=== PATIENT | female | born 1950 | race African-American/Black ===

== ENCOUNTER 2023-09-15 10:10 | Outpatient (CLI) | payer MEDICARE, OTHER, SELFPAY ==
[2023-09-15 10:17] VITALS: BMI 23.0
[2023-09-15 10:53] LABS: Hematocrit 26.2 % (37.0-47.0); Hemoglobin 8.3 g/dL (12.2-16.2)
--- NOTE | 2023-09-15 11:15 | PC.NURSE ---
H&H drawn today was 8.3 and 26.2. Jyotsna Solorzano APRN was called. Telephone order to cancel transfusion and transport via EMS back to [facility]. [facility] called for transport.
[2023-09-15 11:17] VITALS: BP 189/99; PULSE 102; RESP 18; TEMP 37.4; O2SAT 99
== END 2023-09-15 11:40 | disposition home or self-care (01) ==
PROVIDERS: Nurse Practitioner Family; PCP Family Medicine; Visit Provider Family Medicine
DX: N39.0 Urinary tract infection, site not specified (principal)
CPT/HCPCS: 85014; 85018

== ENCOUNTER 2023-09-16 07:24 | Inpatient (IN) | payer MEDICARE, OTHER, SELFPAY ==
[2023-09-16] VITALS (26 sets, daily range): BP systolic 104–262; BP diastolic 50–117; PULSE 71–131; RESP 13–20; TEMP 36.8–37.2; O2SAT 95–100; BMI 27.3; BMI 20.9; BMI 20.7
--- NOTE | 2023-09-16 07:35 | XR_ITS ---
FINAL REPORT CLINICAL HISTORY: Shortness of breath COMPARISON: None FINDINGS: A single portable view of the chest was obtained. The heart size and pulmonary vascularity are within normal limits. The mediastinum is within normal limits. No acute pulmonary abnormality is identified. The bony thorax is intact. IMPRESSION: No active cardiopulmonary disease. Reviewed, Interpreted and Dictated by Baljeet Chavez III, MD Transcribed by Chaya Gupta Authenticated and [facility]
--- NOTE | 2023-09-16 07:43 | CT_ITS ---
FINAL REPORT TECHNIQUE: After the administration of oral and intravenous contrast, axial images were obtained through the abdomen and pelvis by computed tomography. The study was performed with techniques to keep radiation dose as low as reasonably achievable, (ALARA). Individual dose reduction techniques using automated exposure control or adjustment of mA and/or kV according to the patient's size were employed. CLINICAL HISTORY: sepsis, stage IV sacral decub with purulence FINDINGS: Abdomen: There are small effusions with mild bibasilar atelectasis. G-tube is present. The liver is normal in size and attenuation. The spleen is unremarkable. The adrenals are normal. The pancreas is unremarkable. The kidneys enhance appropriately. The aorta is normal in caliber. There is no free fluid or adenopathy. Pelvis: The appendix is normal. Note is made of a Rodriguez catheter. There is a moderate to large amount of stool in the rectum worrisome for fecal impaction. Rectum measures up to 8.1 cm in transverse dimension. Calcified uterine fibroid is identified. There is possible fluid in the endometrial cavity. There is a decubitus ulcer overlying the mid and distal sacrum. No definite bony erosion is seen to suggest osteomyelitis. There is soft tissue air in this region. No well-defined fluid collection is identified to suggest an abscess. There is presacral edema. Note is made of mild anasarca. There is no free fluid or adenopathy. IMPRESSION: Decubitus ulcer overlying the mid and distal sacrum without evidence of osteomyelitis or abscess. Fecal impaction. Reviewed, Interpreted and Dictated by Baljeet Chavez III, MD Transcribed by Miya Samson Authenticated and [facility]
--- NOTE | 2023-09-16 07:45 | ED_ITS ---
Discharge Plan Disposition Patient Disposition: Admitted Prescriptions Prescriptions: No Action Dulera 200-5 mcg/actuation HFA aerosol inhaler 2 puff INHALATION BID albuterol sulfate 1.25 mg/3 mL solution for nebulization 1.25 mg INHALATION QID PRN carvedilol [Coreg] 25 mg tablet 25 mg PO BID Qty: 60 5RF Rx Instructions: give with food (meal/snack) apixaban 5 mg tablet 5 mg PO BID hydralazine 50 mg tablet 50 mg PO TID pantoprazole 40 mg tablet,delayed release (DR/EC) 40 mg PO DAILY aspirin 81 mg tablet,delayed release (DR/EC) 81 mg PO DAILY Clinical Impressions Clinical Impression: Sepsis, Cellulitis of arm, right, Acute UTI, Sacral decubitus ulcer, stage IV, Anemia, Hypertensive emergency Discharge ED Provider: Carri Correa General Adult HPI General Chief complaint: Recheck/Abnormal Lab/Rx Stated complaint: HTN Time Seen by Provider: 09/16/23 07:26 History of Present Illness HPI narrative: Patient is a 72-year-old female presenting today with hypertension from [facility]. Patient is nonverbal and unable to provide history therefore history is limited. Only other information provided by EMS is that she was tachycardic. She has indwelling Rodriguez catheter for unknown reasons. Do not know her baseline processes at this point. Related Data Home Medications Medication Instructions Recorded Confirmed albuterol sulfate 1.25 mg/3 mL 1.25 mg inhalation QID PRN 04/15/18 08/24/23 solution for nebulization mometasone-formoterol HFA 200 2 puff inhalation BID 04/15/18 08/24/23 mcg-5 mcg/actuation aerosol inhaler (Dulera) apixaban 5 mg tablet 5 mg PO BID 08/24/23 08/24/23 aspirin 81 mg tablet,delayed 81 mg PO DAILY 08/24/23 08/24/23 release hydralazine 50 mg tablet 50 mg PO TID 08/24/23 08/24/23 pantoprazole 40 mg tablet,delayed 40 mg PO DAILY 08/24/23 08/24/23 release Previous Rx's Medication Instructions Recorded carvedilol 25 mg tablet (Coreg) 25 mg PO BID #60 tabs 04/15/18 Allergies Allergy/AdvReac Type Severity Reaction Status Date / Time hydralazine AdvReac Verified 08/24/23 14:52 lisinopril AdvReac Verified 08/24/23 14:52 Sulfa (Sulfonamide AdvReac Verified 08/24/23 14:52 Antibiotics) [facility] Disclaimer: The information contained in this section may have been updated after the patient was seen, as this information can be updated by other users. Medical History (Updated 09/16/23 @ 09:17 by Carri Correa MD) MALIK (acute kidney injury) Brain compression Cerebral edema DM (diabetes mellitus) Dysphagia Encounter for feeding tube placement Gastroesophageal reflux disease HHD (hypertensive heart disease) HLD (hyperlipidemia) Hypokalemia Hyponatremia Pressure ulcer Stroke Structural encephalopathy Social History (Updated 08/24/23 @ 14:49 by Savi Wilson) Smoking Status: Never smoker alcohol intake: never substance use type: denies use current occupational status: disabled Travel in the last 8 weeks: None ROS Obtained: Yes All systems reviewed & no additional complaints except as documented Physical Exam General General appearance: alert (Nonverbal no distress) Respiratory Respiratory exam: Present normal lung sounds bilaterally Cardiovascular Cardiovascular exam: Present tachycardia (Heart rate 125 on my exam) Abdominal Exam Abdominal exam: Present soft; Absent distention or tenderness Rectal Exam Rectal exam: Present other (There is a stage IV sacral decubitus ulcer with purulent drainage that is foul-smelling involving subcutaneous fat muscle and fascia no definitive tunneling to bone) Extremities Exam Extremities exam: Present other (Right upper extremity is swollen erythematous and warm to the touch) Neurological Exam Neurological exam: Present alert (Nonverbal unable to interact. Moving all extremities) Skin Skin exam: Present other Medical Decision Making Rafita Inquiry Pt receiving controlled substance: No Rafita was queried for this patient: No Vital Signs: 09/16/23 07:24 09/16/23 07:51 09/16/23 08:25 Temperature 98.9 F Temperature Source Rectal Pulse Rate 121 H 131 H Pulse Rate [Left] 124 H Respiratory Rate 18 18 18 Blood Pressure 229/104 H 262/117 H Blood Pressure [Left Arm] 229/104 H Blood Pressure Mean 140 166 Blood Pressure Mean [Left Arm] 145 Blood Pressure Source [Left Arm] Automatic Cuff Blood Pressure Position [Left Arm] Sitting 02 Sat by Pulse Oximetry 97 99 99 Oxygen Delivery Method Room Air 09/16/23 08:31 02/15/24 09:06 Temperature Temperature Source Pulse Rate 127 H 122 H Pulse Rate [Left] Respiratory Rate 13 18 Blood Pressure 258/113 H 233/108 H Blood Pressure [Left Arm] Blood Pressure Mean Blood Pressure Mean [Left Arm] Blood Pressure Source [Left Arm] Blood Pressure Position [Left Arm] 02 Sat by Pulse Oximetry 99 99 Oxygen Delivery Method Room Air Room Air Lab Data Lab results reviewed: Yes I reviewed the patient's lab results. Lab Results 09/16/23 07:54: Urine Color Yellow, Urine Appearance Clear, Urine pH 8.5, Ur Specific [place] 1.010, Urine Protein 1+, Urine Glucose (UA) 1+, Urine Ketones Negative, Urine Blood 2+, Urine Nitrate Negative, Urine Bilirubin Negative, Urine Urobilinogen 2.0, Ur Leukocyte Esterase 2+ A, Urine RBC 3-5, Urine WBC 10- 20, Ur Squamous Epith Cells 3-5, Urine Bacteria Trace 09/16/23 08:00: WBC 12.5 H, RBC 3.00 L, Hgb 8.6 L, Hct 26.2 L, MCV 87.5, MCH 28.6, MCHC 32.7, RDW 17.4, Plt Count 814 H, MPV 7.8, Neut % (Auto) 81.9 H, Lymph % (Auto) 11.9, [place] % (Auto) 4.8, Eos % (Auto) 1.0, Baso % (Auto) 0.4, Neut # (Auto) 10.3 H, Lymph # (Auto) 1.5, [place] # (Auto) 0.6, Eos # (Auto) 0.1, Baso # (Auto) 0.1, Sodium 139, Potassium 3.7, Chloride 102, Carbon Dioxide 34 H, Anion Gap 6.7, BUN 18 H, Creatinine 0.50 L, Estimated Creat Clear 50, Estimated GFR 121, Est GFR ( Amer) 146, Glucose 195 H, Lactate 0.7, Calcium 8.8, Total Bilirubin 0.3, AST 36, ALT 63, Alkaline Phosphatase 106, Total Creatine Kinase 80, Troponin I < 0.01, Total Protein 7.2, Albumin 3.4 L, Globulin 3.8 H, Albumin/Globulin Ratio 0.9 L, SARS-CoV-2 (PCR) Not detected, Influenza A Untype (PCR) Not detected, Influenza Type B (PCR) Not detected 09/16/23 08:00 09/16/23 08:00 Orders (Tests/Meds): ED MEDICATIONS Generic Name Dose Route Start Last Admin Trade Name Freq PRN Reason Stop Dose Admin Vancomycin/PEG/NADA/Lysine/Water 1.25 gm in 250 mls @ 125 mls/hr 09/16/23 08:15 09/16/23 09:06 Vancomycin 1.25gm/250ml (Peg) Premix IV 09/16/23 10:14 125 mls/hr ONCE ONE Administration Nicardipine HCl 25 mg/ Sodium 250 mls @ 50 mls/hr 09/16/23 08:39 Chloride IV 10/16/23 08:38 .Q5H SHAYAN Protocol Discontinued Medications Generic Name Dose Route Start Last Admin Trade Name Freq PRN Reason Stop Dose Admin Lactated Ringer's 1,000 mls @ 999 mls/hr 09/16/23 07:45 09/16/23 08:09 Lactated Ringer's 1000 Ml Bag IV 09/16/23 08:45 999 mls/hr .Q1H1M SHAYAN Administration Cefepime HCl 2 gm/ Sodium 100 mls @ 200 mls/hr 09/16/23 07:35 09/16/23 08:11 Chloride IV 09/16/23 08:04 200 mls/hr ONCE ONE Administration Metronidazole 500 mg in 100 mls @ 100 mls/hr 09/16/23 07:35 09/16/23 08:31 Flagyl 500mg/100ml Ivpb IV 09/16/23 08:34 100 mls/hr ONCE ONE Administration Iopamidol 75 ml 09/16/23 09:00 09/16/23 09:00 Iopamidol-370 (76%);100ml Bottle IV 09/16/23 09:01 75 ml ONCE ONE Administration Miscellaneous 1 each 09/16/23 07:45 Vancomycin Consult Request NOTAPPLIC 10/16/23 07:44 CONSULT PHARMACY [facility] Sodium Chloride 10 ml 09/16/23 09:00 09/16/23 09:00 Sodium Chloride 0.9% 10ml Syr (Rad Only) IV 09/16/23 09:01 10 ml ONCE ONE Administration ORDERS Category Date Time Status CT abdomen pelvis w con Stat Cat Scan 09/16/23 07:43 Taken CXR --portable [XR chest portable] Stat Exams 09/16/23 07:35 Taken CBC w/Auto Diff [Complete Blood Count Auto Diff] Stat Lab 09/16/23 08:00 Completed CK [Creatine Kinase] Stat Lab 09/16/23 08:00 Completed CMP [Comprehensive Metabolic Panel] Stat Lab 09/16/23 08:00 Completed Lactic Acid Stat Lab 09/16/23 08:00 Completed Rapid PCR Covid and Flu A/B Stat Lab 09/16/23 08:00 Completed Trop I [Troponin I] Stat Lab 09/16/23 08:00 Completed Troponin I Q3H Lab 09/16/23 10:45 Ordered Troponin I Q3H Lab 09/16/23 13:45 Ordered UA [Urinalysis and Microscopic] Stat Lab 09/16/23 07:54 Completed Urine Culture Stat Micro 09/16/23 07:54 Received Wound Culture and Gram Stain Stat Micro 09/16/23 07:35 Received ECG Data Tracing #1: I reviewed this ECG and interpreted as documented below: Ventricular rate of 120 no acute ischemic changes noted there is normal axis no conduction abnormalities Tissue Perfus/Sepsis Re-Eval Sepsis Re-Evaluation Performed: Yes Date Performed: 09/16/23 Time Performed: 09:16 Medical Decision Narrative: Patient is a 72-year-old female presents today with tachycardia evidence of opaque and what appears to be purulent urine right upper extremity cellulitis and a stage IV decubitus ulcer which is actively draining purulence. Therefore she has multiple sites of possible infection. She will be given broad-spectrum antibiotics including vancomycin cefepime and Flagyl. Decubitus ulcer has been cultured. I also will get a contrasted CT scan of the abdomen pelvis to see if there is any pelvic involvement specifically of this wound as I cannot see the depth of the tunneling and is possible that patient has osteomyelitis or deep space abscess etc. Urinalysis will be sent after Rodriguez has been replaced. IV fluids initiated. CT scan performed to person interpreted which shows no deep space infection or osteomyelitis awaiting formal radiology read. Patient tachycardic and has leukocytosis this is consistent with sepsis IV fluids administered. Patient profoundly hypertensive given her nonverbal state cannot determine whether or not she clinically has symptoms or signs of endorgan damage so we will go ahead and treat as hypertensive emergency Cardene drip has been initiated. He was anemic this appears to be chronic. Otherwise unremarkable labs. Patient was admitted to hospital medicine after I spoke with Dr. Hampton for further evaluation and treatment. Critical Care Critical Care Time Critical Care Time: Yes Attestation: On 09/16/23, the high probability of a clinically significant, sudden or life threatening deterioration of the following system(s) required my full and direct attention, intervention and personal management. The time I documented below is in addition to time spent performing reported procedures but includes the following listed in this critical care notation. Total Time Total Critical Care Time: 65
[2023-09-16 07:56] LABS: Microscopic, Urine URINE MICROSCOPIC (MICROSCOPIC)
--- NOTE | 2023-09-16 08:05 | ECG_ITS ---
APPROVED REPORT Exam: Resting ECG HR:120 bpm ECG Measurements Heart Rate 120 AXES ND 144 P 71 QRSd 88 QRS 57 QT 305 T 59 QTc 377 Conclusion SINUS TACHYCARDIA LEFT VENTRICULAR HYPERTROPHY AND ST-T CHANGE [VOLTAGE CRITERIA PLUS ST/T ABNORMALITY] ABNORMAL ECG UNCONFIRMED REPORT Electronically signed by : Yair Smith MD 09/16/2023 19:57:30
[2023-09-16 08:08] LABS: Coronavirus 19, PCR Not Detected (NotDetected); Influenza A, PCR Not Detected (NotDetected); Influenza B, PCR Not Detected (NotDetected)
[2023-09-16] MEDS: LACTATED RINGERS 1000ML 1,000 ML 999 ML IV (08:09)
[2023-09-16 08:10] LABS: Appearance,Urine CLEAR (Clear); Bilirubin,Urine Negative (Negative); Blood, Urine 2+ (Negative); Color,Urine YELLOW (Yellow); Glucose,Urine (UA) 1+ (Negative); Ketones,Urine Negative (Negative); Leukocyte Esterase,Urine 2+ (Negative); Nitrate,Urine Negative (Negative); PH,Urine 8.5 (5.0-8.5); Protein,Urine 1+ (Negative)
[2023-09-16] MEDS: CEFEPIME HCL 2 GM in 0.9 % SODIUM CHLORIDE 100 ML IV (08:11)
[2023-09-16 08:16] LABS: Bacteria,Urine Trace /lpf
[2023-09-16 08:16] LABS: Chloride 102 mmol/L (98-107); Sodium 139 mmol/L (136-145)
[2023-09-16 08:17] LABS: Potassium 3.7 mmoL/L (3.5-5.1)
[2023-09-16 08:19] LABS: Alanine Aminotransferase 63 U/L (12-78); Alkaline Phosphatase 106 U/L (38-126); Anion Gap 6.7 mEq/L (5-15); Aspartate Amino Transferase 36 U/L (14-36); Bilirubin,Total 0.3 mg/dl (0.2-1.3); Blood Urea Nitrogen 18 mg/dl (7-17); Carbon Dioxide 34 mmol/L (22.0-30.0); Creatine Kinase 80 U/L (30-135); Creatinine Clearance Estimated 50 mL/min (50-200); Estimated Glomerular Filt Rate 121 ml/min (>60); GFR (African American) 146 ML/MIN (>60); Lactic Acid 0.7 mmol/L (0.7-2.1)
[2023-09-16 08:20] LABS: Albumin Level 3.4 g/dl (3.5-5.0); Albumin/Globulin Ratio 0.9 (1.1-1.8); Calcium 8.8 mg/dl (8.4-10.2); Globulin 3.8 g/dL (1.3-3.2); Glucose 195 mg/dl (74-100); Total Protein,Serum 7.2 g/dl (6.3-8.2)
--- NOTE | 2023-09-16 08:26 | PC.NURSE ---
Pt cleaned up from bowel movement. Pt repositioned in bed for comfort. Call light within reach.
[2023-09-16 08:30] LABS: Basophils # 0.1 K/mm3 (0-0.2); Basophils % 0.4 % (0.1-2.0); Eosinophils # 0.1 K/mm3 (0.0-0.4); Hematocrit 26.2 % (37.0-47.0); Hemoglobin 8.6 g/dL (12.2-16.2); Lymphocytes # 1.5 K/mm3 (0.7-4.5); Lymphocytes % 11.9 % (10-50); Mean Corpuscular HGB Conc 32.7 g/dL (31.8-35.4); Mean Corpuscular Hemoglobin 28.6 pg (27.0-31.2); Mean Corpuscular Volume 87.5 fl (81-99); Mean Platelet Volume 7.8 fl (7.4-10.4); Monocytes # 0.6 K/mm3 (0.1-1.0); Monocytes % 4.8 % (1.7-9.3); Neutrophils # 10.3 K/mm3 (1.8-7.8); Neutrophils % 81.9 % (37.0-80.0); Platelet Count 814 K/mm3 (142-424); Red Cell Distribution Width 17.4 % (11.5-17.5); White Blood Count 12.5 K/mm3 (4.8-10.8)
--- NOTE | 2023-09-16 08:30 | PC.NURSE ---
Manual BP: 250/130
[2023-09-16] MEDS: METRONIDAZ/SOD CHL 500 MG/100 ML PIGGYBACK 100 MG IV (08:31)
[2023-09-16 08:32] LABS: Troponin I < 0.01 ng/ml (0.00-0.034)
--- NOTE | 2023-09-16 08:53 | PC.NURSE ---
Pt gone to RAD via stretcher
[2023-09-16] MEDS: IOPAMIDOL-370 (76%);100ML BOTTLE 75 ML IV (09:00)
[2023-09-16] MEDS: SODIUM CHLORIDE 0.9% 10ML SYR (RAD ONLY) 10 ML IV (09:00)
--- NOTE | 2023-09-16 09:03 | PC.NURSE ---
Pt returned from RAD
[2023-09-16] MEDS: VANCOMYCIN/WATER FOR INJ (PEG) 1.25 GM/250 ML PIGGYBACK IV (09:06)
--- NOTE | 2023-09-16 09:13 | PC.NURSE ---
Dr Correa speaking to hospitalist
[2023-09-16] MEDS: NICARDIPINE HCL 25 MG in 0.9 % SODIUM CHLORIDE 240 ML 50 MG IV ×2 (09:29→11:35)
[2023-09-16] MEDS: VANCOMYCIN CONSULT REQUEST 1 EACH NOTAPPLIC (09:30)
--- NOTE | 2023-09-16 10:15 | EXP.PHA.CONS ---
Pharmacy Consult Date: 09/16/23 Time: 10:18 Referring provider: DR CASTRO Reason for Consult:: VANCOMYCIN DOSING CONSULT Allergies Allergy/AdvReac Type Severity Reaction Status Date / Time hydralazine AdvReac Verified 08/24/23 14:52 lisinopril AdvReac Verified 08/24/23 14:52 Sulfa (Sulfonamide AdvReac Verified 08/24/23 14:52 Antibiotics) Home Medications Medication Instructions Recorded Confirmed Type albuterol sulfate 1.25 mg/3 mL 1.25 mg inhalation QID PRN 04/15/18 08/24/23 History solution for nebulization carvedilol 25 mg tablet (Coreg) 25 mg PO BID #60 tabs 04/15/18 08/24/23 Rx mometasone-formoterol HFA 200 2 puff inhalation BID 04/15/18 08/24/23 History mcg-5 mcg/actuation aerosol inhaler (Dulera) apixaban 5 mg tablet 5 mg PO BID 08/24/23 08/24/23 History aspirin 81 mg tablet,delayed 81 mg PO DAILY 08/24/23 08/24/23 History release hydralazine 50 mg tablet 50 mg PO TID 08/24/23 08/24/23 History pantoprazole 40 mg tablet,delayed 40 mg PO DAILY 08/24/23 08/24/23 History release New Prescriptions to Start Prescriptions: Height: 1.52 m Weight: 63.503 kg Laboratory Results:: Laboratory Results - last 24 hr 09/16/23 07:54: Urine Color Yellow, Urine Appearance Clear, Urine pH 8.5, Ur Specific [place] 1.010, Urine Protein 1+, Urine Glucose (UA) 1+, Urine Ketones Negative, Urine Blood 2+, Urine Nitrate Negative, Urine Bilirubin Negative, Urine Urobilinogen 2.0, Ur Leukocyte Esterase 2+ A, Urine RBC 3-5, Urine WBC 10-20, Ur Squamous Epith Cells 3-5, Urine Bacteria Trace 09/16/23 08:00: WBC 12.5 H, RBC 3.00 L, Hgb 8.6 L, Hct 26.2 L, MCV 87.5, MCH 28.6, MCHC 32.7, RDW 17.4, Plt Count 814 H, MPV 7.8, Neut % (Auto) 81.9 H, Lymph % (Auto) 11.9, [place] % (Auto) 4.8, Eos % (Auto) 1.0, Baso % (Auto) 0.4, Neut # (Auto) 10.3 H, Lymph # (Auto) 1.5, [place] # (Auto) 0.6, Eos # (Auto) 0.1, Baso # (Auto) 0.1, Sodium 139, Potassium 3.7, Chloride 102, Carbon Dioxide 34 H, Anion Gap 6.7, BUN 18 H, Creatinine 0.50 L, Estimated Creat Clear 50, Estimated GFR 121, Est GFR ( Amer) 146, Glucose 195 H, Lactate 0.7, Calcium 8.8, Total Bilirubin 0.3, AST 36, ALT 63, Alkaline Phosphatase 106, Total Creatine Kinase 80, Troponin I < 0.01, Total Protein 7.2, Albumin 3.4 L, Globulin 3.8 H, Albumin/Globulin Ratio 0.9 L, SARS-CoV-2 (PCR) Not detected, Influenza A Untype (PCR) Not detected, Influenza Type B (PCR) Not detected Medical History: Medical History (Updated 09/16/23 @ 09:17 by Carri Correa MD) MALIK (acute kidney injury) Brain compression Cerebral edema DM (diabetes mellitus) Dysphagia Encounter for feeding tube placement Gastroesophageal reflux disease HHD (hypertensive heart disease) HLD (hyperlipidemia) Hypokalemia Hyponatremia Pressure ulcer Stroke Structural encephalopathy Assessment and Plan Assessment and plan all Dx Assessment and Plan for all problems:: Pharmacokinetic dosing service Objective: Age: 72 yo Serum creatinine: 1 mg/dL Height: 60.0 Inches Weight (kg): 63.503 Diagnosis: SEPSIS, UTI, DECUBITIS ULCER Assessment: IBW (kg): 45.50 Dosing wt(kg): 63.503 Estimated Creatinine clearance (ml/min): 36.0 CRCL method: Cockcroft and Gault using ibw(default). Drug selected: Vancomycin Loading dose (mg): 1250 MG Vd (liters): 41.3 (factor used: 0.65 L/kg) Syed (hr-1): 0.034 Half life (hrs): 20.39 CLvanco=?? 1.404 L/hr Recommended dose: 750 mg Interval: 24 hrs Infusion time (hrs): 2.0 Predicted peak (mcg/mL): 31.5 Predicted trough (mcg/mL): 14.91 Total body weight is being used for vancomycin dosing. Recommendations: Give Vancomycin 750 mg q 24 hrs with an expected Cpeak of 31.5 mcg/ml and an expected Ctrough of 14.91 mcg/ml TO START 09/17/23 AT 09:00, LOADING DOSE OF VANCOMYCIN 1250 MG IV GIVEN IN ED 09/16/23 AT 09:06. AUC 0-24 /LIGIA Data: LIGIA 0.5 mcg/mL:?? AUC/LIGIA:? 1068.4 LIGIA 1.0 mcg/mL:?? AUC/LIGIA:? 534.2 --------- LIGIA 1.5 mcg/mL:?? AUC/LIGIA:? 356.1 LIGIA 2.0 mcg/mL:?? AUC/LIGIA:? 267.1 Thank you for the consult
--- NOTE | 2023-09-16 11:01 | SW/DCPLANNER ---
Addendum entered by Minerva Joya 09/17/23 11:17: I have updated Sabina that patient will be ready for discharge later today or tomorrow. Original Note: This patient currently resides at [facility] level of care. I will continue to follow up w/ Sabina at [facility] until medically stable for discharge. Discharge date is unknown at this time.
--- NOTE | 2023-09-16 11:04 | PC.NURSE ---
received report from Wanda DE LOS SANTOS
--- NOTE | 2023-09-16 11:35 | PC.NURSE ---
pt arrived to the floor via stretcher.
--- NOTE | 2023-09-16 11:53 | PC.NURSE ---
increased cardene drip to 10mg/hr due to BP 195/85. heartrate 119. verified with Zeny DE LOS SANTOS
[2023-09-16] MEDS: HEPARIN SODIUM 5,000 UNIT/ML VIAL 5000 UNIT SQ ×2 (12:32→21:11)
[2023-09-16 13:00] LABS: Lactic Acid 0.9 mmol/L (0.7-2.1)
[2023-09-16] MEDS: NICARDIPINE HCL 25 MG in 0.9 % SODIUM CHLORIDE 240 ML 125 MG IV (13:29)
--- NOTE | 2023-09-16 13:36 | HMH.PHAINT1 ---
Pharmacy Intervention Comments: HOME MEDICATION LIST VERIFIED USING LIST FROM OUTPATIENT PHARMACY LIST
[2023-09-16 14:01] LABS: Troponin I < 0.01 ng/ml (0.00-0.034)
--- NOTE | 2023-09-16 14:53 | DIET.NUTRFU ---
RD consulted for TF. Patient admitted from with sepsis. Spoke to [facility] nurse and patient just admitted to them in August, with new PEG. She has been tolerating TF and wt has been stable. She is under palliative care at [facility]. Has a kidney ulcer, their last measurement were 3.9x7.4x0.5. She is at increased risk for skin breakdown with ibis score of 11. At group home patient is receiving Diabeticsource AC 1.2 at 77ml/hr ATC providing 2218kcal/110gm protein and 2162ml fluid/day. This exceeds needs, nutritional needs are 1600-1800kcal, 40-45gm protein and 1750ml/day. Ordered TF to start at 30ml/hr and inacrese to goal rate of 77ml/day at tolerated. TF rate should be increased Q4H is tolerating.
--- NOTE | 2023-09-16 14:57 | PC.WOUNDNOTE ---
[id number] stage 4 decubitus ulcer noted to coccyx
--- NOTE | 2023-09-16 15:18 | EXP.SURG.CON ---
History of Present Illness *Admission Date: 09/16/23 *Reason for visit:: Sacral decubitus *History of present illness: This is a 72-year-old female seen in consultation from the Hospitalist Service for evaluation regarding sacral decubitus ulceration. She was evaluated in the emergency department earlier today secondary to hypertension and tachycardia. Evaluation revealed a leukocytosis with white blood cell count of 12.5, urinary tract infection, and sacral decubitus ulceration. A CT scan emergency department revealed no evidence of osteomyelitis or abscess. [facility] Disclaimer: The information contained in this section may have been updated after the patient was seen, as this information can be updated by other users. Medical History MALIK (acute kidney injury) Brain compression Cerebral edema DM (diabetes mellitus) Dysphagia Encounter for feeding tube placement Gastroesophageal reflux disease HHD (hypertensive heart disease) HLD (hyperlipidemia) Hypokalemia Hyponatremia Pressure ulcer Stroke Structural encephalopathy Social History (Updated 09/16/23 @ 13:06 by Ale Schmitz RN) Smoking Status: Never smoker alcohol intake: never substance use type: denies use current occupational status: disabled Travel in the last 8 weeks: None Meds Home Medications and Allergies Home Medications Medication Instructions Recorded Confirmed Type albuterol sulfate 1.25 mg/3 mL 1.25 mg inhalation QID PRN Wheezing 04/15/18 09/16/23 History solution for nebulization carvedilol 25 mg tablet (Coreg) 25 mg PO BID #60 tabs 04/15/18 09/16/23 Rx mometasone-formoterol HFA 200 2 puff inhalation BID 04/15/18 09/16/23 History mcg-5 mcg/actuation aerosol inhaler (Dulera) apixaban 5 mg tablet 5 mg PO BID 08/24/23 09/16/23 History aspirin 81 mg tablet,delayed 81 mg PO DAILY 08/24/23 09/16/23 History release hydralazine 50 mg tablet 50 mg PO TID 08/24/23 09/16/23 History pantoprazole 40 mg tablet,delayed 40 mg PO DAILY 08/24/23 09/16/23 History release diltiazem HCl 60 mg tablet 60 mg feeding tube QID 09/16/23 09/16/23 History hydrocodone 5 mg-acetaminophen 325 5 tab feeding tube TID 09/16/23 09/16/23 History mg tablet lisinopril 40 mg tablet 40 mg feeding tube DAILY 09/16/23 09/16/23 History New Prescriptions to Start Prescriptions: Allergies Allergy/AdvReac Type Severity Reaction Status Date / Time hydralazine AdvReac Verified 08/24/23 14:52 lisinopril AdvReac Verified 08/24/23 14:52 Sulfa (Sulfonamide AdvReac Verified 08/24/23 14:52 Antibiotics) Exam (Inpt) Vital signs and Labs for Last 24 Hours: Temp Pulse Resp BP Pulse Ox O2 Del Method 98.3 F 120 H 18 180/66 H 96 Room Air 09/16/23 12:12 09/16/23 14:00 09/16/23 14:00 09/16/23 14:00 09/16/23 14:00 09/16/23 14:00 Laboratory Results - last 24 hr 09/16/23 07:54: Urine Color Yellow, Urine Appearance Clear, Urine pH 8.5, Ur Specific [place] 1.010, Urine Protein 1+, Urine Glucose (UA) 1+, Urine Ketones Negative, Urine Blood 2+, Urine Nitrate Negative, Urine Bilirubin Negative, Urine Urobilinogen 2.0, Ur Leukocyte Esterase 2+ A, Urine RBC 3-5, Urine WBC 10-20, Ur Squamous Epith Cells 3-5, Urine Bacteria Trace 09/16/23 08:00: WBC 12.5 H, RBC 3.00 L, Hgb 8.6 L, Hct 26.2 L, MCV 87.5, MCH 28.6, MCHC 32.7, RDW 17.4, Plt Count 814 H, MPV 7.8, Neut % (Auto) 81.9 H, Lymph % (Auto) 11.9, [place] % (Auto) 4.8, Eos % (Auto) 1.0, Baso % (Auto) 0.4, Neut # (Auto) 10.3 H, Lymph # (Auto) 1.5, [place] # (Auto) 0.6, Eos # (Auto) 0.1, Baso # (Auto) 0.1, Sodium 139, Potassium 3.7, Chloride 102, Carbon Dioxide 34 H, Anion Gap 6.7, BUN 18 H, Creatinine 0.50 L, Estimated Creat Clear 50, Estimated GFR 121, Est GFR ( Amer) 146, Glucose 195 H, Lactate 0.7, Calcium 8.8, Total Bilirubin 0.3, AST 36, ALT 63, Alkaline Phosphatase 106, Total Creatine Kinase 80, Troponin I < 0.01, Total Protein 7.2, Albumin 3.4 L, Globulin 3.8 H, Albumin/Globulin Ratio 0.9 L, SARS-CoV-2 (PCR) Not detected, Influenza A Untype (PCR) Not detected, Influenza Type B (PCR) Not detected 09/16/23 11:30: Troponin I < 0.01 09/16/23 12:30: Lactate 0.9 I & O for Labs for Last 24 Hours: Intake & Output 09/14/23 09/15/23 09/16/23 09/17/23 11:59 11:59 11:59 11:59 Intake Total 130.417 / 130.417 Output Total 750 / 750 Balance -619.583 / -619.583 Weight 140 lb 129 lb 5.876 oz Constitutional: no acute distress Cardiac: Present Tachycardia Skin: Present wounds Comment:: Complex sacral decubitus ulceration that progresses to bony margin (left side of wound). Currently without evidence of ongoing purulent drainage. No cellulitis. Circumferential discoloration consistent with hemosiderin deposition versus superficial/developing necrosis. Few patchy areas of necrotic slough noted. Results Labs 09/16/23 08:00 09/16/23 08:00 Labs: Laboratory Results - last 24 hr 09/16/23 07:54: Urine Color Yellow, Urine Appearance Clear, Urine pH 8.5, Ur Specific [place] 1.010, Urine Protein 1+, Urine Glucose (UA) 1+, Urine Ketones Negative, Urine Blood 2+, Urine Nitrate Negative, Urine Bilirubin Negative, Urine Urobilinogen 2.0, Ur Leukocyte Esterase 2+ A, Urine RBC 3-5, Urine WBC 10-20, Ur Squamous Epith Cells 3-5, Urine Bacteria Trace 09/16/23 08:00: WBC 12.5 H, RBC 3.00 L, Hgb 8.6 L, Hct 26.2 L, MCV 87.5, MCH 28.6, MCHC 32.7, RDW 17.4, Plt Count 814 H, MPV 7.8, Neut % (Auto) 81.9 H, Lymph % (Auto) 11.9, [place] % (Auto) 4.8, Eos % (Auto) 1.0, Baso % (Auto) 0.4, Neut # (Auto) 10.3 H, Lymph # (Auto) 1.5, [place] # (Auto) 0.6, Eos # (Auto) 0.1, Baso # (Auto) 0.1, Sodium 139, Potassium 3.7, Chloride 102, Carbon Dioxide 34 H, Anion Gap 6.7, BUN 18 H, Creatinine 0.50 L, Estimated Creat Clear 50, Estimated GFR 121, Est GFR ( Amer) 146, Glucose 195 H, Lactate 0.7, Calcium 8.8, Total Bilirubin 0.3, AST 36, ALT 63, Alkaline Phosphatase 106, Total Creatine Kinase 80, Troponin I < 0.01, Total Protein 7.2, Albumin 3.4 L, Globulin 3.8 H, Albumin/Globulin Ratio 0.9 L, SARS-CoV-2 (PCR) Not detected, Influenza A Untype (PCR) Not detected, Influenza Type B (PCR) Not detected 09/16/23 11:30: Troponin I < 0.01 09/16/23 12:30: Lactate 0.9 Assessment and Plan *Assessment and plan (1) Sacral decubitus ulcer, stage IV: Status: Acute Category: Medical Code(s): L89.154 - Pressure ulcer of sacral region, stage 4 Plan: Complex sacral decubitus ulceration with a few small areas of focal necrotic sloughing. No evidence of active purulent drainage and no evidence of spreading cellulitis. Tiny area of necrotic slough margin removed at bedside. Hemosiderin deposition versus superficial developing circumferential necrosis at skin margin noted. Pressure relief at all times Serial exams No current need for extensive debridement; however, this may be warranted in the near future
[2023-09-16] MEDS: NICARDIPINE HCL 25 MG in 0.9 % SODIUM CHLORIDE 240 ML 150 MG IV (15:39)
--- NOTE | 2023-09-16 15:45 | PC.NURSE ---
STARTED TUBE FEEDING AT 30ML/HR, WILL ADVANCE TOLERATED. PT TOLERATING WELL.
[2023-09-16 16:01] LABS: Troponin I < 0.01 ng/ml (0.00-0.034)
[2023-09-16] MEDS: NICARDIPINE HCL 25 MG in 0.9 % SODIUM CHLORIDE 240 ML 110 MG IV (17:27)
--- NOTE | 2023-09-16 17:57 | P.HP_ITS ---
History of Present Illness *Admission Date: 09/16/23 *Reason for visit:: tachycardia *History of present illness: Patient is a 72-year-old female who is a [facility] resident, patient do not hold conversations at baseline. patient has past medical history of diabetes mellitus type cerebral edema, hypertension hyperlipidemia. Reportedly patient was found tachycardic and was sent to the hospital for evaluation. [facility] Disclaimer: The information contained in this section may have been updated after the patient was seen, as this information can be updated by other users. Medical History MALIK (acute kidney injury) Brain compression Cerebral edema DM (diabetes mellitus) Dysphagia Encounter for feeding tube placement Gastroesophageal reflux disease HHD (hypertensive heart disease) HLD (hyperlipidemia) Hypokalemia Hyponatremia Pressure ulcer Stroke Structural encephalopathy Social History (Updated 09/16/23 @ 13:06 by Ale Schmitz RN) Smoking Status: Never smoker alcohol intake: never substance use type: denies use current occupational status: disabled Travel in the last 8 weeks: None Review of Systems Review of Systems Review of systems (narrative): as per [facility] Meds Home Medications and Allergies Home Medications Medication Instructions Recorded Confirmed Type albuterol sulfate 1.25 mg/3 mL 1.25 mg inhalation QID PRN Wheezing 04/15/18 09/16/23 History solution for nebulization carvedilol 25 mg tablet (Coreg) 25 mg PO BID #60 tabs 04/15/18 09/16/23 Rx mometasone-formoterol HFA 200 2 puff inhalation BID 04/15/18 09/16/23 History mcg-5 mcg/actuation aerosol inhaler (Dulera) apixaban 5 mg tablet 5 mg PO BID 08/24/23 09/16/23 History aspirin 81 mg tablet,delayed 81 mg PO DAILY 08/24/23 09/16/23 History release hydralazine 50 mg tablet 50 mg PO TID 08/24/23 09/16/23 History pantoprazole 40 mg tablet,delayed 40 mg PO DAILY 08/24/23 09/16/23 History release diltiazem HCl 60 mg tablet 60 mg feeding tube QID 09/16/23 09/16/23 History hydrocodone 5 mg-acetaminophen 325 5 tab feeding tube TID 09/16/23 09/16/23 History mg tablet lisinopril 40 mg tablet 40 mg feeding tube DAILY 09/16/23 09/16/23 History New Prescriptions to Start Prescriptions: Allergies Allergy/AdvReac Type Severity Reaction Status Date / Time hydralazine AdvReac Verified 08/24/23 14:52 lisinopril AdvReac Verified 08/24/23 14:52 Sulfa (Sulfonamide AdvReac Verified 08/24/23 14:52 Antibiotics) Exam Data for Last 24 hours Vital signs and Labs for Last 24 Hours: Temp Pulse Resp BP Pulse Ox O2 Del Method 98.3 F 117 H 18 150/56 H 96 Room Air 09/16/23 12:12 09/16/23 17:30 09/16/23 17:30 09/16/23 17:30 09/16/23 17:30 09/16/23 17:30 Laboratory Results - last 24 hr 09/16/23 07:54: Urine Color Yellow, Urine Appearance Clear, Urine pH 8.5, Ur Specific [place] 1.010, Urine Protein 1+, Urine Glucose (UA) 1+, Urine Ketones Negative, Urine Blood 2+, Urine Nitrate Negative, Urine Bilirubin Negative, Urine Urobilinogen 2.0, Ur Leukocyte Esterase 2+ A, Urine RBC 3-5, Urine WBC 10- 20, Ur Squamous Epith Cells 3-5, Urine Bacteria Trace 09/16/23 08:00: WBC 12.5 H, RBC 3.00 L, Hgb 8.6 L, Hct 26.2 L, MCV 87.5, MCH 28.6, MCHC 32.7, RDW 17.4, Plt Count 814 H, MPV 7.8, Neut % (Auto) 81.9 H, Lymph % (Auto) 11.9, [place] % (Auto) 4.8, Eos % (Auto) 1.0, Baso % (Auto) 0.4, Neut # (Auto) 10.3 H, Lymph # (Auto) 1.5, [place] # (Auto) 0.6, Eos # (Auto) 0.1, Baso # (Auto) 0.1, Sodium 139, Potassium 3.7, Chloride 102, Carbon Dioxide 34 H, Anion Gap 6.7, BUN 18 H, Creatinine 0.50 L, Estimated Creat Clear 50, Estimated GFR 121, Est GFR ( Amer) 146, Glucose 195 H, Lactate 0.7, Calcium 8.8, Total Bilirubin 0.3, AST 36, ALT 63, Alkaline Phosphatase 106, Total Creatine Kinase 80, Troponin I < 0.01, Total Protein 7.2, Albumin 3.4 L, Globulin 3.8 H, Albumin/Globulin Ratio 0.9 L, SARS-CoV-2 (PCR) Not detected, Influenza A Untype (PCR) Not detected, Influenza Type B (PCR) Not detected 09/16/23 11:30: Troponin I < 0.01 09/16/23 12:30: Lactate 0.9 09/16/23 15:10: Troponin I < 0.01 I & O for Last 24 hours: Intake & Output 09/13/23 09/14/23 09/15/23 09/16/23 23:59 23:59 23:59 23:59 Intake Total 380.417 / 380.417 Output Total 750 / 750 Balance -369.583 / -369.583 Weight 58.68 kg Constitutional Comments: appears weak and frail *Routine HEENT Exam Head: Present normocephalic Eye: Present EOMI and PERRL ENT: Present mucous membranes moist *Routine Neck Exam Neck: Present supple; Absent lymphadenopathy *Routine Respiratory Exam Respiratory: Present CTA bilaterally *Routine Cardiovascular Exam Cardiovascular: Present RRR *Routine Abdominal Exam Abdominal: Present soft and normoactive bowel sounds; Absent tenderness *Routine Rectal Exam Rectal:: deferred *Routine Genitalia Exam Genitalia:: deferred *Routine Extremities Exam Extremities: Absent cyanosis, clubbing or edema *Routine Skin Exam Skin: Absent rash Comments: has sacral decubitus ulcer on lower back *Routine Neurological Exam Comments: do not follow commands Assessment and Plan *Assessment and plan (1) Sepsis: Status: Acute Category: Medical Code(s): A41.9 - Sepsis, unspecified organism (2) Cellulitis of arm, right: Status: Acute Category: Medical Code(s): L03.113 - Cellulitis of right upper limb (3) Acute UTI: Status: Acute Category: Medical Code(s): N39.0 - Urinary tract infection, site not specified (4) Sacral decubitus ulcer, stage IV: Status: Acute Category: Medical Code(s): L89.154 - Pressure ulcer of sacral region, stage 4 (5) Anemia: Status: Acute Category: Medical Code(s): D64.9 - Anemia, unspecified (6) Hypertensive emergency: Status: Acute Category: Medical Code(s): I16.1 - Hypertensive emergency (7) Hypokalemia: Status: Acute Category: Medical Code(s): E87.6 - Hypokalemia (8) HHD (hypertensive heart disease): Status: Chronic Qualifiers: Heart failure presence: without heart failure Qualified Code(s): I11.9 - Hypertensive heart disease without heart failure Category: Medical Code(s): I11.9 - Hypertensive heart disease without heart failure (9) HLD (hyperlipidemia): Status: Chronic Qualifiers: Hyperlipidemia type: other hyperlipidemia Qualified Code(s): E78.4 - Other hyperlipidemia Category: Medical Code(s): E78.5 - Hyperlipidemia, unspecified (10) DM (diabetes mellitus): Status: Chronic Qualifiers: Diabetes mellitus type: type 2 Diabetes mellitus extermination inspector insulin use: without extermination inspector use Diabetes mellitus complication status: without complication Qualified Code(s): E11.9 - Type 2 diabetes mellitus without complications Category: Medical Code(s): E11.9 - Type 2 diabetes mellitus without complications (11) Gastroesophageal reflux disease: Status: Chronic Qualifiers: Esophagitis presence: without esophagitis Qualified Code(s): K21.9 - Gastro-esophageal reflux disease without esophagitis Category: Medical Code(s): K21.9 - Gastro-esophageal reflux disease without esophagitis Plan Patient is a 72-year-old female who is a [facility] resident, patient do not hold conversations at baseline. patient has past medical history of diabetes mellitus type cerebral edema, hypertension hyperlipidemia. Reportedly patient was found tachycardic and was sent to the hospital for evaluation. Sepsis present on admission Urinary tract infection Started on vancomycin, cefepime Check blood cultures Chest x-ray negative for acute cardiopulmonary process Monitor and replace electrolytes Sacral decubitus ulcers wound care General surgery consulted Uncontrolled hypertension Currently on Cardene drip, wean as tolerated Resume home Coreg, hydralazine, lisinopril, Cardizem Constipation, fecal impaction laxatives ordered Diabetes mellitus Insulin sliding scale DVT prophylaxis-on Eliquis
[2023-09-16] MEDS: ASPIRIN EC 81MG TABLET 81 MG PO (18:19)
--- NOTE | 2023-09-16 18:25 | PC.NURSE ---
NOTIFIED DR CASTRO PROTONX IS ORDERED PO AND PT DOESN'T TAKE ANYTHING BY MOUTH. ALL MEDS ADMINISTERED VIA GTUBE.
--- NOTE | 2023-09-16 18:34 | PC.NURSE ---
PT OPENS EYES WHEN HER NAME IS SPOKEN BUT IS NONVERBAL DUE TO STROKE IN AUGUST. RESPIRATIONS REGULAR AND UNLABORED. LUNG SOUNDS CLEAR THROUGHOUT. NO COUGH NOTED. NO EDEMA NOTED. PT HAS REMAINED ON TELE THROUGHOUT SHIFT. PT IS ON A CARDENE DRIP CURRENTLY AT 110ML/HR TOLERATING WELL. TITRATED PER PROTOCOL AND BP CORRESPONDENCE. PRESSURE REDUCTION MATTRESS PLACED ON BED DUE TO STAGE 4 DECUBITUS ULCER NOTED TO COCCBIJAL. PICTURES TAKEN AND ON THE CHART. PT TURNED Q2 HOURS TO PREVENT FURTHER SKIN BREAKDOWN. ACTIVE BOWEL SOUNDS HEARD IN ALL 4 QUADRANTS. SOFT AND NONTENDER ABDOMEN. HAD 1 BM THUS FAR. VOIDS PER VEGA CATH. CHRONIC CATH PLACED PRIOR TO ARRIVAL TO HOSPITAL. CHANGED IN THE ER PER ER STAFF. URINE IS CLEAR AND YELLOW. NO KINKS NOTED. URINE DRAINING FREELY INTO DRAINAGE BAG. G TUBE NOTED TO L UPPER MID ABDOMEN. TUBE FEEDING CURRENTLY RUNNING AT 30ML/HR. PT HAS REMAINED 30 DEGREES OR ABOVE. TOLERATING WELL. BED IN LOWEST POSITION. CALL LIGHT WITHIN REACH. VSS.
[2023-09-16] MEDS: NICARDIPINE HCL 25 MG in 0.9 % SODIUM CHLORIDE 240 ML 75 MG IV (20:04)
[2023-09-16 20:47] LABS: POC Glucose,Bedside 170 (70-110)
[2023-09-16] MEDS: CARVEDILOL 25MG TABLET 25 MG G-TUBE (21:09)
[2023-09-16] MEDS: APIXABAN 5MG TABLET 5 MG G-TUBE (21:09)
[2023-09-16] MEDS: HYDRALAZINE HCL 25MG TABLET 50 MG FEED TUBE (21:09)
[2023-09-16] MEDS: dilTIAZem 60MG TABLET 60 MG G-TUBE (21:11)
[2023-09-16] MEDS: humaLOG 100 UNITS/ML 3ML VIAL (SSI) SQ (21:12)
[2023-09-17] VITALS (9 sets, daily range): BP systolic 100–154; BP diastolic 49–79; PULSE 75–120; RESP 16–22; TEMP 37.3–37.7; O2SAT 99–100; BMI 20.7
--- NOTE | 2023-09-17 05:18 | PC.NURSE ---
Addendum entered by Nicole Almaraz RN 09/17/23 05:38: Pt bloop pressure starting to elevate. B[employer] notified of elevation. Stated to restart to cardene jefferson Original Note: Patient has had a good night. Will open her eyes when we move her. Patient will smile at time. Patient does have a morgan and a G tube in place. Current rate of Glucernia is 50ml/hr patient is tolerating it. Has had 2 BM this shift. Patient has been tuned every 2hrs to stay off coccyx. Patient drip was turned off at 2200. no other issues noted.
[2023-09-17] MEDS: humaLOG 100 UNITS/ML 3ML VIAL (SSI) SQ ×2 (06:20→12:36)
[2023-09-17 07:32] LABS: Chloride 107 mmol/L (98-107)
[2023-09-17 07:33] LABS: Sodium 139 mmol/L (136-145)
[2023-09-17 07:36] LABS: Anion Gap 5.9 mEq/L (5-15); Blood Urea Nitrogen 14 mg/dl (7-17); Calcium 8.6 mg/dl (8.4-10.2); Carbon Dioxide 29 mmol/L (22.0-30.0); Creatinine Clearance Estimated 46 mL/min (50-200); Estimated Glomerular Filt Rate 121 ml/min (>60); GFR (African American) 146 ML/MIN (>60); Glucose 162 mg/dl (74-100)
[2023-09-17 07:44] LABS: Basophils % 0.2 % (0.1-2.0); Eosinophils # 0.2 K/mm3 (0.0-0.4); Eosinophils % 1.4 % (0.1-12.0); Hematocrit 23.4 % (37.0-47.0); Lymphocytes # 2.3 K/mm3 (0.7-4.5); Lymphocytes % 18.8 % (10-50); Mean Corpuscular HGB Conc 31.7 g/dL (31.8-35.4); Mean Corpuscular Hemoglobin 28.2 pg (27.0-31.2); Mean Corpuscular Volume 88.9 fl (81-99); Mean Platelet Volume 7.8 fl (7.4-10.4); Monocytes # 0.9 K/mm3 (0.1-1.0); Monocytes % 7.3 % (1.7-9.3); Neutrophils # 8.7 K/mm3 (1.8-7.8); Neutrophils % 72.3 % (37.0-80.0); Platelet Count 801 K/mm3 (142-424); Red Blood Count 2.63 M/mm3 (4.20-5.40); Red Cell Distribution Width 17.9 % (11.5-17.5)
[2023-09-17 07:45] LABS: Potassium 2.9 mmoL/L (3.5-5.1)
[2023-09-17 08:19] LABS: Hemoglobin 7.4 g/dL (12.2-16.2)
[2023-09-17] MEDS: dilTIAZem 60MG TABLET 60 MG G-TUBE ×4 (09:06→21:46)
[2023-09-17] MEDS: CARVEDILOL 25MG TABLET 25 MG G-TUBE ×2 (09:06→21:46)
[2023-09-17] MEDS: APIXABAN 5MG TABLET 5 MG G-TUBE ×2 (09:06→21:46)
[2023-09-17] MEDS: HYDRALAZINE HCL 25MG TABLET 50 MG FEED TUBE ×3 (09:07→21:46)
[2023-09-17] MEDS: ASPIRIN 81MG CHEWABLE TABLET 81 MG G-TUBE (09:08)
[2023-09-17] MEDS: LISINOPRIL 20MG TABLET 40 MG PO (09:08)
[2023-09-17] MEDS: POTASSIUM CHLORIDE 20MEQ TAB 40 MEQ PO (09:22)
[2023-09-17] MEDS: VANCOMYCIN HCL 750 MG in 0.9 % SODIUM CHLORIDE 250 ML 125 MG IV (09:26)
--- NOTE | 2023-09-17 09:52 | PC.NURSE ---
AFTER PT HAD ALL HER MORNING MEDS BP DECREASED TO 122/50. CARDENE DRIP STOPPED AT 0930. BP AT 0950 99/47.
--- NOTE | 2023-09-17 11:21 | DIET.NUTRFU ---
Nurse reported in rounds TF is tolerated and currently running at 50ml/hr, goal rate is 77ml/hr to meet 100% of nutritional needs. Continue to increase Q4H as tolerated to reach goals. Labs reviewed from today, potassium low- KCL ordered, Na [id number]. ABT tx in place. Wound care reported wound looks good, possibly smaller and healing. Increased protein/calories are calculated into feedings. Will continue to monitor
[2023-09-17] MEDS: 0.9 % SODIUM CHLORIDE 250 ML 100 ML IV (11:22)
[2023-09-17] MEDS: KCl 10mEq/100ml 100 ML 100 MEQ IV ×2 (11:22→12:31)
[2023-09-17] MEDS: CEFEPIME HCL 2 GM in 0.9 % SODIUM CHLORIDE 100 ML IV ×2 (11:32→21:46)
[2023-09-17] MEDS: ACETAMINOPHEN 325MG TAB 650 MG PO (12:42)
--- NOTE | 2023-09-17 13:46 | EXP.SURG.PN ---
Subjective Narrative: Wound care evaluation completed earlier today with implementation of alginate dressing. Exam Data for Last 24 hours Vital signs and Labs for Last 24 Hours: Temp Pulse Resp BP Pulse Ox O2 Del Method O2 Flow Rate 99.6 F 77 18 100/49 L 99 Room Air 98 09/17/23 04:00 09/17/23 10:00 09/17/23 10:00 09/17/23 10:00 09/17/23 10:00 09/17/23 11:00 09/16/23 21:00 Laboratory Results - last 24 hr 09/16/23 11:30: Troponin I < 0.01 09/16/23 15:10: Troponin I < 0.01 09/16/23 20:28: POC Glucose 170 H 09/17/23 06:05: WBC 12.0 H, RBC 2.63 L, Hgb 7.4 L D, Hct 23.4 L, MCV 88.9, MCH 28.2, MCHC 31.7 L, RDW 17.9 H, Plt Count 801 H, MPV 7.8, Neut % (Auto) 72.3, Lymph % (Auto) 18.8, [place] % (Auto) 7.3, Eos % (Auto) 1.4, Baso % (Auto) 0.2, Neut # (Auto) 8.7 H, Lymph # (Auto) 2.3, [place] # (Auto) 0.9, Eos # (Auto) 0.2, Baso # (Auto) 0.0, Sodium 139, Potassium 2.9 L* D, Chloride 107, Carbon Dioxide 29, Anion Gap 5.9, BUN 14, Creatinine 0.50 L, Estimated Creat Clear 46, Estimated GFR 121, Est GFR ( Amer) 146, Glucose 162 H, Calcium 8.6, Magnesium 2.0 I & O for Last 24 hours: Intake & Output 09/15/23 09/16/23 09/17/23 09/18/23 11:59 11:59 11:59 11:59 Intake Total 1129.917 / 1129.917 Output Total 2550 / 2550 Balance -1420.083 / -1420.083 Weight 140 lb 129 lb 5.876 oz Constitutional Constitutional: no acute distress *Routine Skin Exam Comments: Decubitus ulceration stable with no evidence of necrosis currently. Progress Note: A&P Assessment and plan (1) Sacral decubitus ulcer, stage IV: Status: Acute Assessment and plan: Continue wound care as per current recommendations Continue pressure relief Continue serial examinations
--- NOTE | 2023-09-17 16:52 | PC.NURSE ---
PT IS RESTING IN BED. NONVERBAL. PT WILL OCCASIONALLY SMILE. RIGHT SIDED WEAKNESS WITH FACIAL DROOP NOTED. STAGE 4 NOTED TO THE COCCYX. DRESSING CHANGED THIS SHIFT. TURNED AND REPOSITIONED IN BED. ORAL CARE PROVIDED. PT HAS HAD SEVERAL SOFT STOOLS THIS SHIFT. NEW IV ACCESS NOTED TO THE LFA. TUBE FEEDINGS INCREASED TO 60 ML'S. PT TOLERATING WELL. LUNG SOUNDS CLEAR. ABDOMEN SOFT/NON TENDER WITH ACTIVE BOWEL SOUNDS. PT WILL FOLLOW SIMPLE COMMANDS. VSS. LAST BP 129/67. WILL CONTINUE TO MONITOR.
[2023-09-17 17:27] LABS: POC Glucose,Bedside 142 (70-110)
[2023-09-17 17:44] LABS: POC Glucose,Bedside 206 (70-110)
[2023-09-17 21:47] LABS: POC Glucose,Bedside 149 (70-110)
[2023-09-18] VITALS (21 sets, daily range): BP systolic 152–205; BP diastolic 67–108; PULSE 84–110; RESP 14–28; TEMP 36.8–37.8; O2SAT 96–100; BMI 208304.5
[2023-09-18] MEDS: METOPROLOL TARTRATE 5MG/5ML VIAL 5 MG IV ×2 (03:56→16:26)
--- NOTE | 2023-09-18 05:17 | PC.NURSE ---
Patient has been turned every 2hrs. Patient did get a full bed bath, dressing were changed on her coccyx and G tube linen was changed as well. patient had 1 BM this shift. Goal rate of 77ml tube feed was achieved patient is tolerating that well. Patient BP was elevated on 4am round so PRN was given BP came down. See Vital Signs. No other issue were noted. no other issues noted by RN
[2023-09-18] MEDS: humaLOG 100 UNITS/ML 3ML VIAL (SSI) SQ ×3 (05:44→21:45)
[2023-09-18 05:48] LABS: POC Glucose,Bedside 185 (70-110)
[2023-09-18 07:04] LABS: Basophils % 0.3 % (0.1-2.0); Eosinophils # 0.2 K/mm3 (0.0-0.4); Hematocrit 22.8 % (37.0-47.0); Lymphocytes % 18.3 % (10-50); Mean Corpuscular HGB Conc 30.5 g/dL (31.8-35.4); Mean Corpuscular Hemoglobin 27.5 pg (27.0-31.2); Mean Corpuscular Volume 90.2 fl (81-99); Mean Platelet Volume 8.4 fl (7.4-10.4); Monocytes # 0.7 K/mm3 (0.1-1.0); Monocytes % 6.3 % (1.7-9.3); Neutrophils # 7.8 K/mm3 (1.8-7.8); Neutrophils % 73.1 % (37.0-80.0); Platelet Count 756 K/mm3 (142-424); Red Blood Count 2.53 M/mm3 (4.20-5.40); Red Cell Distribution Width 18.3 % (11.5-17.5); White Blood Count 10.7 K/mm3 (4.8-10.8)
[2023-09-18 07:13] LABS: Chloride 110 mmol/L (98-107); Potassium 3.4 mmoL/L (3.5-5.1); Sodium 139 mmol/L (136-145)
[2023-09-18 07:15] LABS: Blood Urea Nitrogen 12 mg/dl (7-17); Creatinine Clearance Estimated 46 mL/min (50-200); Estimated Glomerular Filt Rate 121 ml/min (>60); GFR (African American) 146 ML/MIN (>60)
[2023-09-18 07:16] LABS: Anion Gap 5.4 mEq/L (5-15); Calcium 8.3 mg/dl (8.4-10.2); Carbon Dioxide 27 mmol/L (22.0-30.0); Glucose 142 mg/dl (74-100)
[2023-09-18] MEDS: APIXABAN 5MG TABLET 5 MG G-TUBE ×2 (08:41→21:42)
[2023-09-18] MEDS: dilTIAZem 60MG TABLET 60 MG G-TUBE ×4 (08:41→21:43)
[2023-09-18] MEDS: CARVEDILOL 25MG TABLET 25 MG G-TUBE ×2 (08:41→21:42)
[2023-09-18] MEDS: ASPIRIN 81MG CHEWABLE TABLET 81 MG G-TUBE (08:41)
[2023-09-18] MEDS: LISINOPRIL 20MG TABLET 40 MG PO (08:41)
[2023-09-18] MEDS: HYDRALAZINE HCL 25MG TABLET 50 MG FEED TUBE ×3 (08:42→21:42)
[2023-09-18] MEDS: VANCOMYCIN HCL 750 MG in 0.9 % SODIUM CHLORIDE 250 ML 125 MG IV (09:01)
--- NOTE | 2023-09-18 11:34 | PC.NURSE ---
LEFT A MESSAGE WITH [facility] TO CALL BACK SO WE CAN GET BLOOD CONSENT FOR PT TO GET 1 UNIT OF PRBC'S.
[2023-09-18] MEDS: CEFEPIME HCL 2 GM in 0.9 % SODIUM CHLORIDE 100 ML IV ×2 (11:42→23:06)
[2023-09-18 11:56] LABS: POC Glucose,Bedside 174 (70-110)
[2023-09-18] MEDS: 0.9 % SODIUM CHLORIDE 250 ML 25 ML IV (12:20)
--- NOTE | 2023-09-18 12:50 | EXP.DC.SUM ---
General Admission date:: 09/16/23 Discharge date: 09/18/23 HPI HPI HPI: Patient is a 72-year-old female who is a detention resident, patient do not hold conversations at baseline. patient has past medical history of diabetes mellitus type cerebral edema, hypertension hyperlipidemia. Reportedly patient was found tachycardic and was sent to the hospital for evaluation. Hospital Course Hospital Course Hospital Course: Patient was seen and evaluated at the bedside on the day of discharge. Patient was discharged in stable condition. Total time spent on DC - 38 mins Patient is a 72-year-old female who is a detention resident, patient do not hold conversations at baseline. patient has past medical history of diabetes mellitus type cerebral edema, hypertension hyperlipidemia. Reportedly patient was found tachycardic and was sent to the hospital for evaluation. Sepsis present on admission - resolved Urinary tract infection DC on oral Abx with levofloxacin Anemia of chronic disease - no visible bleeding, Hb today 7, will transfuse 1 unit of blood Started on vancomycin, cefepime, dc on on abx as above Check blood cultures - negative to date Chest x-ray negative for acute cardiopulmonary process Monitor and replace electrolytes Sacral decubitus ulcers wound care General surgery - no debridement needed Uncontrolled hypertension Currently on Cardene drip, wean as tolerated Resume home Coreg, hydralazine, lisinopril, Cardizem Constipation, fecal impaction laxatives ordered Diabetes mellitus Insulin sliding scale DVT prophylaxis-on Eliquis Exam Data for Last 24 hours Vital signs and Labs for Last 24 Hours: Temp Pulse Resp BP Pulse Ox O2 Del Method O2 Flow Rate 98.8 F 109 H 18 205/85 H 99 Room Air 98 09/18/23 12:45 09/18/23 12:45 09/18/23 12:45 09/18/23 12:45 09/18/23 12:45 09/18/23 11:00 09/16/23 21:00 Laboratory Results - last 24 hr 09/17/23 12:35: POC Glucose 206 H 09/17/23 17:19: POC Glucose 142 H 09/17/23 21:40: POC Glucose 149 H 09/18/23 05:41: POC Glucose 185 H 09/18/23 06:53: WBC 10.7, RBC 2.53 L, Hgb 7.0 L, Hct 22.8 L, MCV 90.2, MCH 27.5, MCHC 30.5 L, RDW 18.3 H, Plt Count 756 H, MPV 8.4, Neut % (Auto) 73.1, Lymph % (Auto) 18.3, [place] % (Auto) 6.3, Eos % (Auto) 2.0, Baso % (Auto) 0.3, Neut # (Auto) 7.8, Lymph # (Auto) 2.0, [place] # (Auto) 0.7, Eos # (Auto) 0.2, Baso # (Auto) 0.0, Sodium 139, Potassium 3.4 L, Chloride 110 H, Carbon Dioxide 27, Anion Gap 5.4, BUN 12, Creatinine 0.50 L, Estimated Creat Clear 46, Estimated GFR 121, Est GFR ( Amer) 146, Glucose 142 H, Calcium 8.3 L, Magnesium 2.0, Blood Type Confirm B Positive 09/18/23 09:30: Blood Type B Positive, Antibody Screen Negative, Crossmatch ([facility]G) See Detail 09/18/23 11:48: POC Glucose 174 H I & O for Last 24 hours: Intake & Output 09/15/23 09/16/23 09/17/23 09/18/23 23:59 23:59 23:59 23:59 Intake Total 904.917 / 8685.702 8964 / 1933 0 / 0 Output Total 1250 / 1250 2200 / 2200 0 / 0 Balance -345.083 / -120.083 -267 / -267 0 / 0 Weight 58.68 kg 58.68 kg 58.546 kg Constitutional Comments: alert awake, not following commands, this is patient baseline *Routine HEENT Exam Head: Present normocephalic Eye: Present EOMI and PERRL ENT: Present mucous membranes moist *Routine Neck Exam Neck: Present supple; Absent lymphadenopathy *Routine Respiratory Exam Respiratory: Present CTA bilaterally *Routine Cardiovascular Exam Cardiovascular: Present RRR *Routine Abdominal Exam Abdominal: Present soft and normoactive bowel sounds; Absent tenderness *Routine Extremities Exam Extremities: Absent cyanosis, clubbing or edema *Routine Skin Exam Skin: Present warm; Absent rash *Routine Neurological Exam Neurological: Present alert Comments: she has weakness from previous strokes, her neurological exam is unchanged from admission and is at baseline Results Data Completed and Pending Labs on day of discharge: Labs from last 24 hours 09/18/23 09/18/23 09/18/23 11:48 09:30 06:53 WBC 10.7 RBC 2.53 L Hgb 7.0 L Hct 22.8 L MCV 90.2 MCH 27.5 MCHC 30.5 L RDW 18.3 H Plt Count 756 H MPV 8.4 Neut % (Auto) 73.1 Lymph % (Auto) 18.3 [place] % (Auto) 6.3 Eos % (Auto) 2.0 Baso % (Auto) 0.3 Neut # (Auto) 7.8 Lymph # (Auto) 2.0 [place] # (Auto) 0.7 Eos # (Auto) 0.2 Baso # (Auto) 0.0 Sodium 139 Potassium 3.4 L Chloride 110 H Carbon Dioxide 27 Anion Gap 5.4 BUN 12 Creatinine 0.50 L Estimated Creat Clear 46 Estimated GFR 121 Est GFR ( Amer) 146 Glucose 142 H POC Glucose 174 H Calcium 8.3 L Magnesium 2.0 Blood Type B Positive Blood Type Confirm B Positive Antibody Screen Negative Crossmatch ([facility]) See Detail 09/18/23 09/17/23 09/17/23 05:41 21:40 17:19 WBC RBC Hgb Hct MCV MCH MCHC RDW Plt Count MPV Neut % (Auto) Lymph % (Auto) [place] % (Auto) Eos % (Auto) Baso % (Auto) Neut # (Auto) Lymph # (Auto) [place] # (Auto) Eos # (Auto) Baso # (Auto) Sodium Potassium Chloride Carbon Dioxide Anion Gap BUN Creatinine Estimated Creat Clear Estimated GFR Est GFR ( Amer) Glucose POC Glucose 185 H 149 H 142 H Calcium Magnesium Blood Type Blood Type Confirm Antibody Screen Crossmatch ([facility]) 09/17/23 12:35 WBC RBC Hgb Hct MCV MCH MCHC RDW Plt Count MPV Neut % (Auto) Lymph % (Auto) [place] % (Auto) Eos % (Auto) Baso % (Auto) Neut # (Auto) Lymph # (Auto) [place] # (Auto) Eos # (Auto) Baso # (Auto) Sodium Potassium Chloride Carbon Dioxide Anion Gap BUN Creatinine Estimated Creat Clear Estimated GFR Est GFR ( Amer) Glucose POC Glucose 206 H Calcium Magnesium Blood Type Blood Type Confirm Antibody Screen Crossmatch ([facility]) DS: Diagnosis Discharge Diagnosis (1) Sacral decubitus ulcer, stage IV: Status: Acute Code(s): L89.154 - Pressure ulcer of sacral region, stage 4 Meds Home Medications and Allergies Home Medications Medication Instructions Recorded Confirmed Type albuterol sulfate 1.25 mg/3 mL 1.25 mg inhalation QID PRN Wheezing 04/15/18 09/16/23 History solution for nebulization carvedilol 25 mg tablet (Coreg) 25 mg PO BID #60 tabs 04/15/18 09/16/23 Rx mometasone-formoterol HFA 200 2 puff inhalation BID 04/15/18 09/16/23 History mcg-5 mcg/actuation aerosol inhaler (Dulera) apixaban 5 mg tablet 5 mg PO BID 08/24/23 09/16/23 History aspirin 81 mg tablet,delayed 81 mg PO DAILY 08/24/23 09/16/23 History release hydralazine 50 mg tablet 50 mg PO TID 08/24/23 09/16/23 History pantoprazole 40 mg tablet,delayed 40 mg PO DAILY 08/24/23 09/16/23 History release diltiazem HCl 60 mg tablet 60 mg feeding tube QID 09/16/23 09/16/23 History hydrocodone 5 mg-acetaminophen 325 5 tab feeding tube TID 09/16/23 09/16/23 History mg tablet lisinopril 40 mg tablet 40 mg feeding tube DAILY 09/16/23 09/16/23 History levofloxacin 750 mg tablet 750 mg PO DAILY 5 days #5 tabs 09/18/23 Rx New Prescriptions to Start Prescriptions: levoRoberto Clay Allergies Allergy/AdvReac Type Severity Reaction Status Date / Time Sulfa (Sulfonamide AdvReac Unknown Verified 09/17/23 09:14 Antibiotics) allergy reaction Discharge Plan Disposition Patient Disposition: [facility] Condition: Fair Discharge Order Discharge Orders: Discharge Order (Routine); Ordered 09/18/23 Ordered By: Roberto Hampton Follow up Plan Follow up with: Mohsen Soriano MD [Staff Physician] - 2 weeks Prescriptions/Medication Reconciliation: New levofloxacin 750 mg tablet 750 mg PO DAILY 5 Days Qty: 5 0RF Continued Dulera 200-5 mcg/actuation HFA aerosol inhaler 2 puff INHALATION BID albuterol sulfate 1.25 mg/3 mL solution for nebulization 1.25 mg INHALATION QID PRN (Reason: Wheezing) carvedilol [Coreg] 25 mg tablet 25 mg PO BID Qty: 60 5RF Rx Instructions: give with food (meal/snack) apixaban 5 mg tablet 5 mg PO BID hydralazine 50 mg tablet 50 mg PO TID pantoprazole 40 mg tablet,delayed release (DR/EC) 40 mg PO DAILY aspirin 81 mg tablet,delayed release (DR/EC) 81 mg PO DAILY hydrocodone-acetaminophen 5-325 mg tablet 5 tab feeding tube TID lisinopril 40 mg tablet 40 mg feeding tube DAILY diltiazem HCl 60 mg tablet 60 mg feeding tube QID Problem Reconciliation Problems Reviewed?: Yes Patient Discharge Instructions ACTIVITY: Ambulate as tolerated DIET: continue same diet Patient Instructions: DI for Urinary Tract Infection (UTI), DI for Sepsis -- Adult Providers Primary Care Provider: Provider,Referral Admit Provider: Roberto Hampton Attending Provider: Roberto Hampton
--- NOTE | 2023-09-18 14:39 | P.PN_ITS ---
Subjective Patient reports: no new complaints Narrative: Nonverbal. PEr nurses, she had her sacral decubitus ulcer dressing change overnight and is going to SNF today. Exam Data for Last 24 hours Vital signs and Labs for Last 24 Hours: Temp Pulse Resp BP Pulse Ox O2 Del Method O2 Flow Rate 98.8 F 88 18 152/67 H 99 Room Air 98 09/18/23 13:40 09/18/23 13:40 09/18/23 13:40 09/18/23 13:40 09/18/23 13:40 09/18/23 13:00 09/16/23 21:00 Laboratory Results - last 24 hr 09/17/23 12:35: POC Glucose 206 H 09/17/23 17:19: POC Glucose 142 H 09/17/23 21:40: POC Glucose 149 H 09/18/23 05:41: POC Glucose 185 H 09/18/23 06:53: WBC 10.7, RBC 2.53 L, Hgb 7.0 L, Hct 22.8 L, MCV 90.2, MCH 27.5, MCHC 30.5 L, RDW 18.3 H, Plt Count 756 H, MPV 8.4, Neut % (Auto) 73.1, Lymph % (Auto) 18.3, [place] % (Auto) 6.3, Eos % (Auto) 2.0, Baso % (Auto) 0.3, Neut # (Auto) 7.8, Lymph # (Auto) 2.0, [place] # (Auto) 0.7, Eos # (Auto) 0.2, Baso # (Auto) 0.0, Sodium 139, Potassium 3.4 L, Chloride 110 H, Carbon Dioxide 27, Anion Gap 5.4, BUN 12, Creatinine 0.50 L, Estimated Creat Clear 46, Estimated GFR 121, Est GFR ( Amer) 146, Glucose 142 H, Calcium 8.3 L, Magnesium 2.0, Blood Type Confirm B Positive 09/18/23 09:30: Blood Type B Positive, Antibody Screen Negative, Crossmatch ([facility]G) See Detail 09/18/23 11:48: POC Glucose 174 H I & O for Last 24 hours: Intake & Output 09/15/23 09/16/23 09/17/23 09/18/23 23:59 23:59 23:59 23:59 Intake Total 904.917 / 3649.179 7539 / 1932 0 / 0 Output Total 1250 / 1250 2200 / 2200 1300 / 1300 Balance -345.083 / -120.083 -267 / -267 -1300 / -1300 Weight 129 lb 5.876 oz 129 lb 5.876 oz 129 lb 1.149 oz Constitutional Constitutional: no acute distress Comments: smiling, nonverbal *Routine Abdominal Exam Abdominal: Present soft Comments: G tube in place Progress Note: A&P Assessment and plan (1) Sacral decubitus ulcer, stage IV: Status: Acute Assessment and plan: 72 yo F s/p bedside debridement of stage IV sacral decubitus ulcer. To SNF today. Continue pressure offloading and local wound care.
--- NOTE | 2023-09-18 16:29 | XR_ITS ---
PROCEDURE INFORMATION: Exam: XR Chest Exam date and time: 09/18/2023 4:49 PM Age: 72 years old Clinical indication: Shortness of breath; Additional info: SOA TECHNIQUE: Imaging protocol: Radiologic exam of the chest. Views: 1 view. COMPARISON: CR XR CHEST PORTABLE 09/16/2023 7:46 AM FINDINGS: Lungs: Unremarkable. No consolidation. Pleural spaces: Unremarkable. No pleural effusion. No pneumothorax. Heart/Mediastinum: Unremarkable. No cardiomegaly. Bones/joints: Unremarkable. IMPRESSION: No acute findings.
[2023-09-18 16:31] LABS: Hematocrit 27.4 % (37.0-47.0)
[2023-09-18 16:34] LABS: Hemoglobin 8.9 g/dL (12.2-16.2)
[2023-09-18] MEDS: ACETAMINOPHEN 325MG TAB 650 MG PO (16:42)
[2023-09-18 16:48] LABS: POC Glucose,Bedside 146 (70-110)
[2023-09-18] MEDS: FUROSEMIDE 40MG/4ML VIAL 40 MG IV (16:55)
--- NOTE | 2023-09-18 17:39 | PC.NURSE ---
THIS AFTERNOON AFTER BLOOD TRANSFUSION PT WAS NOTED TO HAVE AUDIBLE WHEEZING AND RESPIRATIONS 28/MIN. NOTIFIED . PT'S BP CONTINUES TO BE ELEVATED. MEDICATED PER SEP WITH PRN METOPROLOL. ORDERED LASIX 40 MG IV ONE TIME AND PORTABLE CXR. PT'S DISCHARGE HAS BEEN CANCELLED. [facility] UPDATED ON PT'S PLAN OF CARE.
[2023-09-18 20:09] LABS: POC Glucose,Bedside 155 (70-110)
[2023-09-19] VITALS: BP 141/61; PULSE 76; PULSE 80; RESP 17; TEMP 36.8; O2SAT 98
[2023-09-19 04:00] VITALS: BP 184/76; PULSE 94; PULSE 95; RESP 17; TEMP 37.1; O2SAT 100; BMI 29.5
[2023-09-19 06:15] VITALS: BP 205/70
[2023-09-19] MEDS: METOPROLOL TARTRATE 5MG/5ML VIAL 5 MG IV (06:22)
[2023-09-19] MEDS: humaLOG 100 UNITS/ML 3ML VIAL (SSI) SQ (06:55)
[2023-09-19] MEDS: ALBUTEROL SULFATE 1.25 MG/3 ML VIAL.NEB IH (06:56)
[2023-09-19 06:57] VITALS: PULSE 100; PULSE 102; O2SAT 99
[2023-09-19 07:16] LABS: Basophils % 0.2 % (0.1-2.0); Eosinophils # 0.3 K/mm3 (0.0-0.4); Eosinophils % 2.4 % (0.1-12.0); Hematocrit 27.8 % (37.0-47.0); Hemoglobin 9.1 g/dL (12.2-16.2); Lymphocytes # 1.9 K/mm3 (0.7-4.5); Lymphocytes % 15.4 % (10-50); Mean Corpuscular HGB Conc 32.6 g/dL (31.8-35.4); Mean Corpuscular Hemoglobin 27.6 pg (27.0-31.2); Mean Corpuscular Volume 84.8 fl (81-99); Mean Platelet Volume 7.9 fl (7.4-10.4); Monocytes # 0.9 K/mm3 (0.1-1.0); Monocytes % 7.6 % (1.7-9.3); Neutrophils # 8.9 K/mm3 (1.8-7.8); Neutrophils % 74.4 % (37.0-80.0); Platelet Count 727 K/mm3 (142-424); Red Blood Count 3.28 M/mm3 (4.20-5.40); Red Cell Distribution Width 17.9 % (11.5-17.5)
[2023-09-19 07:25] LABS: Chloride 106 mmol/L (98-107); Sodium 137 mmol/L (136-145)
[2023-09-19 07:28] LABS: Anion Gap 4.3 mEq/L (5-15); Blood Urea Nitrogen 12 mg/dl (7-17); Calcium 8.3 mg/dl (8.4-10.2); Carbon Dioxide 30 mmol/L (22.0-30.0); Creatinine Clearance Estimated 66 mL/min (50-200); Estimated Glomerular Filt Rate 121 ml/min (>60); GFR (African American) 146 ML/MIN (>60); Glucose 158 mg/dl (74-100); Magnesium 2.1 mg/dl (1.6-2.3); Potassium 3.3 mmoL/L (3.5-5.1)
[2023-09-19 07:45] VITALS: BP 217/91; PULSE 105; RESP 19; TEMP 36.4; O2SAT 95
[2023-09-19 08:00] VITALS: PULSE 105
[2023-09-19] MEDS: dilTIAZem 60MG TABLET 60 MG G-TUBE (08:39)
[2023-09-19] MEDS: CARVEDILOL 25MG TABLET 25 MG G-TUBE (08:39)
[2023-09-19] MEDS: APIXABAN 5MG TABLET 5 MG G-TUBE (08:39)
[2023-09-19] MEDS: LISINOPRIL 20MG TABLET 40 MG PO (08:40)
[2023-09-19] MEDS: HYDRALAZINE HCL 25MG TABLET 50 MG FEED TUBE (08:40)
[2023-09-19] MEDS: ASPIRIN 81MG CHEWABLE TABLET 81 MG G-TUBE (08:40)
--- NOTE | 2023-09-19 09:59 | EXP.DC.SUM ---
General Admission date:: 09/16/23 Discharge date: 09/19/23 HPI HPI HPI: Patient is a 72-year-old female who is a [facility], patient do not hold conversations at baseline. patient has past medical history of diabetes mellitus type cerebral edema, hypertension hyperlipidemia. Reportedly patient was found tachycardic and was sent to the hospital for evaluation. Hospital Course Hospital Course Hospital Course: Patient was seen and evaluated at the bedside on the day of discharge. Patient was discharged in stable condition. Total time spent on DC - 38 mins Patient is a 72-year-old female who is a [facility], patient do not hold conversations at baseline. patient has past medical history of diabetes mellitus type cerebral edema, hypertension hyperlipidemia. Reportedly patient was found tachycardic and was sent to the hospital for evaluation. Sepsis present on admission - resolved Urinary tract infection DC on oral Abx with levofloxacin Anemia of chronic disease - no visible bleeding, Hb today 7, will transfuse 1 unit of blood Started on vancomycin, cefepime, dc on on abx as above Check blood cultures - negative to date Chest x-ray negative for acute cardiopulmonary process Monitor and replace electrolytes Sacral decubitus ulcers wound care General surgery - no debridement needed Uncontrolled hypertension Currently on Cardene drip, wean as tolerated Resume home Coreg, hydralazine, lisinopril, Cardizem Constipation, fecal impaction laxatives ordered Diabetes mellitus Insulin sliding scale DVT prophylaxis-on Eliquis, stable for dsicharge, BP is stable Exam Data for Last 24 hours Vital signs and Labs for Last 24 Hours: Temp Pulse Resp BP Pulse Ox O2 Del Method O2 Flow Rate 97.5 F L 105 H 19 217/91 H 95 Room Air 98 09/19/23 07:45 09/19/23 08:00 09/19/23 07:45 09/19/23 07:45 09/19/23 07:45 09/19/23 09:00 09/16/23 21:00 Laboratory Results - last 24 hr 09/18/23 06:53: Blood Type Confirm B Positive 09/18/23 09:30: Blood Type B Positive, Antibody Screen Negative, Crossmatch (AHG) See Detail 09/18/23 11:48: POC Glucose 174 H 09/18/23 16:20: Hgb 8.9 L D, Hct 27.4 L 09/18/23 16:41: POC Glucose 146 H 09/18/23 20:02: POC Glucose 155 H 09/19/23 06:25: WBC 12.0 H, RBC 3.28 L D, Hgb 9.1 L, Hct 27.8 L, MCV 84.8, MCH 27.6, MCHC 32.6, RDW 17.9 H, Plt Count 727 H, MPV 7.9, Neut % (Auto) 74.4, Lymph % (Auto) 15.4, [place] % (Auto) 7.6, Eos % (Auto) 2.4, Baso % (Auto) 0.2, Neut # (Auto) 8.9 H, Lymph # (Auto) 1.9, [place] # (Auto) 0.9, Eos # (Auto) 0.3, Baso # (Auto) 0.0, Sodium 137, Potassium 3.3 L, Chloride 106, Carbon Dioxide 30, Anion Gap 4.3 L, BUN 12, Creatinine 0.50 L, Estimated Creat Clear 66, Estimated GFR 121, Est GFR ( Amer) 146, Glucose 158 H, Calcium 8.3 L, Magnesium 2.1 I & O for Last 24 hours: Intake & Output 09/16/23 09/17/23 09/18/23 09/19/23 23:59 23:59 23:59 23:59 Intake Total 904.917 / 4530.461 9986 / 1933 2663 / 2663 0 / 0 Output Total 1250 / 1250 2200 / 2200 4700 / 4800 500 / 500 Balance -345.083 / -120.083 -267 / -267 -2037 / -2137 -500 / -500 Weight 58.68 kg 58.68 kg 58.546 kg 83.143 kg Microbiology Reports for the Last 24 Hours: Microbiology 09/16/23 07:35 Buttock Gram Stain - Final 09/16/23 07:54 Urine,Catheterized Urine Culture - Preliminary Constitutional Comments: alert awake, not following commands, this is patient baseline *Routine HEENT Exam Head: Present normocephalic Eye: Present EOMI and PERRL ENT: Present mucous membranes moist *Routine Neck Exam Neck: Present supple; Absent lymphadenopathy *Routine Respiratory Exam Respiratory: Present CTA bilaterally *Routine Cardiovascular Exam Cardiovascular: Present RRR *Routine Abdominal Exam Abdominal: Present soft and normoactive bowel sounds; Absent tenderness *Routine Extremities Exam Extremities: Absent cyanosis, clubbing or edema *Routine Skin Exam Skin: Present warm; Absent rash *Routine Neurological Exam Neurological: Present alert Comments: she has weakness from previous strokes, her neurological exam is unchanged from admission and is at baseline Results Data Completed and Pending Labs on day of discharge: Labs from last 24 hours 09/19/23 09/18/23 09/18/23 06:25 20:02 16:41 WBC 12.0 H RBC 3.28 L D Hgb 9.1 L Hct 27.8 L MCV 84.8 MCH 27.6 MCHC 32.6 RDW 17.9 H Plt Count 727 H MPV 7.9 Neut % (Auto) 74.4 Lymph % (Auto) 15.4 [place] % (Auto) 7.6 Eos % (Auto) 2.4 Baso % (Auto) 0.2 Neut # (Auto) 8.9 H Lymph # (Auto) 1.9 [place] # (Auto) 0.9 Eos # (Auto) 0.3 Baso # (Auto) 0.0 Sodium 137 Potassium 3.3 L Chloride 106 Carbon Dioxide 30 Anion Gap 4.3 L BUN 12 Creatinine 0.50 L Estimated Creat Clear 66 Estimated GFR 121 Est GFR ( Amer) 146 Glucose 158 H POC Glucose 155 H 146 H Calcium 8.3 L Magnesium 2.1 Blood Type Blood Type Confirm Antibody Screen Crossmatch ([facility]) 09/18/23 09/18/23 09/18/23 16:20 11:48 09:30 WBC RBC Hgb 8.9 L D Hct 27.4 L MCV MCH MCHC RDW Plt Count MPV Neut % (Auto) Lymph % (Auto) [place] % (Auto) Eos % (Auto) Baso % (Auto) Neut # (Auto) Lymph # (Auto) [place] # (Auto) Eos # (Auto) Baso # (Auto) Sodium Potassium Chloride Carbon Dioxide Anion Gap BUN Creatinine Estimated Creat Clear Estimated GFR Est GFR ( Amer) Glucose POC Glucose 174 H Calcium Magnesium Blood Type B Positive Blood Type Confirm Antibody Screen Negative Crossmatch ([facility]) See Detail 09/18/23 06:53 WBC RBC Hgb Hct MCV MCH MCHC RDW Plt Count MPV Neut % (Auto) Lymph % (Auto) [place] % (Auto) Eos % (Auto) Baso % (Auto) Neut # (Auto) Lymph # (Auto) [place] # (Auto) Eos # (Auto) Baso # (Auto) Sodium Potassium Chloride Carbon Dioxide Anion Gap BUN Creatinine Estimated Creat Clear Estimated GFR Est GFR ( Amer) Glucose POC Glucose Calcium Magnesium Blood Type Blood Type Confirm B Positive Antibody Screen Crossmatch ([facility]) Preliminary micro results at discharge 09/16/23 07:54 Urine Culture - Preliminary Urine,Catheterized DS: Diagnosis Discharge Diagnosis (1) Sacral decubitus ulcer, stage IV: Status: Inactive Code(s): L89.154 - Pressure ulcer of sacral region, stage 4 Meds Home Medications and Allergies Home Medications Medication Instructions Recorded Confirmed Type albuterol sulfate 1.25 mg/3 mL 1.25 mg inhalation QID PRN Wheezing 04/15/18 09/16/23 History solution for nebulization carvedilol 25 mg tablet (Coreg) 25 mg PO BID #60 tabs 04/15/18 09/16/23 Rx mometasone-formoterol HFA 200 2 puff inhalation BID 04/15/18 09/16/23 History mcg-5 mcg/actuation aerosol inhaler (Dulera) apixaban 5 mg tablet 5 mg PO BID 08/24/23 09/16/23 History aspirin 81 mg tablet,delayed 81 mg PO DAILY 08/24/23 09/16/23 History release hydralazine 50 mg tablet 50 mg PO TID 08/24/23 09/16/23 History pantoprazole 40 mg tablet,delayed 40 mg PO DAILY 08/24/23 09/16/23 History release diltiazem HCl 60 mg tablet 60 mg feeding tube QID 09/16/23 09/16/23 History hydrocodone 5 mg-acetaminophen 325 5 tab feeding tube TID 09/16/23 09/16/23 History mg tablet lisinopril 40 mg tablet 40 mg feeding tube DAILY 09/16/23 09/16/23 History levofloxacin 750 mg tablet 750 mg PO DAILY 5 days #5 tabs 09/18/23 Rx New Prescriptions to Start Prescriptions: levofloxacin Roberto Hampton Allergies Allergy/AdvReac Type Severity Reaction Status Date / Time Sulfa (Sulfonamide AdvReac Unknown Verified 09/17/23 09:14 Antibiotics) allergy reaction Discharge Plan Disposition Patient Disposition: Xfer Intermediate Care Fac Condition: Fair Discharge Order Discharge Orders: Discharge Order (Routine); Ordered 09/19/23 Ordered By: Roberto Hampton Follow up Plan Follow up with: Mohsen Soriano MD [Staff Physician] - 2 weeks (please call to make follow up appointment ) Prescriptions/Medication Reconciliation: New levofloxacin 750 mg tablet 750 mg PO DAILY 5 Days Qty: 5 0RF Continued Dulera 200-5 mcg/actuation HFA aerosol inhaler 2 puff INHALATION BID albuterol sulfate 1.25 mg/3 mL solution for nebulization 1.25 mg INHALATION QID PRN (Reason: Wheezing) carvedilol [Coreg] 25 mg tablet 25 mg PO BID Qty: 60 5RF Rx Instructions: give with food (meal/snack) apixaban 5 mg tablet 5 mg PO BID hydralazine 50 mg tablet 50 mg PO TID pantoprazole 40 mg tablet,delayed release (DR/EC) 40 mg PO DAILY aspirin 81 mg tablet,delayed release (DR/EC) 81 mg PO DAILY hydrocodone-acetaminophen 5-325 mg tablet 5 tab feeding tube TID lisinopril 40 mg tablet 40 mg feeding tube DAILY diltiazem HCl 60 mg tablet 60 mg feeding tube QID Problem Reconciliation Problems Reviewed?: Yes Patient Discharge Instructions ACTIVITY: Ambulate as tolerated DIET: continue same diet Patient Instructions: DI for Urinary Tract Infection (UTI), DI for Sepsis -- Adult Providers Primary Care Provider: Provider,Referral Admit Provider: Roberto Hampton Attending Provider: Roberto Hampton
[2023-09-19] MEDS: VANCOMYCIN HCL 750 MG in 0.9 % SODIUM CHLORIDE 250 ML 125 MG IV (10:13)
== END 2023-09-19 11:32 | DRG 871 ==
LOC: ER 09:21 → 2ND 12:02
PROVIDERS: Admitting Provider Internal Medicine; Emergency Provider Student in an Organized Health Care Education/Training Program; Visit Provider Internal Medicine
DX: A41.9 Sepsis, unspecified organism (principal); L89.154 Pressure ulcer of sacral region, stage 4; L03.113 Cellulitis of right upper limb; N39.0 Urinary tract infection, site not specified; I16.1 Hypertensive emergency; I96 Gangrene, not elsewhere classified; E78.5 Hyperlipidemia, unspecified; E11.9 Type 2 diabetes mellitus without complications; I10 Essential (primary) hypertension; E87.6 Hypokalemia; D63.8 Anemia in other chronic diseases classified elsewhere; K56.41 Fecal impaction
CPT/HCPCS: 36415; 71045; 74177; 80048; 80053; 81001; 82550; 82962; 83605; 83735; 84484; 85014; 85018; 85025; 86850; 87040; 87070; 87086; 87205; 87636; 93005; 94640; 99291; J3370; P9016; Q9967

== ENCOUNTER 2023-09-19 14:38 | Observation (INO) | payer MEDICARE, OTHER, SELFPAY ==
--- NOTE | 2023-09-19 14:40 | PC.NURSE ---
arrived by ambulance as direct admit
--- NOTE | 2023-09-19 14:42 | P.EN_ITS ---
Patient is a 72-year-old female known conversational alf resident who returns after being discharged this morning. Patient was admitted for sepsis, anemia, uncontrolled high blood pressure. Patient was previously on Cardene drip which was weaned off and home medications were initiated. She was deemed appropriate for discharge this morning, last vital signs prior to discharge blood pressure 217/91. Patient was transported back to [facility] where upon receipt patient had systolic in the 230s, Dr. Barajas was contacted who recommended immediate transfer back to facility and patient was immediately transported back for continued evaluation. Total time at outside facility approximately 5 to 10 minutes prior to transfer back. Upon arrival patient's blood pressure was 220/103, per EMS report there is no acute complaints other than the uncontrolled blood pressure. The case was discussed with transfer and pumphouse operator chief on-call who agrees patient is appropriate for direct admission at this time given that this is addressing a known problem. Patient will be re- admitted to Dr. Hampton for continued evaluation.
[2023-09-19 15:27] VITALS: BP 228/104; PULSE 106; RESP 18; TEMP 37.2; O2SAT 99; BMI 19.5
[2023-09-19] MEDS: levoFLOXacin 750 MG TABLET PO (15:32)
[2023-09-19] MEDS: dilTIAZem 60MG TABLET 60 MG G-TUBE (16:04)
[2023-09-19] MEDS: AMLODIPINE 5MG TABLET 5 MG PO (16:07)
[2023-09-19 16:49] VITALS: BP 183/92; PULSE 99
--- NOTE | 2023-09-19 17:11 | P.HP_ITS ---
History of Present Illness *Admission Date: 09/19/23 *Reason for visit:: High BP *History of present illness: Patient is a 72-year-old female who was discharged from the hospital today, she was sent back from [facility] facility due to high blood pressure. Patient has past medical history of diabetes mellitus cerebral edema hypertension hyperlipidemia. Patient was not noted to have any other complaints [facility] Disclaimer: The information contained in this section may have been updated after the patient was seen, as this information can be updated by other users. Medical History (Updated 09/19/23 @ 17:13 by Roberto Hampton MD) Acute UTI MALIK (acute kidney injury) Anemia Brain compression Cellulitis of arm, right Cerebral edema DM (diabetes mellitus) Dysphagia Encounter for feeding tube placement Gastroesophageal reflux disease HHD (hypertensive heart disease) HLD (hyperlipidemia) Hypertensive emergency Hypokalemia Hyponatremia Pressure ulcer Sacral decubitus ulcer, stage IV Sepsis Stroke Structural encephalopathy Family History (Updated 09/19/23 @ 15:24 by Taylor Colon, MAGALI) Other No significant family history Social History (Updated 09/19/23 @ 15:25 by Taylor Colon RN) Smoking Status: Never smoker alcohol intake: never substance use type: denies use current occupational status: disabled Travel in the last 8 weeks: None Review of Systems Review of Systems Review of systems (narrative): as per [facility] Meds Home Medications and Allergies Home Medications Medication Instructions Recorded Confirmed Type albuterol sulfate 1.25 mg/3 mL 1.25 mg inhalation QID PRN Wheezing 04/15/18 09/19/23 History solution for nebulization carvedilol 25 mg tablet (Coreg) 25 mg PO BID #60 tabs 04/15/18 09/19/23 Rx mometasone-formoterol HFA 200 2 puff inhalation BID 04/15/18 09/19/23 History mcg-5 mcg/actuation aerosol inhaler (Dulera) apixaban 5 mg tablet 5 mg PO BID 08/24/23 09/19/23 History aspirin 81 mg tablet,delayed 81 mg PO DAILY 08/24/23 09/19/23 History release hydralazine 50 mg tablet 50 mg PO TID 08/24/23 09/19/23 History pantoprazole 40 mg tablet,delayed 40 mg PO DAILY 08/24/23 09/19/23 History release diltiazem HCl 60 mg tablet 60 mg feeding tube QID 09/16/23 09/19/23 History hydrocodone 5 mg-acetaminophen 325 5 tab feeding tube TID 09/16/23 09/19/23 History mg tablet lisinopril 40 mg tablet 40 mg feeding tube DAILY 09/16/23 09/19/23 History levofloxacin 750 mg tablet 750 mg PO DAILY 5 days #5 tabs 09/18/23 Rx New Prescriptions to Start Prescriptions: Allergies Allergy/AdvReac Type Severity Reaction Status Date / Time Sulfa (Sulfonamide AdvReac Unknown Verified 09/17/23 09:14 Antibiotics) allergy reaction Exam Data for Last 24 hours Vital signs and Labs for Last 24 Hours: Temp Pulse Resp BP Pulse Ox O2 Del Method 98.9 F 99 H 18 183/92 H 99 Room Air 09/19/23 15:27 09/19/23 16:49 09/19/23 15:27 09/19/23 16:49 09/19/23 15:27 09/19/23 15:27 I & O for Last 24 hours: Intake & Output 09/16/23 09/17/23 09/18/23 09/19/23 23:59 23:59 23:59 23:59 Intake Total 0 / 0 Output Total 0 / 0 Balance 0 / 0 Weight 54.97 kg Constitutional Comments: appears weak and frail *Routine HEENT Exam Head: Present normocephalic Eye: Present EOMI and PERRL ENT: Present mucous membranes moist *Routine Neck Exam Neck: Present supple; Absent lymphadenopathy *Routine Respiratory Exam Respiratory: Present CTA bilaterally *Routine Cardiovascular Exam Cardiovascular: Present RRR *Routine Abdominal Exam Abdominal: Present soft and normoactive bowel sounds; Absent tenderness *Routine Rectal Exam Rectal:: deferred *Routine Genitalia Exam Genitalia:: deferred *Routine Extremities Exam Extremities: Absent cyanosis, clubbing or edema *Routine Skin Exam Skin: Absent rash Comments: has sacral decubitus ulcer on lower back *Routine Neurological Exam Comments: do not follow commands Assessment and Plan *Assessment and plan (1) Hypertensive urgency: Status: Acute Category: Medical Code(s): I16.0 - Hypertensive urgency (2) HLD (hyperlipidemia): Status: Acute Qualifiers: Hyperlipidemia type: other hyperlipidemia Qualified Code(s): E78.4 - Other hyperlipidemia Category: Medical Code(s): E78.5 - Hyperlipidemia, unspecified (3) HHD (hypertensive heart disease): Status: Acute Qualifiers: Heart failure presence: without heart failure Qualified Code(s): I11.9 - Hypertensive heart disease without heart failure Category: Medical Code(s): I11.9 - Hypertensive heart disease without heart failure Plan Patient is a 72-year-old female who was discharged from the hospital today, she was sent back from correction facility due to high blood pressure. Patient has past medical history of diabetes mellitus cerebral edema hypertension hyperlipidemia. Patient was not noted to have any other complaints HTN urgency -Patient is on Coreg 25 Mg twice daily, Cardizem, hydralazine 50 3 times daily, lisinopril 40 Mg daily add on amlodipine Ordered as needed labetalol with parameters Anemia of chronic disease monitor Sacral decubitus ulcers wound care General surgery - s/p debridement Sepsis present on previous admission - resolved Urinary tract infection on oral Abx with levofloxacin Constipation, fecal impaction laxatives Diabetes mellitus Insulin sliding scale DVT PPx - on Eliquis
[2023-09-19 17:30] VITALS: BP 167/91; PULSE 98
[2023-09-19] MEDS: hydroCHLOROthiazide 25MG TABLET 25 MG PO (18:13)
[2023-09-19 18:25] VITALS: BP 168/94; PULSE 97
--- NOTE | 2023-09-19 18:28 | PC.NURSE ---
no changes from morning assessment, pt has been awake and alert and smiling since readmit. 5mg amlodipine admin around 1600 and pts b/ps have remains in the 160s/90s. cb within reach, no concerns at this time, will continue to monitor b/ps. feeding started back at 77ml/hr rate with q4hr 75ml flushes
[2023-09-19 19:59] VITALS: BP 212/109; PULSE 101; RESP 16; TEMP 36.8; O2SAT 94
--- NOTE | 2023-09-19 20:22 | DIET.NUTRFU ---
Nutritional needs are 1600-1800kcal, 40-45gm protein and 1750ml/day. TF to start at 30ml/hr and increase to goal rate of 77ml/day at tolerated. TF should be started when medically feasible.
[2023-09-19 20:45] VITALS: BP 188/94
[2023-09-19] MEDS: APIXABAN 5MG TABLET 5 MG PO (21:50)
[2023-09-19] MEDS: HYDRALAZINE HCL 25MG TABLET 50 MG FEED TUBE (21:50)
[2023-09-19] MEDS: dilTIAZem 60MG TABLET 120 MG G-TUBE (21:50)
[2023-09-19] MEDS: CARVEDILOL 25MG TABLET 25 MG PO (21:50)
[2023-09-19] MEDS: HYDROCODONE/APAP 5/325 MG TABLET 1 TAB G-TUBE (22:12)
[2023-09-20] VITALS: BP 131/53; PULSE 80; RESP 16; TEMP 36.7; O2SAT 98
[2023-09-20 04:00] VITALS: BMI 19.3
[2023-09-20 06:41] LABS: Chloride 104 mmol/L (98-107); Potassium 3.4 mmoL/L (3.5-5.1); Sodium 134 mmol/L (136-145)
[2023-09-20 06:44] LABS: Anion Gap 5.4 mEq/L (5-15); Blood Urea Nitrogen 18 mg/dl (7-17); Carbon Dioxide 28 mmol/L (22.0-30.0); Creatinine Clearance Estimated 43 mL/min (50-200); Estimated Glomerular Filt Rate 98 ml/min (>60); GFR (African American) 119 ML/MIN (>60)
[2023-09-20 06:45] LABS: Calcium 8.5 mg/dl (8.4-10.2); Glucose 137 mg/dl (74-100)
[2023-09-20 06:46] LABS: Basophils % 0.3 % (0.1-2.0); Eosinophils # 0.3 K/mm3 (0.0-0.4); Eosinophils % 2.6 % (0.1-12.0); Hematocrit 28.1 % (37.0-47.0); Hemoglobin 9.2 g/dL (12.2-16.2); Lymphocytes # 1.7 K/mm3 (0.7-4.5); Mean Corpuscular HGB Conc 32.8 g/dL (31.8-35.4); Mean Corpuscular Hemoglobin 28.1 pg (27.0-31.2); Mean Corpuscular Volume 85.4 fl (81-99); Mean Platelet Volume 7.4 fl (7.4-10.4); Monocytes # 0.5 K/mm3 (0.1-1.0); Monocytes % 5.6 % (1.7-9.3); Neutrophils % 73.5 % (37.0-80.0); Platelet Count 662 K/mm3 (142-424); Red Blood Count 3.29 M/mm3 (4.20-5.40); Red Cell Distribution Width 17.9 % (11.5-17.5); White Blood Count 9.5 K/mm3 (4.8-10.8)
--- NOTE | 2023-09-20 07:28 | HMH.PHAINT1 ---
Pharmacy Intervention Comments: Reviewed medication list using prescription fill history and discharge summary from previous stay.
[2023-09-20 07:48] VITALS: BP 142/68; PULSE 90; RESP 20; TEMP 37.1; O2SAT 100
--- NOTE | 2023-09-20 08:49 | SW/DCPLANNER ---
Addendum entered by Minerva Joya 09/20/23 10:05: I have updated Sabina w/ [facility] that patient will return today. Original Note: This patient resides at [facility] level of care. I will continue to follow up w/ Sabina until discharge date is known. Updated patient information has been faxed.
[2023-09-20] MEDS: APIXABAN 5MG TABLET 5 MG PO (09:00)
[2023-09-20] MEDS: POTASSIUM CHLORIDE 20MEQ TAB 20 MEQ PO (09:00)
[2023-09-20] MEDS: AMLODIPINE 5MG TABLET 5 MG PO (09:00)
[2023-09-20] MEDS: HYDRALAZINE HCL 25MG TABLET 50 MG FEED TUBE ×2 (09:01→13:04)
[2023-09-20] MEDS: dilTIAZem 60MG TABLET 120 MG G-TUBE ×2 (09:01→12:59)
[2023-09-20] MEDS: CARVEDILOL 25MG TABLET 25 MG PO (09:01)
[2023-09-20] MEDS: ASPIRIN EC 81MG TABLET 81 MG PO (09:01)
[2023-09-20] MEDS: PANTOPRAZOLE 40MG TABLET 40 MG PO (09:02)
[2023-09-20] MEDS: hydroCHLOROthiazide 25MG TABLET 25 MG PO (09:02)
[2023-09-20] MEDS: levoFLOXacin 750 MG TABLET PO (09:02)
[2023-09-20] MEDS: LISINOPRIL 20MG TABLET 40 MG PO (09:02)
[2023-09-20] MEDS: HYDROCODONE/APAP 5/325 MG TABLET 1 TAB G-TUBE ×2 (09:04→13:00)
--- NOTE | 2023-09-20 11:20 | EXP.DC.SUM ---
General Admission date:: 09/19/23 Discharge date: 09/20/23 HPI HPI HPI: Patient is a 72-year-old female who was discharged from the hospital today, she was sent back from skilled nursing facility due to high blood pressure. Patient has past medical history of diabetes mellitus cerebral edema hypertension hyperlipidemia. Patient was not noted to have any other complaints Hospital Course Hospital Course Hospital Course: Patient is a 72-year-old female who was discharged from the hospital today, she was sent back from skilled nursing facility due to high blood pressure. Patient has past medical history of diabetes mellitus cerebral edema hypertension hyperlipidemia. Patient was not noted to have any other complaints HTN urgency - resolved, added on HCTZ 25mg daily, amlodipine 5mg daily -Patient is on Coreg 25 Mg twice daily, Cardizem, hydralazine 50 3 times daily, lisinopril 40 Mg daily Anemia of chronic disease - stable monitor Sacral decubitus ulcers wound care General surgery - s/p debridement Sepsis present on previous admission - resolved Urinary tract infection on oral Abx with levofloxacin Constipation, fecal impaction laxatives Diabetes mellitus Insulin sliding scale DVT PPx - on Eliquis Exam Data for Last 24 hours Vital signs and Labs for Last 24 Hours: Temp Pulse Resp BP Pulse Ox O2 Del Method 98.8 F 90 20 142/68 H 100 Room Air 09/20/23 07:48 09/20/23 07:48 09/20/23 07:48 09/20/23 07:48 09/20/23 07:48 09/20/23 10:35 Laboratory Results - last 24 hr 09/20/23 06:10: WBC 9.5, RBC 3.29 L, Hgb 9.2 L, Hct 28.1 L, MCV 85.4, MCH 28.1, MCHC 32.8, RDW 17.9 H, Plt Count 662 H, MPV 7.4, Neut % (Auto) 73.5, Lymph % (Auto) 18.0, [place] % (Auto) 5.6, Eos % (Auto) 2.6, Baso % (Auto) 0.3, Neut # (Auto) 7.0, Lymph # (Auto) 1.7, [place] # (Auto) 0.5, Eos # (Auto) 0.3, Baso # (Auto) 0.0, Sodium 134 L, Potassium 3.4 L, Chloride 104, Carbon Dioxide 28, Anion Gap 5.4, BUN 18 H D, Creatinine 0.60, Estimated Creat Clear 43, Estimated GFR 98, Est GFR ( Amer) 119, Glucose 137 H, Calcium 8.5 I & O for Last 24 hours: Intake & Output 09/17/23 09/18/23 09/19/23 09/20/23 23:59 23:59 23:59 23:59 Intake Total 0 / 766 766 / 766 Output Total 1600 / 2600 1400 / 1400 Balance -1600 / -1834 -634 / -634 Weight 54.97 kg 54.476 kg Microbiology Reports for the Last 24 Hours: Microbiology 09/16/23 07:35 Buttock Gram Stain - Final 09/16/23 07:54 Urine,Catheterized Urine Culture - Preliminary Constitutional Comments: alert awake, not following commands, this is patient baseline *Routine HEENT Exam Head: Present normocephalic Eye: Present EOMI and PERRL ENT: Present mucous membranes moist *Routine Neck Exam Neck: Present supple; Absent lymphadenopathy *Routine Respiratory Exam Respiratory: Present CTA bilaterally *Routine Cardiovascular Exam Cardiovascular: Present RRR *Routine Abdominal Exam Abdominal: Present soft and normoactive bowel sounds; Absent tenderness *Routine Extremities Exam Extremities: Absent cyanosis, clubbing or edema *Routine Skin Exam Skin: Present warm; Absent rash *Routine Neurological Exam Neurological: Present alert Comments: she has weakness from previous strokes, her neurological exam is unchanged from admission and is at baseline Results Data Completed and Pending Labs on day of discharge: Labs from last 24 hours 09/20/23 06:10 WBC 9.5 RBC 3.29 L Hgb 9.2 L Hct 28.1 L MCV 85.4 MCH 28.1 MCHC 32.8 RDW 17.9 H Plt Count 662 H MPV 7.4 Neut % (Auto) 73.5 Lymph % (Auto) 18.0 [place] % (Auto) 5.6 Eos % (Auto) 2.6 Baso % (Auto) 0.3 Neut # (Auto) 7.0 Lymph # (Auto) 1.7 [place] # (Auto) 0.5 Eos # (Auto) 0.3 Baso # (Auto) 0.0 Sodium 134 L Potassium 3.4 L Chloride 104 Carbon Dioxide 28 Anion Gap 5.4 BUN 18 H D Creatinine 0.60 Estimated Creat Clear 43 Estimated GFR 98 Est GFR ( Amer) 119 Glucose 137 H Calcium 8.5 DS: Diagnosis Discharge Diagnosis (1) Hypertensive urgency: Status: Acute Code(s): I16.0 - Hypertensive urgency (2) HLD (hyperlipidemia): Status: Acute Code(s): E78.5 - Hyperlipidemia, unspecified Qualifiers: Hyperlipidemia type: other hyperlipidemia Qualified Code(s): E78.4 - Other hyperlipidemia (3) HHD (hypertensive heart disease): Status: Acute Code(s): I11.9 - Hypertensive heart disease without heart failure Qualifiers: Heart failure presence: without heart failure Qualified Code(s): I11.9 - Hypertensive heart disease without heart failure Meds Home Medications and Allergies Home Medications Medication Instructions Recorded Confirmed Type albuterol sulfate 1.25 mg/3 mL 1.25 mg inhalation QID PRN Wheezing 04/15/18 09/19/23 History solution for nebulization carvedilol 25 mg tablet (Coreg) 25 mg PO BID #60 tabs 04/15/18 09/19/23 Rx mometasone-formoterol HFA 200 2 puff inhalation BID 04/15/18 09/19/23 History mcg-5 mcg/actuation aerosol inhaler (Dulera) apixaban 5 mg tablet 5 mg PO BID 08/24/23 09/19/23 History aspirin 81 mg tablet,delayed 81 mg PO DAILY 08/24/23 09/19/23 History release hydralazine 50 mg tablet 50 mg PO TID 08/24/23 09/19/23 History pantoprazole 40 mg tablet,delayed 40 mg PO DAILY 08/24/23 09/19/23 History release diltiazem HCl 60 mg tablet 60 mg feeding tube QID 09/16/23 09/19/23 History hydrocodone 5 mg-acetaminophen 325 5 tab feeding tube TID 09/16/23 09/19/23 History mg tablet lisinopril 40 mg tablet 40 mg feeding tube DAILY 09/16/23 09/19/23 History levofloxacin 750 mg tablet 750 mg PO DAILY 5 days #5 tabs 09/18/23 09/20/23 Rx amlodipine 5 mg tablet 5 mg PO DAILY 30 days #30 tabs 09/20/23 Rx hydrochlorothiazide 25 mg tablet 25 mg PO DAILY 30 days #30 tabs 09/20/23 Rx New Prescriptions to Start Prescriptions: amlodipine Roberto Hampton hydrochlorothiazide Roberto Hampton Allergies Allergy/AdvReac Type Severity Reaction Status Date / Time Sulfa (Sulfonamide AdvReac Unknown Verified 09/17/23 09:14 Antibiotics) allergy reaction Discharge Plan Disposition Patient Disposition: Xfer [facility] Condition: Good Discharge Order Discharge Orders: Discharge Order (Routine); Ordered 09/20/23 Ordered By: Roberto Hampton Follow up Plan Follow up with: Provider,Referral, [Primary Care Provider] - 2 weeks Prescriptions/Medication Reconciliation: New amlodipine 5 mg Tablet 5 mg PO DAILY 30 Days Qty: 30 0RF hydrochlorothiazide 25 mg Tablet 25 mg PO DAILY 30 Days Qty: 30 0RF Continued Dulera 200-5 mcg/actuation HFA aerosol inhaler 2 puff INHALATION BID albuterol sulfate 1.25 mg/3 mL solution for nebulization 1.25 mg INHALATION QID PRN (Reason: Wheezing) carvedilol [Coreg] 25 mg tablet 25 mg PO BID Qty: 60 5RF Rx Instructions: give with food (meal/snack) apixaban 5 mg tablet 5 mg PO BID hydralazine 50 mg tablet 50 mg PO TID pantoprazole 40 mg tablet,delayed release (DR/EC) 40 mg PO DAILY aspirin 81 mg tablet,delayed release (DR/EC) 81 mg PO DAILY hydrocodone-acetaminophen 5-325 mg tablet 5 tab feeding tube TID lisinopril 40 mg tablet 40 mg feeding tube DAILY diltiazem HCl 60 mg tablet 60 mg feeding tube QID levofloxacin 750 mg tablet 750 mg PO DAILY 5 Days Qty: 5 0RF Problem Reconciliation Problems Reviewed?: Yes Patient Discharge Instructions ACTIVITY: Ambulate as tolerated DIET: advance to your usual diet Patient Instructions: High Blood Pressure (Hypertension) (Alternative Therapy), Essential Hypertension Providers Primary Care Provider: Provider,Referral Admit Provider: Roberto Hampton Attending Provider: Roberto Hampton
[2023-09-20 13:40] VITALS: BP 90/60
[2023-09-20 16:00] VITALS: BP 134/58; PULSE 82; RESP 18; TEMP 36.7; O2SAT 97
[2023-09-21 08:02] LABS: POC Glucose,Bedside 119 (70-110)
[2023-09-21 08:02] LABS: POC Glucose,Bedside 131 (70-110)
== END 2023-09-20 17:50 ==
PROVIDERS: Admitting Provider Internal Medicine; Visit Provider Internal Medicine
DX: I16.0 Hypertensive urgency (principal); L89.154 Pressure ulcer of sacral region, stage 4; I11.9 Hypertensive heart disease without heart failure; E78.5 Hyperlipidemia, unspecified; E11.9 Type 2 diabetes mellitus without complications; Z79.899 Other long term (current) drug therapy
CPT/HCPCS: 36415; 80048; 82962; 85025; G0378

== ENCOUNTER 2024-01-27 10:39 | Emergency (ER) | payer MEDICARE, MEDICAID, SELFPAY ==
[2024-01-27] VITALS (11 sets, daily range): BP systolic 130–186; BP diastolic 60–106; PULSE 90–101; RESP 16–18; TEMP 36.7–37; O2SAT 98–99; BMI 21.0
--- NOTE | 2024-01-27 10:43 | PC.NURSE ---
DR FLETCHER AT BEDSIDE
--- NOTE | 2024-01-27 10:44 | CT_ITS ---
FINAL REPORT TECHNIQUE: After the administration of intravenous contrast, axial images were obtained through the abdomen and pelvis by computed tomography. The study was performed with techniques to keep radiation dose as low as reasonably achievable, (ALARA). Individual dose reduction techniques using automated exposure control or adjustment of mA and/or kV according to the patient's size were employed. CLINICAL HISTORY: concern for abdominal pain, recent G tube COMPARISON: 09/16/2023 FINDINGS: Abdomen: No acute density is seen within the lung bases. Solid abdominal organs are unremarkable. The gallbladder is mildly distended without stone disease. Peg tube is in place. No bowel obstruction or bowel wall thickening is present. There is no free air. No fluid collection is seen. There is no adenopathy. Pelvis: The appendix is normal. There is severe fecal impaction of the rectal vault. Rectum is dilated up to 9 cm. The bladder is decompressed with a Rodriguez catheter. Uterine fibroids are noted. There is no free fluid. No pelvic mass is seen. IMPRESSION: No evidence of bowel obstruction. No evidence of pneumoperitoneum. Severe fecal impaction in the rectal vault. Reviewed, Interpreted and Dictated by Chalino Ernandez MD Transcribed by Chaya Gupta Authenticated and [facility]
--- NOTE | 2024-01-27 10:44 | XR_ITS ---
FINAL REPORT CLINICAL HISTORY: AMS COMPARISON: 09/18/2023 FINDINGS: No acute pulmonary opacity is present. There is no evidence of effusion or pneumothorax. Mediastinum is unremarkable. Heart size is normal. IMPRESSION: No acute abnormality. Reviewed, Interpreted and Dictated by Chalino Ernandez MD Transcribed by Chaya Gupta Authenticated and [facility]
--- NOTE | 2024-01-27 10:46 | HMH.EDGENADL ---
Discharge Plan Disposition Patient Disposition: Xfer SNF Condition: Good Prescriptions Prescriptions: New cephalexin 500 mg capsule 500 mg PO TID 10 Days Qty: 30 0RF polyethylene glycol 3350 [Miralax] 17 gram/dose powder 17 g PO DAILY PRN (Reason: constipation) Qty: 510 0RF sennosides [senna] 8.8 mg/5 mL syrup 5 ml PO DAILY PRN (Reason: constipation) Qty: 236 0RF No Action Dulera 200-5 mcg/actuation HFA aerosol inhaler 2 puff INHALATION BID albuterol sulfate 1.25 mg/3 mL solution for nebulization 1.25 mg INHALATION QID PRN (Reason: Wheezing) carvedilol [Coreg] 25 mg tablet 25 mg PO BID Qty: 60 5RF Rx Instructions: give with food (meal/snack) apixaban 5 mg tablet 5 mg PO BID hydralazine 50 mg tablet 50 mg PO TID pantoprazole 40 mg tablet,delayed release (DR/EC) 40 mg PO DAILY aspirin 81 mg tablet,delayed release (DR/EC) 81 mg PO DAILY hydrocodone-acetaminophen 5-325 mg tablet 5 tab feeding tube TID lisinopril 40 mg tablet 40 mg feeding tube DAILY diltiazem HCl 60 mg tablet 60 mg feeding tube QID levofloxacin 750 mg tablet 750 mg PO DAILY 5 Days Qty: 5 0RF amlodipine 5 mg Tablet 5 mg PO DAILY 30 Days Qty: 30 0RF hydrochlorothiazide 25 mg Tablet 25 mg PO DAILY 30 Days Qty: 30 0RF Activity Restrictions/Add. Instructions Additional Instructions/Restrictions: You were evaluated in the emergency department today and diagnosed with urinary tract infection as well as fecal impaction. Please use MiraLAX at as well as enemas as needed. Administer the full course of antibiotics as prescribed for the urinary tract infection. A culture was sent and is pending. Follow-up with her lens edge grinder machine for management of her G-tube. Return to the emergency department for new or worsening symptoms. Clinical Impressions Clinical Impression: Acute UTI, Transaminitis, Constipation, Fecal impaction Instructions Patient Instructions: DI for Acute Abdominal Pain Discharge ED Provider: Sabina Anders General Adult HPI General Chief complaint: Abdominal Pain Stated complaint: possible infection at gtube site Time Seen by Provider: 01/27/24 10:41 History of Present Illness HPI narrative: This patient is a 73-year-old female with a history of CVA who is nonverbal at baseline, hypertension, hyperlipidemia, diabetes, and recent G-tube placement in [place] (follow up scheduled [facility]) presenting to the emergency department with concern for possible abdominal pain. History is not obtained from patient, as she is nonverbal. According to report called from nursing facility, the patient has been holding her abdomen and has had some irritation around her G-tube site, so they were concerned that she could have an issue with it/abdominal pain. No other concerns noted per that facility. Per EMS, patient stable en route in no acute distress. Related Data Home Medications Medication Instructions Recorded Confirmed albuterol sulfate 1.25 mg/3 mL 1.25 mg inhalation QID PRN Wheezing 04/15/18 01/27/24 solution for nebulization mometasone-formoterol HFA 200 2 puff inhalation BID 04/15/18 01/27/24 mcg-5 mcg/actuation aerosol inhaler (Dulera) apixaban 5 mg tablet 5 mg PO BID 08/24/23 01/27/24 aspirin 81 mg tablet,delayed 81 mg PO DAILY 08/24/23 01/27/24 release hydralazine 50 mg tablet 50 mg PO TID 08/24/23 01/27/24 pantoprazole 40 mg tablet,delayed 40 mg PO DAILY 08/24/23 01/27/24 release diltiazem HCl 60 mg tablet 60 mg feeding tube QID 09/16/23 01/27/24 hydrocodone 5 mg-acetaminophen 325 5 tab feeding tube TID 09/16/23 01/27/24 mg tablet lisinopril 40 mg tablet 40 mg feeding tube DAILY 09/16/23 01/27/24 Previous Rx's Medication Instructions Recorded carvedilol 25 mg tablet (Coreg) 25 mg PO BID #60 tabs 04/15/18 levofloxacin 750 mg tablet 750 mg PO DAILY 5 days #5 tabs 09/18/23 amlodipine 5 mg tablet 5 mg PO DAILY 30 days #30 tabs 09/20/23 hydrochlorothiazide 25 mg tablet 25 mg PO DAILY 30 days #30 tabs 09/20/23 cephalexin 500 mg capsule 500 mg PO TID 10 days #30 caps 01/27/24 polyethylene glycol 3350 17 17 g PO DAILY PRN constipation 01/27/24 gram/dose oral powder (Miralax) #510 grams sennosides 8.8 mg/5 mL oral syrup 5 ml PO DAILY PRN constipation 01/27/24 (senna) #236 mL Allergies Allergy/AdvReac Type Severity Reaction Status Date / Time Sulfa (Sulfonamide AdvReac Unknown Verified 01/27/24 10:50 Antibiotics) allergy reaction PFSH [facility] Disclaimer: The information contained in this section may have been updated after the patient was seen, as this information can be updated by other users. Medical History Hypertensive emergency Anemia Sacral decubitus ulcer, stage IV Acute UTI Cellulitis of arm, right Sepsis Encounter for feeding tube placement Hyponatremia Cerebral edema Brain compression Structural encephalopathy Dysphagia Pressure ulcer MALIK (acute kidney injury) Stroke Gastroesophageal reflux disease DM (diabetes mellitus) HLD (hyperlipidemia) HHD (hypertensive heart disease) Hypokalemia Family History Other No significant family history Social History Smoking Status: Never smoker alcohol intake: never substance use type: denies use current occupational status: disabled Travel in the last 8 weeks: None ROS Obtained: Yes unobtainable due to mental condition Physical Exam General General appearance: alert Comment: Sitting upright in bed in no acute distress Head Head exam: atraumatic and normocephalic Eye Eye exam: Present normal appearance, PERRL and EOMI ENT ENT exam: Present normal exam, normal oropharynx, mucous membranes moist and normal external ear exam Neck Neck exam: Present normal inspection, full ROM and trachea midline; Absent tenderness Chest Chest inspection: Present normal inspection and symmetric chest wall rise; Absent tenderness Respiratory Respiratory exam: Present normal lung sounds bilaterally; Absent respiratory distress, wheezes, stridor or accessory muscle use Cardiovascular Cardiovascular exam: Present regular rate and normal rhythm Abdominal Exam Abdominal exam: Present soft and other (G-tube in place with minimal sanguinous drainage around it. It does not appear to have been flushed very well and is full of white material.); Absent distention, tenderness, guarding or rebound Extremities Exam Extremities exam: Present normal capillary refill and other (Chronic atrophy); Absent tenderness or edema Back Exam Back exam: Present normal inspection and full ROM; Absent tenderness Neurological Exam Neurological exam: Present alert and other (At neurologic baseline); Absent motor sensory deficit Skin Skin exam: Present warm and dry Medical Decision Making Medical Records Medical records reviewed: Yes I reviewed the patient's medical records. Rafita Inquiry Pt receiving controlled substance: No Vital Signs: 01/27/24 10:39 01/27/24 11:00 01/27/24 11:15 Temperature 98.6 F Temperature Source Oral Pulse Rate 94 H 95 H Pulse Rate [Left Radial] 101 H Respiratory Rate 16 16 Blood Pressure 153/85 H 166/106 H Blood Pressure [Right Arm] 149/90 H Blood Pressure Mean 133 Blood Pressure Mean [Right Arm] 109 Blood Pressure Source [Right Arm] Automatic Cuff Blood Pressure Position [Right Arm] Sitting 02 Sat by Pulse Oximetry 99 99 98 Oxygen Delivery Method Room Air Room Air 01/27/24 11:57 01/27/24 12:00 01/27/24 13:01 Temperature Temperature Source Pulse Rate 100 H 94 H 91 H Pulse Rate [Left Radial] Respiratory Rate 18 Blood Pressure 161/80 H 157/71 H 131/60 Blood Pressure [Right Arm] Blood Pressure Mean 111 96 Blood Pressure Mean [Right Arm] Blood Pressure Source [Right Arm] Blood Pressure Position [Right Arm] 02 Sat by Pulse Oximetry 99 99 99 Oxygen Delivery Method Room Air Room Air 01/27/24 13:30 01/27/24 14:00 01/27/24 14:30 Temperature 98.1 F Temperature Source Pulse Rate 91 H 99 H 95 H Pulse Rate [Left Radial] Respiratory Rate 16 Blood Pressure 147/65 H 186/99 H 130/92 H Blood Pressure [Right Arm] Blood Pressure Mean 92 110 111 Blood Pressure Mean [Right Arm] Blood Pressure Source [Right Arm] Blood Pressure Position [Right Arm] 02 Sat by Pulse Oximetry 99 99 99 Oxygen Delivery Method Room Air Room Air Lab Data Lab results reviewed: Yes I reviewed the patient's lab results. Lab Results 01/27/24 11:00: Urine Color Yellow, Urine Appearance Clear, Urine pH 6.0, Ur Specific [place] <= 1.005, Urine Protein Negative, Urine Glucose (UA) Negative, Urine Ketones Negative, Urine Blood 1+, Urine Nitrate Negative, Urine Bilirubin Negative, Urine Urobilinogen 1.0, Ur Leukocyte Esterase 3+ A, Urine RBC 3-5, Urine WBC 20-50, Ur Squamous Epith Cells Occasional, Urine Bacteria 1+ 01/27/24 11:10: WBC 7.8, RBC 4.00 L, Hgb 11.7 L, Hct 34.8 L, MCV 87.0, MCH 29.3, MCHC 33.7, RDW 15.5, Plt Count 310, MPV 7.6, Neut % (Auto) 71.6, Lymph % (Auto) 17.9, Simpson % (Auto) 7.0, Eos % (Auto) 2.9, Baso % (Auto) 0.7, Neut # (Auto) 5.6, Lymph # (Auto) 1.4, Simpson # (Auto) 0.5, Eos # (Auto) 0.2, Baso # (Auto) 0.1, Sodium 138, Potassium 4.3, Chloride 100, Carbon Dioxide 29, Anion Gap 13.3, BUN 23 H, Creatinine 0.50 L, Estimated Creat Clear 46, Estimated GFR 121, Est GFR ( Amer) 146, Glucose 141 H, Lactate 0.9, Calcium 9.6, Total Bilirubin 0.3, AST 37 H, ALT 87 H, Alkaline Phosphatase 76, Troponin I < 0.01, Total Protein 7.8, Albumin 4.2, Globulin 3.6 H, Albumin/Globulin Ratio 1.2, Lipase 57 01/27/24 11:10 01/27/24 11:10 Orders (Tests/Meds): ED MEDICATIONS Discontinued Medications Generic Name Dose Route Start Last Admin Trade Name Freq PRN Reason Stop Dose Admin Acetaminophen 1,000 mg 01/27/24 11:52 01/27/24 11:54 Acetaminophen 1,000mg/100ml Vial IV 01/27/24 11:53 1,000 mg ONCE ONE Administration Ceftriaxone Sodium 2 gm/ 100 mls @ 200 mls/hr 01/27/24 13:50 01/27/24 14:02 Sodium Chloride IV 01/27/24 14:19 200 mls/hr ONCE ONE Administration Iopamidol 75 ml 01/27/24 12:46 01/27/24 12:47 Iopamidol-370 (76%);100ml Bottle IV 01/27/24 12:47 75 ml ONCE ONE Administration Ketorolac Tromethamine 15 mg 01/27/24 11:52 01/27/24 11:54 Ketorolac 30mg/Ml Vial IV 01/27/24 11:53 15 mg ONCE ONE Administration Sodium Chloride 10 ml 01/27/24 12:46 01/27/24 12:47 Sodium Chloride 0.9% 10ml Syr (Rad Only) IV 01/27/24 12:47 10 ml ONCE ONE Administration ORDERS Category Date Time Status CT abdomen pelvis w con Stat Cat Scan 01/27/24 10:44 Completed CXR --portable [XR chest portable] Stat Exams 01/27/24 10:44 Completed Complete Blood Count Auto Diff Stat Lab 01/27/24 11:10 Completed Comprehensive Metabolic Panel Stat Lab 01/27/24 11:10 Completed Lactic Acid Stat Lab 01/27/24 11:10 Completed Lipase Stat Lab 01/27/24 11:10 Completed Trop I [Troponin I] Stat Lab 01/27/24 11:10 Completed UA [Urinalysis and Microscopic] Stat Lab 01/27/24 11:00 Completed Urine Culture Stat Micro 01/27/24 11:00 Received ECG Data Tracing #1: I reviewed this ECG and interpreted as documented below: Normal sinus rhythm with a ventricular rate of [address] changes concerning for ischemia. Normal axis and intervals. ECG initial impression date: 01/27/24 ECG initial impression time: 10:56 Medical Decision Narrative: In summary, this patient is a 73-year-old female presenting to the Emergency Department for evaluation of potential abdominal pain in the setting of recent G-tube placement. Differential diagnoses considered include but are not limited to G-tube displacement, intra-abdominal infection, pancreatitis, urinary tract infection. Ruling out the most morbid conditions drove assessment. It should be noted patient's history includes stroke with nonverbal status which is not at goal therapy. She is currently a palliative patient who is DNR. This complicates all aspects of care by increasing patient's risk for morbidity. I reviewed patient's past medical records and noted previous evaluations back in September for hypertensive heart disease. On exam, the patient is sitting in bed in no acute distress at her neurologic baseline. Her G-tube is in place with minimal sanguinous drainage around, but does not appear to be very well. Abdominal exam is relatively benign, but history and exam limited given her nonverbal status. Workup included CBC, CMP, lipase, lactic acid, urinalysis, troponin, EKG, chest x-ray, CT abdomen and pelvis with IV contrast. Give patient may be in pain, she was given IV acetaminophen and toradol. I independently interpreted CT scan prior to the radiologist read and noted severe fecal impaction with constipation. G-tube appears to be in place without perforation. Please see their read for final interpretation. Labs were obtained that demonstrated mild transaminitis but no other acutely concerning abnormalities. She does have a urinary tract infection. Given severe rectal impaction, decision was made to perform manual disimpaction. This was explained to the patient. This was performed successfully with removal of a large amount of firm, dark green stool. This was done with digital disimpaction, which the patient tolerated well with no complications. She then had an enema with return of liquid stool. I feel that she is appropriate for discharge home back to her nursing facility with a bowel regimen and prescriptions to treat her UTI. She received Rocephin prior to discharge and was given prescriptions for senna, MiraLAX, and Keflex. Patient was discharged with strict return precautions after all questions were answered. Critical Care Critical Care Time Critical Care Time: No
--- NOTE | 2024-01-27 10:55 | ECG_ITS ---
APPROVED REPORT Exam: Resting ECG HR:96 bpm ECG Measurements Heart Rate 96 AXES AR 156 P 66 QRSd 89 QRS 62 QT 322 T 31 QTc 376 Conclusion SINUS RHYTHM NONSPECIFIC T-WAVE ABNORMALITY BORDERLINE ECG Electronically signed by : BRONWYN FLETCHER, 01/28/2024 16:00:19
--- NOTE | 2024-01-27 11:08 | PC.NURSE ---
CHANGED PT WITH ASSIST X2. PT HAD A MEDIUM BM. BROWN IN COLOR. SOFT CONSISTENCY. PROVIDED PT WITH A WARM BLANKET.
[2024-01-27 11:09] LABS: Microscopic, Urine URINE MICROSCOPIC (MICROSCOPIC)
[2024-01-27 11:15] LABS: Appearance,Urine CLEAR (Clear); Bilirubin,Urine Negative (Negative); Blood, Urine 1+ (Negative); Color,Urine YELLOW (Yellow); Glucose,Urine (UA) Negative (Negative); Ketones,Urine Negative (Negative); Leukocyte Esterase,Urine 3+ (Negative); Nitrate,Urine Negative (Negative); Protein,Urine Negative (Negative); Specific Gravity, Urine <= 1.005 (1.005-1.030)
[2024-01-27 11:24] LABS: Basophils # 0.1 K/mm3 (0-0.2); Basophils % 0.7 % (0.1-2.0); Eosinophils # 0.2 K/mm3 (0.0-0.4); Eosinophils % 2.9 % (0.1-12.0); Hematocrit 34.8 % (37.0-47.0); Hemoglobin 11.7 g/dL (12.2-16.2); Lymphocytes # 1.4 K/mm3 (0.7-4.5); Lymphocytes % 17.9 % (10-50); Mean Corpuscular HGB Conc 33.7 g/dL (31.8-35.4); Mean Corpuscular Hemoglobin 29.3 pg (27.0-31.2); Mean Platelet Volume 7.6 fl (7.4-10.4); Monocytes # 0.5 K/mm3 (0.1-1.0); Neutrophils # 5.6 K/mm3 (1.8-7.8); Neutrophils % 71.6 % (37.0-80.0); Platelet Count 310 K/mm3 (142-424); Red Cell Distribution Width 15.5 % (11.5-17.5); White Blood Count 7.8 K/mm3 (4.8-10.8)
[2024-01-27 11:34] LABS: Chloride 100 mmol/L (98-107); Potassium 4.3 mmoL/L (3.5-5.1); Sodium 138 mmol/L (136-145)
[2024-01-27 11:36] LABS: Alanine Aminotransferase 87 U/L (12-78); Blood Urea Nitrogen 23 mg/dl (7-17); Creatinine Clearance Estimated 46 mL/min (50-200); Estimated Glomerular Filt Rate 121 ml/min (>60); GFR (African American) 146 ML/MIN (>60); Lactic Acid 0.9 mmol/L (0.7-2.1)
[2024-01-27 11:37] LABS: Albumin Level 4.2 g/dl (3.5-5.0); Albumin/Globulin Ratio 1.2 (1.1-1.8); Alkaline Phosphatase 76 U/L (38-126); Anion Gap 13.3 mEq/L (5-15); Aspartate Amino Transferase 37 U/L (14-36); Bilirubin,Total 0.3 mg/dl (0.2-1.3); Calcium 9.6 mg/dl (8.4-10.2); Carbon Dioxide 29 mmol/L (22.0-30.0); Globulin 3.6 g/dL (1.3-3.2); Glucose 141 mg/dl (74-100); Lipase 57 U/L (23-300); Total Protein,Serum 7.8 g/dl (6.3-8.2)
--- NOTE | 2024-01-27 11:50 | PC.NURSE ---
PT APPEARS UNCOMFORTABLE AND IN PAIN DUE TO RESTLESSNESS AND MOANING INCREASED SINCE BEING HERE. ER MD NOTIFIED.
--- NOTE | 2024-01-27 11:52 | PC.NURSE ---
DR FLETCHER AT BEDSIDE TO REEVALUATE PT
[2024-01-27] MEDS: KETOROLAC 30MG/ML VIAL 15 MG IV (11:54)
[2024-01-27] MEDS: ACETAMINOPHEN 1,000MG/100ML VIAL 1000 MG IV (11:54)
[2024-01-27 11:59] LABS: Troponin I < 0.01 ng/ml (0.00-0.034)
[2024-01-27 12:03] LABS: Bacteria,Urine 1+ /lpf; Squamous Epithelial Cell,Urine Occasional #/hpf (0-5); WBC,Urine 20-50 #/hpf (0-3)
--- NOTE | 2024-01-27 12:26 | PC.NURSE ---
PT TRANSPORTED TO RADIOLOGY VIA STRETCHER
--- NOTE | 2024-01-27 12:46 | PC.NURSE ---
pt arrived back to room
--- NOTE | 2024-01-27 12:46 | PC.NURSE ---
PT RETURNED FROM RADIOLOGY
[2024-01-27] MEDS: IOPAMIDOL-370 (76%);100ML BOTTLE 75 ML IV (12:47)
[2024-01-27] MEDS: SODIUM CHLORIDE 0.9% 10ML SYR (RAD ONLY) 10 ML IV (12:47)
--- NOTE | 2024-01-27 13:08 | PC.NURSE ---
ROUNDED ON PT NURSE FROM [facility] AT STATES NOTHING WAS NEEDED AT THIS TIME,CALL LIGHT IN REACH
--- NOTE | 2024-01-27 13:44 | PC.NURSE ---
at for de-compaction of pt
[2024-01-27] MEDS: CEFTRIAXONE SODIUM 2 GM in 0.9 % SODIUM CHLORIDE 100 ML IV (14:02)
--- NOTE | 2024-01-27 14:02 | PC.NURSE ---
soap suds enema administered pt tolerated half of bag
--- NOTE | 2024-01-27 14:38 | PC.NURSE ---
Pt had a small dubose liquid bowel movement. Pt changed with clean dry brief
--- NOTE | 2024-01-27 14:59 | PC.NURSE ---
CALLED REPORT TO WOODY DE [facility]
== END 2024-01-27 15:32 ==
PROVIDERS: Emergency Provider Emergency Medicine; PCP Family Medicine
DX: N39.0 Urinary tract infection, site not specified (principal); B96.5 Pseudomonas (aeruginosa) (mallei) (pseudomallei) as the cause of diseases classified elsewhere; K56.41 Fecal impaction; R74.01 Elevation of levels of liver transaminase levels; E11.9 Type 2 diabetes mellitus without complications; E78.5 Hyperlipidemia, unspecified; I10 Essential (primary) hypertension; Z86.73 Personal history of transient ischemic attack (TIA), and cerebral infarction without residual deficits; Z93.1 Gastrostomy status
CPT/HCPCS: 71045; 74177; 80053; 81001; 83605; 83690; 84484; 85025; 87086; 87088; 87186; 93005; 96365; 96375; 99285; J0131; J0696; J1885; Q9967

== ENCOUNTER 2024-04-25 13:29 | Inpatient (IN) | payer MEDICARE, MEDICAID, SELFPAY ==
[2024-04-25] VITALS (20 sets, daily range): BP systolic 127–236; BP diastolic 56–93; PULSE 97–153; RESP 15–24; TEMP 37.1–39.6; O2SAT 93–98; BMI 23.7; BMI 25.4
--- NOTE | 2024-04-25 13:56 | ED_ITS ---
Discharge Plan Disposition Patient Disposition: Home, Self-Care Prescriptions Prescriptions: New cefdinir 300 mg capsule 300 mg PO BID 10 Days Qty: 20 0RF No Action Dulera 200-5 mcg/actuation HFA aerosol inhaler 2 puff INHALATION BID albuterol sulfate 1.25 mg/3 mL solution for nebulization 1.25 mg INHALATION QID PRN (Reason: Wheezing) carvedilol [Coreg] 25 mg tablet 25 mg PO BID Qty: 60 5RF Rx Instructions: give with food (meal/snack) apixaban 5 mg tablet 5 mg PO BID hydralazine 50 mg tablet 50 mg PO TID pantoprazole 40 mg tablet,delayed release (DR/EC) 40 mg PO DAILY aspirin 81 mg tablet,delayed release (DR/EC) 81 mg PO DAILY amoxicillin-pot clavulanate [Augmentin] 500-125 mg tablet 1 tab PO TID Qty: 30 0RF hydrocodone-acetaminophen 10-325 mg tablet 1 tab PO QID 30 Days Qty: 120 0RF lisinopril 40 mg tablet 40 mg feeding tube DAILY diltiazem HCl 60 mg tablet 60 mg feeding tube QID levofloxacin 750 mg tablet 750 mg PO DAILY 5 Days Qty: 5 0RF amlodipine 5 mg Tablet 5 mg PO DAILY 30 Days Qty: 30 0RF hydrochlorothiazide 25 mg Tablet 25 mg PO DAILY 30 Days Qty: 30 0RF polyethylene glycol 3350 [Miralax] 17 gram/dose powder 17 g PO DAILY PRN (Reason: constipation) Qty: 510 0RF sennosides [senna] 8.8 mg/5 mL syrup 5 ml PO DAILY PRN (Reason: constipation) Qty: 236 0RF Referrals Follow up/Referrals: Provider,Referral, MD [Primary Care Provider] - See instructions Activity Restrictions/Add. Instructions Additional Instructions/Restrictions: Call your family doctor to establish care for this visit to the emergency department and schedule follow-up within 48 hours to ensure improvement. If you have any worsening of your condition or any other concerning signs or symptoms, return to the emergency department or your primary care doctor for further evaluation. Today, there was concern for narrowing of the arteries (blood vessels) in your abdomen that bring blood to your intestines. Talk to your family doctor about follow-up with vascular surgery consultation for potential management Clinical Impressions Clinical Impression: Abdominal pain, Pyelonephritis Instructions Patient Instructions: DI for Acute Abdominal Pain Print Language Print Language: Mongolian Discharge ED Provider: Devyn Coto General Adult HPI <Carri Correa MD - Last Filed: 04/25/24 14:36> General Chief complaint: Abdominal Pain Stated complaint: Abd pain Time Seen by Provider: 04/25/24 13:51 Mode of Arrival: EMS Source of Information: EMS and Medical Record Limitations: pt nonverbal Description of Symptoms (Recalled from ER Triage Doc. by RN): pt is nonverbal. per senior care report pt is puling at her G Tube. abdominal pain History of Present Illness HPI narrative: 73-year-old sent from [facility] for concern for abdominal pain. She has a G-tube and per senior care she is having evidence of wincing in pain complaining of pain and pulling at her G-tube. She is nonverbal and history is severely limited because of that. She was brought in by EMS. Related Data Home Medications ?Medication ?Instructions ?Recorded ?Confirmed albuterol sulfate 1.25 mg/3 mL 1.25 mg inhalation QID PRN Wheezing 04/15/18 04/11/24 solution for nebulization mometasone-formoterol HFA 200 2 puff inhalation BID 04/15/18 04/11/24 mcg-5 mcg/actuation aerosol inhaler (Dulera) apixaban 5 mg tablet 5 mg PO BID 08/24/23 04/11/24 aspirin 81 mg tablet,delayed 81 mg PO DAILY 08/24/23 04/11/24 release hydralazine 50 mg tablet 50 mg PO TID 08/24/23 04/11/24 pantoprazole 40 mg tablet,delayed 40 mg PO DAILY 08/24/23 04/11/24 release diltiazem HCl 60 mg tablet 60 mg feeding tube QID 09/16/23 04/11/24 lisinopril 40 mg tablet 40 mg feeding tube DAILY 09/16/23 04/11/24 Previous Rx's ?Medication ?Instructions ?Recorded carvedilol 25 mg tablet (Coreg) 25 mg PO BID #60 tabs 04/15/18 levofloxacin 750 mg tablet 750 mg PO DAILY 5 days #5 tabs 09/18/23 amlodipine 5 mg tablet 5 mg PO DAILY 30 days #30 tabs 09/20/23 hydrochlorothiazide 25 mg tablet 25 mg PO DAILY 30 days #30 tabs 09/20/23 polyethylene glycol 3350 17 17 g PO DAILY PRN constipation 01/27/24 gram/dose oral powder (Miralax) #510 grams sennosides 8.8 mg/5 mL oral syrup 5 ml PO DAILY PRN constipation 01/27/24 (senna) #236 mL amoxicillin 500 mg-potassium 1 tab PO TID #30 tabs 03/22/24 clavulanate 125 mg tablet (Augmentin) hydrocodone 10 mg-acetaminophen 1 tab PO QID pain 30 days #120 04/19/24 325 mg tablet tabs cefdinir 300 mg capsule 300 mg PO BID 10 days #20 caps 04/25/24 Allergies Allergy/AdvReac Type Severity Reaction Status Date / Time Sulfa (Sulfonamide AdvReac Unknown Verified 04/11/24 13:55 Antibiotics) allergy reaction PFSH <Carri Correa MD - Last Filed: 04/25/24 14:36> [facility] Disclaimer: The information contained in this section may have been updated after the patient was seen, as this information can be updated by other users. Medical History Hypertensive emergency Anemia Sacral decubitus ulcer, stage IV Acute UTI Cellulitis of arm, right Sepsis Encounter for feeding tube placement Hyponatremia Cerebral edema Brain compression Structural encephalopathy Dysphagia Pressure ulcer MALIK (acute kidney injury) Stroke Gastroesophageal reflux disease DM (diabetes mellitus) HLD (hyperlipidemia) HHD (hypertensive heart disease) Hypokalemia Family History Other No significant family history Social History Smoking Status: Unknown if ever smoked alcohol intake: never substance use type: denies use current occupational status: disabled Travel in the last 8 weeks: None <Carri Correa MD - Last Filed: 04/25/24 14:36> ROS Obtained: Yes All systems reviewed & no additional complaints except as documented Physical Exam <Carri Correa MD - Last Filed: 04/25/24 14:36> General General appearance: alert Respiratory Respiratory exam: Present normal lung sounds bilaterally Cardiovascular Cardiovascular exam: Present regular rate Abdominal Exam Abdominal exam: Present other (G-tube is intact there is no erythema or swelling but patient is tender and wincing in pain as I examine her and palpate around this) Neurological Exam Neurological exam: Present alert and oriented X3 Medical Decision Making <Carri Correa MD - Last Filed: 04/25/24 14:36> Medical Records Screening: Per USPSTF and CDC recommendations, given the prevalence of disease in our region, it is our hospital?s policy to screen for HIV and viral Hepatitis for all patients aged 18 and over and those with ongoing risk factors. Rafita Inquiry Pt receiving controlled substance: No Vital Signs: 04/25/24 13:29 04/25/24 14:00 04/25/24 14:43 Temperature 98.8 F Temperature Source Oral Pulse Rate 105 H 121 H Pulse Rate [Right] 103 H Respiratory Rate 20 Blood Pressure 161/71 H 157/81 H Blood Pressure [Right Arm] 180/66 H Blood Pressure Mean Blood Pressure Mean [Right Arm] 104 02 Sat by Pulse Oximetry 98 97 98 Oxygen Delivery Method Room Air Room Air 04/25/24 15:00 04/25/24 15:30 04/25/24 16:00 Temperature Temperature Source Pulse Rate 125 H 131 H 127 H Pulse Rate [Right] Respiratory Rate Blood Pressure 175/89 H 192/88 H 185/79 H Blood Pressure [Right Arm] Blood Pressure Mean Blood Pressure Mean [Right Arm] 02 Sat by Pulse Oximetry 97 96 95 Oxygen Delivery Method Room Air 04/25/24 16:30 04/25/24 17:00 Temperature Temperature Source Pulse Rate 128 H 130 H Pulse Rate [Right] Respiratory Rate Blood Pressure 193/78 H 181/76 H Blood Pressure [Right Arm] Blood Pressure Mean 111 Blood Pressure Mean [Right Arm] 02 Sat by Pulse Oximetry 96 97 Oxygen Delivery Method Room Air Room Air Lab Data Lab Results 04/25/24 15:54: WBC 16.2 H, RBC 3.75 L, Hgb 11.2 L, Hct 35.1 L, MCV 93.6, MCH 29.9, MCHC 32.0, RDW 15.4, Plt Count 310, MPV 8.1, Neut % (Auto) 88.6 H, Lymph % (Auto) 5.7 L, [place] % (Auto) 4.8, Eos % (Auto) 0.8, Baso % (Auto) 0.2, Neut # (Auto) 14.4 H, Lymph # (Auto) 0.9, [place] # (Auto) 0.8, Eos # (Auto) 0.1, Baso # (Auto) 0.0, Total Counted 100, Neutrophils % (Manual) 95 H, Lymphocytes % (Manual) 2 L, Monocytes % (Manual) 3, Platelet Estimate Normal, Hypochromasia 1+, Anisocytosis 1+, Macrocytosis 1+, Sodium 139, Potassium 4.1, Chloride 101, C arbon Dioxide 33 H, Anion Gap 9.1, BUN 25 H, Creatinine 0.80, Estimated Creat Clear 47, Estimated GFR 70, Est GFR ( Amer) 85, Glucose 150 H, Lactate 1.7, Calcium 9.6, Total Bilirubin 0.7, AST 39 H, ALT 90 H, Alkaline Phosphatase 63, Total Protein 7.9, Albumin 4.4, Globulin 3.5 H, Albumin/Globulin Ratio 1.3, Lipase 34 04/25/24 16:40: Urine Color Yellow, Urine Appearance Clear, Urine pH 8.0, Ur Specific [place] 1.010, Urine Protein 1+ A, Urine Glucose (UA) Negative, Urine Ketones Negative, Urine Blood 3+ A, Urine Nitrate Negative, Urine Bilirubin Negative, Urine Urobilinogen 0.2, Ur Leukocyte Esterase 3+ A, Urine RBC Tntc, Urine WBC Tntc, Ur Squamous Epith Cells 3-5, Urine Bacteria 4+, Urine Yeast 2+ 04/25/24 15:54 04/25/24 15:54 Orders (Tests/Meds): ED MEDICATIONS Generic Name Dose Route Start Last Admin Trade Name Freq PRN Reason Stop Dose Admin Sodium Chloride 1,570 mls @ 785 mls/hr 04/25/24 15:52 04/25/24 17:07 Sod Chlor 0.9% 1000ml Bag 30 ml/kg infuse over 2 hr (1570 ml) 04/25/24 17:51 785 mls/hr IV Administration .Q2H ONE Vancomycin/PEG/NADA/Lysine/Water 1.25 gm in 250 mls @ 125 mls/hr 04/25/24 16:45 04/25/24 17:36 Vancomycin 1.25gm/250ml (Peg) Premix IV 04/25/24 18:44 125 mls/hr ONCE ONE Administration Discontinued Medications Generic Name Dose Route Start Last Admin Trade Name Freq PRN Reason Stop Dose Admin Acetaminophen 1,000 mg 04/25/24 13:54 04/25/24 14:24 Acetaminophen 1,000mg/100ml Vial IV 04/25/24 13:55 1,000 mg ONCE ONE Administration Hydromorphone HCl 0.5 mg 04/25/24 16:59 04/25/24 17:07 Hydromorphone 2mg/Ml Syringe IV 04/25/24 17:00 0.5 mg ONCE ONE Administration Lactated Ringer's 1,000 mls @ 999 mls/hr 04/25/24 14:00 04/25/24 14:24 Lactated Ringer's 1000 Ml Bag IV 04/25/24 15:00 999 mls/hr .Q1H1M SHAYAN Administration Cefepime HCl 2 gm/ Sodium 100 mls @ 200 mls/hr 04/25/24 16:27 04/25/24 17:24 Chloride IV 04/25/24 16:56 200 mls/hr ONCE ONE Administration Metronidazole 500 mg in 100 mls @ 100 mls/hr 04/25/24 16:27 04/25/24 17:07 Flagyl 500mg/100ml Ivpb IV 04/25/24 17:26 100 mls/hr ONCE ONE Administration Iopamidol 80 ml 04/25/24 16:05 04/25/24 16:07 Iopamidol-370 (76%);100ml Bottle IV 04/25/24 16:06 80 ml ONCE ONE Administration Miscellaneous 1 each 04/25/24 16:30 Vancomycin Consult Request NOTAPPLIC 05/25/24 16:29 CONSULT PHARMACY [facility] Ondansetron HCl 4 mg 04/25/24 16:59 04/25/24 17:07 Ondansetron 4mg/2ml Vial IV 04/25/24 17:00 4 mg ONCE ONE Administration Sodium Chloride 10 ml 04/25/24 16:05 04/25/24 16:06 Sodium Chloride 0.9% 10ml Syr (Rad Only) IV 04/25/24 16:06 10 ml ONCE ONE Administration Sodium Chloride 50 ml 04/25/24 16:05 04/25/24 16:06 0.9 % Sodium Chloride 50 Ml Vial IV 04/25/24 16:06 50 ml ONCE ONE Administration ORDERS Category Date Time Status CT angio abdomen pelvis Stat Cat Scan 04/25/24 15:51 Completed CXR --portable [XR chest portable] Stat Exams 04/25/24 16:34 Completed CBC w/Auto Diff [Complete Blood Count Auto Diff] Stat Lab 04/25/24 15:54 Completed CMP [Comprehensive Metabolic Panel] Stat Lab 04/25/24 15:54 Completed HIV (1&2) Antibody Rapid Stat Lab 04/25/24 15:54 Received Hep C Ab with Reflex to RNA Stat Lab 04/25/24 15:54 Received Lactic Acid Stat Lab 04/25/24 15:54 Completed Lipase Stat Lab 04/25/24 15:54 Completed UA [Urinalysis and Microscopic] Stat Lab 04/25/24 16:40 Completed Blood Culture Stat Micro 04/25/24 16:40 Received Urine Culture Stat Micro 04/25/24 16:40 Received Medical Decision Narrative: Nonverbal 73-year-old presented today with abdominal pain and tenderness surrounding her G-tube. History and physical extremely limited secondary to her nonverbal status. Will get a contrasted CT scan and basic blood work and administer IV Tylenol and reassess. Workup is pending as of 2:40 PM care will be transitioned to Dr. Devyn Coto at 3 PM to finalize disposition and management of this patient after the workup is complete. <Devyn Coto MD - Last Filed: 04/25/24 17:49> Vital Signs: 04/25/24 13:29 04/25/24 14:00 04/25/24 14:43 Temperature 98.8 F Temperature Source Oral Pulse Rate 105 H 121 H Pulse Rate [Right] 103 H Respiratory Rate 20 Blood Pressure 161/71 H 157/81 H Blood Pressure [Right Arm] 180/66 H Blood Pressure Mean Blood Pressure Mean [Right Arm] 104 02 Sat by Pulse Oximetry 98 97 98 Oxygen Delivery Method Room Air Room Air 04/25/24 15:00 04/25/24 15:30 04/25/24 16:00 Temperature Temperature Source Pulse Rate 125 H 131 H 127 H Pulse Rate [Right] Respiratory Rate Blood Pressure 175/89 H 192/88 H 185/79 H Blood Pressure [Right Arm] Blood Pressure Mean Blood Pressure Mean [Right Arm] 02 Sat by Pulse Oximetry 97 96 95 Oxygen Delivery Method Room Air 04/25/24 16:30 04/25/24 17:00 Temperature Temperature Source Pulse Rate 128 H 130 H Pulse Rate [Right] Respiratory Rate Blood Pressure 193/78 H 181/76 H Blood Pressure [Right Arm] Blood Pressure Mean 111 Blood Pressure Mean [Right Arm] 02 Sat by Pulse Oximetry 96 97 Oxygen Delivery Method Room Air Room Air Lab Data Lab Results 04/25/24 15:54: WBC 16.2 H, RBC 3.75 L, Hgb 11.2 L, Hct 35.1 L, MCV 93.6, MCH 29.9, MCHC 32.0, RDW 15.4, Plt Count 310, MPV 8.1, Neut % (Auto) 88.6 H, Lymph % (Auto) 5.7 L, [place] % (Auto) 4.8, Eos % (Auto) 0.8, Baso % (Auto) 0.2, Neut # (Auto) 14.4 H, Lymph # (Auto) 0.9, [place] # (Auto) 0.8, Eos # (Auto) 0.1, Baso # (Auto) 0.0, Total Counted 100, Neutrophils % (Manual) 95 H, Lymphocytes % (Manual) 2 L, Monocytes % (Manual) 3, Platelet Estimate Normal, Hypochromasia 1+, Anisocytosis 1+, Macrocytosis 1+, Sodium 139, Potassium 4.1, Chloride 101, C arbon Dioxide 33 H, Anion Gap 9.1, BUN 25 H, Creatinine 0.80, Estimated Creat Clear 47, Estimated GFR 70, Est GFR ( Amer) 85, Glucose 150 H, Lactate 1.7, Calcium 9.6, Total Bilirubin 0.7, AST 39 H, ALT 90 H, Alkaline Phosphatase 63, Total Protein 7.9, Albumin 4.4, Globulin 3.5 H, Albumin/Globulin Ratio 1.3, Lipase 34 04/25/24 16:40: Urine Color Yellow, Urine Appearance Clear, Urine pH 8.0, Ur Specific [place] 1.010, Urine Protein 1+ A, Urine Glucose (UA) Negative, Urine Ketones Negative, Urine Blood 3+ A, Urine Nitrate Negative, Urine Bilirubin Negative, Urine Urobilinogen 0.2, Ur Leukocyte Esterase 3+ A, Urine RBC Tntc, Urine WBC Tntc, Ur Squamous Epith Cells 3-5, Urine Bacteria 4+, Urine Yeast 2+ Orders (Tests/Meds): ED MEDICATIONS Generic Name Dose Route Start Last Admin Trade Name Freq PRN Reason Stop Dose Admin Sodium Chloride 1,570 mls @ 785 mls/hr 04/25/24 15:52 04/25/24 17:07 Sod Chlor 0.9% 1000ml Bag 30 ml/kg infuse over 2 hr (1570 ml) 04/25/24 17:51 785 mls/hr IV Administration .Q2H ONE Vancomycin/PEG/NADA/Lysine/Water 1.25 gm in 250 mls @ 125 mls/hr 04/25/24 16:45 04/25/24 17:36 Vancomycin 1.25gm/250ml (Peg) Premix IV 04/25/24 18:44 125 mls/hr ONCE ONE Administration Discontinued Medications Generic Name Dose Route Start Last Admin Trade Name Freq PRN Reason Stop Dose Admin Acetaminophen 1,000 mg 04/25/24 13:54 04/25/24 14:24 Acetaminophen 1,000mg/100ml Vial IV 04/25/24 13:55 1,000 mg ONCE ONE Administration Hydromorphone HCl 0.5 mg 04/25/24 16:59 04/25/24 17:07 Hydromorphone 2mg/Ml Syringe IV 04/25/24 17:00 0.5 mg ONCE ONE Administration Lactated Ringer's 1,000 mls @ 999 mls/hr 04/25/24 14:00 04/25/24 14:24 Lactated Ringer's 1000 Ml Bag IV 04/25/24 15:00 999 mls/hr .Q1H1M SHAYAN Administration Cefepime HCl 2 gm/ Sodium 100 mls @ 200 mls/hr 04/25/24 16:27 04/25/24 17:24 Chloride IV 04/25/24 16:56 200 mls/hr ONCE ONE Administration Metronidazole 500 mg in 100 mls @ 100 mls/hr 04/25/24 16:27 04/25/24 17:07 Flagyl 500mg/100ml Ivpb IV 04/25/24 17:26 100 mls/hr ONCE ONE Administration Iopamidol 80 ml 04/25/24 16:05 04/25/24 16:07 Iopamidol-370 (76%);100ml Bottle IV 04/25/24 16:06 80 ml ONCE ONE Administration Miscellaneous 1 each 04/25/24 16:30 Vancomycin Consult Request NOTAPPLIC 05/25/24 16:29 CONSULT [facility]ACY [facility] Ondansetron HCl 4 mg 04/25/24 16:59 04/25/24 17:07 Ondansetron 4mg/2ml Vial IV 04/25/24 17:00 4 mg ONCE ONE Administration Sodium Chloride 10 ml 04/25/24 16:05 04/25/24 16:06 Sodium Chloride 0.9% 10ml Syr (Rad Only) IV 04/25/24 16:06 10 ml ONCE ONE Administration Sodium Chloride 50 ml 04/25/24 16:05 04/25/24 16:06 0.9 % Sodium Chloride 50 Ml Vial IV 04/25/24 16:06 50 ml ONCE ONE Administration ORDERS Category Date Time Status CT angio abdomen pelvis Stat Cat Scan 04/25/24 15:51 Completed CXR --portable [XR chest portable] Stat Exams 04/25/24 16:34 Completed CBC w/Auto Diff [Complete Blood Count Auto Diff] Stat Lab 04/25/24 15:54 Completed CMP [Comprehensive Metabolic Panel] Stat Lab 04/25/24 15:54 Completed HIV (1&2) Antibody Rapid Stat Lab 04/25/24 15:54 Received Hep C Ab with Reflex to RNA Stat Lab 04/25/24 15:54 Received Lactic Acid Stat Lab 04/25/24 15:54 Completed Lipase Stat Lab 04/25/24 15:54 Completed UA [Urinalysis and Microscopic] Stat Lab 04/25/24 16:40 Completed Blood Culture Stat Micro 04/25/24 16:40 Received Urine Culture Stat Micro 04/25/24 16:40 Received Medical Decision Narrative: Nonverbal 73-year-old presented today with abdominal pain and tenderness surrounding her G-tube. History and physical extremely limited secondary to her nonverbal status. Will get a contrasted CT scan and basic blood work and administer IV Tylenol and reassess. Workup is pending as of 2:40 PM care will be transitioned to Dr. Devyn Coto at 3 PM to finalize disposition and management of this patient after the workup is complete. Chica: I assumed primary responsibility for this patient after signout from previous physician. On my independent evaluation patient, patient nonverbal. Grunting, mildly tachypneic. Since arrival at around 3 PM on 04/25 to around 4 PM when placing IV, patient persistently and progressively tachycardic. Around 1 30-1 40 on my evaluation. Abdomen is soft, nondistended, patient not particularly tender. No rebound or rigidity. Does not appear to be guarding. Ultrasound-guided line placed, antibiotics and sepsis bolus administered given tachycardia. Independent interpretation of workup demonstrates leukocytosis 16.2 with neutrophilic predominance. Patient's hemoglobin stable at 11.2. Platelets normal. Chemistry nonactionable. Lipase negative. Urinalysis with concern for pyelonephritis. Independent interpretation of CT demonstrates no acute intra-abdominal process, however patient does have Rodriguez catheter extending into the right ureter. Once removed, patient's grunting and discomfort seem to have improved. Urinalysis sent, concern for pyelonephritis. Radiology read has concern for MAU calcification and 50% stenosis, but no evidence of acute ischemia. Lactate also negative. Because on reevaluation, patient interacting, smiling, does not appear to be in any pain, negative workup otherwise, deemed appropriate for discharge. To be sent home with cefdinir for 10 days. Because patient at baseline without signs or symptoms of clinical decompensation, deemed appropriate for discharge. Procedures <Devyn Coto MD - Last Filed: 04/25/24 17:49> Limited Ultrasound Indication:: Ultrasound-guided line placement Indication: -Difficult IV access Identified structures: -Basilic vein left upper extremity, brachial artery, ulnar nerve Location/access site: -Left basilic vein Vessel patency: -Patent Direct visualization? -Yes Impression: Successful placement after 2 attempts left basilic vein Images were not saved to permanent archive The study was technically adequate CPT Codes: Venipuncture: 01517-17 Age >3yo: [id number] This study was performed by me, and I personally interpreted all images/videos. Based on my clinical judgement, these images were adequate and did not necessitate further imaging Critical Care <Carri Correa MD - Last Filed: 04/25/24 14:36> Critical Care Time Critical Care Time: No
[2024-04-25] MEDS: ACETAMINOPHEN 1,000MG/100ML VIAL 1000 MG IV (14:24)
[2024-04-25] MEDS: LACTATED RINGERS 1000ML 1,000 ML 999 ML IV (14:24)
--- NOTE | 2024-04-25 15:51 | CT_ITS ---
FINAL REPORT TECHNIQUE: Pre-and postcontrast images of the abdomen and pelvis were performed by computed tomography. Extensive 3-D reconstruction images were performed. A CTA was performed. This study was performed with techniques to keep radiation doses as low as reasonably achievable (ALARA). Individualized dose reduction techniques using automated exposure control or adjustment of mA and/or kV according to the patient's size were employed. CLINICAL HISTORY: severe abd pain and tachycardia COMPARISON: None FINDINGS: ABDOMEN AND PELVIS: The lung bases are clear. Precontrast images demonstrate no evidence of nephrolithiasis. There is slight decreased enhancement in the right kidney relative to the left, probably due to renal artery disease in the right kidney. There is mild right hydronephrosis and hydroureter present. Examination of the bladder reveals that the distal aspect of the Rodriguez catheter enters into the distal right ureter and is likely the cause of the mild right hydronephrosis and hydroureter. A PEG is in place. The gallbladder is normal in appearance. No adrenal masses are identified. The liver, spleen and pancreas are unremarkable. There is no evidence of acute mesenteric ischemia. The appendix is normal in appearance. The uterus is retroverted, the bladder is decompressed, and there is pelvic floor prolapse present. CTA: There is moderate diffuse plaque in the abdominal aorta without evidence of dissection or an aneurysm. There is eccentric plaque in the the level of the origin of the inferior mesenteric artery, which leads to approximately 40% stenosis of the aorta. There is a shared origin of the celiac axis and superior mesenteric artery. 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 There is moderate right renal artery stenosis of greater than 50% with a normal appearing left renal artery. IMPRESSION: Eccentric plaque in the aorta at the level of the MAU, producing 40% stenosis of the aorta. There are no CT findings to suggest acute mesenteric ischemia. There is moderate right renal artery stenosis of greater than 50%, with a normal-appearing left renal artery. There is mild right hydroureter and hydronephrosis. The distal tip of the Rodriguez catheter enters into the distal right ureter and is likely the cause of the mild right sided hydronephrosis and hydroureter. Reviewed, Interpreted and Dictated by Chalino Ernandez MD Transcribed by Judith Schulz Authenticated and [facility]
--- NOTE | 2024-04-25 15:58 | HMH.ITSTN ---
GFR completion/results were overrode for the use of contrast media by the Physician on a risk vs. benefit situation with this patient.
[2024-04-25] MEDS: 0.9 % SODIUM CHLORIDE 50 ML VIAL IV (16:06)
[2024-04-25] MEDS: SODIUM CHLORIDE 0.9% 10ML SYR (RAD ONLY) 10 ML IV (16:06)
[2024-04-25 16:07] LABS: Basophils % 0.2 % (0.1-2.0); Eosinophils # 0.1 K/mm3 (0.0-0.4); Eosinophils % 0.8 % (0.1-12.0); Hematocrit 35.1 % (37.0-47.0); Hemoglobin 11.2 g/dL (12.2-16.2); Lymphocytes # 0.9 K/mm3 (0.7-4.5); Lymphocytes % 5.7 % (10-50); Mean Corpuscular Hemoglobin 29.9 pg (27.0-31.2); Mean Corpuscular Volume 93.6 fl (81-99); Mean Platelet Volume 8.1 fl (7.4-10.4); Monocytes # 0.8 K/mm3 (0.1-1.0); Monocytes % 4.8 % (1.7-9.3); Neutrophils # 14.4 K/mm3 (1.8-7.8); Neutrophils % 88.6 % (37.0-80.0); Platelet Count 310 K/mm3 (142-424); Red Blood Count 3.75 M/mm3 (4.20-5.40); Red Cell Distribution Width 15.4 % (11.5-17.5); White Blood Count 16.2 K/mm3 (4.8-10.8)
[2024-04-25] MEDS: IOPAMIDOL-370 (76%);100ML BOTTLE 80 ML IV (16:07)
[2024-04-25 16:09] LABS: MANUAL DIFFERENTIAL MANUAL DIFFERENTIAL (MANUAL DIFF)
[2024-04-25 16:11] LABS: Albumin Level 4.4 g/dl (3.5-5.0); Chloride 101 mmol/L (98-107)
[2024-04-25 16:12] LABS: Potassium 4.1 mmoL/L (3.5-5.1); Sodium 139 mmol/L (136-145)
[2024-04-25 16:14] LABS: Alanine Aminotransferase 90 U/L (12-78); Anion Gap 9.1 mEq/L (5-15); Aspartate Amino Transferase 39 U/L (14-36); Blood Urea Nitrogen 25 mg/dl (7-17); Carbon Dioxide 33 mmol/L (22.0-30.0); Creatinine Clearance Estimated 47 mL/min (50-200); Estimated Glomerular Filt Rate 70 ml/min (>60); GFR (African American) 85 ML/MIN (>60); Lactic Acid 1.7 mmol/L (0.7-2.1)
[2024-04-25 16:15] LABS: Albumin/Globulin Ratio 1.3 (1.1-1.8); Alkaline Phosphatase 63 U/L (38-126); Bilirubin,Total 0.7 mg/dl (0.2-1.3); Calcium 9.6 mg/dl (8.4-10.2); Globulin 3.5 g/dL (1.3-3.2); Glucose 150 mg/dl (74-100); Lipase 34 U/L (23-300); Total Protein,Serum 7.9 g/dl (6.3-8.2)
--- NOTE | 2024-04-25 16:34 | XR_ITS ---
PROCEDURE INFORMATION: Exam: XR Chest Exam date and time: 04/25/2024 4:50 PM Age: 73 years old Clinical indication: Other: Rule out pneumonia; Additional info: Rule outpneumonia TECHNIQUE: Imaging protocol: Radiologic exam of the chest. Views: 1 view. COMPARISON: CR XR CHEST PORTABLE 01/27/2024 12:43 PM FINDINGS: Lungs: The lungs appear clear. No focal areas of consolidation. Pleural spaces: No pleural effusions. Negative for pneumothorax. Heart/Mediastinum: Cardiac silhouette and pulmonary vasculature are within range of normal. Bones/joints: There is no evidence of acute fracture. IMPRESSION: Negative for an acute cardiopulmonary abnormality. Stable chest radiograph.
[2024-04-25 16:42] LABS: Anisocytosis 1+; Lymphocytes % 2 % (10-50); Macrocytosis 1+; Monocytes % 3 % (2-9); Neutrophils % 95 % (42-76); Total Cells Counted 100
[2024-04-25 16:43] LABS: Hypochromasia 1+; Platelet Estimate Normal
--- NOTE | 2024-04-25 16:55 | PC.NURSE ---
New 16f morgan inserted. Urine sample sent
[2024-04-25 16:57] LABS: Microscopic, Urine URINE MICROSCOPIC (MICROSCOPIC)
[2024-04-25 17:07] LABS: Appearance,Urine CLEAR (Clear); Bilirubin,Urine Negative (Negative); Blood, Urine 3+ (Negative); Color,Urine YELLOW (Yellow); Glucose,Urine (UA) Negative (Negative); Ketones,Urine Negative (Negative); Leukocyte Esterase,Urine 3+ (Negative); Nitrate,Urine Negative (Negative); Protein,Urine 1+ (Negative); Urobilinogen,Urine 0.2 EU/dl (0.2)
[2024-04-25] MEDS: ONDANSETRON 4MG/2ML VIAL 4 MG IV (17:07)
[2024-04-25] MEDS: METRONIDAZ/SOD CHL 500 MG/100 ML PIGGYBACK 100 MG IV (17:07)
[2024-04-25] MEDS: 0.9 % SODIUM CHLORIDE 1000ML 1,570 ML 785 ML IV (17:07)
[2024-04-25] MEDS: HYDROMORPHONE 2MG/ML SYRINGE 0.5 MG IV (17:07)
[2024-04-25 17:22] LABS: RBC,Urine TNTC #/hpf (0-3); WBC,Urine TNTC #/hpf (0-3)
[2024-04-25 17:23] LABS: Bacteria,Urine 4+ /lpf; Yeast,Urine 2+ /lpf
[2024-04-25] MEDS: CEFEPIME HCL 2 GM in 0.9 % SODIUM CHLORIDE 100 ML IV (17:24)
[2024-04-25] MEDS: VANCOMYCIN/WATER FOR INJ (PEG) 1.25 GM/250 ML PIGGYBACK IV (17:36)
[2024-04-25 18:27] LABS: HIV (1&2) Antibody Rapid NONREACTIVE (NONREACTIVE)
--- NOTE | 2024-04-25 19:08 | ECG_ITS ---
APPROVED REPORT Exam: Resting ECG HR:152 bpm ECG Measurements Heart Rate 152 AXES TX 136 P 74 QRSd 84 QRS 62 QT 255 T -90 QTc 341 Conclusion Sinus tachycardia T wave inversions 2 3 aVF without reciprocal change Electronically signed by : LESLY JOHNSON, 04/25/2024 21:16:48
[2024-04-25] MEDS: CARVEDILOL 25MG TABLET 25 MG PO (19:24)
[2024-04-25] MEDS: dilTIAZem 30MG TABLET 60 MG PO (19:24)
[2024-04-25] MEDS: METOPROLOL TARTRATE 5MG/5ML VIAL 5 MG IV (19:37)
--- NOTE | 2024-04-25 20:17 | PC.NURSE ---
Nurse to nurse report to Dang DE LOS SANTOS
--- NOTE | 2024-04-25 20:31 | PC.NURSE ---
patient waiting to be transferred to floor once the room is cleaned
[2024-04-25 20:47] LABS: Procalcitonin 2.36 ng/mL (0.0-2.0)
--- NOTE | 2024-04-25 20:47 | P.HP_ITS ---
History of Present Illness *Admission Date: 04/25/24 *Reason for visit:: Atrial flutter with RVR, hypertensive urgency, febrile illness, discolored *History of present illness: 73-year-old nonverbal jail patient presents with past medical history of stroke, hypertension, feeding dysfunction with G-tube, hyperlipidemia, stage IV decub, diabetes. Patient sent from jail to hospital for evaluation abnormal Rodriguez urine discoloration. Patient initially stabilized in emergency room, and was scheduled to be discharged back to jail. Patient then developed rapid ventricular response with heart rate in 160s. Patient also developed fever 100.7 in emergency room with leukocytosis. Patient subsequently admitted to hospital for A-fib with RVR and sepsis management. Patient nonverbal and extremely poor historian. Patient systolic blood pressure over 200 at time evaluation by Dr. Peace in emergency room. Patient per emergency room report, it was originally grimacing upon presentation to ED, but became more comfortable after Rodriguez catheter was retracted. CT abdomen/pelvis done in emergency room showed Rodriguez potentially close to right ureter. Of special note, patient's temperature noted to be 103 ?F upon admission assessment by ICU nursing staff. Patient's son was phoned by ER nursing, with 2 nurses confirming that patient is DNR/DNI prior to admission to medical service. [facility] Disclaimer: The information contained in this section may have been updated after the patient was seen, as this information can be updated by other users. Medical History (Updated 04/25/24 @ 21:49 by Virgilio Peace MD) DM (diabetes mellitus) Sepsis Hypertensive emergency Anemia Sacral decubitus ulcer, stage IV Acute UTI Cellulitis of arm, right Encounter for feeding tube placement Hyponatremia Cerebral edema Brain compression Structural encephalopathy Dysphagia Pressure ulcer MALIK (acute kidney injury) Stroke Gastroesophageal reflux disease HLD (hyperlipidemia) HHD (hypertensive heart disease) Hypokalemia Family History Other No significant family history Social History (Updated 04/25/24 @ 21:31 by Kori Hartman RN) Smoking Status: Unknown if ever smoked alcohol intake: never substance use type: denies use current occupational status: disabled Travel in the last 8 weeks: None Review of Systems Review of Systems Review of systems:: pertinent systems reviewed and negative unless documented below Meds Home Medications and Allergies Home Medications ?Medication ?Instructions ?Recorded ?Confirmed ?Type albuterol sulfate 1.25 mg/3 mL 1.25 mg inhalation QID PRN Wheezing 04/15/18 04/11/24 History solution for nebulization carvedilol 25 mg tablet (Coreg) 25 mg PO BID #60 tabs 04/15/18 04/25/24 Rx mometasone-formoterol HFA 200 2 puff inhalation BID 04/15/18 04/11/24 History mcg-5 mcg/actuation aerosol inhaler (Dulera) apixaban 5 mg tablet 5 mg PO BID 08/24/23 04/25/24 History aspirin 81 mg tablet,delayed 81 mg PO DAILY 08/24/23 04/11/24 History release hydralazine 50 mg tablet 50 mg PO TID 08/24/23 04/25/24 History pantoprazole 40 mg tablet,delayed 40 mg PO DAILY 08/24/23 04/11/24 History release diltiazem HCl 60 mg tablet 60 mg feeding tube QID 09/16/23 04/25/24 History lisinopril 40 mg tablet 40 mg feeding tube DAILY 09/16/23 04/25/24 History levofloxacin 750 mg tablet 750 mg PO DAILY 5 days #5 tabs 09/18/23 04/11/24 Rx amlodipine 5 mg tablet 5 mg PO DAILY 30 days #30 tabs 09/20/23 04/25/24 Rx hydrochlorothiazide 25 mg tablet 25 mg PO DAILY 30 days #30 tabs 09/20/23 04/11/24 Rx polyethylene glycol 3350 17 17 g PO DAILY PRN constipation 01/27/24 04/11/24 Rx gram/dose oral powder (Miralax) #510 grams sennosides 8.8 mg/5 mL oral syrup 5 ml PO DAILY PRN constipation 01/27/24 04/11/24 Rx (senna) #236 mL amoxicillin 500 mg-potassium 1 tab PO TID #30 tabs 03/22/24 04/11/24 Rx clavulanate 125 mg tablet (Augmentin) hydrocodone 10 mg-acetaminophen 1 tab PO QID pain 30 days #120 04/19/24 04/25/24 Rx 325 mg tablet tabs cefdinir 300 mg capsule 300 mg PO BID 10 days #20 caps 04/25/24 Rx ferrous sulfate 300 mg (60 mg 150 mg PO DAILY 04/25/24 04/25/24 History iron)/5 mL oral liquid gabapentin 300 mg capsule 300 mg feeding tube TID 04/25/24 04/25/24 History lactulose 10 gram/15 mL oral 30 ml PO BID PRN Constipation 04/25/24 04/25/24 History solution omeprazole 40 mg capsule,delayed 40 mg PO DAILY 04/25/24 04/25/24 History release New Prescriptions to Start Prescriptions: Devyn Zarate Allergies Allergy/AdvReac Type Severity Reaction Status Date / Time Sulfa (Sulfonamide AdvReac Unknown Verified 04/11/24 13:55 Antibiotics) allergy reaction Exam Data for Last 24 hours Vital signs and Labs for Last 24 Hours: Temp Pulse Resp BP Pulse Ox O2 Del Method 98.8 F 152 H 15 172/76 H 96 Room Air 04/25/24 13:29 04/25/24 19:39 04/25/24 19:39 04/25/24 19:39 04/25/24 19:39 04/25/24 18:30 Laboratory Results - last 24 hr 04/25/24 15:54: WBC 16.2 H, RBC 3.75 L, Hgb 11.2 L, Hct 35.1 L, MCV 93.6, MCH 29.9, MCHC 32.0, RDW 15.4, Plt Count 310, MPV 8.1, Neut % (Auto) 88.6 H, Lymph % (Auto) 5.7 L, Iron % (Auto) 4.8, Eos % (Auto) 0.8, Baso % (Auto) 0.2, Neut # (Auto) 14.4 H, Lymph # (Auto) 0.9, Iron # (Auto) 0.8, Eos # (Auto) 0.1, Baso # (Auto) 0.0, Total Counted 100, Neutrophils % (Manual) 95 H, Lymphocytes % (Manual) 2 L, Monocytes % (Manual) 3, Platelet Estimate Normal, Hypochromasia 1+, Anisocytosis 1+, Macrocytosis 1+, Sodium 139, Potassium 4.1, Chloride 101, Carbon Dioxide 33 H, Anion Gap 9.1, BUN 25 H, Creatinine 0.80, Estimated Creat Clear 47, Estimated GFR 70, Est GFR ( Amer) 85, Glucose 150 H, Lactate 1.7, Calcium 9.6, Total Bilirubin 0.7, AST 39 H, ALT 90 H, Alkaline Phosphatase 63, Total Protein 7.9, Albumin 4.4, Globulin 3.5 H, Albumin/Globulin Ratio 1.3, Lipase 34, HIV 1&2 Antibody Rapid Nonreactive 04/25/24 16:40: Urine Color Yellow, Urine Appearance Clear, Urine pH 8.0, Ur Specific [place] 1.010, Urine Protein 1+ A, Urine Glucose (UA) Negative, Urine Ketones Negative, Urine Blood 3+ A, Urine Nitrate Negative, Urine Bilirubin Negative, Urine Urobilinogen 0.2, Ur Leukocyte Esterase 3+ A, Urine RBC Tntc, Urine WBC Tntc, Ur Squamous Epith Cells 3-5, Urine Bacteria 4+, Urine Yeast 2+ I & O for Last 24 hours: Intake & Output 04/22/24 04/23/24 04/24/24 04/25/24 23:59 23:59 23:59 23:59 Weight 60.781 kg Constitutional Constitutional: moderate distress, obese and chronically ill appearing *Routine HEENT Exam Head: Present normocephalic Eye: Present EOMI ENT: Present mucous membranes dry *Routine Neck Exam Neck: Present supple and full ROM *Routine Respiratory Exam Respiratory: Present CTA bilaterally *Routine Cardiovascular Exam Cardiovascular: Present tachycardia *Routine Abdominal Exam Abdominal: Present soft, normoactive bowel sounds and other (G tube does not appear infected without foul smelling drainage ) *Routine Rectal Exam Rectal:: deferred *Routine Genitalia Exam Genitalia:: deferred *Routine Skin Exam Skin: Present intact *Routine Neurological Exam Comments: Nonverbal, occasionally grunts, appears disoriented to location and time Assessment and Plan *Assessment and plan (1) Hypertensive urgency: Status: Acute Category: Medical Code(s): I16.0 - Hypertensive urgency (2) Sepsis: Status: Acute Category: Medical Code(s): A41.9 - Sepsis, unspecified organism (3) Sinus tachycardia: Status: Acute Category: Medical Code(s): R00.0 - Tachycardia, unspecified (4) Dehydration: Status: Acute Category: Medical Code(s): E86.0 - Dehydration (5) Stroke: Status: Acute Category: Medical Code(s): I63.9 - Cerebral infarction, unspecified (6) DM (diabetes mellitus): Status: Acute Qualifiers: Diabetes mellitus complication status: without complication Diabetes mellitus correction insulin use: without correction use Diabetes mellitus type: type 2 Qualified Code(s): E11.9 - Type 2 diabetes mellitus without complications Category: Medical Code(s): E11.9 - Type 2 diabetes mellitus without complications (7) Acute UTI: Status: Acute Category: Medical Code(s): N39.0 - Urinary tract infection, site not specified Plan 73-year-old nonverbal jail patient presents with past medical history of stroke, hypertension, feeding dysfunction with G-tube, hyperlipidemia, stage IV decub, diabetes. Patient sent from jail to hospital for evaluation a bnormal Rodriguez urine discoloration. Patient initially stabilized in emergency room, and was scheduled to be discharged back to jail. Patient then developed rapid ventricular response with heart rate in 160s. Patient also developed fever 100.7 in emergency room with leukocytosis. Patient subsequently admitted to hospital for A-fib with RVR and sepsis management. Patient nonverbal and extremely poor historian. Patient systolic blood pressure over 200 at time evaluation by Dr. Peace in emergency room. Patient per emergency room report, it was originally grimacing upon presentation to ED, but became more comfortable after Rodriguez catheter was retracted. CT abdomen/pelvis done in emergency room showed Rodriguez potentially close to right ureter. Plan as listed below: Differential diagnosis: Sepsis secondary to UTI, atrial flutter/fibrillation with RVR, hypertensive urgency A-fib with RVR: ? I personally reviewed patient's admission electrocardiogram showing heart rate 152 bpm, without discernible P waves, and no signs or symptoms of acute coronary syndrome. Patient's R to R intervals per my personal interpretation on electrocardiogram looked relatively stable on electrocardiogram implying patient may be suffering from sinus tachycardia versus atrial flutter with RVR. Patient's heart rate when I evaluated patient emergency room at 7:38 PM 04/25/2024 was 152 bpm. After speaking with the emergency room physician Dr. Coto, who was informed that patient missed carvedilol/diltiazem routine doses, I will start patient on diltiazem 5 mg/hr gtt(but plan to titrate upward as needed to keep heart rate less than 100 bpm). I will also resume Coreg 25 mg p.o. twice daily via G-tube tonight. I ordered echocardiogram for this a.m. I also ordered cardiology consultation. No initial troponins done in emergency room, I ordered troponin every 6 hours x 3 at time of admission. Sepsis likely secondary to acute UTI: ? White blood count 16.2. Lactic acid 1.7. I ordered procalcitonin and CRP at time of admission. Patient's temperature 100.7 at time of admission in emergency room. Patient's temperature at 103 ?F at 9:19 PM in ICU on 04/25/2024. IV Toradol 30 mg every 6 as needed pain or fever. Tylenol 650 mg every 4 hours via G-tube as needed pain/fever. I also ordered repeat procalcitonin and CRP in AM. Urine analysis today shows +4 bacteria, +3 blood, +3 leukoesterase. These urine findings could be indicative of infection versus colonization. Will appreciate procalcitonin/CRP/WBC trends over next 48 hours to determine infection versus colonization. Blood and Urine cultures ordered in emergency room by ER physician. Patient given 1 dose vancomycin/cefepime by emergency room physician. I discontinued cefepime and started meropenem 1 g every 8 hours x 7 days for improved ESBL genitourinary pathogen empirical coverage. I will continue vancomycin 1 g IV every 12 hours x 7 days. I ordered respiratory PCR, and plan to discontinue vancomycin if respiratory PCR shows no signs of MRSA. Full Sepsis Fluid bolus given in emergency room. I continued normal saline 150 cc/h and plan to watch patient's input and outputs closely during hospitalization. ?I independently read portable chest x-ray done in emergency room myself. I did not note any infiltrates/airspace disease, or pulmonary vascular congestion. There was no blunting of patient's CVA angles on chest x-ray. I therefore noted no signs of acute pulmonary disease upon my review of patient's portable chest x-ray. -I reviewed patient's CTA abdomen/pelvis noting no signs of obstruction or ileus. I also reviewed patient's previous CT abdomen/pelvis done on 01/27/2024 at this institution showing fecal impaction without small bowel obstruction or ileus. Emergency room physician also states that patient was grimacing and complaining of abdominal discomfort before Rodriguez retracted. CTA abdomen/pelvis I reviewed done in emergency room showed possible Rodriguez catheter placement close to right ureter. Dr. Garcia, emergency room physician states that after retracting Rodriguez catheter, patient appeared more comfortable. Patient would likely benefit from urology follow-up as outpatient. Acute UTI: see sepsis section above Dehydration secondary to sepsis: ? Urinalysis shows negative ketones. However, patient's BUN 25/creatinine 0.8 implying BUN/creatinine ratio 31 which indicates dehydration. Fluid management as noted in sepsis section. I ordered repeat BMP in a.m. to follow-up BUN/creatinine Hypertensive urgency: ? Patient's blood pressure during my evaluation emergency room was 200/82 at 7:38 PM 04/25/[address]. [address] patient on labetalol 10 mg IV every 6 as needed SBP over 180. home I will discontinue patient's home amlodipine at 5 mg p.o. daily. Since patient on diltiazem and double calcium channel ranjan medication administration should be avoided. Will start irbesartan [address] daily in [address] of home amlodipine. -I reviewed patient's last admission history and physical and discharge summary, noting that during hospitalization 09/19/2023 to 09/20/2023 patient was treated here for hypertensive urgency. Stroke: Continue home apixaban 5 mg p.o. BID Hyperlipidemia: Continue home medications Sacral decub stage IV: Wound care consultation during hospitalization Diabetes: Blood sugar 130 mg/dL at 1632. Ordered every 6 hours Accu-Cheks, sliding scale insulin, and hemoglobin A1c test when I admitted patient. PPx: Apixaban CODE STATUS: DNR/DNI FEN: G-tube feeding MDM [place]: High, patient suffering from acute genitourinary sepsis, dehydration, hypertensive urgency, and rapid ventricular response which poses a threat to life and bodily function. Data: High, see plan section above for imaging/labwork details. I discussed this patient's case at length with the emergency room physician Dr. Garcia at time of admission. Both Dr. Coto and I agreed that patient suffering from severe sepsis with rapid ventricular response, which required IV antibiotics and antiarrhythmic management. Case also discussed with nursing staff at time of hospital admission by Dr. Peace. I independently evaluated patient's electrocardiogram with my findings noted in A-fib with RVR section of plan. I independently evaluated patient's chest x-ray and rib film myself. Findings noted in sepsis section above. Risk: High, I decided to admit this patient for hospitalization to ameliorate severe sepsis, hypertensive urgency, and rapid ventricular response pathologies. Patient also requires intensive monitoring for toxicity on Cardizem drip 5 mg/h that I am currently titrating to decrease patient's heart rate to less than 100 bpm. Disposition: Hopefully within next 48 to 96 hours if patient response to beforementioned treatment modalities. I spent a total of 65 minutes of critical care time on this patient 04/25/2024
--- NOTE | 2024-04-25 21:00 | PC.NURSE ---
Patient arrived to floor via stretcher from ED at 20:55.
[2024-04-25 21:06] LABS: Magnesium 1.8 mg/dl (1.6-2.3)
[2024-04-25] MEDS: 0.9 % SODIUM CHLORIDE 1000ML 1,000 ML 100 ML IV (21:15)
[2024-04-25] MEDS: PANTOPRAZOLE 40MG VIAL 40 MG IV (21:16)
[2024-04-25 21:21] LABS: NT Pro Brain Natriuretic Pep. 151 pg/mL (0-125)
[2024-04-25] MEDS: MEROPENEM 1 GM in 0.9 % SODIUM CHLORIDE 100 ML IV (21:30)
--- NOTE | 2024-04-25 21:30 | PC.NURSE ---
Patient febrile with rectal temp 103.3. Ice packs placed behind neck, and in groin area. Ketorlac, and acetaminophen administered at this time.
[2024-04-25] MEDS: ACETAMINOPHEN 1,000 MG/100 ML ML 400 MG IV (21:35)
[2024-04-25 21:36] LABS: Adenovirus,PCR Not Detected (NotDetected); Bordetella Pertussis Not Detected (NotDetected); Chlamydophila Pneumoniae, PCR Not Detected (NotDetected); Coronavirus 19, PCR Not Detected (NotDetected); Coronavirus 229E Not Detected (NotDetected); Coronavirus NL63 Not Detected (NotDetected); Coronavirus OC43 Not Detected (NotDetected); Coronovirus HKU1,PCR Not Detected (NotDetected); Human Metapneumovirus Not Detected (NotDetected); Influenza A, PCR Not Detected (NotDetected); Influenza AH1, 2009 Not Detected (NotDetected); Influenza AH1, PCR Not Detected (NotDetected); Influenza AH3,PCR Not Detected (NotDetected); Influenza B, PCR Not Detected (NotDetected); Mycoplasma Pneumoniae, PCR Not Detected (NotDetected); Parainfluenza 1, PCR Not Detected (NotDetected); Parainfluenza 2, PCR Not Detected (NotDetected); Parainfluenza 3, PCR Not Detected (NotDetected); Parainfluenza 4, PCR Not Detected (NotDetected); Respiratory Syncytial Virus Not Detected (NotDetected); Rhinovirus/Enterovirus Not Detected (NotDetected)
[2024-04-25 21:39] LABS: Troponin I < 0.01 ng/ml (0.00-0.034)
[2024-04-25 21:39] LABS: Troponin I < 0.01 ng/ml (0.00-0.034)
[2024-04-25] MEDS: KETOROLAC 30MG/ML VIAL 30 MG IV (21:40)
--- NOTE | 2024-04-25 22:25 | PC.NURSE ---
2112- called and spoke with Dr Peace. Notified of pts temp being 103.3 rectally. New orders placed per MD. See Mar
--- NOTE | 2024-04-25 22:30 | PC.NURSE ---
Attempted to call physician at 2203 without answer or phone call back. TRN to report that patient received tylenol and toradol for fever of 103.3, and is currently receiving fluids as ordered. Patient resting comfortably at this time. Pt is not moaning out in pain, and facial grimacing is not assessed. Patient current vitals 122/53, heart rate 105 in sinus tachycardia on monitor, RR 21, and 96% on room air. Diltiazem gtt not started at this time due to nursing judgment, and patient presentation of vital signs. Ice packs remain in place for cooling protocol. Will recheck rectal temp at 2300.
--- NOTE | 2024-04-25 23:00 | ECG_ITS ---
APPROVED REPORT Exam: Resting ECG HR:113 bpm ECG Measurements Heart Rate 113 AXES LA 175 P 70 QRSd 92 QRS 65 QT 322 T 73 QTc 389 Conclusion SINUS TACHYCARDIA NONSPECIFIC T-WAVE ABNORMALITY ABNORMAL RHYTHM ECG UNCONFIRMED REPORT Electronically signed by : Yair Smith MD 04/26/2024 07:32:55
--- NOTE | 2024-04-25 23:00 | PC.NURSE ---
at bedside with rounds. MD States to not start dilt gtt unless heart rate sustains >115, and to increase fluids to 150ml/hr. Patient repositioned to comfort on right side with wedge in place. No further orders verbalized. EKG also performed which indicate ST. aware. Urometer replaced with current morgan bag for accurate I&O.
[2024-04-25] MEDS: 0.9 % SODIUM CHLORIDE 1000ML 1,000 ML 150 ML IV (23:09)
[2024-04-25] MEDS: humaLOG 100 UNITS/ML 10ML VIAL (SSI) SQ (23:51)
[2024-04-26] VITALS (19 sets, daily range): BP systolic 98–185; BP diastolic 46–73; PULSE 71–115; RESP 15–24; TEMP 36.6–37.7; O2SAT 95–100; BMI 25.4
[2024-04-26 01:40] LABS: Troponin I < 0.01 ng/ml (0.00-0.034)
[2024-04-26] MEDS: MEROPENEM 1 GM in 0.9 % SODIUM CHLORIDE 100 ML IV ×3 (03:50→20:23)
[2024-04-26] MEDS: 0.9 % SODIUM CHLORIDE 1000ML 1,000 ML 150 ML IV (04:00)
--- NOTE | 2024-04-26 04:19 | P.ENSEP_ITS ---
[facility] Tissue Perfusion Eval Sepsis Re-Evaluation Performed: Yes Date Performed: 04/26/24 Time Performed: 04:19 Assessment and Plan (No Qualifiers) Assessment and Plan (1) Hypertensive urgency: Status: Acute (2) Sepsis: Status: Acute Comment: I again reevaluated patient around 3:45 AM 04/26/2024. Patient's procalcitonin 2.36, CRP 61. Patient's maps remained above 60 overnight on maintenance IV fluids, so patient never required vasopressors. Patient had high-grade fever 103 ?F around 9 PM 04/25, then defervesced after receiving IV Tylenol/Toradol and ice packs to axilla's. Respiratory panel negative for MRSA, so we will discontinue IV vancomycin. Extremely worried about genitourinary sepsis given patient's dirty urine upon admission, so will continue IV meropenem to cover ESBL genitourinary organisms. Hemoglobin A1c 7.0 and patient on sliding scale insulin. Patient's heart rate now normalized after receiving crystalloid IV fluid overnight. Patient never required Cardizem gtt., and serial EKGs show sinus tachycardia without signs of atrial fibrillation/atrial flutter. (3) Sinus tachycardia: Status: Acute (4) Dehydration: Status: Acute (5) Stroke: Status: Acute (6) DM (diabetes mellitus): Status: Acute (7) Acute UTI: Status: Acute
[2024-04-26] MEDS: VANCOMYCIN HCL 1,000 MG in 0.9 % SODIUM CHLORIDE 250 ML 125 MG IV (05:10)
[2024-04-26] MEDS: MORPHINE 2MG/ML SYRINGE 2 MG IV ×2 (05:25→12:45)
[2024-04-26 06:00] LABS: Anion Gap 8.7 mEq/L (5-15); Blood Urea Nitrogen 20 mg/dl (7-17); Calcium 8.6 mg/dl (8.4-10.2); Carbon Dioxide 25 mmol/L (22.0-30.0); Chloride 109 mmol/L (98-107); Creatinine Clearance Estimated 51 mL/min (50-200); Estimated Glomerular Filt Rate 98 ml/min (>60); GFR (African American) 118 ML/MIN (>60); Glucose 130 mg/dl (74-100); Magnesium 1.7 mg/dl (1.6-2.3); Potassium 3.7 mmoL/L (3.5-5.1); Sodium 139 mmol/L (136-145)
[2024-04-26 06:07] LABS: Basophils # 0.1 K/mm3 (0-0.2); Basophils % 0.2 % (0.1-2.0); Eosinophils # 0.3 K/mm3 (0.0-0.4); Eosinophils % 1.4 % (0.1-12.0); Hematocrit 29.8 % (37.0-47.0); Lymphocytes # 1.4 K/mm3 (0.7-4.5); Lymphocytes % 6.9 % (10-50); Mean Corpuscular HGB Conc 32.2 g/dL (31.8-35.4); Mean Corpuscular Hemoglobin 30.2 pg (27.0-31.2); Mean Corpuscular Volume 93.6 fl (81-99); Mean Platelet Volume 7.7 fl (7.4-10.4); Monocytes # 0.8 K/mm3 (0.1-1.0); Monocytes % 4.2 % (1.7-9.3); Neutrophils # 17.4 K/mm3 (1.8-7.8); Neutrophils % 87.3 % (37.0-80.0); Platelet Count 231 K/mm3 (142-424); Red Blood Count 3.18 M/mm3 (4.20-5.40); Red Cell Distribution Width 15.6 % (11.5-17.5); White Blood Count 19.9 K/mm3 (4.8-10.8)
[2024-04-26 06:08] LABS: MANUAL DIFFERENTIAL MANUAL DIFFERENTIAL (MANUAL DIFF)
[2024-04-26 06:15] LABS: Hemoglobin 9.5 g/dL (12.2-16.2)
[2024-04-26 07:03] LABS: C-Reactive Protein 160.1 mg/L (0-4)
[2024-04-26 07:15] LABS: Procalcitonin 26.2 ng/mL (0.0-2.0)
--- NOTE | 2024-04-26 07:48 | HMH.PHAINT1 ---
Pharmacy Intervention Comments: home medication list verified using list from group home
--- NOTE | 2024-04-26 08:03 | SW/DCPLANNER ---
This patient currently resides at [facility] level of care. Updated patient information has been faxed to Sabina harper/ [facility]. Discharge date is unknown at this time.
--- NOTE | 2024-04-26 08:15 | EXP.ACUTE.PN ---
Subjective *Date: 04/26/24 *Time: 16:11 Interval history: Patient hemodynamically stable on exam. No verbal response. Makes eye contact. Does not appear in pain. Afebrile this morning. Initiating tube feeds. No vomiting or nausea. Stable on room air. Medical Exam Vital signs and Labs for Last 24 Hours: Vital Signs Temp Pulse Pulse Resp BP BP Pulse Ox 04/26/24 07:00 97 H 23 168/71 H 99 04/26/24 06:00 96 H 20 151/65 H 98 04/26/24 05:00 98 H 18 163/69 H 99 04/26/24 04:00 90 04/26/24 04:00 98 04/26/24 04:00 97.8 F 88 15 118/60 98 04/26/24 03:00 91 H 17 98/46 L 97 04/26/24 02:53 04/26/24 01:00 91 H 20 140/62 96 04/26/24 00:00 100 H 04/26/24 00:00 99.9 F H 105 H 15 110/55 L 95 04/25/24 23:14 99.9 F H 97 H 18 147/58 H 95 04/25/24 23:00 04/25/24 22:16 105 H 04/25/24 21:17 103.3 F H 112 H 22 127/56 L 95 04/25/24 21:14 110 H 04/25/24 21:01 99.4 F 126 H 18 160/93 H 04/25/24 21:00 04/25/24 19:39 152 H 15 172/76 H 96 04/25/24 19:31 149 H 17 200/82 H 93 L 04/25/24 19:06 153 H 24 236/93 H 97 04/25/24 19:03 153 H 212/91 H 97 04/25/24 18:30 131 H 186/67 H 95 04/25/24 18:00 123 H 170/77 H 94 L 04/25/24 17:30 122 H 182/74 H 94 L 04/25/24 17:00 130 H 181/76 H 97 04/25/24 16:30 128 H 193/78 H 96 04/25/24 16:00 127 H 185/79 H 95 04/25/24 15:30 131 H 192/88 H 96 04/25/24 15:00 125 H 175/89 H 97 04/25/24 14:43 121 H 157/81 H 98 04/25/24 14:00 105 H 161/71 H 97 04/25/24 13:29 98.8 F 103 H 20 180/66 H 98 O2 Del Method 04/26/24 07:00 04/26/24 06:00 Room Air 04/26/24 05:00 Room Air 04/26/24 04:00 04/26/24 04:00 Room Air 04/26/24 04:00 Room Air 04/26/24 03:00 Room Air 04/26/24 02:53 Room Air 04/26/24 01:00 Room Air 04/26/24 00:00 04/26/24 00:00 Room Air 04/25/24 23:14 Room Air 04/25/24 23:00 Room Air 04/25/24 22:16 04/25/24 21:17 Room Air 04/25/24 21:14 04/25/24 21:01 04/25/24 21:00 Room Air 04/25/24 19:39 04/25/24 19:31 04/25/24 19:06 04/25/24 19:03 04/25/24 18:30 Room Air 04/25/24 18:00 04/25/24 17:30 04/25/24 17:00 Room Air 04/25/24 16:30 Room Air 04/25/24 16:00 Room Air 04/25/24 15:30 04/25/24 15:00 04/25/24 14:43 04/25/24 14:00 Room Air 04/25/24 13:29 Room Air Intake and Output 04/25/24 04/26/24 04/26/24 23:59 07:59 15:59 Intake Total 1788 Output Total 950 / 950 960 / 960 Balance -950 / -437 829 / 829 Intake: Intake, Total IV Amount 1788 0.9 % Sodium Chloride 1000ML 1, 1303 / 1303 000 ml @ 150 mls/hr IV .[id number] SHAYAN Rx#:[id number] Acetaminophen 1,000 mg In 100 100 / 100 ml @ 400 mls/hr IV ONCE ONE Rx# :[id number] Meropenem 1 gm In 0.9 % Sodium 136 / 136 Chloride 100 ml @ 100 mls/hr IV Q8H [facility] Rx#:[id number] Vancomycin HCl 1,000 mg In 0.9 250 / 250 % Sodium Chloride 250 ml @ 125 mls/hr IV Q12 [facility] Rx#:[id number] Output: Output, Urine Amount 950 / 950 Output, Urine Amount (Catheter) 960 / 960 Rodriguez 960 / 960 Other: Number of Unmeasured Voids 0 Number of Bowel Movements 1 Weight 64.977 kg 64.997 kg Patient Weight 04/26/24 23:59 Weight 64.997 kg Laboratory Results - last 24 hr 04/25/24 15:54: WBC 16.2 H, RBC 3.75 L, Hgb 11.2 L, Hct 35.1 L, MCV 93.6, MCH 29.9, MCHC 32.0, RDW 15.4, Plt Count 310, MPV 8.1, Neut % (Auto) 88.6 H, Lymph % (Auto) 5.7 L, Leon % (Auto) 4.8, Eos % (Auto) 0.8, Baso % (Auto) 0.2, Neut # (Auto) 14.4 H, Lymph # (Auto) 0.9, Leon # (Auto) 0.8, Eos # (Auto) 0.1, Baso # (Auto) 0.0, Total Counted 100, Neutrophils % (Manual) 95 H, Lymphocytes % (Manual) 2 L, Monocytes % (Manual) 3, Platelet Estimate Normal, Hypochromasia 1+, Anisocytosis 1+, Macrocytosis 1+, Sodium 139, Potassium 4.1, Chloride 101, Carbon Dioxide 33 H, Anion Gap 9.1, BUN 25 H, Creatinine 0.80, Estimated Creat Clear 47, Estimated GFR 70, Est GFR ( Amer) 85, Glucose 150 H, Hemoglobin A1c 7.0 H, Lactate 1.7, Calcium 9.6, Total Bilirubin 0.7, AST 39 H, ALT 90 H, Alkaline Phosphatase 63, Total Protein 7.9, Albumin 4.4, Globulin 3.5 H, Albumin/Globulin Ratio 1.3, Lipase 34, HIV 1&2 Antibody Rapid Nonreactive 04/25/24 16:40: Urine Color Yellow, Urine Appearance Clear, Urine pH 8.0, Ur Specific [place] 1.010, Urine Protein 1+ A, Urine Glucose (UA) Negative, Urine Ketones Negative, Urine Blood 3+ A, Urine Nitrate Negative, Urine Bilirubin Negative, Urine Urobilinogen 0.2, Ur Leukocyte Esterase 3+ A, Urine RBC Tntc, Urine WBC Tntc, Ur Squamous Epith Cells 3-5, Urine Bacteria 4+, Urine Yeast 2+ 04/25/24 18:54: Magnesium 1.8, Troponin I < 0.01, C-Reactive Protein 61.0 H, NT-Pro-B Natriuret Pep 151 H, Procalcitonin 2.36 H 04/25/24 20:49: Troponin I < 0.01 04/25/24 21:32: Chlamy pneumoniae PCR Not detected, Adenovirus (PCR) Not detected, B. pertussis DNA (PCR) Not detected, Coronavirus OC43 (PCR) Not detected, Coronavirus HKU1 (PCR) Not detected, Coronavirus 229E (PCR) Not detected, SARS-CoV-2 (PCR) Not detected, Coronavirus NL63 (PCR) Not detected, Human Metapneumovir PCR Not detected, Influenza A (H1) PCR Not detected, Influ A (H1N1/09) PCR Not detected, Influenza A (H3) PCR Not detected, Influenza Type A (PCR) Not detected, Influenza Type B (PCR) Not detected, M. pneumoniae (PCR) Not detected, Parainfluenza 1 (PCR) Not detected, Parainfluenza 2 (PCR) Not detected, Parainfluenza 3 (PCR) Not detected, Parainfluenza 4 (PCR) Not detected, RSV (PCR) Not detected, Entero/Rhino (PCR) Not detected 04/26/24 01:10: Troponin I < 0.01 04/26/24 05:30: WBC 19.9 H, RBC 3.18 L, Hgb 9.5 L D, Hct 29.8 L, MCV 93.6, MCH 30.2, MCHC 32.2, RDW 15.6, Plt Count 231 D, MPV 7.7, Neut % (Auto) 87.3 H, Lymph % (Auto) 6.9 L, Leon % (Auto) 4.2, Eos % (Auto) 1.4, Baso % (Auto) 0.2, Neut # (Auto) 17.4 H, Lymph # (Auto) 1.4, Leon # (Auto) 0.8, Eos # (Auto) 0.3, Baso # (Auto) 0.1, Sodium 139, Potassium 3.7, Chloride 109 H, Carbon Dioxide 25, Anion Gap 8.7, BUN 20 H, Creatinine 0.60 D, Estimated Creat Clear 51, Estimated GFR 98, Est GFR ( Amer) 118 D, Glucose 130 H, Lactate 1.0, Calcium 8.6, Magnesium 1.7, C-Reactive Protein 160.1 H, Procalcitonin 26.2 H I & O for Labs for Last 24 Hours: Intake & Output 04/23/24 04/24/24 04/25/24 04/26/24 23:59 23:59 23:59 23:59 Intake Total 1789 / 1789 Output Total 950 / 950 960 / 960 Balance -950 / -437 829 / 829 Weight 64.977 kg 64.997 kg Microbiology Reports for the Last 24 Hours: Microbiology 04/25/24 15:54 Blood Blood Culture - Preliminary 04/25/24 16:40 Blood Blood Culture - Preliminary Constitutional: Present mild distress, chronically ill appearing and cooperative Head: Present normocephalic ENT: Present normal exam Neck: Present normal inspection Respiratory: Present normal respiratory effort; Absent rhonchi, wheezes or crackles Cardiac: Present Regular Rhythm and Tachycardia GI: Present soft and normal bowel sounds; Absent distention or tenderness Comments:: G-tube in place Comment:: Thin extremities Skin: Present intact; Absent erythema Neuro: Present alert Comment:: Chronic deficits. Baseline level of function. Necessitates assistance with all ADLs. Functional quadriplegia Assessment and Plan *Assessment and plan (1) Sepsis: Problem Comment: I again reevaluated patient around 3:45 AM 04/26/2024. Patient's procalcitonin 2.36, CRP 61. Patient's maps remained above 60 overnight on maintenance IV fluids, so patient never required vasopressors. Patient had high-grade fever 103 ?F around 9 PM 04/25, then defervesced after receiving IV Tylenol/Toradol and ice packs to axilla's. Respiratory panel negative for MRSA, so we will discontinue IV vancomycin. Extremely worried about genitourinary sepsis given patient's dirty urine upon admission, so will continue IV meropenem to cover ESBL genitourinary organisms. Hemoglobin A1c 7.0 and patient on sliding scale insulin. Patient's heart rate now normalized after receiving crystalloid IV fluid overnight. Patient never required Cardizem gtt., and serial EKGs show sinus tachycardia without signs of atrial fibrillation/atrial flutter. Status: Acute Category: Medical Code(s): A41.9 - Sepsis, unspecified organism (2) E coli bacteremia: Status: Acute Category: Medical Code(s): R78.81 - Bacteremia; B96.20 - Unspecified Escherichia coli [E. coli] as the cause of diseases classified elsewhere (3) Pyelonephritis: Status: Acute Category: Medical Code(s): N12 - Tubulo-interstitial nephritis, not specified as acute or chronic (4) Hypertensive urgency: Status: Acute Category: Medical Code(s): I16.0 - Hypertensive urgency (5) Sinus tachycardia: Status: Acute Category: Medical Code(s): R00.0 - Tachycardia, unspecified (6) Dehydration: Status: Acute Category: Medical Code(s): E86.0 - Dehydration (7) Stroke: Status: Acute Category: Medical Code(s): I63.9 - Cerebral infarction, unspecified (8) DM (diabetes mellitus): Status: Acute Qualifiers: Diabetes mellitus complication status: without complication Diabetes mellitus 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 or intermediate school 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 insulin use: without penitentiary use Diabetes mellitus type: type 2 Qualified Code(s): E11.9 - Type 2 diabetes mellitus without complications Category: Medical Code(s): E11.9 - Type 2 diabetes mellitus without complications (9) Acute UTI: Status: Acute Category: Medical Code(s): N39.0 - Urinary tract infection, site not specified (10) Functional quadriplegia: Status: Chronic Category: Medical Code(s): R53.2 - Functional quadriplegia Plan 73-year-old nonverbal assisted patient presents with past medical history of stroke, hypertension, feeding dysfunction with G-tube, hyperlipidemia, stage IV decub, diabetes. Patient sent from assisted to hospital for evaluation abnormal Rodriguez urine discoloration. Patient initially stabilized in emergency room, and was scheduled to be discharged back to assisted. Patient then developed rapid ventricular response with heart rate in 160s. Patient also developed fever 100.7 in emergency room with leukocytosis. Patient subsequently admitted to hospital for A-fib with RVR and sepsis management. Patient nonverbal and extremely poor historian. Patient systolic blood pressure over 200 at time evaluation by Dr. Peace in emergency room. Patient per emergency room report, it was originally grimacing upon presentation to ED, but became more comfortable after Rodriguez catheter was retracted. CT abdomen/pelvis done in emergency room showed Rodriguez potentially close to right ureter. Symptoms showing slight improvement. Continues to be quite sick this morning however. Continues to necessitate inpatient management given severity of illness. Problems addressed as follows: Severe sepsis E. coli bacteremia/ESBL Pyelonephritis -Per my review of CT, Rodriguez catheter was obstructing right ureter causing hydronephrosis and hydroureter. Blood cultures this morning returned positive for ESBL E. coli. Will continue meropenem pending speciation and sensitivity -White count elevated 19.9, Pro-Gregg 26, CRP 160. Repeat CBC, CMP, magnesium ordered for the morning. -UA grossly abnormal. A-fib with RVR: ? Patient's rhythm is back in sinus. Will continue diltiazem per home regimen per tube. Diltiazem 60 mg per feeding tube 4 times a day; continue carvedilol 25 mg twice daily. -No indication for cardiology eval at this time, suspect tachycardia secondary to sepsis. Tolerating home medications with improvement in symptoms -Echo pending Dehydration secondary to sepsis: ? Discontinue IV fluids. Kidney function improved this morning. BUN 20, creatinine 0.6. Electrolytes showing improvement with potassium 3.7, magnesium 1.7. Monitor kidney function daily Stroke: Continue home apixaban 5 mg p.o. BID Hyperlipidemia: Continue home medications Sacral decub stage IV: Wound care consultation during hospitalization Functional quadriplegia complicates all aspects of her care Diabetes: Blood sugar 130 on morning labs, Ordered every 6 hours Accu-Cheks, sliding scale insulin, and hemoglobin A1c 7.0 PPx: Apixaban CODE STATUS: DNR/DNI FEN: G-tube feeding ICU/Critical care attestation This patient is critically ill with 35 minutes devoted solely to this patient managing life/organ supporting interventions that required physician assessment. This includes time spent making adjustments in ventilator settings, IV fluid administration, titration of pressors, adjustments of medications, discussion of patient with consultants and other care providers as well as updating patient and/or family (if patient by virtue of his/her condition is unable to participate in decision making). This does not include time spent performing separately billed procedures. Time is not concurrent with that of other providers.
[2024-04-26 08:29] LABS: Troponin I < 0.01 ng/ml (0.00-0.034)
[2024-04-26] MEDS: dilTIAZem 60MG TABLET 60 MG G-TUBE ×4 (08:50→20:24)
[2024-04-26] MEDS: IRBESARTAN 75MG TABLET 75 MG PO (08:50)
[2024-04-26] MEDS: APIXABAN 5MG TABLET 5 MG PO ×2 (08:51→20:24)
[2024-04-26] MEDS: CARVEDILOL 25MG TABLET 25 MG G-TUBE ×2 (08:52→20:24)
[2024-04-26 09:00] LABS: Lymphocytes % 10 % (10-50); Monocytes % 3 % (2-9); Neutrophils % 87 % (42-76); Platelet Estimate Normal; RBC Morphology Normal; Total Cells Counted 100
--- NOTE | 2024-04-26 09:14 | DIET.NUTRFU ---
Addendum entered by Kerry Presley RD, LD 04/26/24 12:21: TF started IVF discontinued Original Note: RD consulted for TF regimen. Patient is from [facility] has been receiving TF for nutritional support correction. Attempted to contact facility for TF regimen, unable to reach. Patient was here back in Sep 2023 and was on diabetic AC at goal rate of 77ml/hr. Started TF Glucerna at 20ml/hr with increase to 77ml/hr to meet 100% of nutritional needs providing 1848kcal, 77gm protein and 1576ml formula water with flush at 100ml TID when IVF discontinued. Wt gain since Sep admit, continues to have stage IV to bottom, recommend Prostat AWC to promote healing
[2024-04-26] MEDS: KETOROLAC 30MG/ML VIAL 30 MG IV (09:18)
[2024-04-26 12:00] LABS: POC Glucose,Bedside 120 (70-110)
[2024-04-26] MEDS: GABAPENTIN 300MG CAPSULE 300 MG G-TUBE ×2 (12:28→20:24)
[2024-04-26] MEDS: ACETAMINOPHEN 325MG/10.15ML UDC 650 MG G-TUBE ×2 (12:45→20:40)
--- NOTE | 2024-04-26 13:53 | HMH.PTWOUND ---
Rehab Inpt Wound Evaluation Rehab IP Wound Evaluation Start: 04/25/24 22:08 Freq: ONCE Status: Active Protocol: Document 04/26/24 13:47 KEYLA (Rec: 04/26/24 13:53 KEYLA [id number]) Rehab PT Wound Assessment Subjective Subjective 73 yoaaf nonverbal long-term patient presents with past medical history of stroke , hypertension, feeding dysfunction with G-tube, hyperlipidemia, stage IV decub , diabetes. She presents with pressure injury to sacrum upon admission. This wound appears to be in the same area as the prior stage IV pressure injury. Wound Sacrum Wound Type Pressure Ulcer Is This a Chronic Wound Yes Wound Staging Stage II Query Text:Stage I - Unbroken, red skin, no blanching. Stage II - Skin broken, superficial skin loss involving epidermis alone or also dermis. Partial loss of skin layers. Stage III - Pressure area involves epidermis, dermis and subcutaneous tissue, full thickness skin loss. Stage IV - Pressure area involves epidermis, subcutaneous tissue, bone and other supportive tissue. Full thickness skin loss with extensive destruction of underlying tissue and structures. Wound Length (cm) 1.5 Wound Width (cm) 1.5 Wound Depth (cm) 0.1 Wound Margins Description Well Defined Wound Drainage Description Serous Drainage Amount Small Primary Dressing Composite Comment bordered foam Dressing Change Patient Tolerance Tolerated Well Plan/Recommendation Comment [facility] staff is currently applying appropriate dressing to the wound and no need for debridement indicated at this time. Will monitor for further needs as indicated. Eval Complexity Eval Charge Codes 82000 - High Complexity PHYSICIAN CERTIFICATION: I certify the specified therapy services for Melyssa Spicer are required, authorized, and reviewed every 30 days.
--- NOTE | 2024-04-26 15:49 | PC.NURSE ---
VS stable, patient remained on room air. Patient turned q2 during shift. New dressing applied to coccyx by wound care staff. Tube feeding started, rate at 20. Head of bead 30 degrees while tube feeding running. Lung sounds clear. Morphine given for pain based on rios-faces scale as patient grimacing and crying. Patient unable to answer fully due to previous stroke. Patient able to follow commands.
[2024-04-26 18:08] LABS: POC Glucose,Bedside 115 (70-110)
[2024-04-26] MEDS: PANTOPRAZOLE 40MG VIAL 40 MG IV (20:23)
[2024-04-26] MEDS: SODIUM CHLORIDE 0.9% 10ML VIAL 10 ML IV (20:23)
--- NOTE | 2024-04-26 20:38 | CA_ITS ---
APPROVED REPORT EXAM: Comprehensive 2D, Doppler, and color-flow Echocardiogram Bakery Chef: Astrid Hickman CRT Ht: 5 ft 3 in Wt: 134lbs BSA: 1.63 BP: 181/76 mmHg Indications: Atrial Fibrillation, Diabetes, Hyperlipidemia, Hypertension/HDD, CVA, nonverbal 2D Dimensions LA Volume 49.90 mL LA Volume Index 29.90 mL/m2 (M/F) 16-34 M-Mode Dimensions RVDd 1.71 cm (0.9-2.6) LA Diam 2.72 cm (1.9-4.0) LVDd 4.25 cm (3.5-5.7) LVDs 2.31 cm (3.5-5.7) IVSd 1.53 cm (0.6-1.1) PWd 0.61 cm (0.6-1.1) EF (Teich) 77.40% FS 45.60% EDV (Teich) 80.80 mL ESV (Teich) 18.30 mL LV Diastology E Decel Time 167 (160-240 msec) E/A Ratio 4.32 Aortic Valve AO Peak GR. 8.50 mmHg Mitral Valve MV E Max Jed. 148.0 (40-130 cm/s) MV A Velocity 34.0 (40-130 cm/s) E/A Ratio 4.32 MV PHT 49.0 ms Tricuspid Valve TR P. Velocity 194.00 cm/s RAP Estimate 10.00 mmHg RVSP 25.10 mmHg Left Ventricle The left ventricle is normal size. The left ventricular systolic function is normal. The left ventricular ejection fraction is within the normal range. There is increased LV wall thickness. There is normal LV segmental wall motion. The left ventricular diastolic function is normal. LVEF 60%. Right Ventricle The right ventricle is not well-visualized, but grossly appears at least mildly dilated with at least mild reduction in RV function. Atria The left atrium size is normal. The right atrium is not well-visualized. The interatrial septum is not well-visualized. Aortic Valve The aortic valve is mildly thickened. There is no aortic valvular stenosis. No aortic regurgitation is present. Mitral Valve The mitral valve leaflets are mildly thickened. Mild mitral regurgitation. No evidence of mitral valve stenosis. Tricuspid Valve The tricuspid valve leaflets are thin and pliable. Trace tricuspid regurgitation. There is insufficient TR jet to estimate RVSP. Pulmonic Valve The pulmonary valve is normal in structure. Trace pulmonic regurgitation. Great Vessels The aortic root is normal in size. The ascending aorta is normal in size. IVC is normal in size and collapses >50% with inspiration. Pericardium There is no pericardial effusion. Other Information Study Quality: Technically Difficult Conclusion Technically difficult study due to poor acoustic windows. Normal LV systolic function. RV not well-visualized, but appears to be at least mildly dilated and at least mildly reduced in systolic function Mild MR. Electronically signed by : Harriett Hernandez MD 04/26/2024 11:50:46
--- NOTE | 2024-04-26 20:47 | PC.NURSE ---
Addendum entered by Ifeoma Fried RN 04/27/24 02:55: 0 residual - increased TF to 50ml/hr Original Note: 0 residual - increased TF to 40ml/hr. replaced piston syringe, water/med cup. heel protectors added to patient's heels. administered Tylenol for low grade temperature of 99.4F oral. patient is very pleasant this evening and reactive when spoke to.
[2024-04-27] VITALS (12 sets, daily range): BP systolic 139–204; BP diastolic 65–89; PULSE 77–109; RESP 16–20; TEMP 37.1–37.5; O2SAT 97–100; BMI 25.3
[2024-04-27 02:36] LABS: POC Glucose,Bedside 155 (70-110)
[2024-04-27 02:37] LABS: POC Glucose,Bedside 186 (70-110)
[2024-04-27] MEDS: MEROPENEM 1 GM in 0.9 % SODIUM CHLORIDE 100 ML IV (03:06)
--- NOTE | 2024-04-27 03:46 | PC.NURSE ---
patient has slept and rested most of the night. received a bath at 0330 and changed dsg to coccyx.
[2024-04-27] MEDS: MORPHINE 2MG/ML SYRINGE 2 MG IV (03:55)
[2024-04-27 05:10] LABS: HCV Ab Non Reactive (Non Reactive)
[2024-04-27 06:10] LABS: POC Glucose,Bedside 136 (70-110)
[2024-04-27] MEDS: KETOROLAC 30MG/ML VIAL 30 MG IV (06:28)
[2024-04-27] MEDS: LABETALOL 5MG/ML 20ML MDV 10 MG IV (06:29)
[2024-04-27 07:19] LABS: Basophils # 0.1 K/mm3 (0-0.2); Basophils % 0.4 % (0.1-2.0); Eosinophils # 0.1 K/mm3 (0.0-0.4); Hematocrit 33.7 % (37.0-47.0); Hemoglobin 10.7 g/dL (12.2-16.2); Lymphocytes # 0.8 K/mm3 (0.7-4.5); Lymphocytes % 6.8 % (10-50); Mean Corpuscular HGB Conc 31.7 g/dL (31.8-35.4); Mean Corpuscular Hemoglobin 29.7 pg (27.0-31.2); Mean Corpuscular Volume 93.6 fl (81-99); Mean Platelet Volume 9.4 fl (7.4-10.4); Monocytes # 0.6 K/mm3 (0.1-1.0); Monocytes % 5.1 % (1.7-9.3); Neutrophils # 10.7 K/mm3 (1.8-7.8); Neutrophils % 86.7 % (37.0-80.0); Platelet Count 239 K/mm3 (142-424); Red Cell Distribution Width 15.9 % (11.5-17.5); White Blood Count 12.3 K/mm3 (4.8-10.8)
[2024-04-27 07:25] LABS: Anion Gap 7.6 mEq/L (5-15); Blood Urea Nitrogen 13 mg/dl (7-17); Calcium 8.9 mg/dl (8.4-10.2); Carbon Dioxide 25 mmol/L (22.0-30.0); Chloride 108 mmol/L (98-107); Creatinine Clearance Estimated 51 mL/min (50-200); Estimated Glomerular Filt Rate 121 ml/min (>60); GFR (African American) 146 ML/MIN (>60); Glucose 140 mg/dl (74-100); Lactic Acid 0.7 mmol/L (0.7-2.1); Magnesium 1.7 mg/dl (1.6-2.3); Potassium 3.6 mmoL/L (3.5-5.1); Sodium 137 mmol/L (136-145)
[2024-04-27 07:27] LABS: MANUAL DIFFERENTIAL MANUAL DIFFERENTIAL (MANUAL DIFF)
[2024-04-27 07:45] LABS: C-Reactive Protein 166.1 mg/L (0-4)
[2024-04-27 07:58] LABS: Procalcitonin 19.2 ng/mL (0.0-2.0)
--- NOTE | 2024-04-27 08:12 | PC.NURSE ---
Tube feed Glucerna and tubing changed.
--- NOTE | 2024-04-27 09:56 | DIET.NUTRFU ---
Receiving TF, up to 50ml/hr with goal wt of 77ml/hr. Labs reviewed: Na 137, K 3.6 and BS 140. LBM 04/27. No changes at this time.
[2024-04-27] MEDS: CARVEDILOL 25MG TABLET 25 MG G-TUBE (10:02)
[2024-04-27] MEDS: IRBESARTAN 75MG TABLET 75 MG PO (10:02)
[2024-04-27] MEDS: dilTIAZem 60MG TABLET 60 MG G-TUBE ×3 (10:02→18:27)
[2024-04-27] MEDS: APIXABAN 5MG TABLET 5 MG PO (10:02)
[2024-04-27] MEDS: ERTAPENEM SODIUM 1 GM in 0.9 % SODIUM CHLORIDE 50 ML IV (10:03)
[2024-04-27] MEDS: GABAPENTIN 300MG CAPSULE 300 MG G-TUBE ×2 (10:03→14:14)
[2024-04-27 10:15] LABS: Lymphocytes % 8 % (10-50); Monocytes % 4 % (2-9); Neutrophils % 88 % (42-76); Total Cells Counted 100
[2024-04-27 10:16] LABS: Platelet Estimate Normal; RBC Morphology Normal
--- NOTE | 2024-04-27 10:34 | XR_ITS ---
FINAL REPORT TECHNIQUE: Single view chest CLINICAL HISTORY: Confirm PICC line placement COMPARISON: 04/25/2024 FINDINGS: A single view of the chest was obtained. There is a left PICC with the tip in the SVC. The heart and mediastinum are within normal limits. The lungs are clear. There is no pneumothorax. Osseous structures are unremarkable. IMPRESSION: No acute cardiopulmonary process. Reviewed, Interpreted and Dictated by Chalino Ernandez MD Transcribed by Genevieve Potter Authenticated and [facility]
--- NOTE | 2024-04-27 11:14 | PC.NURSE ---
Attempted x2 obtain consent for PICC line via phone. No answer.
[2024-04-27 11:54] LABS: POC Glucose,Bedside 149 (70-110)
--- NOTE | 2024-04-27 15:04 | EXP.DC.SUM ---
General Admission date:: 04/25/24 Discharge date: 04/27/24 HPI HPI HPI: 73-year-old nonverbal [facility] patient presents with past medical history of stroke, hypertension, feeding dysfunction with G-tube, hyperlipidemia, stage IV decub, diabetes. Patient sent from [facility] hospital for evaluation abnormal Rodriguez urine discoloration. Patient initially stabilized in emergency room, and was scheduled to be discharged back to [facility]. Patient then developed rapid ventricular response with heart rate in 160s. Patient also developed fever 100.7 in emergency room with leukocytosis. Patient subsequently admitted to hospital for A-fib with RVR and sepsis management. Patient nonverbal and extremely poor historian. Patient systolic blood pressure over 200 at time evaluation by Dr. Peace in emergency room. Patient per emergency room report, it was originally grimacing upon presentation to ED, but became more comfortable after Rodriguez catheter was retracted. CT abdomen/pelvis done in emergency room showed Rodriguez potentially close to right ureter. Of special note, patient's temperature noted to be 103 ?F upon admission assessment by ICU nursing staff. Patient's son was phoned by ER nursing, with 2 nurses confirming that patient is DNR/DNI prior to admission to medical service. Hospital Course Hospital Course Hospital Course: 73-year-old nonverbal [facility] patient presents with past medical history of stroke, hypertension, feeding dysfunction with G-tube, hyperlipidemia, stage IV decub, diabetes. Patient sent from [facility] hospital for evaluation abnormal Rodriguez urine discoloration. Patient initially stabilized in emergency room, and was scheduled to be discharged back to [facility]. Patient then developed rapid ventricular response with heart rate in 160s. Patient also developed fever 100.7 in emergency room with leukocytosis. Patient subsequently admitted to hospital for A-fib with RVR and sepsis management. Patient nonverbal and extremely poor historian. Patient systolic blood pressure over 200 at time evaluation by Dr. Peace in emergency room. Patient per emergency room report, it was originally grimacing upon presentation to ED, but became more comfortable after Rodriguez catheter was retracted. CT abdomen/pelvis done in emergency room showed Rodriguez potentially close to right ureter. Admitted to medicine for further management. Symptoms of defervesced. She has returned to baseline mentation with stable hemodynamics. Blood cultures positive for ESBL E. coli. Will transition to IV antibiotics for 10 days. PICC line placed on 04/27. Stable to discharge back to [facility] for further management. Problems addressed as follows: Severe sepsis E. coli bacteremia/ESBL Pyelonephritis -Per my review of CT, Rodriguez catheter was obstructing right ureter causing hydronephrosis and hydroureter. Blood cultures returned positive for ESBL E. coli. Sensitive to ertapenem. Transition to ertapenem for ease of dosing. Will need 10 days of antibiotics total. PICC line placed on 04/27. Continue ertapenem 1 g daily for 7 more days. First dose due at nursing facility on 04/28. Last dose 05/04. Okay to remove PICC line after completing antibiotics. Would recommend repeat CBC, CMP, magnesium to monitor electrolytes and kidney function prior to removal and may use PICC line to draw labs. Source likely urinary. Recommend close monitoring of urinary catheter to prevent it from creeping upward and causing ureteral obstruction again in the future. Inflammatory markers improving. White count improving. On day of discharge, white count 12.3, down significantly. Pro-Gregg decreased by half, CRP improving. Patient afebrile since admission. Tolerating tube feeds with improvement in vitals. A-fib with RVR: ? Patient's rhythm initially concerning for A-fib with RVR, secondary concern was for sinus tachycardia. With treatment of her sepsis, her heart rate is back in sinus rhythm. Will continue diltiazem per home regimen per tube. Diltiazem 60 mg per feeding tube 4 times a day; continue carvedilol 25 mg twice daily. -No indication for cardiology eval at this time, suspect tachycardia secondary to sepsis. Tolerating home medications with improvement in symptoms Stroke: Continue home apixaban 5 mg p.o. BID Hyperlipidemia: Continue home medications Sacral decub stage IV: Wound care consultation during hospitalization Functional quadriplegia complicates all aspects of her care Diabetes: Blood sugar 130 on morning labs, Ordered every 6 hours Accu-Cheks, sliding scale insulin, and hemoglobin A1c 7.0. On no diabetes specific treatment at her nursing facility. Recommend repeat A1c and 3 months. Consider starting medication at that time if A1c getting worse. Total time spent on discharge 32 minutes in counseling, documentation, chart review, and direct care with patient. Exam Data for Last 24 hours Vital signs and Labs for Last 24 Hours: Temp Pulse Resp BP Pulse Ox O2 Del Method 98.8 F 95 H 19 167/66 H 98 Room Air 04/27/24 08:00 04/27/24 12:00 04/27/24 12:00 04/27/24 12:00 04/27/24 12:00 04/27/24 13:00 Laboratory Results - last 24 hr 04/25/24 15:54: Hepatitis C Antibody Non reactive, Hep C Ab Comment Comment 04/25/24 23:47: POC Glucose 186 H 04/26/24 18:00: POC Glucose 115 H 04/27/24 00:25: POC Glucose 155 H 04/27/24 05:33: POC Glucose 136 H 04/27/24 06:36: WBC 12.3 H D, RBC 3.60 L, Hgb 10.7 L, Hct 33.7 L, MCV 93.6, MCH 29.7, MCHC 31.7 L, RDW 15.9, Plt Count 239, MPV 9.4, Neut % (Auto) 86.7 H, Lymph % (Auto) 6.8 L, [place] % (Auto) 5.1, Eos % (Auto) 1.0, Baso % (Auto) 0.4, Neut # (Auto) 10.7 H, Lymph # (Auto) 0.8, [place] # (Auto) 0.6, Eos # (Auto) 0.1, Baso # (Auto) 0.1, Total Counted 100, Neutrophils % (Manual) 88 H, Lymphocytes % (Manual) 8 L, Monocytes % (Manual) 4, Platelet Estimate Normal, RBC Morphology Normal, Sodium 137, Potassium 3.6, Chloride 108 H, Carbon Dioxide 25, Anion Gap 7.6, BUN 13 D, Creatinine 0.50 L, Estimated Creat Clear 51, Estimated GFR 121, Est GFR ( Amer) 146 D, Glucose 140 H, Lactate 0.7, Calcium 8.9, Magnesium 1.7, C-Reactive Protein 166.1 H, Procalcitonin 19.2 H 04/27/24 11:33: POC Glucose 149 H I & O for Last 24 hours: Intake & Output 04/24/24 04/25/24 04/26/24 04/27/24 23:59 23:59 23:59 23:59 Intake Total 2840 / 2840 543 / 543 Output Total 950 / 950 1660 / 1660 600 / 600 Balance -950 / -437 1180 / 1180 -57 / -57 Weight 64.977 kg 64.99 kg 64.97 kg Microbiology Reports for the Last 24 Hours: Microbiology 04/25/24 16:40 Urine,Clean Catch Urine Culture - Final Escherichia coli 04/25/24 16:40 Blood Blood Culture - Final Escherichia coli 04/25/24 15:54 Blood Blood Culture - Final Escherichia coli Constitutional Constitutional: no acute distress, chronically ill appearing and cooperative Comments: alert awake, not following commands, at patient baseline *Routine HEENT Exam Head: Present normocephalic Eye: Present EOMI and PERRL ENT: Present mucous membranes moist *Routine Neck Exam Neck: Present supple; Absent lymphadenopathy *Routine Respiratory Exam Respiratory: Present CTA bilaterally; Absent rhonchi, wheezes or crackles *Routine Cardiovascular Exam Cardiovascular: Present RRR *Routine Abdominal Exam Abdominal: Present soft and normoactive bowel sounds; Absent tenderness Comments: G-tube in place *Routine Rectal Exam Patient deferred: visual exam *Routine Exam Patient deferred: external exam Comments: Rodriguez in place *Routine Extremities Exam Extremities: Absent cyanosis, clubbing or edema Comments: Contracture, loss of muscle mass *Routine Skin Exam Skin: Present intact and warm; Absent rash *Routine Neurological Exam Neurological: Present alert Comments: she has weakness from previous strokes, at baseline mentation. Functional quadriplegia Results Data Completed and Pending Labs on day of discharge: Labs from last 24 hours 04/27/24 04/27/24 04/27/24 11:33 06:36 05:33 WBC 12.3 H D RBC 3.60 L Hgb 10.7 L Hct 33.7 L MCV 93.6 MCH 29.7 MCHC 31.7 L RDW 15.9 Plt Count 239 MPV 9.4 Neut % (Auto) 86.7 H Lymph % (Auto) 6.8 L [place] % (Auto) 5.1 Eos % (Auto) 1.0 Baso % (Auto) 0.4 Neut # (Auto) 10.7 H Lymph # (Auto) 0.8 [place] # (Auto) 0.6 Eos # (Auto) 0.1 Baso # (Auto) 0.1 Total Counted 100 Neutrophils % (Manual) 88 H Lymphocytes % (Manual) 8 L Monocytes % (Manual) 4 Platelet Estimate Normal RBC Morphology Normal Sodium 137 Potassium 3.6 Chloride 108 H Carbon Dioxide 25 Anion Gap 7.6 BUN 13 D Creatinine 0.50 L Estimated Creat Clear 51 Estimated GFR 121 Est GFR ( Amer) 146 D Glucose 140 H POC Glucose 149 H 136 H Lactate 0.7 Calcium 8.9 Magnesium 1.7 C-Reactive Protein 166.1 H Procalcitonin 19.2 H Hepatitis C Antibody Hep C Ab Comment 04/27/24 04/26/24 04/25/24 00:25 18:00 23:47 WBC RBC Hgb Hct MCV MCH MCHC RDW Plt Count MPV Neut % (Auto) Lymph % (Auto) [place] % (Auto) Eos % (Auto) Baso % (Auto) Neut # (Auto) Lymph # (Auto) [place] # (Auto) Eos # (Auto) Baso # (Auto) Total Counted Neutrophils % (Manual) Lymphocytes % (Manual) Monocytes % (Manual) Platelet Estimate RBC Morphology Sodium Potassium Chloride Carbon Dioxide Anion Gap BUN Creatinine Estimated Creat Clear Estimated GFR Est GFR ( Amer) Glucose POC Glucose 155 H 115 H 186 H Lactate Calcium Magnesium C-Reactive Protein Procalcitonin Hepatitis C Antibody Hep C Ab Comment 04/25/24 15:54 WBC RBC Hgb Hct MCV MCH MCHC RDW Plt Count MPV Neut % (Auto) Lymph % (Auto) [place] % (Auto) Eos % (Auto) Baso % (Auto) Neut # (Auto) Lymph # (Auto) [place] # (Auto) Eos # (Auto) Baso # (Auto) Total Counted Neutrophils % (Manual) Lymphocytes % (Manual) Monocytes % (Manual) Platelet Estimate RBC Morphology Sodium Potassium Chloride Carbon Dioxide Anion Gap BUN Creatinine Estimated Creat Clear Estimated GFR Est GFR ( Amer) Glucose POC Glucose Lactate Calcium Magnesium C-Reactive Protein Procalcitonin Hepatitis C Antibody Non reactive Hep C Ab Comment Comment DS: Diagnosis Discharge Diagnosis (1) Sepsis: Status: Acute Code(s): A41.9 - Sepsis, unspecified organism (2) E coli bacteremia: Status: Acute Code(s): R78.81 - Bacteremia; B96.20 - Unspecified Escherichia coli [E. coli] as the cause of diseases classified elsewhere (3) Pyelonephritis: Status: Acute Code(s): N12 - Tubulo-interstitial nephritis, not specified as acute or chronic (4) Hypertensive urgency: Status: Acute Code(s): I16.0 - Hypertensive urgency (5) Sinus tachycardia: Status: Acute Code(s): R00.0 - Tachycardia, unspecified (6) Dehydration: Status: Acute Code(s): E86.0 - Dehydration (7) Stroke: Status: Acute Code(s): I63.9 - Cerebral infarction, unspecified (8) DM (diabetes mellitus): Status: Acute Code(s): E11.9 - Type 2 diabetes mellitus without complications Qualifiers: Diabetes mellitus type: type 2 Diabetes mellitus 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 Diabetes mellitus complication status: without complication Qualified Code(s): E11.9 - Type 2 diabetes mellitus without complications (9) Acute UTI: Status: Acute Code(s): N39.0 - Urinary tract infection, site not specified (10) Functional quadriplegia: Status: Chronic Code(s): R53.2 - Functional quadriplegia Meds Home Medications and Allergies Home Medications ?Medication ?Instructions ?Recorded ?Confirmed ?Type carvedilol 25 mg tablet (Coreg) 25 mg PO BID #60 tabs 04/15/18 04/25/24 Rx apixaban 5 mg tablet 5 mg PO BID 08/24/23 04/25/24 History hydralazine 50 mg tablet 50 mg PO TID 08/24/23 04/25/24 History diltiazem HCl 60 mg tablet 60 mg feeding tube QID 09/16/23 04/25/24 History lisinopril 40 mg tablet 40 mg feeding tube DAILY 09/16/23 04/25/24 History amlodipine 5 mg tablet 5 mg PO DAILY 30 days #30 tabs 09/20/23 04/25/24 Rx ferrous sulfate 300 mg (60 mg 150 mg PO DAILY 04/25/24 04/25/24 History iron)/5 mL oral liquid gabapentin 300 mg capsule 300 mg feeding tube TID 04/25/24 04/25/24 History lactulose 10 gram/15 mL oral 30 ml PO BID PRN Constipation 04/25/24 04/25/24 History solution omeprazole 40 mg capsule,delayed 40 mg PO DAILY 04/25/24 04/25/24 History release Ertapenem Sodium [Invanz 1gm Vial] 100 mls/hr IV Q24H 04/27/24 Rx 1 gm hydrocodone 10 mg-acetaminophen 1 tab PO QID pain 30 days #120 04/27/24 04/25/24 Rx 325 mg tablet tabs New Prescriptions to Start Prescriptions: Ertapenem Sodium [Invanz 1gm Vial] 1 gm 0.9 % Sodium Chloride [Sod Chlor 0.9% 50mL bag] 50 ml 100 mls/hr IV Q24H Allergies Allergy/AdvReac Type Severity Reaction Status Date / Time Sulfa (Sulfonamide AdvReac Unknown Verified 04/11/24 13:55 Antibiotics) allergy reaction Discharge Plan Disposition Patient Disposition: er Intermediate Care Fac Condition: Fair Follow up Plan Prescriptions/Medication Reconciliation: New Ertapenem Sodium [Invanz 1gm Vial] 1 GM 0.9 % Sodium Chloride [Sod Chlor 0.9% 50mL bag] 50 ML 100 mls/hr IV Q24H needs 7 mores doses from 04/28-05/04 Ordered By: Jayce Martinez MD Last Taken: 04/27/24 10:03 100 mls/hr Continued carvedilol [Coreg] 25 mg tablet 25 mg PO BID Qty: 60 5RF Rx Instructions: give with food (meal/snack) apixaban 5 mg tablet 5 mg PO BID hydralazine 50 mg tablet 50 mg PO TID lisinopril 40 mg tablet 40 mg feeding tube DAILY diltiazem HCl 60 mg tablet 60 mg feeding tube QID amlodipine 5 mg Tablet 5 mg PO DAILY 30 Days Qty: 30 0RF omeprazole 40 mg Capsule,Delayed Release(Dr/Ec) 40 mg PO DAILY ferrous sulfate 300 mg (60 mg iron)/5 mL Liquid 150 mg PO DAILY gabapentin 300 mg capsule 300 mg feeding tube TID Patient Comments: Take 1 capsule via g-tube three times a day lactulose 10 gram/15 mL Solution 30 ml PO BID PRN (Reason: Constipation) hydrocodone-acetaminophen 10-325 mg tablet 1 tab PO QID 30 Days Qty: 120 0RF Problem Reconciliation Problems Reviewed?: Yes Patient Discharge Instructions ACTIVITY: Continue current activity DIET: continue same diet Patient Instructions: DI for Urinary Tract Infection (UTI), DI for Sepsis -- Adult, DI for Bacteremia-Adult Print Language: Lao Providers Primary Care Provider: Provider,Referral Admit Provider: Jayce Martinez Attending Provider: Jayce Martinez
--- NOTE | 2024-04-27 15:49 | PC.NURSE ---
Report called to [facility].
[2024-04-27] MEDS: ACETAMINOPHEN 325MG/10.15ML UDC 650 MG G-TUBE (16:03)
[2024-04-27 17:35] LABS: POC Glucose,Bedside 156 (70-110)
== END 2024-04-27 20:41 | DRG 871 ==
LOC: ER 17:47 → 2ND 19:55
PROVIDERS: Internal Medicine; Student in an Organized Health Care Education/Training Program; Admitting Provider Internal Medicine Adolescent Medicine; Emergency Provider Emergency Medicine; Visit Provider Internal Medicine Adolescent Medicine
DX: R78.81 Bacteremia (principal); L89.154 Pressure ulcer of sacral region, stage 4; R53.2 Functional quadriplegia; N39.0 Urinary tract infection, site not specified; Z16.12 Extended spectrum beta lactamase (ESBL) resistance; N12 Tubulo-interstitial nephritis, not specified as acute or chronic; R47.01 Aphasia; I16.0 Hypertensive urgency; E86.0 Dehydration; E11.9 Type 2 diabetes mellitus without complications; I48.91 Unspecified atrial fibrillation; B96.29 Other Escherichia coli [E. coli] as the cause of diseases classified elsewhere; I69.398 Other sequelae of cerebral infarction; R47.89 Other speech disturbances; I10 Essential (primary) hypertension; Z66 Do not resuscitate; Z79.01 Long term (current) use of anticoagulants; Z93.1 Gastrostomy status; Z79.899 Other long term (current) drug therapy
CPT/HCPCS: 36410; 36415; 36569; 71045; 74174; 80048; 80053; 81001; 82962; 83036; 83605; 83690; 83735; 83880; 84145; 84484; 85007; 85025; 85027; 86140; 86803; 87040; 87077; 87086; 87088; 87186; 87265; 87389; 87486; 87581; 87632; 87635; 93005; 93306; 99285; C1751; J0131; J1170; J1335; J1885; J2185; J2270; J2405; J3370; J7030; J7120; Q9967

== ENCOUNTER 2024-05-01 10:26 | Emergency (ER) | payer MEDICARE, MEDICAID, SELFPAY ==
[2024-05-01] VITALS (8 sets, daily range): BP systolic 150–196; BP diastolic 72–113; PULSE 89–112; RESP 16–20; TEMP 36.6–36.7; O2SAT 95–98; BMI 24.4
--- NOTE | 2024-05-01 11:08 | ED_ITS ---
Discharge Plan Disposition Patient Disposition: Xfer SNF Condition: Fair Prescriptions Prescriptions: No Action carvedilol [Coreg] 25 mg tablet 25 mg PO BID Qty: 60 5RF Rx Instructions: give with food (meal/snack) apixaban 5 mg tablet 5 mg PO BID hydralazine 50 mg tablet 50 mg PO TID lisinopril 40 mg tablet 40 mg feeding tube DAILY diltiazem HCl 60 mg tablet 60 mg feeding tube QID amlodipine 5 mg Tablet 5 mg PO DAILY 30 Days Qty: 30 0RF omeprazole 40 mg Capsule,Delayed Release(Dr/Ec) 40 mg PO DAILY ferrous sulfate 300 mg (60 mg iron)/5 mL Liquid 150 mg PO DAILY gabapentin 300 mg capsule 300 mg feeding tube TID Patient Comments: Take 1 capsule via g-tube three times a day lactulose 10 gram/15 mL Solution 30 ml PO BID PRN (Reason: Constipation) Ertapenem Sodium [Invanz 1gm Vial] 1 GM 0.9 % Sodium Chloride [Sod Chlor 0.9% 50mL bag] 50 ML 100 mls/hr IV Q24H needs 7 mores doses from 04/28-05/04 Ordered By: Jayce Martinez MD Last Taken: Unknown hydrocodone-acetaminophen 10-325 mg tablet 1 tab PO QID 30 Days Qty: 120 0RF Activity Restrictions/Add. Instructions Additional Instructions/Restrictions: Liver numbers were slightly elevated today, recommend rechecking with PCP in 2 to 3 weeks. Had lengthy discussion with son who is guardian and primary decision-maker regarding patient's CT finding of a hypoattenuation in the occipital lobe. This is difficult to ascertain if this is a new or old stroke. After shared decision-making, he wishes not to pursue this further and continue patient's anticoagulation as previously prescribed. Patient is medically cleared for discharge back to facility. Continue plan of care as previously prescribed. Clinical Impressions Clinical Impression: Encounter for medical assessment, Transaminitis Instructions Patient Instructions: DI for Altered Mental Status Print Language Print Language: Slovak Discharge ED Provider: Calderon Jj Adult HPI General Chief complaint: Recheck/Abnormal Lab/Rx Stated complaint: Altered Mental Status Time Seen by Provider: 05/01/24 11:07 Mode of Arrival: EMS Source of Information: EMS Limitations: Physical Limitations Description of Symptoms (Recalled from ER Triage Doc. by RN): Per halfway patient hasn't been moaning as much as usual and has been drooling out of the left side of her mouth. Patient is non verbal with previous stroke that affects the right side of her body. Per halfway family wanted patient sent to the er. History of Present Illness HPI narrative: Patient is a 73-year-old nonverbal female who has a history of CVA, with right- sided deficits, G-tube dependence. Was recently admitted to the hospital for concern for ESBL UTI. Was started on IV ertapenem and sent to SNF. Patient arrives today for concern for not acting right . I had a lengthy discussion with son who provided history and reports that he saw the patient last night in normal health, baseline is tracking you around the room and occasionally saying 1 or 2 word answers.. Unable to obtain history from nursing staff from the halfway. No recent fevers. Related Data Home Medications ?Medication ?Instructions ?Recorded ?Confirmed apixaban 5 mg tablet 5 mg PO BID 08/24/23 04/25/24 hydralazine 50 mg tablet 50 mg PO TID 08/24/23 04/25/24 diltiazem HCl 60 mg tablet 60 mg feeding tube QID 09/16/23 04/25/24 lisinopril 40 mg tablet 40 mg feeding tube DAILY 09/16/23 04/25/24 ferrous sulfate 300 mg (60 mg 150 mg PO DAILY 04/25/24 04/25/24 iron)/5 mL oral liquid gabapentin 300 mg capsule 300 mg feeding tube TID 04/25/24 04/25/24 lactulose 10 gram/15 mL oral 30 ml PO BID PRN Constipation 04/25/24 04/25/24 solution omeprazole 40 mg capsule,delayed 40 mg PO DAILY 04/25/24 04/25/24 release Previous Rx's ?Medication ?Instructions ?Recorded carvedilol 25 mg tablet (Coreg) 25 mg PO BID #60 tabs 04/15/18 amlodipine 5 mg tablet 5 mg PO DAILY 30 days #30 tabs 09/20/23 Ertapenem Sodium [Invanz 1gm Vial] 100 mls/hr IV Q24H 04/27/24 1 gm hydrocodone 10 mg-acetaminophen 1 tab PO QID pain 30 days #120 04/27/24 325 mg tablet tabs Allergies Allergy/AdvReac Type Severity Reaction Status Date / Time Sulfa (Sulfonamide AdvReac Unknown Verified 04/11/24 13:55 Antibiotics) allergy reaction [facility] Disclaimer: The information contained in this section may have been updated after the patient was seen, as this information can be updated by other users. Medical History (Updated 05/01/24 @ 13:23 by Calderon Jj MD) DM (diabetes mellitus) Sepsis Hypertensive emergency Anemia Sacral decubitus ulcer, stage IV Acute UTI Cellulitis of arm, right Encounter for feeding tube placement Hyponatremia Cerebral edema Brain compression Structural encephalopathy Dysphagia Pressure ulcer MALIK (acute kidney injury) Stroke Gastroesophageal reflux disease HLD (hyperlipidemia) HHD (hypertensive heart disease) Hypokalemia Family History Other No significant family history Social History (Updated 04/25/24 @ 21:31 by Kori Hartman RN) Smoking Status: Never smoker alcohol intake: never substance use type: denies use current occupational status: disabled Travel in the last 8 weeks: None ROS Obtained: Yes unobtainable due to mental status Physical Exam General General appearance: in no apparent distress Comment: chronically ill Eye Eye exam: Present normal appearance, PERRL and EOMI ENT ENT exam: Present normal exam and mucous membranes dry Neck Neck exam: Present normal inspection and full ROM Chest Chest inspection: Present normal inspection and symmetric chest wall rise Respiratory Respiratory exam: Present normal lung sounds bilaterally; Absent respiratory distress, wheezes or stridor Cardiovascular Cardiovascular exam: Present regular rate, tachycardia and irregular rhythm Abdominal Exam Abdominal exam: Absent soft or tenderness External exam: Present morgan catheter in place (draining clear yellow urine) Neurological Exam Neurological exam: Absent alert (at baseline. GCS 4-5-2) or oriented X3 Medical Decision Making Medical Records Screening: Per USPSTF and CDC recommendations, given the prevalence of disease in our region, it is our hospital?s policy to screen for HIV and viral Hepatitis for all patients aged 18 and over and those with ongoing risk factors. Rafita Inquiry Pt receiving controlled substance: No Vital Signs: 05/01/24 10:24 05/01/24 10:05/01/24 11:00 Temperature 97.9 F Temperature Source Oral Pulse Rate 89 95 H Pulse Rate [Radial] 90 Respiratory Rate 16 18 20 Blood Pressure 170/82 H 155/72 H Blood Pressure [Right Arm] 179/75 H Blood Pressure Mean [Right Arm] 109 Blood Pressure Source [Right Arm] Automatic Cuff Blood Pressure Position [Right Arm] Supine 02 Sat by Pulse Oximetry 97 95 97 Oxygen Delivery Method Room Air Room Air Room Air 05/01/24 11:30 05/01/24 12:00 05/01/24 12:30 Temperature Temperature Source Pulse Rate 97 H 100 H 98 H Pulse Rate [Radial] Respiratory Rate 18 20 18 Blood Pressure 150/77 H 179/82 H 169/78 H Blood Pressure [Right Arm] Blood Pressure Mean [Right Arm] Blood Pressure Source [Right Arm] Blood Pressure Position [Right Arm] 02 Sat by Pulse Oximetry 98 97 97 Oxygen Delivery Method Room Air Room Air Room Air 05/01/24 13:00 Temperature Temperature Source Pulse Rate 112 H Pulse Rate [Radial] Respiratory Rate 20 Blood Pressure 196/113 H Blood Pressure [Right Arm] Blood Pressure Mean [Right Arm] Blood Pressure Source [Right Arm] Blood Pressure Position [Right Arm] 02 Sat by Pulse Oximetry 96 Oxygen Delivery Method Room Air Lab Data Lab results reviewed: Yes I reviewed the patient's lab results. Lab Results 05/01/24 10:43: WBC 12.4 H, RBC 3.49 L, Hgb 10.4 L, Hct 32.1 L, MCV 92.2, MCH 30.0, MCHC 32.5, RDW 15.5, Plt Count 394, MPV 7.9, Neut % (Auto) 79.5, Lymph % (Auto) 12.3, [place] % (Auto) 5.3, Eos % (Auto) 2.5, Baso % (Auto) 0.4, Neut # (Auto) 9.9 H, Lymph # (Auto) 1.5, [place] # (Auto) 0.7, Eos # (Auto) 0.3, Baso # (Auto) 0.1, Sodium 138, Potassium 4.6, Chloride 104, Carbon Dioxide 29, Anion Gap 9.6, BUN 21 H, Creatinine 0.50 L, Estimated Creat Clear 49, Estimated GFR 121, Est GFR ( Amer) 146, Glucose 171 H, Calcium 9.2, Total Bilirubin 0.5, AST 121 H, ALT 178 H, Alkaline Phosphatase 70, Total Protein 7.3, Albumin 4.0, Globulin 3.3 H, Albumin/Globulin Ratio 1.2, Procalcitonin 1.97 05/01/24 11:37: VBG pH 7.47 H, VBG pCO2 38.4, VBG pO2 87.3 H, VBG HCO3 27.3, VBG Total CO2 28.5 H, VBG O2 Saturation 96.5 H, VBG Base Excess 3.7 H, VBG Lactic Acid 1.8 05/01/24 10:43 05/01/24 10:43 Orders (Tests/Meds): ED MEDICATIONS Generic Name Dose Route Start Last Admin Trade Name Freq PRN Reason Stop Dose Admin Lactated Ringer's 500 mls @ 999 mls/hr 05/01/24 13:19 05/01/24 13:31 Lactated Ringer's 500ml IV 05/01/24 13:49 999 mls/hr .Q31M ONE Administration ORDERS Category Date Time Status CT head/brain wo con Stat Cat Scan 05/01/24 11:37 Completed Complete Blood Count Auto Diff Stat Lab 05/01/24 10:43 Completed Comprehensive Metabolic Panel Stat Lab 05/01/24 10:43 Completed Procalcitonin Stat Lab 05/01/24 10:43 Completed Venous Blood Gas Stat RT 05/01/24 11:37 Completed Medical Decision Narrative: In summary, this 73-year-old female presents to the emergency department today with altered mental status?. On initial evaluation patient is afebrile, hemodynamically stable in no acute distress. On exam, she is at her neurologic baseline per my conversation with son over the phone. She is tracking around the room and will stick her tongue out to command. Does not appear in any acute distress.. Differential diagnosis includes but is not limited to CVA, metabolic encephalopathy, electrolyte derangement, transaminitis, delirium. Based on these concerns, I ordered CBC CMP lactate CT head. I reviewed prior records including prior discharge summary from 04/27/2024 which indicates need for 10 total days of antibiotics through the PICC line. White count 12.3 on day of discharge afebrile since admission tolerating tube feeds. On home apixaban 5 mg twice daily for stroke.. Patient received LR bolus 500 cc for treatment. Labs personally reviewed demonstrate leukocytosis 12.4, similar when compared with prior. Chronic anemia with hemoglobin of 10.4. VBG demonstrates mild respiratory alkalosis, not acutely actionable. Transaminitis with an AST of 121 and ALT 178, this could be secondary to viral infection versus antibiotics versus dehydration, recommend repeat in 2 weeks. No abdominal tenderness on my exam.. CT imaging personally interpreted demonstrate no acute intracranial abnormality. On the radiologist final read, they remarked on the chronic appearing findings from the right MCA stroke. There is new hypoattenuation in the occipital lobe, unsure of chronicity. Due to this appearance of the new hypoattenuation, I had a lengthy discussion with son, Manish Peña, who is primary guardian over the phone. I discussed with him her risk of stroke and that she is already anticoagulated and that increasing her anticoagulation could represent an increased risk of bleeding. After shared decision-making, he prefers not to take action on this lesion right now, while admission for MRI was offered, he declines at this time as that would not sales and service change leader as patient is not an elbow candidate and is DNR/DNI.. On reassessment she remains stable, mildly tachycardic after over 3 hours in the emergency department, she has not gone her tube feeds I suspect that she is a little dry, will gently fluid resuscitate with 500 cc.. At this time it was felt that the patient was safe to be [facility]. The patient family was in agreement with this plan. Critical Care Critical Care Time Critical Care Time: Yes Attestation: On 05/01/24, the high probability of a clinically significant, sudden or life threatening deterioration of the following system(s) required my full and direct attention, intervention and personal management. The time I documented below is in addition to time spent performing reported procedures but includes the following listed in this critical care notation. Total Time Total Critical Care Time: 35
--- NOTE | 2024-05-01 11:10 | PC.NURSE ---
Dr. Jj at bedside
--- NOTE | 2024-05-01 11:37 | CT_ITS ---
FINAL REPORT TECHNIQUE: Axial CT images were performed through the head. Coronal reformatted images were submitted. This study was performed with techniques to keep radiation doses as low as reasonably achievable (ALARA). Individualized dose reduction techniques using automated exposure control or adjustment of mA and/or kV according to the patient's size were employed. CLINICAL HISTORY: ams; hx of stroke FINDINGS: There is a large region of encephalomalacia throughout the left MCA distribution. Dystrophic calcification is identified. There is ex vacuo dilatation of the left lateral ventricle. Old lacunar infarcts are seen in the right hemisphere. There is a partially calcified extra-axial mass in the left hemisphere measuring 1.3 cm well seen on image 44 of series 3, probably related to meningioma. There is subtle low-attenuation area in the right us occipital lobe, significance unclear. There is no definite hemorrhage, mass effect, or edema. IMPRESSION: Large region of encephalomalacia in the left hemisphere consistent with old left MCA infarct. 1.3 cm incidental meningioma. Subtle decreased attenuation in the right occipital lobe, significance unclear. Early ischemic changes not excluded. Diffusion-weighted MRI may be of value. Reviewed, Interpreted and Dictated by Jeevan Benitez MD Transcribed by Miya Samson Authenticated and [facility]
[2024-05-01 11:50] LABS: Sodium 138 mmol/L (136-145)
[2024-05-01 11:51] LABS: Potassium 4.6 mmoL/L (3.5-5.1)
[2024-05-01 11:53] LABS: Alanine Aminotransferase 178 U/L (12-78); Aspartate Amino Transferase 121 U/L (14-36); Blood Urea Nitrogen 21 mg/dl (7-17); Carbon Dioxide 29 mmol/L (22.0-30.0); Creatinine Clearance Estimated 49 mL/min (50-200); Estimated Glomerular Filt Rate 121 ml/min (>60); GFR (African American) 146 ML/MIN (>60)
[2024-05-01 11:54] LABS: Albumin/Globulin Ratio 1.2 (1.1-1.8); Alkaline Phosphatase 70 U/L (38-126); Bilirubin,Total 0.5 mg/dl (0.2-1.3); Calcium 9.2 mg/dl (8.4-10.2); Globulin 3.3 g/dL (1.3-3.2); Glucose 171 mg/dl (74-100); Total Protein,Serum 7.3 g/dl (6.3-8.2)
[2024-05-01 12:05] LABS: Anion Gap 9.6 mEq/L (5-15); Basophils # 0.1 K/mm3 (0-0.2); Basophils % 0.4 % (0.1-2.0); Chloride 104 mmol/L (98-107); Eosinophils # 0.3 K/mm3 (0.0-0.4); Eosinophils % 2.5 % (0.1-12.0); Hematocrit 32.1 % (37.0-47.0); Hemoglobin 10.4 g/dL (12.2-16.2); Lymphocytes # 1.5 K/mm3 (0.7-4.5); Lymphocytes % 12.3 % (10-50); Mean Corpuscular HGB Conc 32.5 g/dL (31.8-35.4); Mean Corpuscular Volume 92.2 fl (81-99); Mean Platelet Volume 7.9 fl (7.4-10.4); Monocytes # 0.7 K/mm3 (0.1-1.0); Monocytes % 5.3 % (1.7-9.3); Neutrophils # 9.9 K/mm3 (1.8-7.8); Neutrophils % 79.5 % (37.0-80.0); Platelet Count 394 K/mm3 (142-424); Red Blood Count 3.49 M/mm3 (4.20-5.40); Red Cell Distribution Width 15.5 % (11.5-17.5); White Blood Count 12.4 K/mm3 (4.8-10.8)
[2024-05-01 12:26] LABS: Procalcitonin 1.97 ng/mL (0.0-2.0)
[2024-05-01 12:31] LABS: Lactate Venous 1.8 mmol/L (0.4-2.0); VBG Base Excess 3.7 mmol/L (-2.4-2.3); VBG HCO3 27.3 mmol/L (23-30); VBG Oxygen Saturation 96.5 % (50-70); VBG PCO2 38.4 mmol/L (35-51); VBG PH 7.47 mmol/L (7.31-7.41); VBG PO2 87.3 mmol/L (28-40); VBG Total CO2 28.5 mmol/L (23-27)
[2024-05-01] MEDS: RINGERS SOLUTION,LACTATED 500 ML 999 ML IV (13:31)
--- NOTE | 2024-05-06 10:48 | PC.NURSE ---
positive blood culture results forwarded to hospitalist group from 04/25/24 when pt was admitted for ESBL UTI
== END 2024-05-01 15:26 ==
PROVIDERS: Emergency Provider Emergency Medicine
DX: R74.02 Elevation of levels of lactic acid dehydrogenase [LDH] (principal); I69.351 Hemiplegia and hemiparesis following cerebral infarction affecting right dominant side; I69.320 Aphasia following cerebral infarction; I10 Essential (primary) hypertension
CPT/HCPCS: 70450; 80053; 82803; 84145; 85025; 99285; J7120

== ENCOUNTER 2024-06-09 23:37 | Inpatient (IN) | payer MEDICARE, MEDICAID, SELFPAY ==
[2024-06-09 23:37] VITALS: BP 133/76; PULSE 111; RESP 18; TEMP 38.1; O2SAT 96; BMI 25.7
--- NOTE | 2024-06-09 23:43 | ECG_ITS ---
APPROVED REPORT Exam: Resting ECG HR:113 bpm ECG Measurements Heart Rate 113 AXES HI 171 P 78 QRSd 82 QRS 75 QT 312 T 51 QTc 379 Conclusion SINUS TACHYCARDIA NONSPECIFIC T-WAVE ABNORMALITY ABNORMAL RHYTHM ECG No STEMI Electronically signed by : PATRIA KAUFFMAN, 06/10/2024 03:38:35
--- NOTE | 2024-06-09 23:43 | CT_ITS ---
PROCEDURE INFORMATION: Exam: CT Head Without Contrast Exam date and time: 06/10/2024 1:50 AM Age: 73 years old Clinical indication: Altered mental status/memory loss; Additional info: Reported lethargy, no new neuro deficits TECHNIQUE: Imaging protocol: Computed tomography of the head without contrast. Radiation optimization: All CT scans at this facility use at least one of these dose optimization techniques: automated exposure control; mA and/or kV adjustment per patient size (includes targeted exams where dose is matched to clinical indication); or iterative reconstruction. COMPARISON: No relevant prior studies available. FINDINGS: Brain: Chronic infarct with encephalomalacia in the LEFT MCA distribution. Calcific LEFT frontal convexity meningioma measuring 1.2 x 1.5 cm. Underlying chronic microvascular ischemic disease without acute intraparenchymal hemorrhage and no obvious acute ischemic stroke. No intra-or extra-axial fluid collection, no supra-or infratentorial mass, no mass effect or midline shift. Cerebral ventricles: Ventriculomegaly with mildly dilated/prominent sulci and basal cisterns. Paranasal sinuses: No significant mucoperiosteal thickening in the visualized paranasal sinuses. Mastoid air cells: No mastoid effusion. Bones: Visualized skull bones are grossly normal. Soft tissues: NA IMPRESSION: 1. Large chronic LEFT MCA infarct with encephalomalacia. 2. Calcific LEFT frontal convexity meningioma. 3. Chronic microvascular disease and generalized atrophy without acute intracranial abnormality. 4. No evidence of acute hemorrhage, mass lesion or obvious acute ischemic infarction.
--- NOTE | 2024-06-09 23:43 | CT_ITS ---
PROCEDURE INFORMATION: Exam: CTA Chest With Contrast Exam date and time: 06/10/2024 1:53 AM Age: 73 years old Clinical indication: Pain; Chest pressure; Additional info: Tachy lethargic according to [facility] TECHNIQUE: Imaging protocol: Computed tomographic angiography of the chest with contrast. Exam focused on the arteries. 3D rendering (Not supervised by radiologist): MIP and/or 3D reconstructed images were created by the technologist. Radiation optimization: All CT scans at this facility use at least one of these dose optimization techniques: automated exposure control; mA and/or kV adjustment per patient size (includes targeted exams where dose is matched to clinical indication); or iterative reconstruction. Contrast material: ISOVUE; Contrast volume: 70 ml; Contrast route: INTRAVENOUS (IV); COMPARISON: CR XR CHEST PORTABLE PICC PLAC 04/27/2024 1:38 PM FINDINGS: Pulmonary arteries: Normal. No pulmonary emboli. Aorta: Unremarkable. No aortic aneurysm. No aortic dissection. Lungs: Unremarkable. No consolidation. No masses. Pleural spaces: Unremarkable. No pneumothorax. No pleural effusion. Heart: Unremarkable. No cardiomegaly. No pericardial effusion. Lymph nodes: Unremarkable. No enlarged lymph nodes. Bones/joints: Moderate degenerative changes of midthoracic spine are noted. No acute fracture. Soft tissues: Unremarkable. IMPRESSION: No acute findings. No pulmonary embolus.
--- NOTE | 2024-06-09 23:50 | CT_ITS ---
PROCEDURE INFORMATION: Exam: CT Abdomen And Pelvis With Contrast Exam date and time: 06/10/2024 1:53 AM Age: 73 years old Clinical indication: Fever; Additional info: Fever, firm belly seems to be tender TECHNIQUE: Imaging protocol: Computed tomography of the abdomen and pelvis with contrast. Radiation optimization: All CT scans at this facility use at least one of these dose optimization techniques: automated exposure control; mA and/or kV adjustment per patient size (includes targeted exams where dose is matched to clinical indication); or iterative reconstruction. Contrast material: ISOVUE; Contrast volume: 70 ml; Contrast route: IV; COMPARISON: CT ANGIO ABDOMEN PELVIS 04/25/2024 4:08 PM FINDINGS: Tubes, catheters and devices: The percutaneous gastrostomy tube is noted with the balloon positioned in the mid to distal gastric body. Lungs: No acute finding. Diaphragm: A small hiatal hernia is present. Liver: Normal. No mass. Gallbladder and biliary ducts: There are no gallstones. There is dilation of the extrahepatic biliary ductal system with the common duct measuring up to 12 mm. The appearance is similar to the prior exam. No intraductal stone. Pancreas: Normal. No ductal dilation. Spleen: Normal. No splenomegaly. Adrenal glands: Normal. No mass. Kidneys and ureters: No hydronephrosis. Patchy enhancement of the right renal cortex most significant involving upper pole raising suspicion for pyelonephritis. Stomach and bowel: No bowel obstruction. No mucosal thickening. Appendix: No evidence of appendicitis. Intraperitoneal space: Unremarkable. No free air. No significant fluid collection. Vasculature: Moderate calcific atherosclerotic disease without aneurysm or dissection. There is a common origin of the celiac and SMA. Significant calcific disease at the origin of the right renal artery with high-grade stenosis noted on prior CTA. Lymph nodes: Unremarkable. No enlarged lymph nodes. Urinary bladder: There is a focus of intraluminal air within the urinary bladder which could be secondary to recent instrumentation or infection. Reproductive: Small calcified uterine fibroid is noted. Bones/joints: Prominent degenerative changes at L5-S1 no acute fracture. Soft tissues: Unremarkable. IMPRESSION: 1. Patchy enhancement of the right renal cortex particularly involving the upper pole suspicious for pyelonephritis. Intraluminal bladder air may be secondary to recent instrumentation or infection. 2. Stable dilation of the extrahepatic biliary ductal system. If there is clinical or laboratory evidence for bile duct obstruction, further evaluation with ERCP/MRCP is recommended. 3. Other stable nonemergent findings as noted.
[2024-06-10] VITALS (13 sets, daily range): BP systolic 118–183; BP diastolic 55–80; PULSE 97–140; RESP 18–26; TEMP 36.6–39.1; O2SAT 95–98; BMI 22.8
[2024-06-10 00:13] LABS: Microscopic, Urine URINE MICROSCOPIC (MICROSCOPIC)
--- NOTE | 2024-06-10 00:14 | ED_ITS ---
Discharge Plan Disposition Patient Disposition: Admitted Condition: Fair Prescriptions Prescriptions: No Action carvedilol [Coreg] 25 mg tablet 25 mg PO BID Qty: 60 5RF Rx Instructions: give with food (meal/snack) apixaban 5 mg tablet 5 mg PO BID hydralazine 50 mg tablet 50 mg PO TID gabapentin 300 mg capsule 300 mg feeding tube TID Qty: 90 2RF lisinopril 40 mg tablet 40 mg feeding tube DAILY diltiazem HCl 60 mg tablet 60 mg feeding tube QID amlodipine 5 mg Tablet 5 mg PO DAILY 30 Days Qty: 30 0RF omeprazole 40 mg Capsule,Delayed Release(Dr/Ec) 40 mg PO DAILY ferrous sulfate 300 mg (60 mg iron)/5 mL Liquid 150 mg PO DAILY lactulose 10 gram/15 mL Solution 30 ml PO BID PRN (Reason: Constipation) hydrocodone-acetaminophen 10-325 mg tablet 1 tab PO QID 30 Days Qty: 120 0RF Referrals Follow up/Referrals: Provider,Referral, MD [Primary Care Provider] - See instructions Clinical Impressions Clinical Impression: Sepsis, Acute UTI, Hyperkalemia, Prerenal azotemia, Altered mental status Print Language Print Language: Lao Discharge ED Provider: Michaela Coon General Adult HPI General Chief complaint: Weakness Stated complaint: temp, had been treated for sepsis recently Time Seen by Provider: 06/09/24 23:41 Mode of Arrival: EMS Source of Information: EMS Limitations: Language Barrier Description of Symptoms (Recalled from ER Triage Doc. by RN): pt to ED from [facility] where staff reports pt has been lethargic and they would like us to rule out sespis. Nurse states pt had sepsis recently. History of Present Illness HPI narrative: 73-year-old female with a history of severe deficits from prior strokes presents to the ER from [facility] for concerns of increased lethargy, fever. Reportedly patient recently had sepsis, there is no documentation of this in the last month in our system. Nursing facility reported a temperature of 1-2.7 earlier today, Tylenol was administered without significant improvement. Patient was sent to the ER for evaluation. Nurse from facility reports that patient typically will respond to jokes and look at you when you walk in the room but tonight she was more difficult to arouse and not as interactive. I called and spoke to Esthela, her nurse. She states morgan was removed Tuesday 06/05. ROLL INSPECTOR notes from facility documented patient wasn't as perky as usual, they also note that patient is typically very hypertensive and her BP tonight was normal which is abnormal for her. No other symptoms noted, severe deficits on R side at baseline and nonverbal at baseline. Reportedly able to follow L side commands with LUE. Antibiotics from recent sepsis were completed on 05/29, she was taking Cipro. Related Data Home Medications ?Medication ?Instructions ?Recorded ?Confirmed apixaban 5 mg tablet 5 mg PO BID 08/24/23 05/16/24 hydralazine 50 mg tablet 50 mg PO TID 08/24/23 05/16/24 diltiazem HCl 60 mg tablet 60 mg feeding tube QID 09/16/23 05/16/24 lisinopril 40 mg tablet 40 mg feeding tube DAILY 09/16/23 05/16/24 ferrous sulfate 300 mg (60 mg 150 mg PO DAILY 04/25/24 05/16/24 iron)/5 mL oral liquid lactulose 10 gram/15 mL oral 30 ml PO BID PRN Constipation 04/25/24 05/16/24 solution omeprazole 40 mg capsule,delayed 40 mg PO DAILY 04/25/24 05/16/24 release Previous Rx's ?Medication ?Instructions ?Recorded carvedilol 25 mg tablet (Coreg) 25 mg PO BID #60 tabs 04/15/18 amlodipine 5 mg tablet 5 mg PO DAILY 30 days #30 tabs 09/20/23 hydrocodone 10 mg-acetaminophen 1 tab PO QID pain 30 days #120 04/27/24 325 mg tablet tabs gabapentin 300 mg capsule 300 mg feeding tube TID #90 caps 05/08/24 Allergies Allergy/AdvReac Type Severity Reaction Status Date / Time Sulfa (Sulfonamide AdvReac Unknown Verified 05/16/24 13:57 Antibiotics) allergy reaction [facility] Disclaimer: The information contained in this section may have been updated after the patient was seen, as this information can be updated by other users. Medical History DM (diabetes mellitus) Sepsis Hypertensive emergency Anemia Sacral decubitus ulcer, stage IV Acute UTI Cellulitis of arm, right Encounter for feeding tube placement Hyponatremia Cerebral edema Brain compression Structural encephalopathy Dysphagia Pressure ulcer MALIK (acute kidney injury) Stroke Gastroesophageal reflux disease HLD (hyperlipidemia) HHD (hypertensive heart disease) Hypokalemia Family History Other No significant family history Social History Smoking Status: Never smoker alcohol intake: never substance use type: denies use current occupational status: disabled Travel in the last 8 weeks: None Other Medical History Have you received the Flu Vaccine for this season: No Have you received the Pneumonia Vaccine: Yes (2007) ROS Obtained: Yes unobtainable due to mental status Physical Exam General General appearance: alert and in no apparent distress Comment: Chronically ill-appearing Head Head exam: atraumatic and normocephalic Eye Eye exam: Present PERRL and EOMI ENT ENT exam: Present mucous membranes moist Neck Neck exam: Present normal inspection and full ROM Chest Chest inspection: Present symmetric chest wall rise Respiratory Respiratory exam: Present normal lung sounds bilaterally; Absent respiratory distress, wheezes or stridor Cardiovascular Cardiovascular exam: Present normal rhythm and tachycardia Abdominal Exam Abdominal exam: Present soft, tenderness (Patient reacts to palpation in all quadrants, her abdomen is not rigid but is firm) and other (PEG tube in place, site is clean, dry, no findings of infection); Absent distention or rigidity Extremities Exam Extremities exam: Present full ROM; Absent edema Neurological Exam Neurological exam: Present alert and motor sensory deficit (Patient has significant right sided deficits, this is baseline, she is moving her left side appropriately and at baseline according to the description from her custodial); Absent oriented X3 (Nonverbal at baseline) Psychiatric Psychiatric exam: Present normal affect Skin Skin exam: Present warm, dry and other (Stage III decubitus sacral ulcer without drainage, purulence, or surrounding induration) Medical Decision Making Medical Records Medical records reviewed: Yes I reviewed the patient's medical records. Screening: Per USPSTF and CDC recommendations, given the prevalence of disease in our region, it is our hospital?s policy to screen for HIV and viral Hepatitis for all patients aged 18 and over and those with ongoing risk factors. MR Comment: Monthly visit from custodial Dr. Rowell demonstrates patient is being treated for pressure ulcers. At that time he recommended her to continue current treatment. No changes in her plan at that time on 05/16/2024. Rafita Inquiry Pt receiving controlled substance: No Vital Signs: 06/09/24 23:37 06/10/24 00:55 06/10/24 01:00 Temperature 100.6 F H Temperature Source Rectal Pulse Rate Pulse Rate [Left Radial] 111 H Respiratory Rate 18 19 19 Blood Pressure 173/79 H 154/80 H Blood Pressure [Right Arm] 133/76 Blood Pressure Mean [Right Arm] 95 Blood Pressure Source [Right Arm] Automatic Cuff Blood Pressure Position [Right Arm] Sitting 02 Sat by Pulse Oximetry 96 Oxygen Delivery Method Room Air 06/10/24 01:30 06/10/24 02:08 Temperature Temperature Source Pulse Rate 127 H 125 H Pulse Rate [Left Radial] Respiratory Rate 21 18 Blood Pressure 160/76 H 151/79 H Blood Pressure [Right Arm] Blood Pressure Mean [Right Arm] Blood Pressure Source [Right Arm] Blood Pressure Position [Right Arm] 02 Sat by Pulse Oximetry 97 97 Oxygen Delivery Method Lab Data Lab Results 06/09/24 00:02: Urine Color Yellow, Urine Appearance Clear, Urine pH 6.0, Ur Specific [place] 1.015, Urine Protein 1+ A, Urine Glucose (UA) 3+, Urine Ketones Negative, Urine Blood Negative, Urine Nitrate Negative, Urine Bilirubin Negative, Urine Urobilinogen 0.2, Ur Leukocyte Esterase 1+ A, Urine RBC None, Urine WBC 20-50, Ur Squamous Epith Cells 3-5, Urine Bacteria 1+, Urine Yeast 2+ 06/09/24 23:43: VBG pH 7.51 H, VBG pCO2 34.0 L, VBG pO2 70.2 H, VBG HCO3 26.8, V BG Total CO2 27.8 H, VBG O2 Saturation 94.4 H, VBG Base Excess 3.8 H, VBG Lactic Acid 2.2 H 06/10/24 01:00: WBC 12.8 H, RBC 3.33 L, Hgb 9.8 L, Hct 29.9 L, MCV 89.7, MCH 29.6, MCHC 33.0, RDW 16.4, Plt Count 224, MPV 9.6, Neut % (Auto) 79.7, Lymph % (Auto) 9.5 L, [place] % (Auto) 7.9, Eos % (Auto) 1.8, Baso % (Auto) 1.1, Neut # (Auto) 10.2 H, Lymph # (Auto) 1.2, [place] # (Auto) 1.0, Eos # (Auto) 0.2, Baso # (Auto) 0.1, Sodium 140, Potassium 5.6 H, Chloride 101, Carbon Dioxide 33 H, Anion Gap 11.6, BUN 35 H, Creatinine 0.90, Estimated Creat Clear 51, Estimated GFR 61, Est GFR ( Amer) 74, Glucose 274 H, Lactate 1.4, Calcium 9.0, Total Bilirubin 0.9, AST 50 H, ALT 77, Alkaline Phosphatase 54, Troponin I < 0.01, Total Protein 8.1, Albumin 4.1, Globulin 3.1, Albumin/Globulin Ratio 1.3, Lipase 52 06/10/24 01:00 06/10/24 01:00 Orders (Tests/Meds): ED MEDICATIONS Generic Name Dose Route Start Last Admin Trade Name Freq PRN Reason Stop Dose Admin Acetaminophen 650 mg 06/10/24 03:11 06/10/24 03:17 Acetaminophen 160mg/5ml 30ml Bottle PO 07/10/24 03:10 650 mg Q6HP PRN Administration Fever or Mild Pain (1-3) Fluconazole 200 mg in 100 mls @ 200 mls/hr 06/10/24 03:15 Diflucan 200mg/100ml Ivpb IV 06/20/24 03:14 Q24H SHAYAN Miscellaneous 1 each 06/09/24 23:45 06/10/24 03:15 Vancomycin Consult Request NOTAPPLIC 07/09/24 23:44 1 each CONSULT PHARMACY SHAYAN Administration Sodium Chloride 10 ml 06/10/24 02:05 06/10/24 02:06 Sodium Chloride 0.9% 10ml Syr (Rad Only) IV 07/10/24 02:04 10 ml NEEDED PRN Administration Maintain IV Site Discontinued Medications Generic Name Dose Route Start Last Admin Trade Name Freq PRN Reason Stop Dose Admin Acetaminophen 720 mg 06/10/24 03:15 Acetaminophen 120mg Suppository RC 07/10/24 03:14 ONCE SHAYAN Piperacillin Sod/Tazobactam 100 mls @ 200 mls/hr 06/09/24 23:50 06/10/24 01:08 Sod 4.5 gm/ Sodium Chloride IV 06/10/24 00:19 200 mls/hr ONCE ONE Administration Lactated Ringer's 1,900 mls @ 999 mls/hr 06/10/24 00:03 06/10/24 01:08 Lactated Ringer's 1000 Ml Bag IV 06/10/24 01:57 999 mls/hr .[id number] ONE Administration Vancomycin/PEG/NADA/Lysine/Water 1.25 gm in 250 mls @ 125 mls/hr 06/10/24 00:30 06/10/24 02:08 Vancomycin 1.25gm/250ml (Peg) Premix IV 06/10/24 02:29 125 mls/hr ONCE ONE Administration Iopamidol 70 ml 06/10/24 02:05 06/10/24 02:06 Iopamidol-370 (76%);100ml Bottle IV 06/10/24 02:06 70 ml ONCE ONE Administration Sodium Chloride 50 ml 06/10/24 02:05 06/10/24 02:06 0.9 % Sodium Chloride 50 Ml Vial IV 06/10/24 02:06 50 ml ONCE ONE Administration ORDERS Category Date Time Status CT abdomen pelvis w con Stat Cat Scan 06/09/24 23:[address] angio chest PE protocol Stat Cat Scan 06/09/24 23:[address] head/brain wo con Stat Cat Scan 06/09/24 23:43 Completed CBC w/Auto Diff [Complete Blood Count Auto Diff] Stat Lab 06/09/24 23:43 Completed CMP [Comprehensive Metabolic Panel] Stat Lab 06/09/24 23:43 Completed Full Resp Panel w/COVID ([facility]) Routine Lab 06/09/24 02:13 Received Lactic Acid Stat Lab 06/09/24 23:43 Completed Lipase Stat Lab 06/09/24 23:43 Completed Trop I [Troponin I] Stat Lab 06/09/24 23:43 Completed Troponin I Q3H Lab 06/10/24 06:00 Ordered Troponin I Q3H Lab 06/10/24 09:00 Ordered Troponin I Stat Lab 06/10/24 04:00 Ordered Urinalysis and Microscopic Stat Lab 06/09/24 00:02 Completed Blood Culture Stat Micro 06/09/24 23:43 Ordered Urine Culture Stat Micro 06/09/24 00:02 Received VBG [Venous Blood Gas] Stat RT 06/09/24 23:43 Completed HEART Score History (anamnesis): Slightly suspicious ECG: Non-specific disturbance Age: >65 years Risk factors: Atherosclerosis history Troponin: </= normal limit HEART Score: 5 Medical Decision Narrative: In summary, this 73-year-old nonverbal female with history of strokes and significant right sided deficits as well as diabetes, recent treatment for sepsis and UTI presents to the emergency department today with concerns of fever, possible sepsis from custodial. On initial evaluation patient is tachycardic but not hypotensive, febrile to 100.6, she will somewhat follow commands on the left side and is responding to stimulus on the left side appropriately according to reports from custodial about her baseline abilities, abdomen seems tender on exam, lungs are clear, stage III decubitus ulcer does not appear infected. Differential diagnosis includes but is not limited to sepsis, urinary tract infection, electrolyte abnormality, dehydration, kidney dysfunction, leukocytosis, lactic acidosis, hypercarbia, intracranial bleed, PE, ACS, enteritis, I considered the possibility of mesenteric ischemia but have very low suspicion for this since patient does not seem to be in acute pain and only has mild tenderness to palpation on exam of the abdomen. Based on these concerns, I ordered CT head, CTA PE, CT abdomen pelvis, cardiac workup, serum labs, UA. ECG personally interpreted demonstrates sinus tachycardia, normal axis, rate 113, normal NC and QTc, no STEMI. Patient received sepsis fluid bolus 30 mL/kg, empiric broad-spectrum antibiotics of vancomycin and Zosyn initially for treatment. Labs personally reviewed demonstrate leukocytosis with WBC 12.8, anemia consistent with prior findings, platelets normal, VBG demonstrates alkalosis with pH 7.5, hypocarbia, VBG HCO3 26.8, VBG lactic elevated at 2.2. CMP with mild hyperkalemia potassium 5.6, no hyperacute findings on ECG, kidney function demonstrates findings of prerenal azotemia, initial troponin undetectably low at less than 0.01, lactic on CMP is normal at 1.4. Urinalysis with 20-50 WBC, no nitrates, bacteria and yeast present. Since this is a catheterized specimen, I am concerned for infection especially in the setting of patient's presenting symptoms. Zosyn adequately treats the normal urinary pathogens, due to concern for yeast infection especially with the findings on CT, fluconazole administered. CT abdomen pelvis personally interpreted demonstrates findings concerning for cystitis/pyelonephritis, see radiology read for final interpretation. Patient has multiple chronic findings as well. See radiology read. CTA PE personally interpreted does not demonstrate PE or obvious acute parenchymal disease, see radiology read. CT head does not demonstrate acute intracranial abnormality such as bleed, mass, midline shift, chronic stable changes. On reassessment patient's tachycardia has been slightly increasing, concern for likely increasing fever. Acetaminophen administered through PEG tube. At this time patient requires admission for continued management of prerenal azotemia, sepsis, urinary tract infection, altered mental status. I discussed this case with the hospitalist who graciously accepted the patient for admission. Patient admitted in stable condition. Critical Care Critical Care Time Critical Care Time: Yes Attestation: On 06/09/24, the high probability of a clinically significant, sudden or life threatening deterioration of the following system(s) (urinary, cardiac)required my full and direct attention, intervention and personal management. The time I documented below is in addition to time spent performing reported procedures but includes the following listed in this critical care notation. Total Time Total Critical Care Time: 35
[2024-06-10 00:15] LABS: Appearance,Urine CLEAR (Clear); Bilirubin,Urine Negative (Negative); Blood, Urine Negative (Negative); Color,Urine YELLOW (Yellow); Glucose,Urine (UA) 3+ (Negative); Ketones,Urine Negative (Negative); Leukocyte Esterase,Urine 1+ (Negative); Nitrate,Urine Negative (Negative); Protein,Urine 1+ (Negative); Specific Gravity, Urine 1.015 (1.005-1.030); Urobilinogen,Urine 0.2 EU/dl (0.2)
[2024-06-10 00:35] LABS: WBC,Urine 20-50 #/hpf (0-3)
[2024-06-10 00:36] LABS: Bacteria,Urine 1+ /lpf; Yeast,Urine 2+ /lpf
[2024-06-10] MEDS: PIPERACILLIN/TAZO 4.5 GM in 0.9 % SODIUM CHLORIDE 100 ML IV (01:08)
[2024-06-10] MEDS: LACTATED RINGERS 999 ML IV (01:08)
--- NOTE | 2024-06-10 01:09 | PC.NURSE ---
after 4 total attempts at IV access from this RN and Carri mcfadden RN, MD Coon called to bedside for USG IV. IV obtained to [facility], IVF and Zosyn started per SEP.
[2024-06-10 01:10] LABS: Basophils # 0.1 K/mm3 (0-0.2); Basophils % 1.1 % (0.1-2.0); Eosinophils # 0.2 K/mm3 (0.0-0.4); Eosinophils % 1.8 % (0.1-12.0); Hematocrit 29.9 % (37.0-47.0); Hemoglobin 9.8 g/dL (12.2-16.2); Lymphocytes # 1.2 K/mm3 (0.7-4.5); Lymphocytes % 9.5 % (10-50); Mean Corpuscular Hemoglobin 29.6 pg (27.0-31.2); Mean Corpuscular Volume 89.7 fl (81-99); Mean Platelet Volume 9.6 fl (7.4-10.4); Monocytes % 7.9 % (1.7-9.3); Neutrophils # 10.2 K/mm3 (1.8-7.8); Neutrophils % 79.7 % (37.0-80.0); Platelet Count 224 K/mm3 (142-424); Red Blood Count 3.33 M/mm3 (4.20-5.40); Red Cell Distribution Width 16.4 % (11.5-17.5); White Blood Count 12.8 K/mm3 (4.8-10.8)
[2024-06-10 01:15] LABS: Albumin Level 4.1 g/dl (3.5-5.0); Chloride 101 mmol/L (98-107)
[2024-06-10 01:16] LABS: Potassium 5.6 mmoL/L (3.5-5.1); Sodium 140 mmol/L (136-145)
[2024-06-10 01:18] LABS: Alanine Aminotransferase 77 U/L (12-78); Aspartate Amino Transferase 50 U/L (14-36); Blood Urea Nitrogen 35 mg/dl (7-17); Creatinine Clearance Estimated 51 mL/min (50-200); Estimated Glomerular Filt Rate 61 ml/min (>60); GFR (African American) 74 ML/MIN (>60)
[2024-06-10 01:19] LABS: Alkaline Phosphatase 54 U/L (38-126); Anion Gap 11.6 mEq/L (5-15); Bilirubin,Total 0.9 mg/dl (0.2-1.3); Carbon Dioxide 33 mmol/L (22.0-30.0); Glucose 274 mg/dl (74-100); Lactic Acid 1.4 mmol/L (0.7-2.1); Lipase 52 U/L (23-300); Total Protein,Serum 8.1 g/dl (6.3-8.2)
[2024-06-10 01:33] LABS: Troponin I < 0.01 ng/ml (0.00-0.034)
[2024-06-10 01:46] LABS: VBG Base Excess 3.8 mmol/L (-2.4-2.3); VBG HCO3 26.8 mmol/L (23-30); VBG Oxygen Saturation 94.4 % (50-70); VBG PH 7.51 mmol/L (7.31-7.41); VBG PO2 70.2 mmol/L (28-40); VBG Total CO2 27.8 mmol/L (23-27)
[2024-06-10 01:46] LABS: Albumin/Globulin Ratio 1.3 (1.1-1.8); Globulin 3.1 g/dL (1.3-3.2)
[2024-06-10 01:47] LABS: Lactate Venous 2.2 mmol/L (0.4-2.0)
--- NOTE | 2024-06-10 01:52 | PC.NURSE ---
pt to CT at this time. Per MD Coon, only 1 set of blood cultures needed.
[2024-06-10] MEDS: 0.9 % SODIUM CHLORIDE 50 ML VIAL IV (02:06)
[2024-06-10] MEDS: SODIUM CHLORIDE 0.9% 10ML SYR (RAD ONLY) 10 ML IV (02:06)
[2024-06-10] MEDS: IOPAMIDOL-370 (76%);100ML BOTTLE 70 ML IV (02:06)
[2024-06-10] MEDS: VANCOMYCIN/WATER FOR INJ (PEG) 1.25 GM/250 ML PIGGYBACK IV (02:08)
[2024-06-10 02:20] LABS: Adenovirus,PCR Not Detected (NotDetected); Bordetella Pertussis Not Detected (NotDetected); Chlamydophila Pneumoniae, PCR Not Detected (NotDetected); Coronavirus 19, PCR Not Detected (NotDetected); Coronavirus 229E Not Detected (NotDetected); Coronavirus NL63 Not Detected (NotDetected); Coronavirus OC43 Not Detected (NotDetected); Coronovirus HKU1,PCR Not Detected (NotDetected); Human Metapneumovirus Not Detected (NotDetected); Influenza A, PCR Not Detected (NotDetected); Influenza AH1, 2009 Not Detected (NotDetected); Influenza AH1, PCR Not Detected (NotDetected); Influenza AH3,PCR Not Detected (NotDetected); Influenza B, PCR Not Detected (NotDetected); Mycoplasma Pneumoniae, PCR Not Detected (NotDetected); Parainfluenza 1, PCR Not Detected (NotDetected); Parainfluenza 2, PCR Not Detected (NotDetected); Parainfluenza 3, PCR Not Detected (NotDetected); Parainfluenza 4, PCR Not Detected (NotDetected); Respiratory Syncytial Virus Not Detected (NotDetected); Rhinovirus/Enterovirus Not Detected (NotDetected)
[2024-06-10] MEDS: VANCOMYCIN CONSULT REQUEST 1 EACH NOTAPPLIC (03:15)
[2024-06-10] MEDS: ACETAMINOPHEN 650MG SUPPOSITORY 650 MG RC (04:00)
--- NOTE | 2024-06-10 04:01 | PC.NURSE ---
[facility] healthcare nurse reports that when they can't get ahold of the Next of Kin, they call his girlfriend and can usually get ahold of him that way. Attempted to call pts son, her next of kin, and his girlfriend with no answer. Was attempting to call to confirm DNR status, as there is a DNR form in patients chart from the detention. Next of Kin girlfriend- Regla Llamas [phone]
--- NOTE | 2024-06-10 04:27 | PC.NURSE ---
Patient arrived to floor via stretcher from ED at 04:15.
--- NOTE | 2024-06-10 04:30 | PC.NURSE ---
MD Coon aware of pts VS. Tylenol suppository ordered in attempts to decrease temp and therefore decrease HR.
[2024-06-10] MEDS: KETOROLAC 30MG/ML VIAL 15 MG IV (04:59)
[2024-06-10] MEDS: FLUCONAZOLE IN NACL,ISO-OSM 200 MG/100 ML PIGGYBACK IV (05:00)
[2024-06-10] MEDS: PIPERACILLIN/TAZO 2.25 GM in 0.9 % SODIUM CHLORIDE 50 ML IV (05:00)
--- NOTE | 2024-06-10 05:30 | P.HP_ITS ---
History of Present Illness *Admission Date: 06/10/24 *Reason for visit:: Altered mental status related to sepsis UTI and fever *History of present illness: Patient is a correction patient who is on tube feeding., History of stroke with right-sided weakness is total care. Did have a UTI approximately month ago treated with Cipro.. Staff members found that she was not as responsive as she normally was today and has been brought to our emergency room. Found to have a significant urinary tract infection with fever. The patient is nonverbal but does respond to command and appears to know that you were there and that you are trying to help her. Patient's labs were examined finding out that elevated white count with this fever and positive UTI vancomycin and Zosyn was given by the ER physician.. Also noted that she had yeast in her urine. And IV fluconazole was started she also notices having a stage III sacrum decubiti After talking with the ER provider and examining all the labs and the CT scan results. Do feel that the patient needs to be admitted for IV antibiotic. [facility] Disclaimer: The information contained in this section may have been updated after the susan ent was seen, as this information can be updated by other users. Medical History DM (diabetes mellitus) Sepsis Hypertensive emergency Anemia Sacral decubitus ulcer, stage IV Acute UTI Cellulitis of arm, right Encounter for feeding tube placement Hyponatremia Cerebral edema Brain compression Structural encephalopathy Dysphagia Pressure ulcer MALIK (acute kidney injury) Stroke Gastroesophageal reflux disease HLD (hyperlipidemia) HHD (hypertensive heart disease) Hypokalemia Family History Other No significant family history Social History (Updated 06/10/24 @ 05:20 by Kori Hartman RN) Smoking Status: Never smoker alcohol intake: never substance use type: denies use current occupational status: disabled Travel in the last 8 weeks: None Other Medical History Have you received the Flu Vaccine for this season: Yes Have you received the Pneumonia Vaccine: Yes Review of Systems Review of Systems Review of systems:: pertinent systems reviewed and negative unless documented below Constitutional Constitutional: Reports as per HPI Eyes Eyes: Reports as per HPI ENT Ears, Nose, Mouth, and Throat: Reports as per HPI *Cardiovascular Cardiovascular: Reports as per HPI *Respiratory Respiratory: Reports as per HPI *Gastrointestinal Gastrointestinal: Reports as per HPI *Genitourinary Genitourinary: Reports as per HPI *Musculoskeletal Musculoskeletal: Reports as per HPI Integumentary/Breasts Skin/Breast: Reports as per HPI *Neurologic Neurologic: Reports as per HPI Comments: Noting chronic deficit from past CVA Psychiatric Psychiatric: Reports as per HPI Comments: Patient is nonverbal but she can let she know if she is happy or sad, Endocrine Endocrine: Reports as per HPI Hematologic/Lymphatic Hematologic/Lymphatic: Reports as per HPI Allergic/Immunologic Allergic/Immunologic: Reports as per HPI Meds Home Medications and Allergies Home Medications ?Medication ?Instructions ?Recorded ?Confirmed ?Type apixaban 5 mg tablet 5 mg feeding tube BID 08/24/23 06/10/24 History hydralazine 50 mg tablet 50 mg feeding tube TID 08/24/23 06/10/24 History lisinopril 40 mg tablet 40 mg feeding tube DAILY 09/16/23 06/10/24 History ferrous sulfate 300 mg (60 mg 156 mg feeding tube DAILY 04/25/24 06/10/24 History iron)/5 mL oral liquid lactulose 10 gram/15 mL oral 30 ml feeding tube BID Constipation 04/25/24 06/10/24 History solution omeprazole 40 mg capsule,delayed 40 mg feeding tube DAILY 04/25/24 06/10/24 History release acetaminophen 325 mg tablet 325 mg feeding tube Q6HP PRN 06/10/24 06/10/24 History pain/fever dimethicone 5 % topical cream 1 applic topical TID 06/10/24 06/10/24 History gabapentin 300 mg capsule 300 mg feeding tube TID 06/10/24 06/10/24 History hydrocodone 10 mg-acetaminophen 1 tab feeding tube QID 06/10/24 06/10/24 History 325 mg tablet metoprolol tartrate 50 mg tablet 50 mg feeding tube DAILY 06/10/24 06/10/24 History New Prescriptions to Start Prescriptions: Allergies Allergy/AdvReac Type Severity Reaction Status Date / Time Sulfa (Sulfonamide AdvReac Unknown Verified 05/16/24 13:57 Antibiotics) allergy reaction Exam Data for Last 24 hours Vital signs and Labs for Last 24 Hours: Temp Pulse Resp BP Pulse Ox O2 Del Method 102.4 F H 138 H 26 H 173/65 H 96 Room Air 06/10/24 04:27 06/10/24 04:27 06/10/24 04:27 06/10/24 04:27 06/10/24 04:15 06/10/24 04:27 Laboratory Results - last 24 hr 06/09/24 00:02: Urine Color Yellow, Urine Appearance Clear, Urine pH 6.0, Ur Specific [place] 1.015, Urine Protein 1+ A, Urine Glucose (UA) 3+, Urine Ketones Negative, Urine Blood Negative, Urine Nitrate Negative, Urine Bilirubin Negative, Urine Urobilinogen 0.2, Ur Leukocyte Esterase 1+ A, Urine RBC None, Urine WBC 20-50, Ur Squamous Epith Cells 3-5, Urine Bacteria 1+, Urine Yeast 2+ 06/09/24 02:13: Chlamy pneumoniae PCR Not detected, Adenovirus (PCR) Not detected, B. pertussis DNA (PCR) Not detected, Coronavirus OC43 (PCR) Not detected, Coronavirus HKU1 (PCR) Not detected, Coronavirus 229E (PCR) Not detected, SARS-CoV-2 (PCR) Not detected, Coronavirus NL63 (PCR) Not detected, Human Metapneumovir PCR Not detected, Influenza A (H1) PCR Not detected, Influ A (H1N1/09) PCR Not detected, Influenza A (H3) PCR Not detected, Influenza Type A (PCR) Not detected, Influenza Type B (PCR) Not detected, M. pneumoniae (PCR) Not detected, Parainfluenza 1 (PCR) Not detected, Parainfluenza 2 (PCR) Not detected, Parainfluenza 3 (PCR) Not detected, Parainfluenza 4 (PCR) Not detected, RSV (PCR) Not detected, Entero/Rhino (PCR) Not detected 06/09/24 23:43: VBG pH 7.51 H, VBG pCO2 34.0 L, VBG pO2 70.2 H, VBG HCO3 26.8, VBG Total CO2 27.8 H, VBG O2 Saturation 94.4 H, VBG Base Excess 3.8 H, VBG Lactic Acid 2.2 H 06/10/24 01:00: WBC 12.8 H, RBC 3.33 L, Hgb 9.8 L, Hct 29.9 L, MCV 89.7, MCH 29.6, MCHC 33.0, RDW 16.4, Plt Count 224, MPV 9.6, Neut % (Auto) 79.7, Lymph % (Auto) 9.5 L, Bailey % (Auto) 7.9, Eos % (Auto) 1.8, Baso % (Auto) 1.1, Neut # (Auto) 10.2 H, Lymph # (Auto) 1.2, Bailey # (Auto) 1.0, Eos # (Auto) 0.2, Baso # (Auto) 0.1, Sodium 140, Potassium 5.6 H, Chloride 101, Carbon Dioxide 33 H, Anion Gap 11.6, BUN 35 H, Creatinine 0.90, Estimated Creat Clear 51, Estimated GFR 61, Est GFR ( Amer) 74, Glucose 274 H, Lactate 1.4, Calcium 9.0, Total Bilirubin 0.9, AST 50 H, ALT 77, Alkaline Phosphatase 54, Troponin I < 0.01, Total Protein 8.1, Albumin 4.1, Globulin 3.1, Albumin/Globulin Ratio 1.3, Lipase 52 I & O for Last 24 hours: Intake & Output 06/07/24 06/08/24 06/09/24 06/10/24 23:59 23:59 23:59 23:59 Weight 65.771 kg Radiology Reports for the Last 24 Hours: CT scan of head abdomen showed no acute findings just normal aging process with may be dilated hepatic bile duct Constitutional Constitutional: mild distress and thin Comments: Patient appears uncomfortable at times, when in the emergency room was cleaned up, and given a bath fresh close. Mild contractures are beginning to the lower extremities *Routine HEENT Exam Head: Present normocephalic and atraumatic Eye: Present EOMI and PERRL ENT: Present mucous membranes moist *Routine Neck Exam Neck: Present supple Routine Chest/Breast/Axilla Exam Comments: No abnormalities were found of chest wall *Routine Respiratory Exam Respiratory: Present decreased breath sounds and distant breath sounds Comments: Lungs sound basically clear patient is nonverbal, does not take deep breaths *Routine Cardiovascular Exam Cardiovascular: Present RRR Comments: Patient has no edema nailbeds have brisk capillary refill *Routine Abdominal Exam Abdominal: Present soft Comments: G-tube is in place *Routine Rectal Exam Rectal:: deferred *Routine Genitalia Exam Genitalia:: deferred *Routine Extremities Exam Extremities: Present normal capillary refill Comments: Patient has atrophy and slight contractures to the lower extremities and hips, noted for right sided weakness status post CVA, Routine Back/Spine/Pelvis Exam Comments: Patient is stiff and has to be rolled by 2 people., This is needed for bathing and for changing sanitary products, *Routine Skin Exam Skin: Present lesions Comments: Noted stage III ulcer to sacrum, *Routine Neurological Exam Neurological: Present alert Comments: Patient make sure you aware that she knows that you were there she is nonverbal, but able to smile and grimace as needed Routine Psychiatric Exam Comments: Patient is nonverbal, long-term dependent care person from long-term care hard to determine psychiatric issues H&P: Result Impressions 1. UTI with sepsis 2, sacral ulcer 3, total care dependent individual Imaging and Cardiology CT scan - abdomen: Status: final report (See written report some dilated bile duct, some slight changes around kidneys to indicate kidney infection) Additional comments: No acute findings everything appears to be chronic Assessment and Plan *Assessment and plan (1) Sepsis: Status: Acute Qualifiers: Sepsis acute organ dysfunction status: without acute organ dysfunction Sepsis type: Escherichia coli Qualified Code(s): A41.51 - Sepsis due to Escherichia coli [E. coli] Category: Medical Code(s): A41.9 - Sepsis, unspecified organism (2) Acute UTI: Status: Acute Category: Medical Code(s): N39.0 - Urinary tract infection, site not specified (3) Pyelonephritis: Status: Acute Category: Medical Code(s): N12 - Tubulo-interstitial nephritis, not specified as acute or chronic (4) Hyperkalemia: Status: Acute Category: Medical Code(s): E87.5 - Hyperkalemia (5) Altered mental status: Status: Acute Qualifiers: Altered mental status type: unspecified Qualified Code(s): R41.82 - Altered mental status, unspecified Category: Medical Code(s): R41.82 - Altered mental status, unspecified (6) Functional quadriplegia: Status: Chronic Category: Medical Code(s): R53.2 - Functional quadriplegia (7) Sinus tachycardia: Status: Acute Category: Medical Code(s): R00.0 - Tachycardia, unspecified (8) DM (diabetes mellitus): Status: Acute Qualifiers: Diabetes mellitus complication status: without complication Diabetes mellitus intermediate insulin use: without 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 CT showing pyelonephritis. Case discussed with ER physician, request admission for further treatment with antibiotics, monitoring of cultures, monitoring for vital instability. Medicine agreed to admit for further management. History of ESBL UTIs. Continue with broad-spectrum antibiotics including vancomycin, Zosyn, fluconazole for fungal coverage. Problems addressed as follows: Sepsis Pyelonephritis/UTI History of ESBL -Urine culture pending, urinalysis grossly abnormal: With 1+ leuk esterase, 20- 50 white cells, 2+ yeast, 1+ bacteria. -Previous cultures with E. coli ESBL. -Continue vancomycin, Zosyn, fluconazole due to yeast in urine. Fluconazole 200 mg IV daily, Zosyn 3.375 g IV every 6 hours, vancomycin 1000 mg IV daily. Monitoring for toxicity. -Further management pending blood and urine culture -White count elevated at 11, kidney function abnormal with elevated BUN at 24, creatinine 0.9. Mild electrolyte disturbances with potassium 3.8, magnesium 1.6. Repeat CBC, CMP, magnesium ordered for the morning. G-tube dependent: Will clarify it regimen from nursing facility. Advance after having bowel movement. Administer enema x 1. Bedbound and dependent on staff for all ADLs. Functional quadriplegic. Complicates all aspects of her care Continue gabapentin 300 mg 3 times daily; continue hydrocodone 10 mg every 6 hours. Continue metoprolol tartrate 50 mg daily Continue pantoprazole as formulary conversion for omeprazole 40 mg daily Continue Eliquis 5 mg twice daily Holding hydralazine and lisinopril in the setting of sepsis DNR Tube feed Eliquis 5 mg twice daily
[2024-06-10 05:46] LABS: Troponin I < 0.01 ng/ml (0.00-0.034)
[2024-06-10 05:46] LABS: Reflex Lactic Add Lactic Reflex
[2024-06-10] MEDS: HYDROCODONE/APAP 5/325 MG TABLET 1 TAB PO (06:42)
[2024-06-10] MEDS: humaLOG 100 UNITS/ML 10ML VIAL (SSI) SUBCUT ×2 (06:49→23:13)
[2024-06-10] MEDS: 0.9 % SODIUM CHLORIDE 1000ML 1,000 ML 250 ML IV ×2 (06:57→15:54)
[2024-06-10 07:05] LABS: POC Glucose,Bedside 258 (70-110)
[2024-06-10 07:33] LABS: Basophils % 0.3 % (0.1-2.0); Eosinophils % 0.4 % (0.1-12.0); Lymphocytes # 0.8 K/mm3 (0.7-4.5); Lymphocytes % 7.6 % (10-50); Mean Corpuscular HGB Conc 34.5 g/dL (31.8-35.4); Mean Corpuscular Hemoglobin 29.9 pg (27.0-31.2); Mean Corpuscular Volume 86.7 fl (81-99); Mean Platelet Volume 9.2 fl (7.4-10.4); Monocytes % 8.6 % (1.7-9.3); Neutrophils # 9.2 K/mm3 (1.8-7.8); Neutrophils % 83.1 % (37.0-80.0); Platelet Count 203 K/mm3 (142-424); Red Cell Distribution Width 16.2 % (11.5-17.5); White Blood Count 11.1 K/mm3 (4.8-10.8)
[2024-06-10 07:40] LABS: Alanine Aminotransferase 63 U/L (12-78); Albumin Level 3.5 g/dl (3.5-5.0); Albumin/Globulin Ratio 1.2 (1.1-1.8); Alkaline Phosphatase 68 U/L (38-126); Anion Gap 12.8 mEq/L (5-15); Aspartate Amino Transferase 26 U/L (14-36); Bilirubin,Total 0.9 mg/dl (0.2-1.3); Blood Urea Nitrogen 24 mg/dl (7-17); Calcium 8.5 mg/dl (8.4-10.2); Carbon Dioxide 29 mmol/L (22.0-30.0); Chloride 103 mmol/L (98-107); Creatinine Clearance Estimated 50 mL/min (50-200); Estimated Glomerular Filt Rate 61 ml/min (>60); GFR (African American) 74 ML/MIN (>60); Glucose 227 mg/dl (74-100); Magnesium 1.6 mg/dl (1.6-2.3); Potassium 3.8 mmoL/L (3.5-5.1); Sodium 141 mmol/L (136-145); Total Protein,Serum 6.5 g/dl (6.3-8.2)
[2024-06-10 08:03] LABS: Lactic Acid Follow Up (RFLX 1) 0.9 mmol/L (0.7-2.1)
--- NOTE | 2024-06-10 08:55 | EXP.PHA.CONS ---
Pharmacy Consult Date: 06/10/24 Time: 08:57 Referring provider: DR NIETO Reason for Consult:: VANCOMYCIN DOSING CONSULT Allergies Allergy/AdvReac Type Severity Reaction Status Date / Time Sulfa (Sulfonamide AdvReac Unknown Verified 05/16/24 13:57 Antibiotics) allergy reaction Home Medications ?Medication ?Instructions ?Recorded ?Confirmed ?Type carvedilol 25 mg tablet (Coreg) 25 mg PO BID #60 tabs 04/15/18 06/10/24 Rx apixaban 5 mg tablet 5 mg PO BID 08/24/23 06/10/24 History hydralazine 50 mg tablet 50 mg PO TID 08/24/23 06/10/24 History diltiazem HCl 60 mg tablet 60 mg feeding tube QID 09/16/23 06/10/24 History lisinopril 40 mg tablet 40 mg feeding tube DAILY 09/16/23 06/10/24 History amlodipine 5 mg tablet 5 mg PO DAILY 30 days #30 tabs 09/20/23 06/10/24 Rx ferrous sulfate 300 mg (60 mg 150 mg PO DAILY 04/25/24 06/10/24 History iron)/5 mL oral liquid lactulose 10 gram/15 mL oral 30 ml PO BID PRN Constipation 04/25/24 06/10/24 History solution omeprazole 40 mg capsule,delayed 40 mg PO DAILY 04/25/24 06/10/24 History release hydrocodone 10 mg-acetaminophen 1 tab PO QID pain 30 days #120 04/27/24 06/10/24 Rx 325 mg tablet tabs gabapentin 300 mg capsule 300 mg feeding tube TID #90 caps 05/08/24 06/10/24 Rx acetaminophen 325 mg tablet 325 mg PO QID PRN pain/fever 06/10/24 06/10/24 History metoprolol tartrate 50 mg tablet 50 mg PO DAILY 06/10/24 06/10/24 History New Prescriptions to Start Prescriptions: Height: 1.68 m Weight: 64.098 kg Laboratory Results:: Laboratory Results - last 24 hr 06/09/24 00:02: Urine Color Yellow, Urine Appearance Clear, Urine pH 6.0, Ur Specific [place] 1.015, Urine Protein 1+ A, Urine Glucose (UA) 3+, Urine Ketones Negative, Urine Blood Negative, Urine Nitrate Negative, Urine Bilirubin Negative, Urine Urobilinogen 0.2, Ur Leukocyte Esterase 1+ A, Urine RBC None, Urine WBC 20-50, Ur Squamous Epith Cells 3-5, Urine Bacteria 1+, Urine Yeast 2+ 06/09/24 02:13: Chlamy pneumoniae PCR Not detected, Adenovirus (PCR) Not detected, B. pertussis DNA (PCR) Not detected, Coronavirus OC43 (PCR) Not detected, Coronavirus HKU1 (PCR) Not detected, Coronavirus 229E (PCR) Not detected, SARS-CoV-2 (PCR) Not detected, Coronavirus NL63 (PCR) Not detected, Human Metapneumovir PCR Not detected, Influenza A (H1) PCR Not detected, Influ A (H1N1/09) PCR Not detected, Influenza A (H3) PCR Not detected, Influenza Type A (PCR) Not detected, Influenza Type B (PCR) Not detected, M. pneumoniae (PCR) Not detected, Parainfluenza 1 (PCR) Not detected, Parainfluenza 2 (PCR) Not detected, Parainfluenza 3 (PCR) Not detected, Parainfluenza 4 (PCR) Not detected, RSV (PCR) Not detected, Entero/Rhino (PCR) Not detected 06/09/24 23:43: VBG pH 7.51 H, VBG pCO2 34.0 L, VBG pO2 70.2 H, VBG HCO3 26.8, VBG Total CO2 27.8 H, VBG O2 Saturation 94.4 H, VBG Base Excess 3.8 H, VBG Lactic Acid 2.2 H 06/10/24 01:00: WBC 12.8 H, RBC 3.33 L, Hgb 9.8 L, Hct 29.9 L, MCV 89.7, MCH 29.6, MCHC 33.0, RDW 16.4, Plt Count 224, MPV 9.6, Neut % (Auto) 79.7, Lymph % (Auto) 9.5 L, Humphreys % (Auto) 7.9, Eos % (Auto) 1.8, Baso % (Auto) 1.1, Neut # (Auto) 10.2 H, Lymph # (Auto) 1.2, Humphreys # (Auto) 1.0, Eos # (Auto) 0.2, Baso # (Auto) 0.1, Sodium 140, Potassium 5.6 H, Chloride 101, Carbon Dioxide 33 H, Anion Gap 11.6, BUN 35 H, Creatinine 0.90, Estimated Creat Clear 51, Estimated GFR 61, Est GFR ( Amer) 74, Glucose 274 H, Lactate 1.4, Calcium 9.0, Total Bilirubin 0.9, AST 50 H, ALT 77, Alkaline Phosphatase 54, Troponin I < 0.01, Total Protein 8.1, Albumin 4.1, Globulin 3.1, Albumin/Globulin Ratio 1.3, Lipase 52 06/10/24 04:52: Troponin I < 0.01 06/10/24 06:40: POC Glucose 258 H 06/10/24 07:06: WBC 11.1 H, RBC 3.00 L, Hgb 9.0 L, Hct 26.0 L, MCV 86.7, MCH 29.9, MCHC 34.5, RDW 16.2, Plt Count 203, MPV 9.2, Neut % (Auto) 83.1 H, Lymph % (Auto) 7.6 L, Humphreys % (Auto) 8.6, Eos % (Auto) 0.4, Baso % (Auto) 0.3, Neut # (Auto) 9.2 H, Lymph # (Auto) 0.8, Humphreys # (Auto) 1.0, Eos # (Auto) 0.0, Baso # (Auto) 0.0, Sodium 141, Potassium 3.8 D, Chloride 103, Carbon Dioxide 29, Anion Gap 12.8, BUN 24 H D, Creatinine 0.90, Estimated Creat Clear 50, Estimated GFR 61, Est GFR ( Amer) 74, Glucose 227 H, Calcium 8.5, Magnesium 1.6, Total Bilirubin 0.9, AST 26 D, ALT 63, Alkaline Phosphatase 68, Total Protein 6.5, Albumin 3.5 D, Globulin 3.0, Albumin/Globulin Ratio 1.2 06/10/24 07:38: Lactate 0.9 Medical History: Medical History (Updated 06/10/24 @ 05:45 by Shiva Prajapati APRN) DM (diabetes mellitus) Sepsis Hypertensive emergency Anemia Sacral decubitus ulcer, stage IV Acute UTI Cellulitis of arm, right Encounter for feeding tube placement Hyponatremia Cerebral edema Brain compression Structural encephalopathy Dysphagia Pressure ulcer MALIK (acute kidney injury) Stroke Gastroesophageal reflux disease HLD (hyperlipidemia) HHD (hypertensive heart disease) Hypokalemia Assessment and Plan Assessment and plan all Dx Assessment and Plan for all problems:: Pharmacokinetic dosing service Objective: Age: 73 yo Serum creatinine: 0.9 mg/dL Height: 66.0 Inches Weight (kg): 64.098 Diagnosis: UTI Assessment: IBW (kg): 59.30 Dosing wt(kg): 64.098 Estimated Creatinine clearance (ml/min): 51.3 CRCL method: Cockcroft and Gault using ibw(default). Drug selected: Vancomycin Loading dose (mg): 1250 MG Vd (liters): 41.7 (factor used: 0.65 L/kg) Syed (hr-1): 0.047 Half life (hrs): 14.75 CLvanco=?? 1.960 L/hr Recommended dose: 1000 mg Interval: 24 hrs Infusion time (hrs): 2.0 Predicted peak (mcg/mL): 33.8 Predicted trough (mcg/mL): 12.02 Total body weight is being used for vancomycin dosing. Recommendations: Give Vancomycin 1000 mg q 24 hrs with an expected Cpeak of 33.8 mcg/ml and an expected Ctrough of 12.02 mcg/ml TO START 06/11/24 AT 00:00, ONE TIME LOADING DOSE OF VANCOMYCIN 1250 MG GIVEN 06/10/24 AT 02:08 AUC 0-24 /LIGIA Data: LIGIA 0.5 mcg/mL:?? AUC/LIGIA:? 1020.4 LIGIA 1.0 mcg/mL:?? AUC/LIGIA:? 510.2 --------- LIGIA 1.5 mcg/mL:?? AUC/LIGIA:? 340.1 LIGIA 2.0 mcg/mL:?? AUC/LIGIA:? 255.1 Thank you for the consult
[2024-06-10 09:15] LABS: Troponin I < 0.01 ng/ml (0.00-0.034)
[2024-06-10 10:14] LABS: Troponin I < 0.01 ng/ml (0.00-0.034)
[2024-06-10] MEDS: PIPERACILLIN/TAZO 3.375 GM in 0.9 % SODIUM CHLORIDE 50 ML IV ×3 (10:28→23:14)
--- NOTE | 2024-06-10 10:33 | P.CONPHA_ITS ---
Pharmacy Intervention Comments: MEDICATION RECONCILIATION COMPLETE USING MAR FROM [facility].
--- NOTE | 2024-06-10 10:33 | HMH.PHAINT1 ---
Pharmacy Intervention Comments: MEDICATION RECONCILIATION COMPLETE USING MAR FROM [facility].
[2024-06-10 10:36] LABS: POC Glucose,Bedside 176 (70-110)
[2024-06-10] MEDS: MINERAL OIL ENEMA 133ML 133 ML RC (11:26)
[2024-06-10] MEDS: HYDROCODONE 10MG/APAP 325MG TAB 1 TAB PO ×2 (16:38→22:03)
[2024-06-10 16:59] LABS: POC Glucose,Bedside 137 (70-110)
--- NOTE | 2024-06-10 17:16 | PC.NURSE ---
Pt only alert to self. On RA. Pt is non-verbal and completely immobile. Pt has been turned Q2 hours. Multiple skin issues (pictures in nursing wound note). She has still been unable to have a bowel movement even after enema. Pt has peg tube where she receives tube feed but per MD Martinez it is held until pt has bowel movement. Pt is incontinent of urine and wears at brief. Pt son contacted to verify DNR status (Winston was witness to this phone call).
[2024-06-10] MEDS: PANTOPRAZOLE SODIUM 40 MG FEED TUBE (22:03)
[2024-06-10] MEDS: GABAPENTIN 300MG CAPSULE 300 MG G-TUBE (22:03)
[2024-06-10] MEDS: APIXABAN 5MG TABLET 5 MG G-TUBE (22:03)
[2024-06-11] VITALS (8 sets, daily range): BP systolic 133–177; BP diastolic 61–88; PULSE 88–118; RESP 16–19; TEMP 36.6–38.2; O2SAT 96–100; BMI 23.6
[2024-06-11] MEDS: VANCOMYCIN HCL 1,000 MG in 0.9 % SODIUM CHLORIDE 250 ML 125 MG IV ×2 (00:30→23:36)
[2024-06-11] MEDS: 0.9 % SODIUM CHLORIDE 1000ML 1,000 ML 250 ML IV (03:00)
[2024-06-11] MEDS: FLUCONAZOLE IN NACL,ISO-OSM 200 MG/100 ML PIGGYBACK IV (03:12)
[2024-06-11] MEDS: ACETAMINOPHEN 325MG/10.15ML UDC 650 MG PO (04:24)
[2024-06-11] MEDS: PIPERACILLIN/TAZO 3.375 GM in 0.9 % SODIUM CHLORIDE 50 ML IV ×4 (04:31→22:52)
[2024-06-11] MEDS: KETOROLAC 30MG/ML VIAL 15 MG IV (05:12)
[2024-06-11 05:20] LABS: POC Glucose,Bedside 300 (70-110)
[2024-06-11] MEDS: humaLOG 100 UNITS/ML 10ML VIAL (SSI) SUBCUT ×3 (05:20→22:52)
--- NOTE | 2024-06-11 05:25 | PC.NURSE ---
Nonverbal, alert to name. Q2 turn. Unstageables to right heel, and greater toe, elevated. Stage 2 to coccyx, dressing CDI. Incontinent. Fever noted, PRN meds given per SEP. Victorina aware of vital signs. Call light in reach.
[2024-06-11 07:39] LABS: Basophils % 0.5 % (0.1-2.0); Eosinophils # 0.1 K/mm3 (0.0-0.4); Eosinophils % 1.8 % (0.1-12.0); Hematocrit 25.4 % (37.0-47.0); Hemoglobin 8.6 g/dL (12.2-16.2); Lymphocytes # 1.2 K/mm3 (0.7-4.5); Lymphocytes % 15.4 % (10-50); Mean Corpuscular HGB Conc 33.9 g/dL (31.8-35.4); Mean Corpuscular Hemoglobin 29.7 pg (27.0-31.2); Mean Corpuscular Volume 87.4 fl (81-99); Mean Platelet Volume 9.4 fl (7.4-10.4); Monocytes # 0.8 K/mm3 (0.1-1.0); Monocytes % 9.8 % (1.7-9.3); Neutrophils # 5.6 K/mm3 (1.8-7.8); Neutrophils % 72.6 % (37.0-80.0); Platelet Count 227 K/mm3 (142-424); White Blood Count 7.7 K/mm3 (4.8-10.8)
[2024-06-11 07:51] LABS: Chloride 108 mmol/L (98-107)
[2024-06-11 07:52] LABS: Potassium 3.2 mmoL/L (3.5-5.1); Sodium 143 mmol/L (136-145)
[2024-06-11 07:55] LABS: Alanine Aminotransferase 63 U/L (12-78); Alkaline Phosphatase 70 U/L (38-126); Aspartate Amino Transferase 36 U/L (14-36); Bilirubin,Total 0.5 mg/dl (0.2-1.3); Blood Urea Nitrogen 15 mg/dl (7-17); Calcium 8.4 mg/dl (8.4-10.2); Creatinine Clearance Estimated 52 mL/min (50-200); Estimated Glomerular Filt Rate 82 ml/min (>60); GFR (African American) 99 ML/MIN (>60); Glucose 235 mg/dl (74-100); Magnesium 1.9 mg/dl (1.6-2.3); Total Protein,Serum 6.7 g/dl (6.3-8.2)
--- NOTE | 2024-06-11 08:13 | DIET.NUTRFU ---
Started TF Glucerna at 20ml/hr with increase to 77ml/hr to meet 100% of nutritional needs providing 1848kcal, 77gm protein and 1576ml formula water with flush at 100ml TID when IVF discontinued. BS have been elevated >150 with Hx of DM and insulin in place. She would also benefit from prostat AWC BID secondary to skin breakdown will consult pharmacy. Reviewed wt hx and she has gained wt, up 5kg x90 days. She lives at and is 100% dependent on TF secondary to stroke. Patient is noted to be non-verbal. Potassium at 3.2L and albumin 3.4l. No BM noted, mineral oil enema given.
[2024-06-11 08:49] LABS: Procalcitonin 5.77 ng/mL (0.0-2.0)
[2024-06-11] MEDS: GABAPENTIN 300MG CAPSULE 300 MG G-TUBE ×3 (08:49→21:56)
[2024-06-11] MEDS: METOPROLOL TARTRATE 50MG TABLET 50 MG FEED TUBE (08:49)
[2024-06-11] MEDS: PRO-STAT AWC 30ML LIQUID PACKET 30 ML PO ×2 (08:50→21:56)
[2024-06-11] MEDS: APIXABAN 5MG TABLET 5 MG G-TUBE ×2 (08:50→21:56)
[2024-06-11] MEDS: HYDROCODONE 10MG/APAP 325MG TAB 1 TAB PO ×4 (08:52→21:56)
[2024-06-11 09:11] LABS: Anion Gap 10.2 mEq/L (5-15); Carbon Dioxide 28 mmol/L (22.0-30.0)
[2024-06-11 10:11] LABS: Albumin Level 3.4 g/dl (3.5-5.0); Globulin 3.3 g/dL (1.3-3.2)
--- NOTE | 2024-06-11 12:19 | EXP.ACUTE.PN ---
Subjective *Date: 06/11/24 *Time: 12:33 Interval history: Patient hemodynamically stable on exam. More alert and interactive today. No verbal response on exam but smiled and made eye contact. Does not appear in pain. Afebrile. Continuing tube feeds. No vomiting or nausea. Stable on room air. Medical Exam Vital signs and Labs for Last 24 Hours: Vital Signs Temp Pulse Resp BP Pulse Ox O2 Del Method 06/11/24 12:00 98.3 F 96 H 17 158/73 H 96 Room Air 06/11/24 09:00 Room Air 06/11/24 08:00 Room Air 06/11/24 08:00 99 F 105 H 19 176/76 H 98 Room Air 06/11/24 06:43 Room Air 06/11/24 06:00 99.9 F H 118 H 18 177/79 H 98 Room Air 06/11/24 05:55 99.6 F 06/11/24 05:08 100.7 F H 06/11/24 05:00 Room Air 06/11/24 03:00 Room Air 06/11/24 00:38 Room Air 06/11/24 00:00 99.6 F 18 157/61 H 100 Room Air 06/10/24 23:00 Room Air 06/10/24 21:00 Room Air 06/10/24 20:00 115 H Room Air 06/10/24 20:00 97.8 F 110 H 18 151/73 H 97 Room Air 06/10/24 19:00 Room Air 06/10/24 17:00 Room Air 06/10/24 16:00 98.9 F 115 H 18 137/80 96 Room Air 06/10/24 15:00 Room Air 06/10/24 13:00 Room Air Intake and Output 06/10/24 06/11/24 06/11/24 23:59 07:59 15:59 Intake Total 2143 / 2143 Output Total 450 / 450 Balance 2143 / 1693 -450 / 1693 Intake: Intake, Tube Feeding Amount 297 / 297 Intake, Tube Irrigant Amount 180 / 180 Intake, Total IV Amount 1666 / 1666 0.9 % Sodium Chloride 1000ML 1, 1216 / 1216 000 ml @ 250 mls/hr IV .Q4H [facility] Rx#:[id number] Fluconazole in NaCl,Iso-Osm 200 100 / 100 mg In 100 ml @ 200 mls/hr IV Q24H [facility] Rx#:[id number] Piperacillin/Tazo 2.25 gm In 0. 100 / 100 9 % Sodium Chloride 50 ml @ 100 mls/hr IV Q8H [facility] Rx#: [id number] Vancomycin HCl 1,000 mg In 0.9 250 / 250 % Sodium Chloride 250 ml @ 125 mls/hr IV Q24H [facility] Rx#:[id number] Output: Output, Urine Amount 450 / 450 Other: Number of Unmeasured Voids 1 1 1 Weight 66.769 kg Patient Weight 06/11/24 23:59 Weight 66.769 kg Laboratory Results - last 24 hr 06/09/24 00:02: Urine Color Yellow, Urine Appearance Clear, Urine pH 6.0, Ur Specific [place] 1.015, Urine Protein 1+ A, Urine Glucose (UA) 3+, Urine Ketones Negative, Urine Blood Negative, Urine Nitrate Negative, Urine Bilirubin Negative, Urine Urobilinogen 0.2, Ur Leukocyte Esterase 1+ A, Urine RBC None, Urine WBC 20-50, Ur Squamous Epith Cells 3-5, Urine Bacteria 1+, Urine Yeast 2+ 06/10/24 16:52: POC Glucose 137 H 06/11/24 05:12: POC Glucose 300 H 06/11/24 07:10: WBC 7.7 D, RBC 2.90 L, Hgb 8.6 L, Hct 25.4 L, MCV 87.4, MCH 29.7, MCHC 33.9, RDW 16.0, Plt Count 227, MPV 9.4, Neut % (Auto) 72.6, Lymph % (Auto) 15.4, [place] % (Auto) 9.8 H, Eos % (Auto) 1.8, Baso % (Auto) 0.5, Neut # (Auto) 5.6, Lymph # (Auto) 1.2, [place] # (Auto) 0.8, Eos # (Auto) 0.1, Baso # (Auto) 0.0, Sodium 143, Potassium 3.2 L, Chloride 108 H, Carbon Dioxide 28, Anion Gap 10.2, BUN 15 D, Creatinine 0.70 D, Estimated Creat Clear 52, Estimated GFR 82, Est GFR ( Amer) 99 D, Glucose 235 H, Calcium 8.4, Magnesium 1.9 D, Total Bilirubin 0.5, AST 36 D, ALT 63, Alkaline Phosphatase 70, Total Protein 6.7, Albumin 3.4 L, Globulin 3.3 H, Albumin/Globulin Ratio 1.0 L, Procalcitonin 5.77 H I & O for Labs for Last 24 Hours: Intake & Output 06/08/24 06/09/24 06/10/24 06/11/24 23:59 23:59 23:59 23:59 Intake Total 150 / 150 2143 / 2143 Output Total 0 / 0 450 / 450 Balance 150 / 150 1693 / 1693 Weight 65.771 kg 64.098 kg 66.769 kg Microbiology Reports for the Last 24 Hours: Microbiology 06/10/24 01:00 Blood Blood Culture - Preliminary Gram Negative Rods 06/09/24 00:02 Urine,Clean Catch Urine Culture - Preliminary Gram Negative Rods Constitutional: Present no acute distress, average body habitus, chronically ill appearing and cooperative Head: Present normocephalic ENT: Present normal exam Neck: Present normal inspection Respiratory: Present normal respiratory effort; Absent rhonchi, wheezes or crackles Cardiac: Present Regular Rhythm and Tachycardia GI: Present soft and normal bowel sounds; Absent distention or tenderness Comments:: G-tube in place Comment:: Thin extremities Skin: Present intact; Absent erythema Neuro: Present alert Comment:: Chronic deficits. Baseline level of function. Necessitates assistance with all ADLs. Functional quadriplegia Assessment and Plan *Assessment and plan (1) Sepsis: Status: Acute Qualifiers: Sepsis acute organ dysfunction status: without acute organ dysfunction Sepsis type: Escherichia coli Qualified Code(s): A41.51 - Sepsis due to Escherichia coli [E. coli] Category: Medical Code(s): A41.9 - Sepsis, unspecified organism (2) Bacteremia due to Enterobacter species: Status: Acute Category: Medical Code(s): R78.81 - Bacteremia; B96.89 - Other specified bacterial agents as the cause of diseases classified elsewhere (3) Acute UTI: Status: Acute Category: Medical Code(s): N39.0 - Urinary tract infection, site not specified (4) Pyelonephritis: Status: Acute Category: Medical Code(s): N12 - Tubulo-interstitial nephritis, not specified as acute or chronic (5) Hyperkalemia: Status: Acute Category: Medical Code(s): E87.5 - Hyperkalemia (6) Altered mental status: Status: Acute Qualifiers: Altered mental status type: unspecified Qualified Code(s): R41.82 - Altered mental status, unspecified Category: Medical Code(s): R41.82 - Altered mental status, unspecified (7) Functional quadriplegia: Status: Chronic Category: Medical Code(s): R53.2 - Functional quadriplegia (8) Sinus tachycardia: Status: Acute Category: Medical Code(s): R00.0 - Tachycardia, unspecified (9) DM (diabetes mellitus): Status: Acute Qualifiers: Diabetes mellitus complication status: without complication Diabetes mellitus correction insulin use: without content specialist use Diabetes mellitus type: type 2 Qualified Code(s): E11.9 - Type 2 diabetes mellitus without complications Category: Medical Code(s): E11.9 - Type 2 diabetes mellitus without complications Plan Patient presented to the ER with vital instability and concern for infection. CT showing pyelonephritis. Case discussed with ER physician, request admission for further treatment with antibiotics, monitoring of cultures, monitoring for vital instability. Medicine agreed to admit for further management. History of ESBL UTIs. Continue with broad-spectrum antibiotics including vancomycin, Zosyn, fluconazole for fungal coverage. Symptoms appear to be deffervescing. Blood culture returned positive for Enterobacter. Continues to require inpatient management. Problems addressed as follows: Sepsis Pyelonephritis/UTI History of ESBL Enterobacter/E. coli bacteremia -Urine culture pending, urinalysis grossly abnormal: With 1+ leuk esterase, 20-50 white cells, 2+ yeast, 1+ bacteria. -Blood culture positive for Enterobacter and E. coli. Awaiting speciation and sensitivity. -Continue vancomycin, Zosyn, fluconazole due to yeast in urine. Fluconazole 200 mg IV daily, Zosyn 3.375 g IV every 6 hours, vancomycin 1000 mg IV daily. Monitoring for toxicity. -White count improved to 7.7. Kidney function normal with BUN 15, creatinine 0.7. -Repeat CBC, CMP, magnesium ordered for the morning. -Potassium low at 3.2, replacing orally/per tube, magnesium 1.9. G-tube dependent: Continue tube feeds with Glucerna. Bedbound and dependent on staff for all ADLs. Functional quadriplegic. Complicates all aspects of her care Continue gabapentin 300 mg 3 times daily; continue hydrocodone 10 mg every 6 hours. Continue metoprolol tartrate 50 mg daily Continue pantoprazole as formulary conversion for omeprazole 40 mg daily Continue Eliquis 5 mg twice daily Holding hydralazine and lisinopril in the setting of sepsis DNR Tube feed Eliquis 5 mg twice daily
[2024-06-11 12:30] LABS: POC Glucose,Bedside 243 (70-110)
[2024-06-11 16:55] LABS: POC Glucose,Bedside 139 (70-110)
--- NOTE | 2024-06-11 17:36 | PC.NURSE ---
Pt has had no fevers this shift. Blood pressure has been better this shift. Tube feed has been changed from Jevity 1.2 to glucerna 1.0 per orders. Pt tolerating this well. Son came to visit this shift. Pt lying in bed comfortably watching TV at this time. Call light in reach.
[2024-06-11] MEDS: PANTOPRAZOLE SODIUM 40 MG FEED TUBE (21:56)
[2024-06-12] VITALS: BP 137/75; PULSE 95; RESP 16; TEMP 36.8; O2SAT 99
[2024-06-12] MEDS: FLUCONAZOLE IN NACL,ISO-OSM 200 MG/100 ML PIGGYBACK IV (02:36)
[2024-06-12 03:49] VITALS: BP 154/81; PULSE 99; RESP 19; TEMP 36.8; O2SAT 96
[2024-06-12 04:00] VITALS: BMI 23.6
[2024-06-12] MEDS: PIPERACILLIN/TAZO 3.375 GM in 0.9 % SODIUM CHLORIDE 50 ML IV ×2 (05:49→10:46)
[2024-06-12] MEDS: humaLOG 100 UNITS/ML 10ML VIAL (SSI) SUBCUT ×2 (05:57→10:50)
[2024-06-12] MEDS: KETOROLAC 30MG/ML VIAL 15 MG IV (05:57)
[2024-06-12 06:01] LABS: POC Glucose,Bedside 212 (70-110)
[2024-06-12 06:39] LABS: Magnesium 1.8 mg/dl (1.6-2.3)
[2024-06-12 06:47] LABS: Basophils % 0.6 % (0.1-2.0); Eosinophils # 0.3 K/mm3 (0.0-0.4); Eosinophils % 4.4 % (0.1-12.0); Hematocrit 26.1 % (37.0-47.0); Lymphocytes # 1.3 K/mm3 (0.7-4.5); Mean Corpuscular HGB Conc 34.4 g/dL (31.8-35.4); Mean Corpuscular Hemoglobin 29.8 pg (27.0-31.2); Mean Corpuscular Volume 86.7 fl (81-99); Mean Platelet Volume 8.8 fl (7.4-10.4); Monocytes # 0.4 K/mm3 (0.1-1.0); Neutrophils # 4.9 K/mm3 (1.8-7.8); Platelet Count 262 K/mm3 (142-424); Red Blood Count 3.01 M/mm3 (4.20-5.40); Red Cell Distribution Width 15.9 % (11.5-17.5)
--- NOTE | 2024-06-12 07:26 | P.DS_ITS ---
General Admission date:: 06/10/24 Discharge date: 06/12/24 HPI HPI HPI: Patient is a jail patient who is on tube feeding., History of stroke with right-sided weakness is total care. Did have a UTI approximately month ago treated with Cipro.. Staff members found that she was not as responsive as she normally was today and has been brought to our emergency room. Found to have a significant urinary tract infection with fever. The patient is nonverbal but does respond to command and appears to know that you were there and that you are trying to help her. Patient's labs were examined finding out that elevated white count with this fever and positive UTI vancomycin and Zosyn was given by the ER physician.. Also noted that she had yeast in her urine. And IV fluconazole was started she also notices having a stage III sacrum decubiti After talking with the ER provider and examining all the labs and the CT scan results. Do feel that the patient needs to be admitted for IV antibiotic. Hospital Course Hospital Course Hospital Course: Patient presented to the ER with vital instability and concern for infection. CT showing pyelonephritis. Case discussed with ER physician, request admission for further treatment with antibiotics, monitoring of cultures, monitoring for vital instability. Medicine agreed to admit for further management. History of ESBL UTIs. Blood culture returned positive for Enterobacter. Based on speciation and sensitivity, patient to be transition to ertapenem to complete course. Midline placed on day of discharge. Stable [facility] management. Showing clinical improvement during admission. Tolerating tube feeds. Problems addressed as follows: Sepsis Pyelonephritis/UTI History of ESBL Enterobacter/E. coli bacteremia -Presentation meeting sepsis. Blood and urine cultures were obtained. Blood cultures returned positive for Enterobacter and E. coli. Urine culture also positive. Urinalysis grossly abnormal with leuk esterase and white cells. Also had significant yeast burden in urine. Initially on broad-spectrum antibiotics with vancomycin, Zosyn, fluconazole. Will transition to ertapenem 1 g daily to complete 7 more days of antibiotics at discharge. Will also continue fluconazole 100 mg orally for 10 more days to treat her yeast infection. White count normalized, 7 on day of discharge. Kidney function at baseline with BUN 16, creatinine 0.6. Overall doing well from an infectious standpoint. Sepsis symptoms defervesced. Stable to discharge back to [facility] for further management. G-tube dependent: Continue tube feeds with Glucerna. Bedbound and dependent on staff for all ADLs. Functional quadriplegic. Complicates all aspects of her care Continue gabapentin 300 mg 3 times daily; continue hydrocodone 10 mg every 6 hours. Continue metoprolol tartrate 50 mg daily Continue pantoprazole as formulary conversion for omeprazole 40 mg daily Continue Eliquis 5 mg twice daily OK to resume hydralazine and lisinopril for HTN Total time spent on discharge 32 minutes in counseling, documentation, chart review, and direct care with patient. Midline placed on day of discharge. Okay to remove after completion of IV antibiotic course Exam Data for Last 24 hours Vital signs and Labs for Last 24 Hours: Temp Pulse Resp BP Pulse Ox O2 Del Method 98.2 F 99 H 19 154/81 H 96 Room Air 06/12/24 03:49 06/12/24 03:49 06/12/24 03:49 06/12/24 03:49 06/12/24 03:49 06/12/24 06:57 Laboratory Results - last 24 hr 06/09/24 00:02: Urine Color Yellow, Urine Appearance Clear, Urine pH 6.0, Ur Specific [place] 1.015, Urine Protein 1+ A, Urine Glucose (UA) 3+, Urine Ketones Negative, Urine Blood Negative, Urine Nitrate Negative, Urine Bilirubin Negative, Urine Urobilinogen 0.2, Ur Leukocyte Esterase 1+ A, Urine RBC None, Urine WBC 20-50, Ur Squamous Epith Cells 3-5, Urine Bacteria 1+, Urine Yeast 2+ 06/11/24 07:10: WBC 7.7 D, RBC 2.90 L, Hgb 8.6 L, Hct 25.4 L, MCV 87.4, MCH 29.7, MCHC 33.9, RDW 16.0, Plt Count 227, MPV 9.4, Neut % (Auto) 72.6, Lymph % (Auto) 15.4, [place] % (Auto) 9.8 H, Eos % (Auto) 1.8, Baso % (Auto) 0.5, Neut # (Auto) 5.6, Lymph # (Auto) 1.2, [place] # (Auto) 0.8, Eos # (Auto) 0.1, Baso # (Auto) 0.0, Sodium 143, Potassium 3.2 L, Chloride 108 H, Carbon Dioxide 28, Anion Gap 10.2, BUN 15 D, Creatinine 0.70 D, Estimated Creat Clear 52, Estimated GFR 82, Est GFR ( Amer) 99 D, Glucose 235 H, Calcium 8.4, Magnesium 1.9 D, Total Bilirubin 0.5, AST 36 D, ALT 63, Alkaline Phosphatase 70, Total Protein 6.7, Albumin 3.4 L, Globulin 3.3 H, Albumin/Globulin Ratio 1.0 L, Procalcitonin 5.77 H 06/11/24 11:34: POC Glucose 243 H 06/11/24 16:35: POC Glucose 139 H 06/12/24 05:50: POC Glucose 212 H 06/12/24 06:19: WBC 7.0, RBC 3.01 L, Hgb 9.0 L, Hct 26.1 L, MCV 86.7, MCH 29.8, MCHC 34.4, RDW 15.9, Plt Count 262, MPV 8.8, Neut % (Auto) 70.0, Lymph % (Auto) 19.0, [place] % (Auto) 6.0, Eos % (Auto) 4.4, Baso % (Auto) 0.6, Neut # (Auto) 4.9, Lymph # (Auto) 1.3, [place] # (Auto) 0.4, Eos # (Auto) 0.3, Baso # (Auto) 0.0, Magnesium 1.8 I & O for Last 24 hours: Intake & Output 06/09/24 06/10/24 06/11/24 06/12/24 23:59 23:59 23:59 23:59 Intake Total 150 / 150 2143 / 2543 400 / 400 Output Total 0 / 0 450 / 450 425 / 425 Balance 150 / 150 1693 / 2093 -25 / -25 Weight 65.771 kg 64.098 kg 66.769 kg 66.6 kg Microbiology Reports for the Last 24 Hours: Microbiology 06/10/24 01:00 Blood Blood Culture - Preliminary Gram Negative Rods 06/09/24 00:02 Urine,Clean Catch Urine Culture - Preliminary Gram Negative Rods Constitutional Constitutional: no acute distress, chronically ill appearing and cooperative Comments: alert awake, not following commands, at patient baseline; making eye contact *Routine HEENT Exam Head: Present normocephalic Eye: Present EOMI and PERRL ENT: Present mucous membranes moist *Routine Neck Exam Neck: Present supple; Absent lymphadenopathy *Routine Respiratory Exam Respiratory: Present CTA bilaterally; Absent rhonchi, wheezes or crackles *Routine Cardiovascular Exam Cardiovascular: Present RRR *Routine Abdominal Exam Abdominal: Present soft and normoactive bowel sounds; Absent tenderness Comments: G-tube in place *Routine Rectal Exam Patient deferred: visual exam *Routine Exam Patient deferred: external exam Comments: Rodriguez in place *Routine Extremities Exam Extremities: Absent cyanosis, clubbing or edema Comments: Contracture, loss of muscle mass *Routine Skin Exam Skin: Present intact and warm; Absent rash *Routine Neurological Exam Neurological: Present alert Comments: she has weakness from previous strokes, at baseline mentation. Functional quadriplegia Results Data Completed and Pending Labs on day of discharge: Labs from last 24 hours 06/12/24 06/12/24 06/11/24 06:19 05:50 16:35 WBC 7.0 RBC 3.01 L Hgb 9.0 L Hct 26.1 L MCV 86.7 MCH 29.8 MCHC 34.4 RDW 15.9 Plt Count 262 MPV 8.8 Neut % (Auto) 70.0 Lymph % (Auto) 19.0 [place] % (Auto) 6.0 Eos % (Auto) 4.4 Baso % (Auto) 0.6 Neut # (Auto) 4.9 Lymph # (Auto) 1.3 [place] # (Auto) 0.4 Eos # (Auto) 0.3 Baso # (Auto) 0.0 Sodium Potassium Chloride Carbon Dioxide Anion Gap BUN Creatinine Estimated Creat Clear Estimated GFR Est GFR ( Amer) Glucose POC Glucose 212 H 139 H Calcium Magnesium 1.8 Total Bilirubin AST ALT Alkaline Phosphatase Total Protein Albumin Globulin Albumin/Globulin Ratio Procalcitonin Urine Color Urine Appearance Urine pH Ur Specific [place] Urine Protein Urine Glucose (UA) Urine Ketones Urine Blood Urine Nitrate Urine Bilirubin Urine Urobilinogen Ur Leukocyte Esterase Urine RBC Urine WBC Ur Squamous Epith Cells Urine Bacteria Urine Yeast 06/11/24 06/11/24 06/09/24 11:34 07:10 00:02 WBC 7.7 D RBC 2.90 L Hgb 8.6 L Hct 25.4 L MCV 87.4 MCH 29.7 MCHC 33.9 RDW 16.0 Plt Count 227 MPV 9.4 Neut % (Auto) 72.6 Lymph % (Auto) 15.4 [place] % (Auto) 9.8 H Eos % (Auto) 1.8 Baso % (Auto) 0.5 Neut # (Auto) 5.6 Lymph # (Auto) 1.2 [place] # (Auto) 0.8 Eos # (Auto) 0.1 Baso # (Auto) 0.0 Sodium 143 Potassium 3.2 L Chloride 108 H Carbon Dioxide 28 Anion Gap 10.2 BUN 15 D Creatinine 0.70 D Estimated Creat Clear 52 Estimated GFR 82 Est GFR ( Amer) 99 D Glucose 235 H POC Glucose 243 H Calcium 8.4 Magnesium 1.9 D Total Bilirubin 0.5 AST 36 D ALT 63 Alkaline Phosphatase 70 Total Protein 6.7 Albumin 3.4 L Globulin 3.3 H Albumin/Globulin Ratio 1.0 L Procalcitonin 5.77 H Urine Color Yellow Urine Appearance Clear Urine pH 6.0 Ur Specific [place] 1.015 Urine Protein 1+ A Urine Glucose (UA) 3+ Urine Ketones Negative Urine Blood Negative Urine Nitrate Negative Urine Bilirubin Negative Urine Urobilinogen 0.2 Ur Leukocyte Esterase 1+ A Urine RBC None Urine WBC 20-50 Ur Squamous Epith Cells 3-5 Urine Bacteria 1+ Urine Yeast 2+ Preliminary micro results at discharge 06/10/24 01:00 Blood Culture - Preliminary Blood Gram Negative Rods 06/09/24 00:02 Urine Culture - Preliminary Urine,Clean Catch Gram Negative Rods DS: Diagnosis Discharge Diagnosis (1) Sepsis: Status: Acute Code(s): A41.9 - Sepsis, unspecified organism Qualifiers: Sepsis acute organ dysfunction status: without acute organ dysfunction Sepsis type: Escherichia coli Qualified Code(s): A41.51 - Sepsis due to Escherichia coli [E. coli] (2) Bacteremia due to Enterobacter species: Status: Acute Code(s): R78.81 - Bacteremia; B96.89 - Other specified bacterial agents as the cause of diseases classified elsewhere (3) Acute UTI: Status: Acute Code(s): N39.0 - Urinary tract infection, site not specified (4) Pyelonephritis: Status: Acute Code(s): N12 - Tubulo-interstitial nephritis, not specified as acute or chronic (5) Hyperkalemia: Status: Acute Code(s): E87.5 - Hyperkalemia (6) Altered mental status: Status: Acute Code(s): R41.82 - Altered mental status, unspecified Qualifiers: Altered mental status type: unspecified Qualified Code(s): R41.82 - Altered mental status, unspecified (7) Functional quadriplegia: Status: Chronic Code(s): R53.2 - Functional quadriplegia (8) Sinus tachycardia: Status: Acute Code(s): R00.0 - Tachycardia, unspecified (9) DM (diabetes mellitus): Status: Acute Code(s): E11.9 - Type 2 diabetes mellitus without complications Qualifiers: Diabetes mellitus complication status: without complication Diabetes mellitus intermodal customer service insulin use: without intermodal customer service use Diabetes mellitus type: type 2 Qualified Code(s): E11.9 - Type 2 diabetes mellitus without complications Meds Home Medications and Allergies Home Medications ?Medication ?Instructions ?Recorded ?Confirmed ?Type apixaban 5 mg tablet 5 mg feeding tube BID 08/24/23 06/10/24 History hydralazine 50 mg tablet 50 mg feeding tube TID 08/24/23 06/10/24 History lisinopril 40 mg tablet 40 mg feeding tube DAILY 09/16/23 06/10/24 History ferrous sulfate 300 mg (60 mg 156 mg feeding tube DAILY 04/25/24 06/10/24 History iron)/5 mL oral liquid lactulose 10 gram/15 mL oral 30 ml feeding tube BID Constipation 04/25/24 06/10/24 History solution omeprazole 40 mg capsule,delayed 40 mg feeding tube DAILY 04/25/24 06/10/24 History release acetaminophen 325 mg tablet 325 mg feeding tube Q6HP PRN 06/10/24 06/10/24 History pain/fever dimethicone 5 % topical cream 1 applic topical TID 06/10/24 06/10/24 History gabapentin 300 mg capsule 300 mg feeding tube TID 06/10/24 06/10/24 History hydrocodone 10 mg-acetaminophen 1 tab feeding tube QID 06/10/24 06/10/24 History 325 mg tablet metoprolol tartrate 50 mg tablet 50 mg feeding tube DAILY 06/10/24 06/10/24 History Ertapenem Sodium [Invanz 1gm Vial] 100 mls/hr IV Q24H 06/12/24 Rx 1 gm fluconazole 100 mg tablet 100 mg PO DAILY 10 days #10 tabs 06/12/24 Rx (Diflucan) nitrofurantoin macrocrystal 100 mg 100 mg PO HS #30 caps 06/12/24 Rx capsule New Prescriptions to Start Prescriptions: fluconazole [Diflucan] Jayce Martinez nitrofurantoin macrocrystal Jayce Martinez Ertapenem Sodium [Invanz 1gm Vial] 1 gm 0.9 % Sodium Chloride [Sod Chlor 0.9% 50mL bag] 50 ml 100 mls/hr IV Q24H Allergies Allergy/AdvReac Type Severity Reaction Status Date / Time Sulfa (Sulfonamide AdvReac Unknown Verified 05/16/24 13:57 Antibiotics) allergy reaction Discharge Plan Disposition Patient Disposition: er Intermediate Care Fac Condition: Fair Discharge Order Discharge Orders: Discharge Order (Routine); Ordered 06/12/24 Ordered By: Jayce Martinez Follow up Plan Prescriptions/Medication Reconciliation: New nitrofurantoin macrocrystal 100 mg capsule 100 mg PO HS Qty: 30 0RF Rx Instructions: Initiate for UTI prophylaxis. must administer with a meal/food Ertapenem Sodium [Invanz 1gm Vial] 1 GM 0.9 % Sodium Chloride [Sod Chlor 0.9% 50mL bag] 50 ML 100 mls/hr IV Q24H Ordered By: Jayce Martinez MD Last Taken: Unknown fluconazole [Diflucan] 100 mg tablet 100 mg PO DAILY 10 Days Qty: 10 0RF Continued apixaban 5 mg tablet 5 mg feeding tube BID hydralazine 50 mg tablet 50 mg feeding tube TID lisinopril 40 mg tablet 40 mg feeding tube DAILY omeprazole 40 mg Capsule,Delayed Release(Dr/Ec) 40 mg feeding tube DAILY ferrous sulfate 300 mg (60 mg iron)/5 mL Liquid 156 mg feeding tube DAILY lactulose 10 gram/15 mL Solution 30 ml feeding tube BID acetaminophen 325 mg Tablet 325 mg feeding tube Q6HP PRN (Reason: pain/fever) metoprolol tartrate 50 mg Tablet 50 mg feeding tube DAILY Rx Instructions: HOLD IF HR LESS THAN 60 dimethicone 5 % Cream 1 applic TOPICAL TID hydrocodone-acetaminophen 10-325 mg tablet 1 tab feeding tube QID gabapentin 300 mg capsule 300 mg feeding tube TID Problem Reconciliation Problems Reviewed?: Yes Patient Discharge Instructions ACTIVITY: Continue current activity DIET: continue same diet Patient Instructions: DI for Urinary Tract Infection (UTI), DI for Sepsis -- Adult Print Language: Thai Providers Primary Care Provider: Provider,Referral Admit Provider: Jayce Martinez Attending Provider: Jayce Martinez
[2024-06-12 07:28] LABS: Alanine Aminotransferase 60 U/L (12-78); Albumin Level 3.2 g/dl (3.5-5.0); Albumin/Globulin Ratio 1.1 (1.1-1.8); Alkaline Phosphatase 74 U/L (38-126); Anion Gap 11.6 mEq/L (5-15); Aspartate Amino Transferase 27 U/L (14-36); Bilirubin,Total 0.4 mg/dl (0.2-1.3); Blood Urea Nitrogen 16 mg/dl (7-17); Calcium 8.4 mg/dl (8.4-10.2); Carbon Dioxide 28 mmol/L (22.0-30.0); Chloride 107 mmol/L (98-107); Creatinine Clearance Estimated 52 mL/min (50-200); Estimated Glomerular Filt Rate 98 ml/min (>60); GFR (African American) 118 ML/MIN (>60); Globulin 2.9 g/dL (1.3-3.2); Glucose 191 mg/dl (74-100); Potassium 3.6 mmoL/L (3.5-5.1); Sodium 143 mmol/L (136-145); Total Protein,Serum 6.1 g/dl (6.3-8.2)
--- NOTE | 2024-06-12 07:47 | SW/DCPLANNER ---
Patient currently resides at [facility] level of care. I have updated Maira harper/ [facility] that patient will return today. Updated patient information will be faxed.
[2024-06-12 08:00] VITALS: BP 158/74; PULSE 95; RESP 18; TEMP 36.7; O2SAT 95
[2024-06-12] MEDS: GABAPENTIN 300MG CAPSULE 300 MG G-TUBE ×3 (08:12→22:34)
[2024-06-12] MEDS: APIXABAN 5MG TABLET 5 MG G-TUBE ×2 (08:12→22:34)
[2024-06-12] MEDS: PRO-STAT AWC 30ML LIQUID PACKET 30 ML PO (08:12)
[2024-06-12] MEDS: METOPROLOL TARTRATE 50MG TABLET 50 MG FEED TUBE (08:13)
[2024-06-12] MEDS: HYDROCODONE 10MG/APAP 325MG TAB 1 TAB PO ×4 (08:15→22:33)
[2024-06-12 11:03] LABS: POC Glucose,Bedside 196 (70-110)
[2024-06-12] MEDS: MAGNESIUM SULFATE IN WATER 2 GM/50 ML PIGGYBACK IV (11:56)
[2024-06-12 12:00] VITALS: BP 176/98; PULSE 96; RESP 18; TEMP 36.6; O2SAT 99
[2024-06-12] MEDS: ERTAPENEM SODIUM 1 GM in 0.9 % SODIUM CHLORIDE 50 ML IV (13:48)
[2024-06-12 16:00] VITALS: BP 155/81; PULSE 92; RESP 18; TEMP 36.7; O2SAT 97
[2024-06-12 16:03] LABS: POC Glucose,Bedside 162 (70-110)
[2024-06-12 16:04] LABS: POC Glucose,Bedside 181 (70-110)
[2024-06-12 16:05] LABS: POC Glucose,Bedside 209 (70-110)
[2024-06-12 20:00] VITALS: BP 159/87; PULSE 97; RESP 18; TEMP 36.8; O2SAT 96
[2024-06-12 20:56] LABS: POC Glucose,Bedside 140 (70-110)
[2024-06-12 23:52] LABS: Vancomycin,Trough 9.1 ug/mL (5.0-10.0)
[2024-06-13] VITALS: BP 184/74; PULSE 85; RESP 16; TEMP 36.7; O2SAT 95
--- NOTE | 2024-06-13 01:33 | PC.NURSE ---
Pt left unit per discharge via ems @ 0128, report called to MAGALI Goyal @ [facility]
[2024-06-13 02:57] LABS: POC Glucose,Bedside 109 (70-110)
== END 2024-06-13 01:28 | DRG 871 ==
LOC: ER 06-10 03:15 → 2ND 06-10 03:42
PROVIDERS: Nurse Practitioner Family; Admitting Provider Internal Medicine Adolescent Medicine; Emergency Provider Emergency Medicine; Visit Provider Internal Medicine Adolescent Medicine
DX: A41.51 Sepsis due to Escherichia coli [E. coli] (principal); R53.2 Functional quadriplegia; N12 Tubulo-interstitial nephritis, not specified as acute or chronic; E87.5 Hyperkalemia; E11.9 Type 2 diabetes mellitus without complications; Z74.01 Bed confinement status; Z66 Do not resuscitate; Z93.1 Gastrostomy status
CPT/HCPCS: 36410; 36415; 70450; 71275; 74177; 80053; 80202; 81001; 82803; 82962; 83605; 83690; 83735; 84145; 84484; 85025; 87040; 87077; 87086; 87088; 87186; 87265; 87486; 87581; 87632; 87635; 93005; 99285; J1335; J1885; J2543; J3370; J3475; J7030; J7050; J7120; Q9967

== ENCOUNTER 2024-07-26 06:37 | Inpatient (IN) | payer MEDICARE, MEDICAID, SELFPAY ==
[2024-07-26] VITALS (15 sets, daily range): BP systolic 105–149; BP diastolic 62–103; PULSE 93–108; RESP 10–24; TEMP 36.7–37.3; O2SAT 95–100; BMI 29.2; BMI 24.3; BMI 22.4
--- NOTE | 2024-07-26 06:42 | ECG_ITS ---
APPROVED REPORT Exam: Resting ECG HR:96 bpm ECG Measurements Heart Rate 96 AXES QRSd 93 QRS 62 QT 369 T 58 QTc 422 Conclusion SUPRAVENTRICULAR RHYTHM NONSPECIFIC T-WAVE ABNORMALITY ABNORMAL RHYTHM ECG Electronically signed by : KAPIL ZHOU, 07/26/2024 15:30:06
--- NOTE | 2024-07-26 06:44 | CT_ITS ---
PROCEDURE INFORMATION: Exam: CT Abdomen And Pelvis With Contrast Exam date and time: 07/26/2024 8:16 AM Age: 73 years old Clinical indication: Other: Asms< multiple surgeries; Additional info: AMS, HX multiple surgeries TECHNIQUE: Imaging protocol: Computed tomography of the abdomen and pelvis with contrast. Radiation optimization: All CT scans at this facility use at least one of these dose optimization techniques: automated exposure control; mA and/or kV adjustment per patient size (includes targeted exams where dose is matched to clinical indication); or iterative reconstruction. Contrast material: ISOVUE; Contrast volume: 75 ml; Contrast route: IV; COMPARISON: CT ABDOMEN PELVIS W CON 06/10/2024 1:53 AM FINDINGS: Tubes, catheters and devices: Gastrostomy tube bulb appears appropriately placed. Lungs: Lung bases are clear as visualized. Liver: Normal. No mass. Gallbladder and biliary ducts: Normal. No calcified stones. No ductal dilation. Pancreas: Normal. No ductal dilation. Spleen: Normal. No splenomegaly. Adrenal glands: Normal. No mass. Kidneys and ureters: Normal. No hydronephrosis. Stomach and bowel: No bowel obstruction. There is mild mucosal thickening of the rectum, a component of which may be due to decompression. Mild descending and sigmoid colonic diverticulosis without acute inflammation. Appendix: Normal appendix. Intraperitoneal space: Unremarkable. No free air. No significant fluid collection. Vasculature: Unremarkable. No abdominal aortic aneurysm. Lymph nodes: Unremarkable. No enlarged lymph nodes. Urinary bladder: Unremarkable as visualized. Reproductive: Fibroid uterus. Bones/joints: Unremarkable. No acute fracture. Soft tissues: Unremarkable. IMPRESSION: No bowel obstruction. There is mild mucosal thickening of the rectum, a component of which may be due to decompression. Recommend correlation for infectious or inflammatory proctitis.
--- NOTE | 2024-07-26 06:44 | CT_ITS ---
PROCEDURE INFORMATION: Exam: CT Chest With Contrast; Diagnostic Exam date and time: 07/26/2024 8:16 AM Age: 73 years old Clinical indication: Other: AMS TECHNIQUE: Imaging protocol: Diagnostic computed tomography of the chest with contrast. Radiation optimization: All CT scans at this facility use at least one of these dose optimization techniques: automated exposure control; mA and/or kV adjustment per patient size (includes targeted exams where dose is matched to clinical indication); or iterative reconstruction. Contrast material: ISOVUE; Contrast volume: 75 ml; Contrast route: IV; COMPARISON: CT ANGIO CHEST PE PROTOCOL 06/10/2024 1:53 AM FINDINGS: Lungs: The lungs are clear. Pleural spaces: Unremarkable. No pneumothorax. No pleural effusion. Heart: Normal heart size.Mild coronary vessel atherosclerosis.. Lymph nodes: Calcified subcarinal and right hilar lymph nodes from prior granulomatous infection.. No enlarged lymph nodes. Vasculature: See Heart finding. Bones/joints: Unremarkable. No acute fracture. Soft tissues: Unremarkable. IMPRESSION: The lungs are clear.
--- NOTE | 2024-07-26 06:44 | CT_ITS ---
PROCEDURE INFORMATION: Exam: CT Head Without Contrast Exam date and time: 07/26/2024 8:26 AM Age: 73 years old Clinical indication: Altered mental status/memory loss; Additional info: AMS TECHNIQUE: Imaging protocol: Computed tomography of the head without contrast. Radiation optimization: All CT scans at this facility use at least one of these dose optimization techniques: automated exposure control; mA and/or kV adjustment per patient size (includes targeted exams where dose is matched to clinical indication); or iterative reconstruction. COMPARISON: CT HEAD/BRAIN WO CON 06/10/2024 1:50 AM FINDINGS: Brain: No acute infarct, hemorrhage, mass, or mass effect. Large encephalomalacia in the left cerebral hemisphere from prior insult. Remote small infarct in the right ann radiata. Baseline mild chronic white matter microvascular ischemic change. Cerebral ventricles: Ventriculomegaly, a component of which is ex vacuo. No appreciable extra-axial fluid. Paranasal sinuses: Clear. Mastoid air cells: Clear. Orbital cavities: Orbits are unremarkable. Sella is unremarkable. Bones: Unremarkable. Soft tissues: Unremarkable. IMPRESSION: 1. No acute intracranial abnormality. 2. Chronic changes.
--- NOTE | 2024-07-26 06:49 | ED_ITS ---
Discharge Plan Prescriptions Prescriptions: No Action apixaban 5 mg tablet 5 mg feeding tube BID hydralazine 50 mg tablet 50 mg feeding tube TID lisinopril 40 mg tablet 40 mg feeding tube DAILY omeprazole 40 mg Capsule,Delayed Release(Dr/Ec) 40 mg feeding tube DAILY ferrous sulfate 300 mg (60 mg iron)/5 mL Liquid 156 mg feeding tube DAILY lactulose 10 gram/15 mL Solution 30 ml feeding tube BID acetaminophen 325 mg Tablet 325 mg feeding tube Q6HP PRN (Reason: pain/fever) metoprolol tartrate 50 mg Tablet 50 mg feeding tube DAILY Rx Instructions: HOLD IF HR LESS THAN 60 dimethicone 5 % Cream 1 applic TOPICAL TID hydrocodone-acetaminophen 10-325 mg tablet 1 tab feeding tube QID gabapentin 300 mg capsule 300 mg feeding tube TID nitrofurantoin macrocrystal 100 mg capsule 100 mg PO HS Qty: 30 0RF Rx Instructions: Initiate for UTI prophylaxis. must administer with a meal/food fluconazole [Diflucan] 100 mg tablet 100 mg PO DAILY 10 Days Qty: 10 0RF Referrals Follow up/Referrals: Provider,Referral, [Primary Care Provider] - See instructions Print Language Print Language: Japanese Discharge ED Provider: Michaela Coon General Adult HPI General Stated complaint: altered mental status Time Seen by Provider: 07/26/24 06:37 History of Present Illness HPI narrative: 73-year-old female history of CVA with residual right sided deficits, G-tube dependence presents to the ER from [facility] for concerns of possibly developing sepsis. Reportedly patient has had recurrent urinary tract infections recently and so when the nursing facility found the patient to be slightly more altered this morning than normal, they checked vitals noting her to be borderline tachycardic and borderline hypotensive and called EMS. Reportedly in the last 24 hours she also had elevated blood glucose. EMS reports they were told by the nursing facility patient usually responds to verbal stimuli smiling, occasionally nodding, somewhat interactive with her left side, But she is otherwise nonverbal. This morning she was less interactive than normal. Review of recent records demonstrates patient was sent to the ER in April for similar symptoms and at that time despite questionable new changes in the brain, family had elected to not pursue further workup given her already very poor functional status. Patient was admitted in June for UTI. EMS reports patient is DNR. Related Data Home Medications ?Medication ?Instructions ?Recorded ?Confirmed apixaban 5 mg tablet 5 mg feeding tube BID 08/24/23 06/10/24 hydralazine 50 mg tablet 50 mg feeding tube TID 08/24/23 06/10/24 lisinopril 40 mg tablet 40 mg feeding tube DAILY 09/16/23 06/10/24 ferrous sulfate 300 mg (60 mg 156 mg feeding tube DAILY 04/25/24 06/10/24 iron)/5 mL oral liquid lactulose 10 gram/15 mL oral 30 ml feeding tube BID Constipation 04/25/24 06/10/24 solution omeprazole 40 mg capsule,delayed 40 mg feeding tube DAILY 04/25/24 06/10/24 release acetaminophen 325 mg tablet 325 mg feeding tube Q6HP PRN 06/10/24 06/10/24 pain/fever dimethicone 5 % topical cream 1 applic topical TID 06/10/24 06/10/24 gabapentin 300 mg capsule 300 mg feeding tube TID 06/10/24 06/10/24 hydrocodone 10 mg-acetaminophen 1 tab feeding tube QID 06/10/24 06/10/24 325 mg tablet metoprolol tartrate 50 mg tablet 50 mg feeding tube DAILY 06/10/24 06/10/24 Previous Rx's ?Medication ?Instructions ?Recorded fluconazole 100 mg tablet 100 mg PO DAILY 10 days #10 tabs 06/12/24 (Diflucan) nitrofurantoin macrocrystal 100 mg 100 mg PO HS #30 caps 06/12/24 capsule Allergies Allergy/AdvReac Type Severity Reaction Status Date / Time Sulfa (Sulfonamide AdvReac Unknown Verified 05/16/24 13:57 Antibiotics) allergy reaction [facility] Disclaimer: The information contained in this section may have been updated after the patient was seen, as this information can be updated by other users. Medical History DM (diabetes mellitus) Sepsis Hypertensive emergency Anemia Sacral decubitus ulcer, stage IV Acute UTI Cellulitis of arm, right Encounter for feeding tube placement Hyponatremia Cerebral edema Brain compression Structural encephalopathy Dysphagia Pressure ulcer MALIK (acute kidney injury) Stroke Gastroesophageal reflux disease HLD (hyperlipidemia) HHD (hypertensive heart disease) Hypokalemia Family History Other No significant family history Social History (Updated 06/10/24 @ 05:20 by Kori Hartman RN) Smoking Status: Never smoker alcohol intake: never substance use type: denies use current occupational status: disabled Travel in the last 8 weeks: None Other Medical History Have you received the Flu Vaccine for this season: No Have you received the Pneumonia Vaccine: No ROS Obtained: Yes unobtainable due to mental status Physical Exam General General appearance: alert and in no apparent distress Head Head exam: atraumatic and normocephalic Eye Eye exam: Present PERRL and EOMI ENT ENT exam: Present mucous membranes moist Neck Neck exam: Present normal inspection and full ROM Chest Chest inspection: Present symmetric chest wall rise Respiratory Respiratory exam: Present normal lung sounds bilaterally; Absent respiratory distress, wheezes or stridor Cardiovascular Cardiovascular exam: Present regular rate (Heart rate in the mid-upper 90s on arrival) and normal rhythm Abdominal Exam Abdominal exam: Absent soft (Abdomen is somewhat firm but not distended, no localized tenderness or obvious guarding or rebound), distention, tenderness, guarding, rebound or rigidity Extremities Exam Extremities exam: Present other (Right sided deficits present, no findings of trauma); Absent edema or joint swelling Neurological Exam Neurological exam: Present motor sensory deficit (Right sided deficits, baseline) Psychiatric Psychiatric exam: Present normal affect and normal mood Skin Skin exam: Present warm and dry Medical Decision Making Medical Records Medical records reviewed: Yes I reviewed the patient's medical records. Screening: Per USPSTF and CDC recommendations, given the prevalence of disease in our region, it is our hospital?s policy to screen for HIV and viral Hepatitis for all patients aged 18 and over and those with ongoing risk factors. MR Comment: See HPI. Patient was discharged from her most recent admission after 2 days of admission in June, discharged on Macrobid, fluconazole, I nvanz Rafita Inquiry Pt receiving controlled substance: No Orders (Tests/Meds): ORDERS Category Date Time Status CT abdomen pelvis w con Stat Cat Scan 07/26/24 06:[address] chest w con Stat Cat Scan 07/26/24 06:[address] head/brain wo con Stat Cat Scan 07/26/24 06:44 Ordered CBC w/Auto Diff [Complete Blood Count Auto Diff] Stat Lab 07/26/24 06:44 Ordered CMP [Comprehensive Metabolic Panel] Stat Lab 07/26/24 06:44 Ordered Mini Respiratory Panel Stat Lab 12/25/24 06:44 Ordered PT INR [Prothrombin Time INR] Stat Lab 07/26/24 06:48 Ordered Trop I [Troponin I] Stat Lab 07/26/24 06:44 Ordered Troponin I Q3H Lab 07/26/24 09:45 Ordered Troponin I Q3H Lab 07/26/24 12:45 Ordered Urinalysis and Microscopic Stat Lab 07/26/24 06:44 Ordered Blood Culture Stat Micro 07/26/24 06:44 Ordered ECG Request Stat Y 07/26/24 06:44 Ordered Medical Decision Narrative: In summary, this 73-year-old female with extensive comorbidities including previous stroke, recurrent UTI, diabetes all of which complicate her overall condition, including the amount of data to be reviewed and her overall morbidity presents to the emergency department today with concerns of being less interactive than normal from [facility]. On initial evaluation patient is hemodynamically stable, afebrile, appears to know that you are in the room and will look at you when you speak, but has dense deficits from previous CVA, these appear to be at baseline, she is not following any commands which [facility] has previously reported she will intermittently do. Abdomen is slightly firm but not rigid, not truly distended, G-tube site well-appearing, I do not appreciate tenderness or peritonitic signs on abdominal exam, pulmonary exam reassuring, patient has a history of sacral decubitus ulcer but has not yet been examined in this area as we are currently obtaining labs and other initial workup. Differential diagnosis includes but is not limited to concern for sepsis though patient does not possible sepsis, urinary tract infection, pulmonary infection, viral syndrome, dehydration, electrolyte abnormality, new intracranial insult, ACS, among others. Based on these concerns, I ordered serum labs, cardiac workup, CT head, CT chest, CT abdomen pelvis, urine studies, blood cultures, VBG. ECG personally interpreted demonstrates sinus rhythm though artifact complicates interpretation, normal axis, normal QTc, no STEMI, rate 96. Patient received IV fluids initially for treatment. All labs and imaging pending at the time of physician handoff. Patient handed off to Dr. Mcclain for continued management and disposition. Critical Care Critical Care Time Critical Care Time: No
--- NOTE | 2024-07-26 07:09 | PC.NURSE ---
Pt awake and alert. Skin pink warm and dry Resp full and easy. Pt in sinus rythm per continuous heart monitor. G-tube in place. Report given to Ashu DE LOS SANTOS
--- NOTE | 2024-07-26 07:18 | PC.NURSE ---
RT notified of VBG, blood sent to lab
[2024-07-26 07:22] LABS: Microscopic, Urine URINE MICROSCOPIC (MICROSCOPIC)
[2024-07-26 07:23] LABS: Eosinophils % 4.6 % (0.1-12.0); Hematocrit 40.5 % (37.0-47.0); Hemoglobin 12.3 g/dL (12.2-16.2); Lymphocytes % 26.2 % (10-50); Mean Corpuscular HGB Conc 30.4 g/dL (31.8-35.4); Mean Corpuscular Hemoglobin 29.4 pg (27.0-31.2); Mean Corpuscular Volume 96.7 fl (81-99); Mean Platelet Volume 12.9 fl (7.4-10.4); Neutrophils % 62.1 % (37.0-80.0); Platelet Count 259 K/mm3 (142-424); Red Blood Count 4.19 M/mm3 (4.20-5.40); Red Cell Distribution Width 15.8 % (11.5-17.5); White Blood Count 8.4 K/mm3 (4.8-10.8)
[2024-07-26 07:24] LABS: Basophils # 0.1 K/mm3 (0-0.2); Basophils % 0.7 % (0.1-2.0); Eosinophils # 0.4 K/mm3 (0.0-0.4); Lymphocytes # 2.2 K/mm3 (0.7-4.5); Monocytes # 0.5 K/mm3 (0.1-1.0); Neutrophils # 5.2 K/mm3 (1.8-7.8)
[2024-07-26 07:25] LABS: Albumin Level 4.6 g/dl (3.5-5.0); Chloride 115 mmol/L (98-107); Potassium 5.8 mmoL/L (3.5-5.1)
[2024-07-26 07:28] LABS: VBG HCO3 27.9 mmol/L (23-30); VBG Oxygen Saturation 91.1 % (50-70); VBG PCO2 46.7 mmol/L (35-51); VBG PH 7.39 mmol/L (7.31-7.41); VBG Total CO2 29.3 mmol/L (23-27)
[2024-07-26 07:28] LABS: Alanine Aminotransferase 148 U/L (12-78); Albumin/Globulin Ratio 1.2 (1.1-1.8); Alkaline Phosphatase 62 U/L (38-126); Anion Gap 8.8 mEq/L (5-15); Aspartate Amino Transferase 92 U/L (14-36); Bilirubin,Total 1.3 mg/dl (0.2-1.3); Carbon Dioxide 33 mmol/L (22.0-30.0); Creatinine Clearance Estimated 35 mL/min (50-200); Estimated Glomerular Filt Rate 34 ml/min (>60); GFR (African American) 41 ML/MIN (>60); Globulin 3.8 g/dL (1.3-3.2); Lactic Acid 1.8 mmol/L (0.7-2.1); Total Protein,Serum 8.4 g/dl (6.3-8.2)
[2024-07-26 07:29] LABS: Lactate Venous 2.4 mmol/L (0.4-2.0)
[2024-07-26 07:29] LABS: Calcium 9.5 mg/dl (8.4-10.2); Glucose 289 mg/dl (74-100)
[2024-07-26] MEDS: LACTATED RINGERS 1000ML 1,000 ML 999 ML IV ×2 (07:29→10:18)
[2024-07-26 07:31] LABS: INR 0.92 (0.9-1.1); Prothrombin Time 10.4 seconds (10.1-12.5)
[2024-07-26 07:46] LABS: Coronavirus 19, PCR Not Detected (NotDetected); Human Rhinovirus Not Detected (NotDetected); Influenza A, PCR Not Detected (NotDetected); Influenza B, PCR Not Detected (NotDetected); Respiratory Syncytial Virus Not Detected (NotDetected)
[2024-07-26 07:49] LABS: Appearance,Urine CLOUDY (Clear); Bilirubin,Urine Negative (Negative); Blood, Urine TRACE-I (Negative); Color,Urine YELLOW (Yellow); Glucose,Urine (UA) 1+ (Negative); Ketones,Urine Negative (Negative); Leukocyte Esterase,Urine 2+ (Negative); Nitrate,Urine Negative (Negative); PH,Urine 5.5 (5.0-8.5); Protein,Urine 1+ (Negative); Specific Gravity, Urine 1.025 (1.005-1.030); Urobilinogen,Urine 0.2 EU/dl (0.2)
[2024-07-26 07:50] LABS: Troponin I < 0.01 ng/ml (0.00-0.034)
[2024-07-26 07:51] LABS: Sodium 151 mmol/L (136-145)
[2024-07-26 07:52] LABS: Blood Urea Nitrogen 92 mg/dl (7-17)
[2024-07-26 07:53] LABS: Acetone, Serum (Rapid) None Detected (None Detect)
[2024-07-26 08:24] LABS: WBC,Urine 20-50 #/hpf (0-3)
[2024-07-26 08:25] LABS: Amorphous Sediment,Urine 1+ /lpf; Bacteria,Urine 2+ /lpf; Yeast,Urine 1+ /lpf
[2024-07-26] MEDS: IOPAMIDOL-370 (76%);100ML BOTTLE 75 ML IV (08:28)
[2024-07-26] MEDS: SODIUM CHLORIDE 0.9% 10ML SYR (RAD ONLY) 10 ML IV (08:28)
[2024-07-26] MEDS: CEFTRIAXONE 1 GM 1 GM in 0.9 % SODIUM CHLORIDE 50 ML IV (08:32)
--- NOTE | 2024-07-26 10:18 | P.HP_ITS ---
History of Present Illness *Admission Date: 07/26/24 *Reason for visit:: Encephalopathic *History of present illness: Ms. Spicer is a 73-year-old female who resides at [facility]. She is a long-term resident due to history of stroke, functional quadriplegia, feeding tube dependence, chronic decub, diabetes. She presented today to the ER due to concern for altered mental status from her baseline. She is nonverbal at baseline. Unable to obtain history from patient. On presentation, patient appeared altered. Workup in the ER concerning for severe sepsis with acute renal failure, elevated BUN in the 90s, hyponatremia, and dehydration. Urine concerning for UTI. Has grown ESBL bacteria in the past. Initiated on ceftriaxone in the ER, initiated on fluid bolus, medicine consulted for admission and further management. Based on review of cultures, patient transitioned to meropenem renally dosed due to previous culture of E. coli resistant to cephalosporins but sensitive to carbapenems. Stable on room air at this time. Patient will open eyes to voice and make eye contact but no verbal response. Does not follow commands, this is somewhat her baseline however normally she responds with facial expressions and she is not doing that today. She appears slow to respond and altered from my previous exposure to this patient. Afebrile, blood pressure normal at 114/68. Tachycardic. Per report, tube feeds at been decreased due to hyperglycemia. Appears the patient has become dehydrated and hypovolemic. [facility] Disclaimer: The information contained in this section may have been updated after the patient was seen, as this information can be updated by other users. Medical History HTN (hypertension) Atrial fibrillation GERD (gastroesophageal reflux disease) Neuropathy Type 2 diabetes mellitus COPD (chronic obstructive pulmonary disease) Hypertensive urgency Hypertensive emergency Anemia Sacral decubitus ulcer, stage IV Acute UTI Cellulitis of arm, right Sepsis Encounter for feeding tube placement Hyponatremia Cerebral edema Brain compression Structural encephalopathy Dysphagia Pressure ulcer MALIK (acute kidney injury) Stroke Gastroesophageal reflux disease DM (diabetes mellitus) HLD (hyperlipidemia) HHD (hypertensive heart disease) Hypokalemia Family History No significant family history Social History (Updated 07/26/24 @ 11:32 by TammyOTILIA Arauz Smoking Status: Former smoker alcohol intake: never substance use type: denies use current occupational status: disabled Travel in the last 8 weeks: None Contact w/someone who lives/traveled outside [place] past 30 days?: No Exposure to someone with infectious disease in past 14 days?: No Do you have a fever (greater than 100.4 F or 38 C)?: No Have you tested positive for COVID-19: No Exposed to someone with COVID-19 in past 14 days?: No Do you have a sore throat?: No Do you have a cough?: No Do you have any weakness?: Yes Are you experiencing any nausea/vomitting?: No Do you have any diarrhea?: No Are you experiencing any unusual bleeding?: No Do you have any muscle aches/pain?: No Do you have any abdominal pain?: No Are you experiencing loss of taste or smell?: No Other Medical History Have you received the Flu Vaccine for this season: No Have you received the Pneumonia Vaccine: No Review of Systems Review of Systems Review of systems:: unable to obtain Meds Home Medications and Allergies Home Medications ?Medication ?Instructions ?Recorded ?Confirmed ?Type apixaban 5 mg tablet 5 mg feeding tube BID 08/24/23 07/26/24 History hydralazine 50 mg tablet 50 mg feeding tube TID 08/24/23 07/26/24 History lisinopril 40 mg tablet 40 mg feeding tube DAILY 09/16/23 07/26/24 History ferrous sulfate 300 mg (60 mg 156 mg feeding tube DAILY 04/25/24 07/26/24 History iron)/5 mL oral liquid lactulose 10 gram/15 mL oral 30 ml feeding tube BID Constipation 04/25/24 07/26/24 History solution omeprazole 40 mg capsule,delayed 40 mg feeding tube DAILY 04/25/24 07/26/24 History release dimethicone 5 % topical cream 1 applic topical TID 06/10/24 07/26/24 History gabapentin 300 mg capsule 300 mg feeding tube TID 06/10/24 07/26/24 History hydrocodone 10 mg-acetaminophen 1 tab feeding tube QID 06/10/24 07/26/24 History 325 mg tablet metoprolol tartrate 50 mg tablet 50 mg feeding tube DAILY 06/10/24 07/26/24 History nitrofurantoin macrocrystal 100 mg 100 mg PO HS #30 caps 06/12/24 07/26/24 Rx capsule acetaminophen 500 mg tablet 500 mg feeding tube QID PRN Mild 07/26/24 07/26/24 History Pain (Scale Score 1-4) amlodipine 5 mg tablet 5 mg feeding tube DAILY 07/26/24 07/26/24 History carvedilol 25 mg tablet 25 mg feeding tube BID 07/26/24 07/26/24 History diltiazem HCl 60 mg tablet 60 mg feeding tube QID 07/26/24 07/26/24 History metformin 500 mg tablet 500 mg feeding tube DAILY 07/26/24 07/26/24 History New Prescriptions to Start Prescriptions: Allergies Allergy/AdvReac Type Severity Reaction Status Date / Time Sulfa (Sulfonamide AdvReac Unknown Verified 05/16/24 13:57 Antibiotics) allergy reaction Exam Data for Last 24 hours Vital signs and Labs for Last 24 Hours: Temp Pulse Resp BP Pulse Ox O2 Del Method 98.3 F 105 H 12 143/73 H 99 Room Air 07/26/24 06:44 07/26/24 10:00 07/26/24 10:00 07/26/24 10:00 07/26/24 10:00 07/26/24 10:00 Laboratory Results - last 24 hr 07/26/24 07:05: WBC 8.4, RBC 4.19 L, Hgb 12.3, Hct 40.5, MCV 96.7, MCH 29.4, MCHC 30.4 L, RDW 15.8, Plt Count 259, MPV 12.9 H, Neut % (Auto) 62.1, Lymph % ( Auto) 26.2, [place] % (Auto) 6.0, Eos % (Auto) 4.6, Baso % (Auto) 0.7, Neut # (Auto) 5.2, Lymph # (Auto) 2.2, [place] # (Auto) 0.5, Eos # (Auto) 0.4, Baso # (Auto) 0.1, PT 10.4, INR 0.92, Sodium 151 H*, Potassium 5.8 H, Chloride 115 H, Carbon Dioxide 33 H, Anion Gap 8.8, BUN 92 H, Creatinine 1.50 H, Estimated Creat Clear 35, Estimated GFR 34 L, Est GFR ( Amer) 41 L, Glucose 289 H, Lactate 1.8, Calcium 9.5, Total Bilirubin 1.3, AST 92 H, ALT 148 H, Alkaline Phosphatase 62, Troponin I < 0.01, Total Protein 8.4 H D, Albumin 4.6, Globulin 3.8 H, Albumin/Globulin Ratio 1.2, Acetone Level None detected 07/26/24 07:10: VBG pH 7.39, VBG pCO2 46.7, VBG pO2 59.0 H, VBG HCO3 27.9, VBG Total CO2 29.3 H, VBG O2 Saturation 91.1 H, VBG Base Excess 3.0 H, VBG Lactic Acid 2.4 H, Urine Color Yellow, Urine Appearance Cloudy, Urine pH 5.5, Ur Specific [place] 1.025, Urine Protein 1+ A, Urine Glucose (UA) 1+, Urine Ketones Negative, Urine Blood Trace-i, Urine Nitrate Negative, Urine Bilirubin Negative, Urine Urobilinogen 0.2, Ur Leukocyte Esterase 2+ A, Urine RBC 5-10, Urine WBC 20-50, Ur Squamous Epith Cells None, Amorphous Sediment 1+, Urine Bacteria 2+, Urine Yeast 1+ 07/26/24 07:34: SARS-CoV-2 (PCR) Not detected, Influenza Type A (PCR) Not detected, Influenza Type B (PCR) Not detected, RSV (PCR) Not detected, Rhinovirus (PCR) Not detected I & O for Last 24 hours: Intake & Output 07/23/24 07/24/24 07/25/24 07/26/24 23:59 23:59 23:59 23:59 Weight 68.039 kg Constitutional Constitutional: moderate distress, obese and chronically ill appearing *Routine HEENT Exam Head: Present normocephalic Eye: Present EOMI ENT: Present mucous membranes dry *Routine Neck Exam Neck: Present supple and full ROM *Routine Respiratory Exam Respiratory: Present CTA bilaterally; Absent respiratory distress, rhonchi, wheezes or crackles *Routine Cardiovascular Exam Cardiovascular: Present tachycardia *Routine Abdominal Exam Abdominal: Present soft, normoactive bowel sounds and other (G tube does not appear infected without foul smelling drainage ) *Routine Rectal Exam Rectal:: deferred *Routine Genitalia Exam Genitalia:: deferred *Routine Skin Exam Skin: Present intact *Routine Neurological Exam Neurological: Present alert and facial asymmetry; Absent normal reflexes or normal speech Comments: Nonverbal, disoriented from baseline from my previous interactions with patient Assessment and Plan *Assessment and plan (1) Severe sepsis: Status: Acute Category: Medical Code(s): A41.9 - Sepsis, unspecified organism; R65.20 - Severe sepsis without septic shock (2) Acute renal failure: Status: Acute Category: Medical Code(s): N17.9 - Acute kidney failure, unspecified (3) Metabolic encephalopathy: Status: Acute Category: Medical Code(s): G93.41 - Metabolic encephalopathy (4) Acute uremia: Status: Acute Category: Medical Code(s): N19 - Unspecified kidney failure (5) Hypernatremia: Status: Acute Category: Medical Code(s): E87.0 - Hyperosmolality and hypernatremia (6) Bacteremia due to Enterobacter species: Status: Acute Category: Medical Code(s): R78.81 - Bacteremia; B96.89 - Other specified bacterial agents as the cause of diseases classified elsewhere (7) Acute UTI: Status: Acute Category: Medical Code(s): N39.0 - Urinary tract infection, site not specified (8) Pyelonephritis: Status: Acute Category: Medical Code(s): N12 - Tubulo-interstitial nephritis, not specified as acute or chronic (9) Hyperkalemia: Status: Resolved Category: Medical Code(s): E87.5 - Hyperkalemia (10) Altered mental status: Status: Acute Qualifiers: Altered mental status type: unspecified Qualified Code(s): R41.82 - Altered mental status, unspecified Category: Medical Code(s): R41.82 - Altered mental status, unspecified (11) Functional quadriplegia: Status: Chronic Category: Medical Code(s): R53.2 - Functional quadriplegia (12) Sinus tachycardia: Status: Acute Category: Medical Code(s): R00.0 - Tachycardia, unspecified (13) DM (diabetes mellitus): Status: Acute Qualifiers: Diabetes mellitus complication status: without complication Diabetes mellitus longterm insulin use: without longterm use Diabetes mellitus type: type 2 Qualified Code(s): E11.9 - Type 2 diabetes mellitus without complications Category: Medical Code(s): E11.9 - Type 2 diabetes mellitus without complications Plan Patient presented to the ER with increased confusion. Workup concerning for severe sepsis with organ dysfunction, hypernatremia, uremia, acute renal failure. Urinalysis grossly abnormal suspicious for UTI versus pyelonephritis given her sepsis. Discussed case with ER physician, request admission for antibiotics and correction of metabolic disturbances. I agreed to admit for further treatment. Will admit to stepdown level of care. Continue meropenem given previous cultures of Pseudomonas and E. coli with mixed sensitivity. Repeat labs ordered for this afternoon to monitor for improvement and electrolyte disturbances. Necessitating inpatient care. Problems addressed as follows: Severe sepsis Pyelonephritis/UTI History of ESBL -Has been admitted multiple times in the past 4 months with urinary tract infections. Cultures have grown Pseudomonas and E. coli with ESBL. Will continue meropenem 1 g every 12 hours based on kidney function and severity of illness and previous sensitivities -Urine culture pending, urinalysis grossly abnormal with 2+ leuk esterase, 20-50 white cells, 2+ bacteria. Blood culture also pending. -Abdominal CT obtained showing per my review no obstruction of bowels. Does have some thickening of rectal wall concerning for proctitis. No significant stranding around kidneys. -White count normal 8.4, repeat CBC, CMP, magnesium ordered for the morning G-tube dependent: Continue tube feeds with Glucerna. Nutrition consulted for assistance Acute renal failure with electrolyte disturbances - Severe electrolyte disturbances with sodium 151, potassium 5.8, chloride 115. - Severe kidney dysfunction with BUN 92, creatinine 1.5. Significantly above her baseline. Consistent with acute renal failure and uremia, likely causing some of her altered mental status -Repeat BMP ordered every 8 hours pending improvement in sodium. Correction rate of 8 to 10 mEq/day Diabetes: Uncontrolled, glucose 289 on presentation. Continue sliding scale insulin with fingersticks ACHS Holding home blood pressure meds including carvedilol, metoprolol, lisinopril, and hydralazine due to hypotension, MALIK, and sepsis Chronic pain: Continue hydrocodone 4 times a day scheduled. Will hold gabapentin given patient's altered mental status and abnormal kidney function Bedbound and dependent on staff for all ADLs. Functional quadriplegic. Complicates all aspects of her care Continue pantoprazole as formulary conversion for omeprazole 40 mg daily Continue Eliquis 5 mg twice daily DNR Tube feed, Pro-Stat AWC given her decubitus wound Eliquis 5 mg twice daily
--- NOTE | 2024-07-26 10:34 | PC.NURSE ---
report called to jordan on 2nd floor and answered all questions.
--- NOTE | 2024-07-26 11:02 | PC.NURSE ---
PT IS GOING TO [facility] AT THIS TIME
[2024-07-26] MEDS: MEROPENEM 1 GM in 0.9 % SODIUM CHLORIDE 100 ML IV ×2 (11:16→22:21)
--- NOTE | 2024-07-26 11:27 | PC.NURSE ---
pt is in bed, positioned on her right side with pillow between legs and heel boot protectors in place to prevent skin breakdown. call light is within reach. bed alarm is set. head of bed is at a 30 degree angle per aspiration precautions.
[2024-07-26 11:29] LABS: Reflex Lactic Add Lactic Reflex
[2024-07-26 12:21] LABS: POC Glucose,Bedside 282 (70-110)
[2024-07-26] MEDS: HYDROCODONE 10MG/APAP 325MG TAB 1 TAB PO ×3 (13:47→22:20)
[2024-07-26 14:53] LABS: Chloride 117 mmol/L (98-107); Potassium 4.1 mmoL/L (3.5-5.1)
--- NOTE | 2024-07-26 14:55 | DIET.NUTRFU ---
start TF at glucerna 20ml/hr and increase to 77ml/hr to [id number], 77gm protein and 1402ml formula water. Start Prostat AWC through tube for additional support in wound healing. Flush with 100ml Q6H= 400ml water+[id number] total fluid (30ml/kg). Reviewing labs Na 151H with potassium 5.8H Bun 92/Cr 1.5, BS 289H, AST 92/148. UTI and MALIK, ABT started. IVF fluid provided in ER, not continued at this time. Will continue to monitor labs.
[2024-07-26 14:56] LABS: Calcium 9.3 mg/dl (8.4-10.2); Carbon Dioxide 33 mmol/L (22.0-30.0); Creatinine Clearance Estimated 35 mL/min (50-200); Estimated Glomerular Filt Rate 37 ml/min (>60); GFR (African American) 44 ML/MIN (>60); Glucose 265 mg/dl (74-100); Lactic Acid Follow Up (RFLX 1) 1.4 mmol/L (0.7-2.1)
[2024-07-26 15:04] LABS: Anion Gap 5.1 mEq/L (5-15)
[2024-07-26 15:05] LABS: Blood Urea Nitrogen 81 mg/dl (7-17); Sodium 151 mmol/L (136-145)
[2024-07-26] MEDS: SODIUM CHLORIDE 0.45 % 1,000 ML 100 ML IV (15:59)
[2024-07-26] MEDS: humaLOG 100 UNITS/ML 10ML VIAL (SSI) SUBCUT ×2 (16:18→22:21)
[2024-07-26 16:21] LABS: POC Glucose,Bedside 261 (70-110)
[2024-07-26 22:18] LABS: Chloride 117 mmol/L (98-107)
[2024-07-26 22:19] LABS: Potassium 4.3 mmoL/L (3.5-5.1)
[2024-07-26] MEDS: APIXABAN 5MG TABLET 5 MG G-TUBE (22:20)
[2024-07-26 22:21] LABS: Blood Urea Nitrogen 79 mg/dl (7-17); Creatinine Clearance Estimated 37 mL/min (50-200); Estimated Glomerular Filt Rate 40 ml/min (>60); GFR (African American) 48 ML/MIN (>60)
[2024-07-26] MEDS: PANTOPRAZOLE 40MG VIAL 40 MG IV (22:21)
[2024-07-26 22:22] LABS: Anion Gap 6.3 mEq/L (5-15); Calcium 9.5 mg/dl (8.4-10.2); Carbon Dioxide 31 mmol/L (22.0-30.0); Glucose 200 mg/dl (74-100)
[2024-07-26 22:28] LABS: Sodium 150 mmol/L (136-145)
[2024-07-26 22:57] LABS: POC Glucose,Bedside 201 (70-110)
--- NOTE | 2024-07-26 23:07 | EXP.EVENT.NO ---
Patient with hyponatremia, MALIK and uremia. Patient on one half NS at 100 cc/h with sodium level barely changing. Current sodium level 150 versus previous sodium level 151. Will discontinue 1 half-normal saline and start D5 75 cc/h x 5 hours. Will recheck sodium level in 4 hours.
[2024-07-26] MEDS: DEXTROSE 5 % IN WATER 1,000 ML 75 ML IV (23:30)
[2024-07-27] VITALS: BP 110/75; PULSE 90; PULSE 96; RESP 16; TEMP 37.1; O2SAT 97
[2024-07-27 03:59] LABS: Blood Urea Nitrogen 74 mg/dl (7-17); Calcium 9.2 mg/dl (8.4-10.2); Carbon Dioxide 34 mmol/L (22.0-30.0); Chloride 113 mmol/L (98-107); Creatinine Clearance Estimated 41 mL/min (50-200); Estimated Glomerular Filt Rate 44 ml/min (>60); GFR (African American) 53 ML/MIN (>60); Glucose 228 mg/dl (74-100)
[2024-07-27 04:00] VITALS: BP 120/79; PULSE 100; PULSE 101; RESP 16; TEMP 37.1; O2SAT 98; BMI 23.2
[2024-07-27 04:05] LABS: Sodium 152 mmol/L (136-145)
[2024-07-27] MEDS: humaLOG 100 UNITS/ML 10ML VIAL (SSI) SUBCUT ×4 (05:37→21:25)
[2024-07-27 05:38] LABS: POC Glucose,Bedside 291 (70-110)
[2024-07-27 07:10] LABS: Red Blood Count 3.59 M/mm3 (4.20-5.40); White Blood Count 5.7 K/mm3 (4.8-10.8)
[2024-07-27 07:11] LABS: Hematocrit 34.3 % (37.0-47.0); Mean Corpuscular Volume 95.5 fl (81-99)
[2024-07-27 07:12] LABS: Basophils % 0.5 % (0.1-2.0); Eosinophils % 4.2 % (0.1-12.0); Lymphocytes % 28.4 % (10-50); Mean Corpuscular HGB Conc 30.3 g/dL (31.8-35.4); Mean Platelet Volume 12.6 fl (7.4-10.4); Monocytes % 8.1 % (1.7-9.3); Neutrophils # 3.4 K/mm3 (1.8-7.8); Neutrophils % 58.8 % (37.0-80.0); Platelet Count 194 K/mm3 (142-424); Red Cell Distribution Width 15.4 % (11.5-17.5)
[2024-07-27 07:13] LABS: Eosinophils # 0.2 K/mm3 (0.0-0.4); Lymphocytes # 1.6 K/mm3 (0.7-4.5); Monocytes # 0.5 K/mm3 (0.1-1.0)
[2024-07-27 07:19] LABS: Albumin Level 3.6 g/dl (3.5-5.0); Chloride 115 mmol/L (98-107); Potassium 3.7 mmoL/L (3.5-5.1); Sodium 147 mmol/L (136-145)
[2024-07-27 07:22] LABS: Alanine Aminotransferase 128 U/L (12-78); Albumin/Globulin Ratio 1.2 (1.1-1.8); Alkaline Phosphatase 84 U/L (38-126); Anion Gap 5.7 mEq/L (5-15); Aspartate Amino Transferase 60 U/L (14-36); Bilirubin,Total 0.5 mg/dl (0.2-1.3); Blood Urea Nitrogen 65 mg/dl (7-17); Carbon Dioxide 30 mmol/L (22.0-30.0); Creatinine Clearance Estimated 46 mL/min (50-200); Estimated Glomerular Filt Rate 49 ml/min (>60); GFR (African American) 59 ML/MIN (>60); Total Protein,Serum 6.6 g/dl (6.3-8.2)
[2024-07-27 07:23] LABS: Calcium 9.1 mg/dl (8.4-10.2); Glucose 288 mg/dl (74-100); Magnesium 2.9 mg/dl (1.6-2.3)
[2024-07-27 07:35] LABS: Hemoglobin 10.2 g/dL (12.2-16.2)
[2024-07-27 08:00] VITALS: BP 152/77; PULSE 100; PULSE 102; RESP 17; TEMP 37.4; O2SAT 99
--- NOTE | 2024-07-27 08:34 | P.CONPHA_ITS ---
Pharmacy Intervention Comments: MEDICATION RECONCILIATION COMPLETED ON PATIENT USING MAR FROM [facility]. -NIXON IBARRA, ADRIANED
--- NOTE | 2024-07-27 08:34 | HMH.PHAINT1 ---
Pharmacy Intervention Comments: MEDICATION RECONCILIATION COMPLETED ON PATIENT USING MAR FROM [facility] TERM. -NIXON IBARRA, ADRIANED
[2024-07-27] MEDS: HYDROCODONE 10MG/APAP 325MG TAB 1 TAB PO ×4 (09:04→21:25)
[2024-07-27] MEDS: PRO-STAT AWC 30ML LIQUID PACKET 30 ML PO ×2 (09:05→21:25)
[2024-07-27] MEDS: APIXABAN 5MG TABLET 5 MG G-TUBE ×2 (09:05→21:25)
[2024-07-27] MEDS: POLYETHYLENE GLYCOL 3350 17 GM PACKET G-TUBE (09:05)
[2024-07-27] MEDS: MEROPENEM 1 GM in 0.9 % SODIUM CHLORIDE 100 ML IV ×2 (10:15→22:32)
--- NOTE | 2024-07-27 10:21 | HMH.PTWOUND ---
Rehab Inpt Wound Evaluation Rehab IP Wound Evaluation Start: 07/27/24 09:47 Freq: ONCE Status: Active Protocol: Document 07/27/24 10:16 KEYLA (Rec: 07/27/24 10:21 KEYLA [id number]) Rehab PT Wound Assessment Subjective Subjective 73-year-old female who resides at [facility]. She is a long-term resident due to history of stroke, functional quadriplegia, feeding tube dependence, chronic decub, diabetes. She presents with a healing stage IV sacral PI upon admission. Wound Sacrum Wound Type Pressure Ulcer Is This a Chronic Wound Yes Wound Staging Stage IV Query Text:Stage I - Unbroken, red skin, no blanching. Stage II - Skin broken, superficial skin loss involving epidermis alone or also dermis. Partial loss of skin layers. Stage III - Pressure area involves epidermis, dermis and subcutaneous tissue, full thickness skin loss. Stage IV - Pressure area involves epidermis, subcutaneous tissue, bone and other supportive tissue. Full thickness skin loss with extensive destruction of underlying tissue and structures. Wound Length (cm) 2.5 Wound Width (cm) 1.5 Wound Depth (cm) 0.1 Wound Bed Appearance Beefy Red,White Percentage Granulated (%) 100 Wound Margins Description Well Defined Surrounding Tissue Appearance Macerated Wound Drainage Description Serosanguineous Drainage Amount Small Primary Dressing Biosynthetic Dressing Comment bordered foam Dressing Change Patient Tolerance Tolerated Well Plan/Recommendation Comment No current debridement needs, nsg staff performing appropriate dressing changes and pressure relief per protocols. THank you for involving the wound care team in the care of this pt. Eval Complexity Eval Charge Codes 10205 - High Complexity PHYSICIAN CERTIFICATION: I certify the specified therapy services for Melyssa Spicer are required, authorized, and reviewed every 30 days.
--- NOTE | 2024-07-27 10:34 | XR_ITS ---
FINAL REPORT CLINICAL HISTORY: Confirm PICC line placement COMPARISON: 04/27/2024 FINDINGS: A single view of the chest was obtained. A right PICC line is present with the tip in the SVC. The heart is normal in size. The mediastinum is unremarkable. The lungs are clear. There is no pleural effusion. There is no pneumothorax. There is no acute osseous abnormality. IMPRESSION: No acute cardiopulmonary process. Right PICC tip in the SVC. Reviewed, Interpreted and Dictated by Jeevan Benitez MD Transcribed by Gaviota Fuentes Authenticated and [facility]
[2024-07-27 10:54] LABS: POC Glucose,Bedside 229 (70-110)
--- NOTE | 2024-07-27 11:40 | SW/DCPLANNER ---
Addendum entered by Tomeka Shook RN 07/28/24 11:50: Potential discharge tomorrow. I have updated Maira with [facility]. Original Note: Patient is ICF at [facility]. I have sent updates to Maira. When medically stable she can DC back there. The number for report is [phone] and the fax number is [phone]. MAGALI Olivares
[2024-07-27 12:00] VITALS: BP 132/82; PULSE 104; PULSE 110; RESP 17; TEMP 37.4; O2SAT 99
--- NOTE | 2024-07-27 13:34 | PC.NURSE ---
tube feeding rate increased to 50 ml's/hr at 1130. pt tolerating well. no residual noted at this time.
--- NOTE | 2024-07-27 15:15 | P.PN_ITS ---
Subjective *Date: 07/27/24 *Time: 21:50 Interval history: Improved interaction today. Remains afebrile. No nausea or vomiting. Tolerating tube feeds, at half her goal rate. Sodium showing improvement. Stable on room air. No bowel movement yet Medical Exam Vital signs and Labs for Last 24 Hours: Vital Signs Temp Pulse Pulse Resp BP Pulse Ox O2 Del Method 07/27/24 14:29 Room Air 07/27/24 13:00 Room Air 07/27/24 12:00 110 H 07/27/24 12:00 99.4 F 104 H 17 132/82 99 Room Air 07/27/24 10:29 Room Air 07/27/24 08:00 Room Air 07/27/24 08:00 99.4 F 102 H 17 152/77 H 99 Room Air 07/27/24 08:00 100 H 07/27/24 07:43 Room Air 07/27/24 04:51 Room Air 07/27/24 04:00 98.7 F 101 H 16 120/79 98 Room Air 07/27/24 04:00 100 H 07/27/24 03:00 Room Air 07/27/24 01:00 Room Air 07/27/24 00:00 98.7 F 96 H 16 110/75 97 Room Air 07/27/24 00:00 90 07/26/24 23:00 Room Air 07/26/24 21:00 Room Air 07/26/24 20:00 Room Air 07/26/24 20:00 100 H 07/26/24 20:00 98.1 F 97 H 19 149/75 H 96 Room Air 07/26/24 18:35 Room Air 07/26/24 17:00 Room Air 07/26/24 16:00 100 H 07/26/24 16:00 99.0 F 95 H 17 127/77 96 Room Air Intake and Output 07/26/24 07/27/24 07/27/24 23:59 07:59 15:59 Intake Total 100 / 320 220 / 220 Output Total 0 / 0 0 / 0 Balance 100 / 320 220 / 220 Intake: Intake, Tube Feeding Amount 120 / 120 Intake, Total IV Amount 100 / 200 100 / 100 Meropenem 1 gm In 0.9 % Sodium 100 / 200 100 / 100 Chloride 100 ml @ 100 mls/hr IV Q12H [facility] Rx#:[id number] Output: Output, Urine Amount 0 / 0 0 / 0 Other: Number of Unmeasured Voids 1 1 Weight 64.864 kg Patient Weight 07/27/24 23:59 Weight 64.864 kg Laboratory Results - last 24 hr 07/26/24 16:13: POC Glucose 261 H 07/26/24 22:05: Sodium 150 H, Potassium 4.3, Chloride 117 H, Carbon Dioxide 31 H , Anion Gap 6.3, BUN 79 H, Creatinine 1.30 H, Estimated Creat Clear 37, Estim ated GFR 40 L, Est GFR ( Amer) 48 L, Glucose 200 H D, Calcium 9.5 07/26/24 22:17: POC Glucose 201 H 07/27/24 03:15: Sodium 152 H*, Potassium 4.0, Chloride 113 H, Carbon Dioxide 34 H, Anion Gap 9.0, BUN 74 H, Creatinine 1.20 H, Estimated Creat Clear 41, Estimated GFR 44 L, Est GFR ( Amer) 53 L, Glucose 228 H, Calcium 9.2 07/27/24 05:23: POC Glucose 291 H 07/27/24 06:10: WBC 5.7 D, RBC 3.59 L, Hgb 10.2 L D, Hct 34.3 L, MCV 95.5, MCH 29.0, MCHC 30.3 L, RDW 15.4, Plt Count 194 D, MPV 12.6 H, Neut % (Auto) 58.8, Lymph % (Auto) 28.4, Gray % (Auto) 8.1, Eos % (Auto) 4.2, Baso % (Auto) 0.5, Neut # (Auto) 3.4, Lymph # (Auto) 1.6, Gray # (Auto) 0.5, Eos # (Auto) 0.2, Baso # (Auto) 0.0, Sodium 147 H, Potassium 3.7, Chloride 115 H, Carbon Dioxide 30, Anion Gap 5.7, BUN 65 H, Creatinine 1.10 H, Estimated Creat Clear 46, Estimated GFR 49 L, Est GFR ( Amer) 59, Glucose 288 H D, Calcium 9.1, Magnesium 2.9 H, Total Bilirubin 0.5, AST 60 H D, ALT 128 H, Alkaline Phosphatase 84, Total Protein 6.6, Albumin 3.6 D, Globulin 3.0, Albumin/Globulin Ratio 1.2 07/27/24 10:46: POC Glucose 229 H I & O for Labs for Last 24 Hours: Intake & Output 07/24/24 07/25/24 07/26/24 07/27/24 23:59 23:59 23:59 23:59 Intake Total 100 / 320 220 / 220 Output Total 0 / 0 0 / 0 Balance 100 / 320 220 / 220 Weight 62.5 kg 64.864 kg Microbiology Reports for the Last 24 Hours: Microbiology 07/26/24 07:06 Blood Blood Culture - Preliminary NO GROWTH AFTER 24 HOURS 07/26/24 07:06 Blood Blood Culture - Preliminary NO GROWTH AFTER 24 HOURS Constitutional: Present no acute distress, average body habitus, chronically ill appearing and cooperative Head: Present normocephalic ENT: Present normal exam Neck: Present normal inspection Respiratory: Present normal respiratory effort; Absent rhonchi, wheezes or crackles Cardiac: Present Regular Rhythm and Tachycardia GI: Present soft and normal bowel sounds; Absent distention or tenderness Comments:: G-tube in place Comment:: Thin extremities Skin: Present intact; Absent erythema Neuro: Present alert Comment:: Chronic deficits. Baseline level of function. Necessitates assistance with all ADLs. Functional quadriplegia Assessment and Plan *Assessment and plan (1) Severe sepsis: Status: Acute Category: Medical Code(s): A41.9 - Sepsis, unspecified organism; R65.20 - Severe sepsis without septic shock (2) Acute renal failure: Status: Acute Category: Medical Code(s): N17.9 - Acute kidney failure, unspecified (3) Metabolic encephalopathy: Status: Acute Category: Medical Code(s): G93.41 - Metabolic encephalopathy (4) Acute uremia: Status: Acute Category: Medical Code(s): N19 - Unspecified kidney failure (5) Hypernatremia: Status: Acute Category: Medical Code(s): E87.0 - Hyperosmolality and hypernatremia (6) Bacteremia due to Enterobacter species: Status: Acute Category: Medical Code(s): R78.81 - Bacteremia; B96.89 - Other specified bacterial agents as the cause of diseases classified elsewhere (7) Acute UTI: Status: Acute Category: Medical Code(s): N39.0 - Urinary tract infection, site not specified (8) Pyelonephritis: Status: Acute Category: Medical Code(s): N12 - Tubulo-interstitial nephritis, not specified as acute or chronic (9) Hyperkalemia: Status: Resolved Category: Medical Code(s): E87.5 - Hyperkalemia (10) Altered mental status: Status: Acute Qualifiers: Altered mental status type: unspecified Qualified Code(s): R41.82 - Altered mental status, unspecified Category: Medical Code(s): R41.82 - Altered mental status, unspecified (11) Functional quadriplegia: Status: Chronic Category: Medical Code(s): R53.2 - Functional quadriplegia (12) Sinus tachycardia: Status: Acute Category: Medical Code(s): R00.0 - Tachycardia, unspecified (13) DM (diabetes mellitus): Status: Acute Qualifiers: Diabetes mellitus type: type 2 Diabetes mellitus 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 Workup concerning for severe sepsis with organ dysfunction, hypernatremia, uremia, acute renal failure. Urinalysis grossly abnormal suspicious for UTI versus pyelonephritis given her sepsis. Discussed case with ER physician, request admission for antibiotics and correction of metabolic disturbances. I agreed to admit for further treatment. Will admit to stepdown level of care. Continue meropenem given previous cultures of Pseudomonas and E. coli with mixed sensitivity. Culture still pending. Showing clinical improvement. Sodium starting to improve. More or less at baseline mentation based on previous experience with patient. Continues to require patient management. Problems addressed as follows: Severe sepsis Pyelonephritis/UTI History of ESBL -Has been admitted multiple times in the past 4 months with urinary tract infections. Cultures have grown Pseudomonas and E. coli with ESBL. Will continue meropenem 1 g every 12 hours based on kidney function and severity of illness and previous sensitivities -Urine culture and blood culture still pending -White count remains normal at 5.7. Repeat CBC, CMP, magnesium ordered for the morning G-tube dependent: Continue tube feeds with Glucerna. Nutrition consulted for assistance Acute renal failure with electrolyte disturbances -Seeing improvement in electrolytes. Sodium 147 this morning, correcting appropriately. Magnesium 2.9, potassium 3.7. Kidney function improving with BUN 65, creatinine 1.1. -Correcting free water deficit with free water flushes with NG feeds. -Repeat BMP ordered every 8 hours pending improvement in sodium. Correction rate of 8 to 10 mEq/day Diabetes: Uncontrolled, glucose 289 on presentation. Continue sliding scale insulin with fingersticks ACHS; morning glucose 288. Holding home blood pressure meds including carvedilol, metoprolol, lisinopril, and hydralazine due to hypotension, MALIK, and sepsis Chronic pain: Continue hydrocodone 4 times a day scheduled. Will hold gabapentin given patient's altered mental status and abnormal kidney function Bedbound and dependent on staff for all ADLs. Functional quadriplegic. Complicates all aspects of her care Continue pantoprazole as formulary conversion for omeprazole 40 mg daily Continue Eliquis 5 mg twice daily DNR Tube feed, Pro-Stat AWC given her decubitus wound Eliquis 5 mg twice daily
[2024-07-27 16:00] VITALS: BP 129/67; PULSE 100; PULSE 98; RESP 16; TEMP 37.2; O2SAT 97
[2024-07-27 17:44] LABS: Chloride 112 mmol/L (98-107); Potassium 3.9 mmoL/L (3.5-5.1); Sodium 148 mmol/L (136-145)
[2024-07-27 17:47] LABS: Anion Gap 6.9 mEq/L (5-15); Blood Urea Nitrogen 54 mg/dl (7-17); Calcium 9.4 mg/dl (8.4-10.2); Carbon Dioxide 33 mmol/L (22.0-30.0); Creatinine Clearance Estimated 51 mL/min (50-200); Estimated Glomerular Filt Rate 61 ml/min (>60); GFR (African American) 74 ML/MIN (>60); Glucose 219 mg/dl (74-100)
--- NOTE | 2024-07-27 17:53 | PC.NURSE ---
PT IS RESTING IN BED. NON VERBAL AT BASELINE. WILL FOLLOW SIMPLE COMMANDS. TURNED AND REPOSITIONED FREQUENTLY IN BED. ORAL CARE PROVIDED. TUBE FEEDS HAVE BEEN INCREASED TO 60 ML'S/HR. NO RESIDUAL AT 1730. LUNG SOUNDS DIMINISHED. ABDOMEN SOFT/NON TENDER WITH ACTIVE BOWEL SOUNDS. HEEL PROTECTORS IN PLACE. PICC LINE PLACED THIS SHIFT (CLARITA). VSS. WILL CONTINUE TO MONITOR.
[2024-07-27 20:00] VITALS: BP 145/71; PULSE 90; PULSE 98; RESP 16; TEMP 37.2; O2SAT 98
[2024-07-27 21:21] LABS: POC Glucose,Bedside 199 (70-110)
[2024-07-27] MEDS: PANTOPRAZOLE 40MG VIAL 40 MG IV (21:26)
[2024-07-28] VITALS: BP 148/83; PULSE 100; PULSE 98; RESP 16; TEMP 37.1; O2SAT 98
[2024-07-28 04:00] VITALS: BP 153/102; PULSE 100; PULSE 106; RESP 18; TEMP 37.1; O2SAT 99; BMI 22.8
--- NOTE | 2024-07-28 04:24 | PC.NURSE ---
73 yo fe pt is alert but nonverbal . She is able to follow commands at times. She is incont of B/B using purwick and brief. Meds given per Gtube after checking for placement. Noted zero tube feed residual around 8 pm. Increased TF to 67 ml/hr. FSBS at 9pm 199, insulin given per SS. 02 sats high 90s on RA. No signs of pain or discomfort through the shift.
[2024-07-28] MEDS: humaLOG 100 UNITS/ML 10ML VIAL (SSI) SUBCUT ×4 (05:54→21:22)
[2024-07-28 06:12] LABS: POC Glucose,Bedside 284 (70-110)
--- NOTE | 2024-07-28 06:14 | PC.NURSE ---
No residual TF , rate increased to 77 ml/hour
[2024-07-28 07:10] LABS: Basophils % 0.5 % (0.1-2.0); Eosinophils # 0.2 K/mm3 (0.0-0.4); Eosinophils % 3.3 % (0.1-12.0); Hemoglobin 10.5 g/dL (12.2-16.2); Lymphocytes # 1.8 K/mm3 (0.7-4.5); Lymphocytes % 26.6 % (10-50); Mean Corpuscular HGB Conc 30.9 g/dL (31.8-35.4); Mean Corpuscular Hemoglobin 28.8 pg (27.0-31.2); Mean Corpuscular Volume 93.2 fl (81-99); Mean Platelet Volume 12.8 fl (7.4-10.4); Monocytes # 0.6 K/mm3 (0.1-1.0); Monocytes % 8.4 % (1.7-9.3); Platelet Count 171 K/mm3 (142-424); Red Blood Count 3.65 M/mm3 (4.20-5.40); White Blood Count 6.6 K/mm3 (4.8-10.8)
[2024-07-28 07:28] LABS: Red Cell Distribution Width 14.9 % (11.5-17.5)
[2024-07-28 07:33] LABS: Albumin Level 3.9 g/dl (3.5-5.0); Chloride 113 mmol/L (98-107); Potassium 3.8 mmoL/L (3.5-5.1); Sodium 147 mmol/L (136-145)
[2024-07-28 07:35] LABS: Alanine Aminotransferase 127 U/L (12-78); Aspartate Amino Transferase 58 U/L (14-36); Blood Urea Nitrogen 42 mg/dl (7-17); Creatinine Clearance Estimated 50 mL/min (50-200); Estimated Glomerular Filt Rate 70 ml/min (>60); GFR (African American) 85 ML/MIN (>60)
[2024-07-28 07:36] LABS: Albumin/Globulin Ratio 1.3 (1.1-1.8); Alkaline Phosphatase 87 U/L (38-126); Anion Gap 7.8 mEq/L (5-15); Bilirubin,Total 0.3 mg/dl (0.2-1.3); Calcium 9.3 mg/dl (8.4-10.2); Carbon Dioxide 30 mmol/L (22.0-30.0); Globulin 3.1 g/dL (1.3-3.2); Glucose 286 mg/dl (74-100); Magnesium 2.3 mg/dl (1.6-2.3)
[2024-07-28 08:00] VITALS: BP 181/83; PULSE 100; PULSE 102; RESP 20; TEMP 36.7; O2SAT 99
--- NOTE | 2024-07-28 08:29 | DIET.NUTRFU ---
Patient tolerating TF at goal rate of 77ml/hr, Na continues to be low at 147 will increase flush to 150ml Q4H to provide additional fluid. Once Na WNL decrease flush back down to 100 Q6H. Plan is to return back to [place]
[2024-07-28] MEDS: HYDROCODONE 10MG/APAP 325MG TAB 1 TAB PO ×4 (09:39→21:20)
[2024-07-28] MEDS: POLYETHYLENE GLYCOL 3350 17 GM PACKET G-TUBE (09:40)
[2024-07-28] MEDS: MEROPENEM 1 GM in 0.9 % SODIUM CHLORIDE 100 ML IV ×2 (09:40→21:36)
[2024-07-28] MEDS: APIXABAN 5MG TABLET 5 MG G-TUBE ×2 (09:40→21:20)
[2024-07-28] MEDS: PRO-STAT AWC 30ML LIQUID PACKET 30 ML PO ×2 (09:40→21:24)
[2024-07-28 11:28] LABS: POC Glucose,Bedside 277 (70-110)
[2024-07-28 12:00] VITALS: BP 176/94; PULSE 100; PULSE 110; RESP 18; TEMP 37.7; O2SAT 95
--- NOTE | 2024-07-28 12:41 | P.PN_ITS ---
Subjective *Date: 07/28/24 *Time: 16:48 Interval history: Patient hemodynamically stable on exam. More alert and interactive today. No verbal response on exam but smiled and made eye contact. Does not appear in pain. Afebrile. Continuing tube feeds. No vomiting or nausea. Stable on room air. Medical Exam Vital signs and Labs for Last 24 Hours: Vital Signs Temp Pulse Pulse Resp BP Pulse Ox O2 Del Method 07/28/24 11:00 Room Air 07/28/24 09:00 Room Air 07/28/24 08:00 100 H 07/28/24 08:00 98.0 F 102 H 20 181/83 H 99 Room Air 07/28/24 06:48 Room Air 07/28/24 05:00 Room Air 07/28/24 04:00 100 H 07/28/24 04:00 98.7 F 106 H 18 153/102 H 99 Room Air 07/28/24 03:00 Room Air 07/28/24 01:00 Room Air 07/28/24 00:00 98.7 F 98 H 16 148/83 H 98 Room Air 07/28/24 00:00 100 H 07/27/24 23:00 Room Air 07/27/24 21:00 Room Air 07/27/24 20:00 90 07/27/24 20:00 98 Room Air 07/27/24 20:00 99.0 F 98 H 16 145/71 H 98 Room Air 07/27/24 18:20 Room Air 07/27/24 16:55 Room Air 07/27/24 16:00 98.9 F 98 H 16 129/67 97 Room Air 07/27/24 16:00 100 H 07/27/24 14:29 Room Air 07/27/24 13:00 Room Air Intake and Output 07/27/24 07/28/24 07/28/24 23:59 07:59 15:59 Intake Total 9 / 2016 568 / 568 Output Total 230 / 230 0 / 0 Balance 999 / 1787 568 / 568 Intake: Intake, Tube Feeding Amount 829 / 1217 268 / 268 Intake, Tube Irrigant Amount 300 / 500 200 / 200 Intake, Total IV Amount 100 / 300 100 / 100 Meropenem 1 gm In 0.9 % Sodium 100 / 300 100 / 100 Chloride 100 ml @ 100 mls/hr IV Q12H [facility] Rx#:[id number] Output: Output, Urine Amount 230 / 230 0 / 0 Other: Number of Unmeasured Voids 1 1 Number of Bowel Movements 1 Weight 63.775 kg Patient Weight 07/28/24 23:59 Weight 63.775 kg Laboratory Results - last 24 hr 07/27/24 17:15: Sodium 148 H, Potassium 3.9, Chloride 112 H, Carbon Dioxide 33 H , Anion Gap 6.9, BUN 54 H, Creatinine 0.90, Estimated Creat Clear 51, Estimated GFR 61, Est GFR ( Amer) 74 D, Glucose 219 H D, Calcium 9.4 07/27/24 20:43: POC Glucose 199 H 07/28/24 05:47: POC Glucose 284 H 07/28/24 06:01: WBC 6.6, RBC 3.65 L, Hgb 10.5 L, Hct 34.0 L, MCV 93.2, MCH 28.8, MCHC 30.9 L, RDW 14.9, Plt Count 171, MPV 12.8 H, Neut % (Auto) 61.0, Lymph % (Auto) 26.6, [place] % (Auto) 8.4, Eos % (Auto) 3.3, Baso % (Auto) 0.5, Neut # (Auto) 4.0, Lymph # (Auto) 1.8, [place] # (Auto) 0.6, Eos # (Auto) 0.2, Baso # (Auto) 0.0, Sodium 147 H, Potassium 3.8, Chloride 113 H, Carbon Dioxide 30, Anion Gap 7.8, BUN 42 H, Creatinine 0.80, Estimated Creat Clear 50, Estimated GFR 70, Est GFR ( Amer) 85, Glucose 286 H D, Calcium 9.3, Magnesium 2.3 D, Total Bilirubin 0.3, AST 58 H, ALT 127 H, Alkaline Phosphatase 87, Total Protein 7.0, Albumin 3.9, Globulin 3.1, Albumin/Globulin Ratio 1.3 07/28/24 11:14: POC Glucose 277 H I & O for Labs for Last 24 Hours: Intake & Output 07/25/24 07/26/24 07/27/24 07/28/24 23:59 23:59 23:59 23:59 Intake Total 100 / 320 1448 568 / 568 Output Total 0 / 0 230 / 230 0 / 0 Balance 100 / 320 1219 / 1787 568 / 568 Weight 62.5 kg 64.864 kg 63.775 kg Microbiology Reports for the Last 24 Hours: Microbiology 07/26/24 07:10 Urine,Catheterized Urine Culture - Final 07/26/24 07:06 Blood Blood Culture - Preliminary NO GROWTH AFTER 48 HOURS 07/26/24 07:06 Blood Blood Culture - Preliminary NO GROWTH AFTER 48 HOURS Constitutional: Present no acute distress, average body habitus, chronically ill appearing and cooperative Head: Present normocephalic ENT: Present normal exam Neck: Present normal inspection Respiratory: Present normal respiratory effort; Absent rhonchi, wheezes or crackles Cardiac: Present Regular Rhythm and Tachycardia GI: Present soft and normal bowel sounds; Absent distention or tenderness Comments:: G-tube in place Comment:: Thin extremities Skin: Present intact; Absent erythema Neuro: Present alert Comment:: Chronic deficits. Baseline level of function. Necessitates assistance with all ADLs. Functional quadriplegia Assessment and Plan *Assessment and plan (1) Severe sepsis: Status: Acute Category: Medical Code(s): A41.9 - Sepsis, unspecified organism; R65.20 - Severe sepsis without septic shock (2) Acute renal failure: Status: Acute Category: Medical Code(s): N17.9 - Acute kidney failure, unspecified (3) Metabolic encephalopathy: Status: Acute Category: Medical Code(s): G93.41 - Metabolic encephalopathy (4) Acute uremia: Status: Acute Category: Medical Code(s): N19 - Unspecified kidney failure (5) Hypernatremia: Status: Acute Category: Medical Code(s): E87.0 - Hyperosmolality and hypernatremia (6) Bacteremia due to Enterobacter species: Status: Acute Category: Medical Code(s): R78.81 - Bacteremia; B96.89 - Other specified bacterial agents as the cause of diseases classified elsewhere (7) Acute UTI: Status: Acute Category: Medical Code(s): N39.0 - Urinary tract infection, site not specified (8) Pyelonephritis: Status: Acute Category: Medical Code(s): N12 - Tubulo-interstitial nephritis, not specified as acute or chronic (9) Hyperkalemia: Status: Resolved Category: Medical Code(s): E87.5 - Hyperkalemia (10) Altered mental status: Status: Acute Qualifiers: Altered mental status type: unspecified Qualified Code(s): R41.82 - Altered mental status, unspecified Category: Medical Code(s): R41.82 - Altered mental status, unspecified (11) Functional quadriplegia: Status: Chronic Category: Medical Code(s): R53.2 - Functional quadriplegia (12) Sinus tachycardia: Status: Acute Category: Medical Code(s): R00.0 - Tachycardia, unspecified (13) DM (diabetes mellitus): Status: Acute Qualifiers: Diabetes mellitus type: type 2 Diabetes mellitus 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 Workup concerning for severe sepsis with organ dysfunction, hypernatremia, uremia, acute renal failure. Urinalysis grossly abnormal suspicious for UTI versus pyelonephritis given her sepsis. Discussed case with ER physician, request admission for antibiotics and correction of metabolic disturbances. I agreed to admit for further treatment. Will admit to stepdown level of care. Continue meropenem given previous cultures of Pseudomonas and E. coli with mixed sensitivity. Culture still pending, no bacterial growth as of yet. Showing clinical imp rovement. Sodium stable at 147. More or less at baseline mentation based on previous experience with patient. Continues to require patient management. Problems addressed as follows: Severe sepsis Pyelonephritis/UTI History of ESBL -Has been admitted multiple times in the past 4 months with urinary tract infections. Cultures have grown Pseudomonas and E. coli with ESBL. Will continue meropenem 1 g every 12 hours based on kidney function and severity of illness and previous sensitivities -Urine culture with no bacteria as of yet. Positive for yeast. Blood cultures negative at 48 hours. -White count 6.6. Hemoglobin 10.5. Repeat CBC, CMP, magnesium ordered for the morning G-tube dependent: Continue tube feeds with Glucerna. Nutrition consulted for assistance. Free water flushes to replace free water deficit. Tolerating tube feeds at goal Acute renal failure with electrolyte disturbances -Seeing improvement in electrolytes. Sodium 147 this morning, correcting appropriately. Magnesium 2.3, potassium 3.8, chloride 113. Kidney function improving with BUN 42 down from 92 on admission and creatinine 0.8 (baseline). -Correcting free water deficit with free water flushes with NG feeds. -Repeat BMP ordered for this afternoon to monitor sodium correction. Correction rate of 8 to 10 mEq/day Diabetes: Uncontrolled, glucose 289 on presentation. Continue sliding scale insulin with fingersticks ACHS; morning glucose 286. Requiring at least 20 units sliding scale daily. Will initiate basal insulin with glargine 15 units tonight Holding home blood pressure meds including carvedilol, metoprolol, lisinopril, and hydralazine due to hypotension, MALIK, and sepsis Chronic pain: Continue hydrocodone 4 times a day scheduled. Will hold gabapentin given patient's altered mental status and abnormal kidney function Bedbound and dependent on staff for all ADLs. Functional quadriplegic. Complicates all aspects of her care Continue pantoprazole as formulary conversion for omeprazole 40 mg daily Continue Eliquis 5 mg twice daily DNR Tube feed, Pro-Stat AWC given her decubitus wound Eliquis 5 mg twice daily
[2024-07-28 16:00] VITALS: BP 167/92; PULSE 100; PULSE 97; RESP 20; TEMP 37.3; O2SAT 98
[2024-07-28 16:35] LABS: Anion Gap 10.3 mEq/L (5-15); Blood Urea Nitrogen 38 mg/dl (7-17); Calcium 9.6 mg/dl (8.4-10.2); Carbon Dioxide 32 mmol/L (22.0-30.0); Chloride 113 mmol/L (98-107); Creatinine Clearance Estimated 50 mL/min (50-200); Estimated Glomerular Filt Rate 82 ml/min (>60); GFR (African American) 99 ML/MIN (>60); Glucose 222 mg/dl (74-100); Potassium 4.3 mmoL/L (3.5-5.1)
[2024-07-28 17:08] LABS: Sodium 151 mmol/L (136-145)
[2024-07-28 17:26] LABS: POC Glucose,Bedside 259 (70-110)
--- NOTE | 2024-07-28 19:32 | PC.NURSE ---
PT IS RESTING IN BED. ALERT TO SELF ONLY. NON VERBAL. TURNED AND REPOSITIONED IN BED. LUNG SOUNDS CLEAR. ABDOMEN SOFT/NON TENDER WITH ACTIVE BOWEL SOUNDS. PURWICK IN PLACE. BOWEL MOVEMENT THIS SHIFT. HEEL PROTECTORS IN PLACE. ORAL CARE PROVIDED. LUNG SOUNDS CLEAR. VSS. WILL CONTINUE TO MONITOR.
[2024-07-28 20:00] VITALS: BP 159/95; PULSE 114; PULSE 116; PULSE 120; RESP 18; TEMP 36.6; O2SAT 99
[2024-07-28 21:19] LABS: POC Glucose,Bedside 210 (70-110)
[2024-07-28] MEDS: INSULIN GLARGINE 100 UNITS/ML 3ML FLEXPEN 15 UNIT SUBCUT (21:21)
[2024-07-28] MEDS: PANTOPRAZOLE 40MG VIAL 40 MG IV (21:24)
--- NOTE | 2024-07-28 21:54 | EXP.EVENT.NO ---
Nursing notified me that patient's heart rate was increased and more increased grunting. Patient is nonverbal Examined: Went in and saw the patient could not find any source of acute pain very difficult to assess in this patient though. She has relative clear lungs no signs of peripheral edema to the lower extremities mouth a little dry but she is on tube feeding and and on IV fluids at this time. plan nurse is just given the hydrocodone dose. Will wait 1 hour if heart rate is still elevated and patient is still appearing to be more uncomfortable we will try morphine 2 IV 1 time to see results. Will continue to monitor elevated heart rate is normally she is around the 100 but has been increased to about 120.
[2024-07-28] MEDS: MORPHINE 2MG/ML SYRINGE 2 MG IV (23:27)
[2024-07-29] VITALS (7 sets, daily range): BP systolic 164–188; BP diastolic 82–118; PULSE 90–121; RESP 16–22; TEMP 36.6–37.1; O2SAT 96–99; BMI 22.8
--- NOTE | 2024-07-29 00:10 | EXP.EVENT.NO ---
time 12:11 am, nurse followed up on previous problem with the patient the patient's blood pressure remaining elevated like 180/110., Patient did not seem to be improved by the small amount of morphine that we gave her.. Patient is nonverbal difficult to find out if this is anxiety versus pain or something else going on with her. exam as noted patient is nonverbal appears to be anxious, she is able to look directly at you like she is wanting to tell you something as she does appear to be uncomfortable, exam unchanged from before heart rate remains elevated blood pressure now actually increased. But lungs are clear plan: Will add an EKG and check a troponin at this time. Will give 1 mg of IV Ativan, to see if this will help the patient relax. Then we will recheck vital signs., Will go down to check the twelve-lead EKG and monitor if the troponin was increased. 02:42 nursing called noting that the patient blood pressure was still in the 180s over 110. That heart rate was around 120, noting several medications that she is normally on have been held. Per the note it was because of hypotension. Going to add 2 of of her original blood pressure medicines p.o. back. Per old chart normally had been on as many as 4 blood pressure medicine , but will give just 5mg of labetalol IV to try to slow down the heart rate slightly. As it will take p.o. medicines more than an hour to start to work. Patient is sleeping and resting well but even with resting heart rate remaining in the 120s and blood pressure remaining elevated.
--- NOTE | 2024-07-29 00:32 | ECG_ITS ---
APPROVED REPORT Exam: Resting ECG HR:124 bpm ECG Measurements Heart Rate 124 AXES NV 166 P 83 QRSd 93 QRS 56 QT 321 T 55 QTc 395 Conclusion SINUS TACHYCARDIA NONSPECIFIC T-WAVE ABNORMALITY ABNORMAL RHYTHM ECG UNCONFIRMED REPORT Electronically signed by : Yair Smith MD 07/29/2024 13:42:53
[2024-07-29] MEDS: LORazepam 2MG/ML VIAL 1 MG IV (00:34)
[2024-07-29] MEDS: SODIUM CHLORIDE 0.9% 10ML VIAL 10 ML IV (00:34)
[2024-07-29 01:31] LABS: Troponin I < 0.01 ng/ml (0.00-0.034)
--- NOTE | 2024-07-29 01:37 | PC.NURSE ---
0020:Pt HR remains elevated @ 121 BPM, BP 183/118, Pt continues to grunt loudly in pain. Shiva contacted and aware 0139: Pt resting in bed with eyes closed at this time.
--- NOTE | 2024-07-29 02:43 | PC.NURSE ---
Shiva contacted at this time, Pt BP remains elevated @ 188/110, HR 121 while pt is resting with eyes closed. new orders as follows: Labetalol 5 mg IV ONCE NOW, Carvedilol 25 mg G-tube BID Start NOW, Amlodipine 5 mg G-tube Daily Start NOW
[2024-07-29] MEDS: LABETALOL 5MG/ML 20ML MDV 5 MG IV (02:56)
[2024-07-29] MEDS: AMLODIPINE 5MG TABLET 5 MG FEED TUBE ×2 (02:57→09:08)
[2024-07-29] MEDS: CARVEDILOL 25MG TABLET 25 MG FEED TUBE ×2 (02:57→09:08)
[2024-07-29] MEDS: humaLOG 100 UNITS/ML 10ML VIAL (SSI) SUBCUT ×3 (05:15→18:08)
[2024-07-29 06:06] LABS: POC Glucose,Bedside 308 (70-110)
[2024-07-29] MEDS: PRO-STAT AWC 30ML LIQUID PACKET 30 ML PO (09:07)
[2024-07-29] MEDS: APIXABAN 5MG TABLET 5 MG G-TUBE (09:08)
[2024-07-29] MEDS: POLYETHYLENE GLYCOL 3350 17 GM PACKET G-TUBE (09:10)
[2024-07-29] MEDS: HYDROCODONE 10MG/APAP 325MG TAB 1 TAB PO ×2 (09:10→18:08)
[2024-07-29 09:11] LABS: Chloride 110 mmol/L (98-107); Sodium 145 mmol/L (136-145)
[2024-07-29 09:12] LABS: Potassium 3.6 mmoL/L (3.5-5.1)
[2024-07-29 09:13] LABS: Basophils % 0.4 % (0.1-2.0); Eosinophils # 0.1 K/mm3 (0.0-0.4); Eosinophils % 1.6 % (0.1-12.0); Hematocrit 35.7 % (37.0-47.0); Hemoglobin 11.2 g/dL (12.2-16.2); Lymphocytes # 1.6 K/mm3 (0.7-4.5); Lymphocytes % 20.6 % (10-50); Mean Corpuscular HGB Conc 31.4 g/dL (31.8-35.4); Mean Corpuscular Hemoglobin 29.3 pg (27.0-31.2); Mean Corpuscular Volume 93.5 fl (81-99); Mean Platelet Volume 13.8 fl (7.4-10.4); Monocytes # 0.7 K/mm3 (0.1-1.0); Monocytes % 8.7 % (1.7-9.3); Neutrophils # 5.3 K/mm3 (1.8-7.8); Neutrophils % 68.4 % (37.0-80.0); Platelet Count 160 K/mm3 (142-424); Red Blood Count 3.82 M/mm3 (4.20-5.40); Red Cell Distribution Width 14.9 % (11.5-17.5); White Blood Count 7.7 K/mm3 (4.8-10.8)
[2024-07-29 09:14] LABS: Alanine Aminotransferase 134 U/L (12-78); Albumin/Globulin Ratio 1.3 (1.1-1.8); Alkaline Phosphatase 75 U/L (38-126); Anion Gap 10.6 mEq/L (5-15); Aspartate Amino Transferase 70 U/L (14-36); Bilirubin,Total 0.3 mg/dl (0.2-1.3); Blood Urea Nitrogen 33 mg/dl (7-17); Calcium 9.6 mg/dl (8.4-10.2); Carbon Dioxide 28 mmol/L (22.0-30.0); Creatinine Clearance Estimated 50 mL/min (50-200); Estimated Glomerular Filt Rate 70 ml/min (>60); GFR (African American) 85 ML/MIN (>60); Globulin 3.1 g/dL (1.3-3.2); Glucose 282 mg/dl (74-100); Total Protein,Serum 7.1 g/dl (6.3-8.2)
[2024-07-29 09:23] LABS: Magnesium 2.2 mg/dl (1.6-2.3)
--- NOTE | 2024-07-29 10:09 | EXP.PHA.PN ---
Subjective *Date: 07/29/24 *Time: 10:09 Medical Exam Vital signs and Labs for Last 24 Hours: Vital Signs Temp Pulse Pulse Resp BP BP Pulse Ox 07/29/24 08:00 98.8 F 106 H 16 164/82 H 96 07/29/24 06:58 07/29/24 05:00 07/29/24 04:03 168/90 H 07/29/24 04:00 100 H 07/29/24 04:00 103 H 168/90 H 07/29/24 04:00 97.9 F 103 H 22 168/90 H 96 07/29/24 03:00 07/29/24 02:56 188/110 H 07/29/24 01:00 07/29/24 00:25 121 H 183/118 H 07/29/24 00:00 120 H 07/29/24 00:00 98.4 F 118 H 18 180/118 H 99 07/28/24 23:00 07/28/24 21:00 07/28/24 20:00 116 H 07/28/24 20:00 120 H 07/28/24 20:00 97.9 F 114 H 18 159/95 H 99 07/28/24 18:44 07/28/24 17:00 07/28/24 16:00 100 H 07/28/24 16:00 99.2 F 97 H 20 167/92 H 98 07/28/24 15:00 07/28/24 13:00 07/28/24 12:00 100 H 07/28/24 12:00 99.8 F H 110 H 18 176/94 H 95 07/28/24 11:00 O2 Del Method 07/29/24 08:00 Room Air 07/29/24 06:58 Room Air 07/29/24 05:00 Room Air 07/29/24 04:03 07/29/24 04:00 07/29/24 04:00 07/29/24 04:00 Room Air 07/29/24 03:00 Room Air 07/29/24 02:56 07/29/24 01:00 Room Air 07/29/24 00:25 07/29/24 00:00 07/29/24 00:00 Room Air 07/28/24 23:00 Room Air 07/28/24 21:00 Room Air 07/28/24 20:00 Room Air 12/27/24 20:00 07/28/24 20:00 Room Air 07/28/24 18:44 Room Air 07/28/24 17:00 Room Air 07/28/24 16:00 07/28/24 16:00 Room Air 07/28/24 15:00 Room Air 07/28/24 13:00 Room Air 07/28/24 12:00 07/28/24 12:00 Room Air 07/28/24 11:00 Room Air Intake and Output 07/28/24 07/29/24 07/29/24 23:59 07:59 15:59 Intake Total 1174 / 2467 1140 / 1140 Output Total 200 / 1100 0 / 0 Balance 974 / 1367 1140 / 1140 Intake: Intake, Tube Feeding Amount 924 / 1577 650 / 650 Intake, Tube Irrigant Amount 150 / 590 390 / 390 Intake, Total IV Amount 100 / 300 100 / 100 Meropenem 1 gm In 0.9 % Sodium 100 / 300 100 / 100 Chloride 100 ml @ 100 mls/hr IV Q12H [facility] Rx#:[id number] Output: Output, Urine Amount 200 / 1100 0 / 0 Other: Number of Unmeasured Voids 0 1 Number of Bowel Movements 1 Weight 63.775 kg Patient Weight 07/29/24 23:59 Weight 63.775 kg Laboratory Results - last 24 hr 07/28/24 11:14: POC Glucose 277 H 07/28/24 15:50: Sodium 151 H*, Potassium 4.3, Chloride 113 H, Carbon Dioxide 32 H, Anion Gap 10.3, BUN 38 H, Creatinine 0.70, Estimated Creat Clear 50, Estimated GFR 82, Est GFR ( Amer) 99, Glucose 222 H D, Calcium 9.6 07/28/24 17:20: POC Glucose 259 H 07/28/24 21:12: POC Glucose 210 H 07/29/24 00:40: Troponin I < 0.01 07/29/24 05:13: POC Glucose 308 H* 07/29/24 06:44: WBC 7.7, RBC 3.82 L, Hgb 11.2 L, Hct 35.7 L, MCV 93.5, MCH 29.3, MCHC 31.4 L, RDW 14.9, Plt Count 160, MPV 13.8 H, Neut % (Auto) 68.4, Lymph % (Auto) 20.6, [place]pp % (Auto) 8.7, Eos % (Auto) 1.6, Baso % (Auto) 0.4, Neut # (Auto) 5.3, Lymph # (Auto) 1.6, [place] # (Auto) 0.7, Eos # (Auto) 0.1, Baso # (Auto) 0.0, Sodium 145, Potassium 3.6, Chloride 110 H, Carbon Dioxide 28, Anion Gap 10.6, BUN 33 H, Creatinine 0.80, Estimated Creat Clear 50, Estimated GFR 70, Est GFR ( Amer) 85, Glucose 282 H D, Calcium 9.6, Magnesium 2.2, Total Bilirubin 0.3, AST 70 H, ALT 134 H, Alkaline Phosphatase 75, Total Protein 7.1, Albumin 4.0, Globulin 3.1, Albumin/Globulin Ratio 1.3 I & O for Labs for Last 24 Hours: Intake & Output 07/26/24 07/27/24 07/28/24 07/29/24 23:59 23:59 23:59 23:59 Intake Total 100 / 320 1449 / 2016 1742 / 2467 1140 / 1140 Output Total 0 / 0 230 / 230 1100 / 1100 0 / 0 Balance 100 / 320 1219 / 1787 642 / 1367 1140 / 1140 Weight 62.5 kg 64.864 kg 63.775 kg 63.775 kg Microbiology Reports for the Last 24 Hours: Microbiology 07/26/24 07:10 Urine,Catheterized Urine Culture - Final 07/26/24 07:06 Blood Blood Culture - Preliminary NO GROWTH AFTER 48 HOURS 07/26/24 07:06 Blood Blood Culture - Preliminary NO GROWTH AFTER 48 HOURS The patient's infection will respond to the chosen ABx?: Yes Is the patient receiving the right drug, dose, and route?: Yes Could a more targeted ABx be ordered?: No (AFEBRILE NOW, WBC WNL.)
--- NOTE | 2024-07-29 11:27 | EXP.DC.SUM ---
General Admission date:: 07/26/24 Discharge date: 07/29/24 HPI HPI HPI: Ms. Spicer is a 73-year-old female who resides at [facility]. She is a long-term resident due to history of stroke, functional quadriplegia, feeding tube dependence, chronic decub, diabetes. She presented today to the ER due to concern for altered mental status from her baseline. She is nonverbal at baseline. Unable to obtain history from patient. On presentation, patient appeared altered. Workup in the ER concerning for severe sepsis with acute renal failure, elevated BUN in the 90s, hyponatremia, and dehydration. Urine concerning for UTI. Has grown ESBL bacteria in the past. Initiated on ceftriaxone in the ER, initiated on fluid bolus, medicine consulted for admission and further management. Based on review of cultures, patient transitioned to meropenem renally dosed due to previous culture of E. coli resistant to cephalosporins but sensitive to carbapenems. Stable on room air at this time. Patient will open eyes to voice and make eye contact but no verbal response. Does not follow commands, this is somewhat her baseline however normally she responds with facial expressions and she is not doing that today. She appears slow to respond and altered from my previous exposure to this patient. Afebrile, blood pressure normal at 114/68. Tachycardic. Per report, tube feeds at been decreased due to hyperglycemia. Appears the patient has become dehydrated and hypovolemic. Hospital Course Hospital Course Hospital Course: Patient presented to the ER with increased confusion. Workup concerning for severe sepsis with organ dysfunction, hypernatremia, uremia, acute renal failure. Urinalysis grossly abnormal suspicious for UTI versus pyelonephritis given her sepsis. Discussed case with ER physician, request admission for antibiotics and correction of metabolic disturbances. I agreed to admit for further treatment. Will admit to stepdown level of care. Continue meropenem given previous cultures of Pseudomonas and E. coli with mixed sensitivity. Urine culture visit did not show any bacteria. Symptoms improved and condition resolved with normalization of electrolytes with treatment of her diabetes and free water deficit. Patient back to baseline mentation. Problems addressed as follows: Severe sepsis, resolved Pyelonephritis/UTI, resolved History of ESBL -Has been admitted multiple times in the past 4 months with urinary tract infections. Cultures have grown Pseudomonas and E. coli with ESBL. Initially treated with meropenem 1 g every 12 hours renally dosed. Urine culture came back with no bacterial findings. Blood cultures negative. Given resolution of symptoms and negative cultures, will discontinue antibiotics at discharge. White count normal at 7.7 on day of discharge with hemoglobin of 11.2. Would benefit from repeat CMP and magnesium in 1 week to monitor kidney function and electrolyte stability. G-tube dependent: Continue tube feeds with Glucerna. Nutrition consulted for assistance. Free water flushes to replace free water deficit. Tolerating tube feeds at goal Acute renal failure with electrolyte disturbances -Electrolytes abnormal on admission. Hypernatremia has resolved by day of discharge. Magnesium 2.2. Kidney function improving. Correcting free water deficit with free water flushes with NG feeds. Diabetes: Uncontrolled, Glucose riding in the 200s during admission. Initiate basal insulin with insulin glargine. Increase to 25 units on day of discharge. Follow morning glucoses daily. Will need to further titrate. A1c was 7 3 months ago. Needs repeat A1c with labs in 1 week. Hypotensive on admission. Blood pressure improved. Continue home regimen at discharge including carvedilol, metoprolol, lisinopril, hydralazine diltiazem. Chronic pain: Continue hydrocodone 4 times a day scheduled. Will hold gabapentin given patient's altered mental status and abnormal kidney function Bedbound and dependent on staff for all ADLs. Functional quadriplegic. Complicates all aspects of her care Continue pantoprazole as formulary conversion for omeprazole 40 mg daily Continue Eliquis 5 mg twice daily DNR Tube feed, Pro-Stat AWC given her decubitus wound Total time spent on discharge 32 minutes in counseling, documentation, chart review, and direct care with patient. Exam Data for Last 24 hours Vital signs and Labs for Last 24 Hours: Temp Pulse Resp BP Pulse Ox O2 Del Method 98.8 F 106 H 16 164/82 H 96 Room Air 07/29/24 08:00 07/29/24 08:00 07/29/24 08:00 07/29/24 08:00 07/29/24 08:00 07/29/24 08:00 Laboratory Results - last 24 hr 07/28/24 11:14: POC Glucose 277 H 07/28/24 15:50: Sodium 151 H*, Potassium 4.3, Chloride 113 H, Carbon Dioxide 32 H, Anion Gap 10.3, BUN 38 H, Creatinine 0.70, Estimated Creat Clear 50, Estimated GFR 82, Est GFR ( Amer) 99, Glucose 222 H D, Calcium 9.6 07/28/24 17:20: POC Glucose 259 H 07/28/24 21:12: POC Glucose 210 H 07/29/24 00:40: Troponin I < 0.01 07/29/24 05:13: POC Glucose 308 H* 07/29/24 06:44: WBC 7.7, RBC 3.82 L, Hgb 11.2 L, Hct 35.7 L, MCV 93.5, MCH 29.3, MCHC 31.4 L, RDW 14.9, Plt Count 160, MPV 13.8 H, Neut % (Auto) 68.4, Lymph % (Auto) 20.6, [place] % (Auto) 8.7, Eos % (Auto) 1.6, Baso % (Auto) 0.4, Neut # (Auto) 5.3, Lymph # (Auto) 1.6, [place] # (Auto) 0.7, Eos # (Auto) 0.1, Baso # (Auto) 0.0, Sodium 145, Potassium 3.6, Chloride 110 H, Carbon Dioxide 28, Anion Gap 10.6, BUN 33 H, Creatinine 0.80, Estimated Creat Clear 50, Estimated GFR 70, Est GFR ( Amer) 85, Glucose 282 H D, Calcium 9.6, Magnesium 2.2, Total Bilirubin 0.3, AST 70 H, ALT 134 H, Alkaline Phosphatase 75, Total Protein 7.1, Albumin 4.0, Globulin 3.1, Albumin/Globulin Ratio 1.3 I & O for Last 24 hours: Intake & Output 07/26/24 07/27/24 07/28/24 07/29/24 23:59 23:59 23:59 23:59 Intake Total 100 / 320 144 / 2016 1742 / 2467 1140 / 1140 Output Total 0 / 0 230 / 230 1100 / 1100 0 / 0 Balance 100 / 320 1219 / 1787 642 / 1367 1140 / 1140 Weight 62.5 kg 64.864 kg 63.775 kg 63.775 kg Microbiology Reports for the Last 24 Hours: Microbiology 07/26/24 07:10 Urine,Catheterized Urine Culture - Final 07/26/24 07:06 Blood Blood Culture - Preliminary NO GROWTH AFTER 48 HOURS 07/26/24 07:06 Blood Blood Culture - Preliminary NO GROWTH AFTER 48 HOURS Constitutional Constitutional: no acute distress, chronically ill appearing and cooperative Comments: alert awake, not following commands, at patient baseline; making eye contact *Routine HEENT Exam Head: Present normocephalic Eye: Present EOMI and PERRL ENT: Present mucous membranes moist *Routine Neck Exam Neck: Present supple; Absent lymphadenopathy *Routine Respiratory Exam Respiratory: Present CTA bilaterally; Absent rhonchi, wheezes or crackles *Routine Cardiovascular Exam Cardiovascular: Present RRR *Routine Abdominal Exam Abdominal: Present soft and normoactive bowel sounds; Absent tenderness Comments: G-tube in place *Routine Rectal Exam Patient deferred: visual exam *Routine Exam Patient deferred: external exam Comments: Rodriguez in place *Routine Extremities Exam Extremities: Absent cyanosis, clubbing or edema Comments: Contracture, loss of muscle mass *Routine Skin Exam Skin: Present intact and warm; Absent rash *Routine Neurological Exam Neurological: Present alert Comments: she has weakness from previous strokes, at baseline mentation. Functional quadriplegia Results Data Completed and Pending Labs on day of discharge: Labs from last 24 hours 07/29/24 07/29/24 07/29/24 06:44 05:13 00:40 WBC 7.7 RBC 3.82 L Hgb 11.2 L Hct 35.7 L MCV 93.5 MCH 29.3 MCHC 31.4 L RDW 14.9 Plt Count 160 MPV 13.8 H Neut % (Auto) 68.4 Lymph % (Auto) 20.6 [place] % (Auto) 8.7 Eos % (Auto) 1.6 Baso % (Auto) 0.4 Neut # (Auto) 5.3 Lymph # (Auto) 1.6 [place] # (Auto) 0.7 Eos # (Auto) 0.1 Baso # (Auto) 0.0 Sodium 145 Potassium 3.6 Chloride 110 H Carbon Dioxide 28 Anion Gap 10.6 BUN 33 H Creatinine 0.80 Estimated Creat Clear 50 Estimated GFR 70 Est GFR ( Amer) 85 Glucose 282 H D POC Glucose 308 H* Calcium 9.6 Magnesium 2.2 Total Bilirubin 0.3 AST 70 H ALT 134 H Alkaline Phosphatase 75 Troponin I < 0.01 Total Protein 7.1 Albumin 4.0 Globulin 3.1 Albumin/Globulin Ratio 1.3 07/28/24 07/28/24 07/28/24 21:12 17:20 15:50 WBC RBC Hgb Hct MCV MCH MCHC RDW Plt Count MPV Neut % (Auto) Lymph % (Auto) [place] % (Auto) Eos % (Auto) Baso % (Auto) Neut # (Auto) Lymph # (Auto) [place] # (Auto) Eos # (Auto) Baso # (Auto) Sodium 151 H* Potassium 4.3 Chloride 113 H Carbon Dioxide 32 H Anion Gap 10.3 BUN 38 H Creatinine 0.70 Estimated Creat Clear 50 Estimated GFR 82 Est GFR ( Amer) 99 Glucose 222 H D POC Glucose 210 H 259 H Calcium 9.6 Magnesium Total Bilirubin AST ALT Alkaline Phosphatase Troponin I Total Protein Albumin Globulin Albumin/Globulin Ratio 07/28/24 11:14 WBC RBC Hgb Hct MCV MCH MCHC RDW Plt Count MPV Neut % (Auto) Lymph % (Auto) [place] % (Auto) Eos % (Auto) Baso % (Auto) Neut # (Auto) Lymph # (Auto) [place] # (Auto) Eos # (Auto) Baso # (Auto) Sodium Potassium Chloride Carbon Dioxide Anion Gap BUN Creatinine Estimated Creat Clear Estimated GFR Est GFR ( Amer) Glucose POC Glucose 277 H Calcium Magnesium Total Bilirubin AST ALT Alkaline Phosphatase Troponin I Total Protein Albumin Globulin Albumin/Globulin Ratio Preliminary micro results at discharge 07/26/24 07:06 Blood Culture - Preliminary Blood NO GROWTH AFTER 48 HOURS 07/26/24 07:06 Blood Culture - Preliminary Blood NO GROWTH AFTER 48 HOURS DS: Diagnosis Discharge Diagnosis (1) Severe sepsis: Status: Resolved Code(s): A41.9 - Sepsis, unspecified organism; R65.20 - Severe sepsis without septic shock (2) Acute renal failure: Status: Acute Code(s): N17.9 - Acute kidney failure, unspecified (3) Metabolic encephalopathy: Status: Acute Code(s): G93.41 - Metabolic encephalopathy (4) Acute uremia: Status: Acute Code(s): N19 - Unspecified kidney failure (5) Hypernatremia: Status: Acute Code(s): E87.0 - Hyperosmolality and hypernatremia (6) Bacteremia due to Enterobacter species: Status: Ruled-out Code(s): R78.81 - Bacteremia; B96.89 - Other specified bacterial agents as the cause of diseases classified elsewhere (7) Acute UTI: Status: Acute Code(s): N39.0 - Urinary tract infection, site not specified (8) Pyelonephritis: Status: Acute Code(s): N12 - Tubulo-interstitial nephritis, not specified as acute or chronic (9) Hyperkalemia: Status: Resolved Code(s): E87.5 - Hyperkalemia (10) Altered mental status: Status: Acute Code(s): R41.82 - Altered mental status, unspecified Qualifiers: Altered mental status type: unspecified Qualified Code(s): R41.82 - Altered mental status, unspecified (11) Functional quadriplegia: Status: Chronic Code(s): R53.2 - Functional quadriplegia (12) Sinus tachycardia: Status: Acute Code(s): R00.0 - Tachycardia, unspecified (13) DM (diabetes mellitus): Status: Acute Code(s): E11.9 - Type 2 diabetes mellitus without complications Qualifiers: Diabetes mellitus complication status: without complication 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: without half-way use Diabetes mellitus type: type 2 Qualified Code(s): E11.9 - Type 2 diabetes mellitus without complications Meds Home Medications and Allergies Home Medications ?Medication ?Instructions ?Recorded ?Confirmed ?Type apixaban 5 mg tablet 5 mg feeding tube BID 08/24/23 07/26/24 History hydralazine 50 mg tablet 50 mg feeding tube TID 08/24/23 07/26/24 History lisinopril 40 mg tablet 40 mg feeding tube DAILY 09/16/23 07/26/24 History ferrous sulfate 300 mg (60 mg 156 mg feeding tube DAILY 04/25/24 07/26/24 History iron)/5 mL oral liquid lactulose 10 gram/15 mL oral 30 ml feeding tube BID Constipation 04/25/24 07/26/24 History solution omeprazole 40 mg capsule,delayed 40 mg feeding tube DAILY 04/25/24 07/26/24 History release dimethicone 5 % topical cream 1 applic topical TID 06/10/24 07/26/24 History gabapentin 300 mg capsule 300 mg feeding tube TID 06/10/24 07/26/24 History hydrocodone 10 mg-acetaminophen 1 tab feeding tube QID 06/10/24 07/26/24 History 325 mg tablet metoprolol tartrate 50 mg tablet 50 mg feeding tube DAILY 06/10/24 07/26/24 History nitrofurantoin macrocrystal 100 mg 100 mg PO HS #30 caps 06/12/24 07/26/24 Rx capsule acetaminophen 500 mg tablet 500 mg feeding tube Q6HP PRN Mild 07/26/24 07/27/24 History Pain (Scale Score 1-4) amlodipine 5 mg tablet 5 mg feeding tube DAILY 07/26/24 07/26/24 History carvedilol 25 mg tablet 25 mg feeding tube BID 07/26/24 07/26/24 History diltiazem HCl 60 mg tablet 60 mg feeding tube QID 07/26/24 07/26/24 History metformin 500 mg tablet 500 mg feeding tube DAILY 07/26/24 07/26/24 History insulin glargine 100 unit/mL (3 25 unit (0.25 mL) SQ HS 30 days 07/29/24 Rx mL) subcutaneous pen (Lantus #15 mL Solostar U-100 Insulin) New Prescriptions to Start Prescriptions: insulin glargine [Lantus Solostar U-100 Insulin] Jayce Martinez Allergies Allergy/AdvReac Type Severity Reaction Status Date / Time Sulfa (Sulfonamide AdvReac Unknown Verified 05/16/24 13:57 Antibiotics) allergy reaction Discharge Plan Disposition Patient Disposition: er Intermediate Care Fac Condition: Fair Discharge Order Discharge Orders: Discharge Order (Routine); Ordered 07/29/24 Ordered By: Jayce Martinez Follow up Plan Prescriptions/Medication Reconciliation: New insulin glargine [Lantus Solostar U-100 Insulin] 100 unit/mL (3 mL) Insulin Pen 25 unit SQ HS 30 Days Qty: 15 0RF Continued apixaban 5 mg tablet 5 mg feeding tube BID hydralazine 50 mg tablet 50 mg feeding tube TID lisinopril 40 mg tablet 40 mg feeding tube DAILY omeprazole 40 mg Capsule,Delayed Release(Dr/Ec) 40 mg feeding tube DAILY ferrous sulfate 300 mg (60 mg iron)/5 mL Liquid 156 mg feeding tube DAILY lactulose 10 gram/15 mL Solution 30 ml feeding tube BID metoprolol tartrate 50 mg Tablet 50 mg feeding tube DAILY Rx Instructions: HOLD IF HR LESS THAN 60 dimethicone 5 % Cream 1 applic TOPICAL TID Rx Instructions: APPLY QSHIFT TO SACRUM hydrocodone-acetaminophen 10-325 mg tablet 1 tab feeding tube QID gabapentin 300 mg capsule 300 mg feeding tube TID nitrofurantoin macrocrystal 100 mg capsule 100 mg PO HS Qty: 30 0RF Rx Instructions: Initiate for UTI prophylaxis. must administer with a meal/food amlodipine 5 mg tablet 5 mg feeding tube DAILY acetaminophen 500 mg tablet 500 mg feeding tube Q6HP PRN (Reason: Mild Pain (Scale Score 1-4)) carvedilol 25 mg tablet 25 mg feeding tube BID diltiazem HCl 60 mg tablet 60 mg feeding tube QID metformin 500 mg tablet 500 mg feeding tube DAILY Problem Reconciliation Problems Reviewed?: Yes Patient Discharge Instructions ACTIVITY: Continue current activity DIET: continue same diet Patient Instructions: DI for Urinary Tract Infection (UTI), DI for Hyperkalemia, DI for Hypernatremia, DI for Sepsis -- Adult Print Language: Urdu Providers Primary Care Provider: Provider,Referral Admit Provider: Jayce Martinez Attending Provider: Jayce Martinez
[2024-07-29 17:07] LABS: POC Glucose,Bedside 262 (70-110)
[2024-07-29 18:15] LABS: POC Glucose,Bedside 164 (70-110)
== END 2024-07-29 18:33 | DRG 871 ==
LOC: ER 06:51 → 2ND 10:33
PROVIDERS: Internal Medicine; Nurse Practitioner Family; Admitting Provider Internal Medicine Adolescent Medicine; Emergency Provider Emergency Medicine; Visit Provider Internal Medicine Adolescent Medicine
DX: A41.9 Sepsis, unspecified organism (principal); G93.41 Metabolic encephalopathy; R53.2 Functional quadriplegia; N17.9 Acute kidney failure, unspecified; E87.0 Hyperosmolality and hypernatremia; N12 Tubulo-interstitial nephritis, not specified as acute or chronic; Z43.1 Encounter for attention to gastrostomy; R65.20 Severe sepsis without septic shock; N19 Unspecified kidney failure; B96.89 Other specified bacterial agents as the cause of diseases classified elsewhere; E87.5 Hyperkalemia; E11.65 Type 2 diabetes mellitus with hyperglycemia; B96.20 Unspecified Escherichia coli [E. coli] as the cause of diseases classified elsewhere; Z66 Do not resuscitate; I69.30 Unspecified sequelae of cerebral infarction; Z74.01 Bed confinement status
CPT/HCPCS: 36415; 36569; 70450; 71045; 71260; 74177; 80048; 80053; 81001; 82009; 82803; 82962; 83605; 83735; 84484; 85025; 85610; 87040; 87086; 87631; 93005; 99285; C1751; J0696; J1920; J2060; J2185; J2270; J7060; J7120; Q9967

== ENCOUNTER 2024-08-15 18:33 | Observation (INO) | payer MEDICARE, MEDICAID, SELFPAY ==
[2024-08-15] VITALS (11 sets, daily range): BP systolic 122–165; BP diastolic 56–100; PULSE 89–98; RESP 22–24; TEMP 36.9–37.2; O2SAT 93–100; BMI 25.0; BMI 25.5
--- NOTE | 2024-08-15 18:38 | ED_ITS ---
<Statement entered by Sabina Anders DO - 08/16/24 00:03> I was consulted by the KAYLAN, and we discussed the complexity of the problems being addressed. I approved the treatment and management plan for this patient's care in the emergency department, thus performing a substantive portion of the medical decision making. Sabina Anders DO Discharge Plan Disposition Patient Disposition: Admitted Condition: Fair Clinical Impressions Clinical Impression: Acute on chronic hypoxic respiratory failure, Acute exacerbation of CHF (congestive heart failure), Asthma exacerbation in COPD Discharge ED Provider: Sabina Anders HPI <JOÃO Lopez - Last Filed: 08/15/24 21:25> General Chief Complaint: Shortness of Breath/Dyspnea Stated Complaint: WEAKNESS Time Seen by Provider: 08/15/24 18:38 History of Present Illness HPI narrative: Patient presents from a local care home for reported shortness of breath/dyspnea. Patient is nonverbal and can provide no meaningful history. All of the report comes from EMS and the nurses report from the care home. Patient reportedly has had increased work of breathing shortness of breath and possibly febrile. Patient has a PEG tube and gets tube feeds as well. She is a survivor of a stroke and but has functional quadriplegia. The rest of her review of systems is unobtainable due to the patient's mental and functional status. Related Data Home Medications ?Medication ?Instructions ?Recorded ?Confirmed apixaban 5 mg tablet 5 mg feeding tube BID 08/24/23 07/26/24 hydralazine 50 mg tablet 50 mg feeding tube TID 08/24/23 07/26/24 lisinopril 40 mg tablet 40 mg feeding tube DAILY 09/16/23 07/26/24 ferrous sulfate 300 mg (60 mg 156 mg feeding tube DAILY 04/25/24 07/26/24 iron)/5 mL oral liquid lactulose 10 gram/15 mL oral 30 ml feeding tube BID Constipation 04/25/24 07/26/24 solution omeprazole 40 mg capsule,delayed 40 mg feeding tube DAILY 04/25/24 07/26/24 release dimethicone 5 % topical cream 1 applic topical TID 06/10/24 07/26/24 gabapentin 300 mg capsule 300 mg feeding tube TID 06/10/24 07/26/24 hydrocodone 10 mg-acetaminophen 1 tab feeding tube QID 06/10/24 07/26/24 325 mg tablet metoprolol tartrate 50 mg tablet 50 mg feeding tube DAILY 06/10/24 07/26/24 acetaminophen 500 mg tablet 500 mg feeding tube Q6HP PRN Mild 07/26/24 07/27/24 Pain (Scale Score 1-4) amlodipine 5 mg tablet 5 mg feeding tube DAILY 07/26/24 07/26/24 carvedilol 25 mg tablet 25 mg feeding tube BID 07/26/24 07/26/24 diltiazem HCl 60 mg tablet 60 mg feeding tube QID 07/26/24 07/26/24 metformin 500 mg tablet 500 mg feeding tube DAILY 07/26/24 07/26/24 Previous Rx's ?Medication ?Instructions ?Recorded nitrofurantoin macrocrystal 100 mg 100 mg PO HS #30 caps 06/12/24 capsule amino acids-protein hydrolysate 17 1 ea feeding tube BID 30 days 07/29/24 gram-100 kcal/30 mL liquid packet #2,880 mL (Pro-Stat AWC) insulin glargine 100 unit/mL (3 25 unit (0.25 mL) SQ HS 30 days 07/29/24 mL) subcutaneous pen (Lantus #15 mL Solostar U-100 Insulin) Allergies Allergy/AdvReac Type Severity Reaction Status Date / Time Sulfa (Sulfonamide AdvReac Unknown Verified 05/16/24 13:57 Antibiotics) allergy reaction [facility] <JOÃO Lopez - Last Filed: 08/15/24 21:25> [facility] Disclaimer: The information contained in this section may have been updated after the patient was seen, as this information can be updated by other users. Medical History (Updated 08/15/24 @ 20:53 by OJÃO Lopez) HTN (hypertension) Atrial fibrillation GERD (gastroesophageal reflux disease) Neuropathy Type 2 diabetes mellitus COPD (chronic obstructive pulmonary disease) E coli bacteremia Hypertensive urgency Hypertensive emergency Anemia Sacral decubitus ulcer, stage IV Acute UTI Cellulitis of arm, right Sepsis Encounter for feeding tube placement Hyponatremia Cerebral edema Brain compression Structural encephalopathy Dysphagia Pressure ulcer MALIK (acute kidney injury) Stroke Gastroesophageal reflux disease DM (diabetes mellitus) HLD (hyperlipidemia) HHD (hypertensive heart disease) Hypokalemia Family History No significant family history Social History (Updated 07/26/24 @ 11:32 by Tammy Damico RN) Smoking Status: Never smoker alcohol intake: never substance use type: denies use current occupational status: disabled Travel in the last 8 weeks: None Have you lived/traveled outside [place] in past 30 days?: No Contact w/someone who lives/traveled outside US past 30 days?: No Exposure to someone with infectious disease in past 14 days?: No Do you have a fever (greater than 100.4 F or 38 C)?: No Have you tested positive for COVID-19: No Exposed to someone with COVID-19 in past 14 days?: No Do you have a sore throat?: No Do you have a cough?: No Do you have any weakness?: No Do you have any diarrhea?: No Are you experiencing any unusual bleeding?: No Do you have any muscle aches/pain?: No Do you have any abdominal pain?: No Are you experiencing loss of taste or smell?: No Other Medical History Have you received the Flu Vaccine for this season: No Have you received the Pneumonia Vaccine: No <JOÃO Lopez - Last Filed: 08/15/24 21:25> ROS Obtained: Yes Systems reviewed as appropriate & no additional complaints except as documented Physical Exam <JOÃO Lopez - Last Filed: 08/15/24 21:25> General General appearance: alert (But unable to follow commands) and in no apparent distress Respiratory Respiratory exam: Absent normal lung sounds bilaterally (Patient has coarse breath sounds, right greater than left with diminished breath sounds at the right base no wheezes however) or respiratory distress Cardiovascular Cardiovascular exam: Present regular rate Neurological Exam Neurological exam: Present alert; Absent oriented X3 HEART Score <JOÃO Lopez Last Filed: 08/15/24 21:25> HEART Score HEART Score assessment performed?: Yes History (anamnesis): Slightly suspicious ECG: Non-specific disturbance Age: >65 years Risk factors: Atherosclerosis history Troponin: </= normal limit HEART Score: 5 Critical Care <JOÃO Lopez Last Filed: 08/15/24 21:25> Critical Care Time Critical Care Time: Yes Attestation: On 08/15/24, the high probability of a clinically significant, sudden or life threatening deterioration of the following system: Cardiac, pulmonary; required my full and direct attention, intervention and personal management. The time I documented below is in addition to time spent performing reported procedures but includes the following listed in this critical care notation. Total Time Total Critical Care Time: 30 Medical Decision Making <JOÃO Lopez - Last Filed: 08/15/24 21:25> Medical Records Medical records reviewed: Yes I reviewed the patient's medical records. Rafita Inquiry Pt receiving controlled substance: No Vital Signs Vital Signs: 08/15/24 18:39 08/15/24 19:00 Temperature 99.0 F Temperature Source Oral Pulse Rate 89 Pulse Rate [Right Radial] 98 H Respiratory Rate 22 Blood Pressure 125/63 Blood Pressure [Right Arm] 165/100 H Blood Pressure Mean 90 Blood Pressure Mean [Right Arm] 121 Blood Pressure Source [Right Arm] Automatic Cuff Blood Pressure Position [Right Arm] Sitting 02 Sat by Pulse Oximetry 100 95 Oxygen Delivery Method Room Air Nasal Cannula Oxygen Flow Rate (LPM) 2 Lab Data Lab results reviewed: Yes I reviewed the patient's lab results. Labs: Lab Results 08/15/24 18:40: WBC 8.2, RBC 3.82 L, Hgb 11.0 L, Hct 33.3 L, MCV 87.2, MCH 28.8, MCHC 33.0, RDW 15.2, Plt Count 242, MPV 11.4 H, Neut % (Auto) 61.2, Lymph % (Auto) 18.3, [place] % (Auto) 15.3 H, Eos % (Auto) 4.3, Baso % (Auto) 0.5, Neut # (Auto) 5.0, Lymph # (Auto) 1.5, [place] # (Auto) 1.3 H, Eos # (Auto) 0.4, Baso # (Auto) 0.0, Sodium 137, Potassium 4.1, Chloride 101, Carbon Dioxide 26, Anion Gap 14.1, BUN 21 H, Creatinine 0.60, Estimated Creat Clear 53, Estimated GFR 98, Est GFR ( Amer) 118, Glucose 121 H, Calcium 9.3, Magnesium 1.8, Total Bilirubin 0.3, AST 39 H, ALT 35, Alkaline Phosphatase 52, Troponin I < 0.01, N T-Pro-B Natriuret Pep 316 H, Total Protein 7.3, Albumin 4.2, Globulin 3.1, Albumin/Globulin Ratio 1.4, Procalcitonin 0.055 08/15/24 20:08: Urine Color Yellow, Urine Appearance Clear, Urine pH 7.0, Ur Specific [place] 1.010, Urine Protein Negative, Urine Glucose (UA) Trace, Urine Ketones Negative, Urine Blood Negative, Urine Nitrate Negative, Urine Bilirubin Negative, Urine Urobilinogen 1.0, Ur Leukocyte Esterase Trace, Urine RBC 10-20, Urine WBC 5-10, Ur Squamous Epith Cells 5-10, Calcium Phosphate Cryst 1+, Urine Bacteria 1+ 08/15/24 18:40 08/15/24 18:40 Response Orders (Tests/Meds): ED MEDICATIONS Generic Name Dose Route Start Last Admin Trade Name Freq PRN Reason Stop Dose Admin Acetaminophen 650 mg 08/15/24 21:18 Acetaminophen 325mg Tab PO 09/14/24 21:17 Q4HP PRN Fever or Mild Pain (1-3) Apixaban 5 mg 08/16/24 09:00 Apixaban 5mg Tablet G-TUBE 09/15/24 08:59 BID [facility] Diltiazem HCl 60 mg 08/16/24 09:00 Diltiazem 60mg Tablet G-TUBE 09/15/24 08:59 QID [facility] Furosemide 40 mg 08/16/24 09:00 Furosemide 40mg/4ml Vial IV 09/15/24 08:59 DAILY [facility] Azithromycin 500 mg/ Sodium 250 mls @ 250 mls/hr 08/15/24 20:45 Chloride IV 08/15/24 21:44 ONCE ONE Azithromycin 500 mg/ Sodium 250 mls @ 250 mls/hr 08/16/24 21:15 Chloride IV 08/26/24 21:14 Q24H [facility] Ceftriaxone Sodium 2 gm/ 100 mls @ 200 mls/hr 08/15/24 21:15 Sodium Chloride IV 08/25/24 21:14 Q24H [facility] Insulin Glargine 25 unit 08/16/24 09:00 Insulin Glargine 100 Units/Ml 3ml Flexpen SUBCUT 09/15/24 08:59 DAILY [facility] Insulin Human Lispro 0 unit 08/16/24 06:00 Humalog 100 Units/Ml 10ml Vial (Ssi) SUBCUT 09/15/24 05:59 ACHS [facility] Protocol Ondansetron HCl 4 mg 08/15/24 21:18 Ondansetron 4mg/2ml Vial IV 09/14/24 21:17 Q8HP PRN Nausea Sodium Chloride 3 ml 08/15/24 18:57 Sodium Chloride 3% 15ml [facility] 09/14/24 18:56 ONCE PRN INDUCE SPUTUM [employer]LECTION Discontinued Medications Generic Name Dose Route Start Last Admin Trade Name Freq PRN Reason Stop Dose Admin Acetaminophen 1,000 mg 08/15/24 18:57 08/15/24 20:34 Acetaminophen 1,000mg/100ml Vial IV 08/15/24 18:58 1,000 mg ONCE ONE Administration Albuterol/Ipratropium 9 ml 08/15/24 20:44 Ipratropium/Albuterol 3 Ml [facility] 08/15/24 20:45 ONCE ONE Furosemide 80 mg 08/15/24 20:44 Furosemide 40mg/4ml Vial IV 08/15/24 20:45 ONCE ONE Meropenem 1 gm/ Sodium 100 mls @ 100 mls/hr 08/15/24 20:46 Chloride IV 08/15/24 20:47 ONCE ONE Methylprednisolone Sodium Succinate 80 mg 08/15/24 20:44 Methylprednisolone Sod Succ 125mg Vial IV 08/15/24 20:45 ONCE ONE ORDERS Category Date Time Status Chest XR -- portable [XR chest portable] Stat Exams 08/15/24 18:57 Completed BNP [NT Pro Brain Natriuretic Pep.] Stat Lab 08/15/24 18:40 Completed CBC w/Auto Diff [Complete Blood Count Auto Diff] Stat Lab 08/15/24 18:40 Completed CMP [Comprehensive Metabolic Panel] Stat Lab 08/15/24 18:40 Completed Magnesium Stat Lab 08/15/24 18:40 Completed Mini Respiratory Panel Stat Lab 08/15/24 20:08 Received Procalcitonin Stat Lab 08/15/24 18:40 Completed Troponin I Q3H Lab 08/15/24 23:49 Ordered Troponin I Q3H Lab 08/16/24 02:49 Ordered Troponin I Stat Lab 08/15/24 18:40 Completed UA [Urinalysis and Microscopic] Stat Lab 08/15/24 20:08 Completed Blood Culture Stat Micro 08/15/24 18:47 Received Sputum Culture & Gram Stain Stat Micro 08/15/24 18:57 Ordered MDM Narrative Medical Decision Narrative: In summary patient is a 73-year-old nonverbal female functional quadriplegia previous stroke who presents to the emergency department for evaluation of shortness of breath and dyspnea per the care home report. Patient is initially hypertensive at 165/100 with a pulse of 98 breathing 22 times a minute satting at 100% on room air upon arrival, temperature of 99.0. Physical exam reveals coarse breath sounds and the bilateral lungs, right greater than left with diminished breath sounds at the right base. Patient has normal sinus rhythm on the bedside monitor is satting at 99% on room air currently.. Differential diagnosis includes pneumonia versus aspiration versus UTI versus other viral or bacterial infection etc. Initial workup will be conducted with broad investigation including hematologic labs urinalysis plain film chest x-ray respiratory swabs. Initial interventions include crystalloid bolus and DuoNeb Decadron Tylenol for now. Initial workup reviewed by me shows that her white count is normal and she does not have a left shift CO2 is 26 and her serum NT proBNP is 316 urinalysis shows microscopically 10-20 red cells 5-10 whites 5-10 epithelial cells with 1+ bacteria and my informal interpretation of her plain film chest x-ray shows increased cephalization. Upon repeat evaluation patient is still audibly wheezing and having increased work of breathing without evidence of accessory muscle use. Given that her MARTINEZ is not diagnostically clear I had an interactive discussion with hospital medicine regarding her results and patient management and she will be admitted for further evaluation and care.. <Sabina Anders, DO - Last Filed: 08/15/24 19:00> Vital Signs Vital Signs: 08/15/24 18:39 08/15/24 19:00 Temperature 99.0 F Temperature Source Oral Pulse Rate 89 Pulse Rate [Right Radial] 98 H Respiratory Rate 22 Blood Pressure 125/63 Blood Pressure [Right Arm] 165/100 H Blood Pressure Mean 90 Blood Pressure Mean [Right Arm] 121 Blood Pressure Source [Right Arm] Automatic Cuff Blood Pressure Position [Right Arm] Sitting 02 Sat by Pulse Oximetry 100 95 Oxygen Delivery Method Room Air Nasal Cannula Oxygen Flow Rate (LPM) 2 Lab Data Labs: Lab Results 08/15/24 18:40: WBC 8.2, RBC 3.82 L, Hgb 11.0 L, Hct 33.3 L, MCV 87.2, MCH 28.8, MCHC 33.0, RDW 15.2, Plt Count 242, MPV 11.4 H, Neut % (Auto) 61.2, Lymph % (Auto) 18.3, [place] % (Auto) 15.3 H, Eos % (Auto) 4.3, Baso % (Auto) 0.5, Neut # (Auto) 5.0, Lymph # (Auto) 1.5, [place] # (Auto) 1.3 H, Eos # (Auto) 0.4, Baso # (Auto) 0.0, Sodium 137, Potassium 4.1, Chloride 101, Carbon Dioxide 26, Anion Gap 14.1, BUN 21 H, Creatinine 0.60, Estimated Creat Clear 53, Estimated GFR 98, Est GFR ( Amer) 118, Glucose 121 H, Calcium 9.3, Magnesium 1.8, Total Bilirubin 0.3, AST 39 H, ALT 35, Alkaline Phosphatase 52, Troponin I < 0.01, N T-Pro-B Natriuret Pep 316 H, Total Protein 7.3, Albumin 4.2, Globulin 3.1, Albumin/Globulin Ratio 1.4, Procalcitonin 0.055 08/15/24 20:08: Urine Color Yellow, Urine Appearance Clear, Urine pH 7.0, Ur Specific [place] 1.010, Urine Protein Negative, Urine Glucose (UA) Trace, Urine Ketones Negative, Urine Blood Negative, Urine Nitrate Negative, Urine Bilirubin Negative, Urine Urobilinogen 1.0, Ur Leukocyte Esterase Trace, Urine RBC 10-20, Urine WBC 5-10, Ur Squamous Epith Cells 5-10, Calcium Phosphate Cryst 1+, Urine Bacteria 1+ Response Orders (Tests/Meds): ED MEDICATIONS Generic Name Dose Route Start Last Admin Trade Name Georgeq PRN Reason Stop Dose Admin Acetaminophen 650 mg 08/15/24 21:18 Acetaminophen 325mg Tab PO 09/14/24 21:17 Q4HP PRN Fever or Mild Pain (1-3) Apixaban 5 mg 08/16/24 09:00 Apixaban 5mg Tablet G-TUBE 09/15/24 08:59 BID [facility] Diltiazem HCl 60 mg 08/16/24 09:00 Diltiazem 60mg Tablet G-TUBE 09/15/24 08:59 QID [facility] Furosemide 40 mg 08/16/24 09:00 Furosemide 40mg/4ml Vial IV 09/15/24 08:59 DAILY [facility] Azithromycin 500 mg/ Sodium 250 mls @ 250 mls/hr 08/15/24 20:45 Chloride IV 08/15/24 21:44 ONCE ONE Azithromycin 500 mg/ Sodium 250 mls @ 250 mls/hr 08/16/24 21:15 Chloride IV 08/26/24 21:14 Q24H [facility] Ceftriaxone Sodium 2 gm/ 100 mls @ 200 mls/hr 08/15/24 21:15 Sodium Chloride IV 08/25/24 21:14 Q24H [facility] Insulin Glargine 25 unit 08/16/24 09:00 Insulin Glargine 100 Units/Ml 3ml Flexpen SUBCUT 09/15/24 08:59 DAILY [facility] Insulin Human Lispro 0 unit 08/16/24 06:00 Humalog 100 Units/Ml 10ml Vial (Ssi) SUBCUT 09/15/24 05:59 ACHS [facility] Protocol Ondansetron HCl 4 mg 08/15/24 21:18 Ondansetron 4mg/2ml Vial IV 09/14/24 21:17 Q8HP PRN Nausea Sodium Chloride 3 ml 08/15/24 18:57 Sodium Chloride 3% 15ml [facility] 09/14/24 18:56 ONCE PRN INDUCE SPUTUM [employer]LECTION Discontinued Medications Generic Name Dose Route Start Last Admin Trade Name Freq PRN Reason Stop Dose Admin Acetaminophen 1,000 mg 08/15/24 18:57 08/15/24 20:34 Acetaminophen 1,000mg/100ml Vial IV 08/15/24 18:58 1,000 mg ONCE ONE Administration Albuterol/Ipratropium 9 ml 08/15/24 20:44 Ipratropium/Albuterol 3 Ml [facility] 08/15/24 20:45 ONCE ONE Furosemide 80 mg 08/15/24 20:44 Furosemide 40mg/4ml Vial IV 08/15/24 20:45 ONCE ONE Meropenem 1 gm/ Sodium 100 mls @ 100 mls/hr 08/15/24 20:46 Chloride IV 08/15/24 20:47 ONCE ONE Methylprednisolone Sodium Succinate 80 mg 08/15/24 20:44 Methylprednisolone Sod Succ 125mg Vial IV 08/15/24 20:45 ONCE ONE ORDERS Category Date Time Status Chest XR -- portable [XR chest portable] Stat Exams 08/15/24 18:57 Completed BNP [NT Pro Brain Natriuretic Pep.] Stat Lab 08/15/24 18:40 Completed CBC w/Auto Diff [Complete Blood Count Auto Diff] Stat Lab 08/15/24 18:40 Completed CMP [Comprehensive Metabolic Panel] Stat Lab 08/15/24 18:40 Completed Magnesium Stat Lab 08/15/24 18:40 Completed Mini Respiratory Panel Stat Lab 08/15/24 20:08 Received Procalcitonin Stat Lab 08/15/24 18:40 Completed Troponin I Q3H Lab 08/15/24 23:49 Ordered Troponin I Q3H Lab 08/16/24 02:49 Ordered Troponin I Stat Lab 08/15/24 18:40 Completed UA [Urinalysis and Microscopic] Stat Lab 08/15/24 20:08 Completed Blood Culture Stat Micro 08/15/24 18:47 Received Sputum Culture & Gram Stain Stat Micro 08/15/24 18:57 Ordered ECG Data Tracing #1: Attestation: I reviewed this ECG and interpreted as documented below: ECG Narrative: Normal sinus rhythm with a ventricular of 99 bpm. Nonspecific T wave abnormality but no acute STEMI. Normal axis and intervals. ECG initial impression date: 08/15/24 ECG initial impression time: 18:39
--- NOTE | 2024-08-15 18:40 | ECG_ITS ---
APPROVED REPORT Exam: Resting ECG HR:99 bpm ECG Measurements Heart Rate 99 AXES RI 156 P 72 QRSd 90 QRS 62 QT 338 T 7 QTc 394 Conclusion SINUS RHYTHM NONSPECIFIC T-WAVE ABNORMALITY Isolated T wave inversion in lead III, aVF, no STEMI Electronically signed by : PATRIA KAUFFMAN, 08/16/2024 03:14:11
--- NOTE | 2024-08-15 18:52 | PC.NURSE ---
2 sets of blood cultures sent to lab; blue band placed on left wrist
--- NOTE | 2024-08-15 18:57 | XR_ITS ---
PROCEDURE INFORMATION: Exam: XR Chest Exam date and time: 08/15/2024 7:20 PM Age: 73 years old Clinical indication: Fever TECHNIQUE: Imaging protocol: Radiologic exam of the chest. Views: 1 view. COMPARISON: CR XR CHEST PORTABLE PICC PLAC 07/27/2024 3:52 PM FINDINGS: Lungs: See Pleural spaces finding. Pleural spaces: Hazy opacity in the left hemithorax could represent pleural effusion . Differential includes multifocal pneumonia. Heart/Mediastinum: Unremarkable. No cardiomegaly. Bones/joints: Unremarkable. IMPRESSION: Hazy opacity in the left hemithorax could represent pleural effusion . Differential includes multifocal pneumonia.
[2024-08-15 19:10] LABS: Basophils % 0.5 % (0.1-2.0); Eosinophils # 0.4 K/mm3 (0.0-0.4); Eosinophils % 4.3 % (0.1-12.0); Hematocrit 33.3 % (37.0-47.0); Lymphocytes # 1.5 K/mm3 (0.7-4.5); Lymphocytes % 18.3 % (10-50); Mean Corpuscular Hemoglobin 28.8 pg (27.0-31.2); Mean Corpuscular Volume 87.2 fl (81-99); Mean Platelet Volume 11.4 fl (7.4-10.4); Monocytes # 1.3 K/mm3 (0.1-1.0); Monocytes % 15.3 % (1.7-9.3); Neutrophils % 61.2 % (37.0-80.0); Platelet Count 242 K/mm3 (142-424); Red Blood Count 3.82 M/mm3 (4.20-5.40); Red Cell Distribution Width 15.2 % (11.5-17.5); White Blood Count 8.2 K/mm3 (4.8-10.8)
[2024-08-15 19:20] LABS: Magnesium 1.8 mg/dl (1.6-2.3)
[2024-08-15 19:21] LABS: Alanine Aminotransferase 35 U/L (12-78); Albumin Level 4.2 g/dl (3.5-5.0); Albumin/Globulin Ratio 1.4 (1.1-1.8); Alkaline Phosphatase 52 U/L (38-126); Anion Gap 14.1 mEq/L (5-15); Aspartate Amino Transferase 39 U/L (14-36); Bilirubin,Total 0.3 mg/dl (0.2-1.3); Blood Urea Nitrogen 21 mg/dl (7-17); Calcium 9.3 mg/dl (8.4-10.2); Carbon Dioxide 26 mmol/L (22.0-30.0); Chloride 101 mmol/L (98-107); Creatinine Clearance Estimated 53 mL/min (50-200); Estimated Glomerular Filt Rate 98 ml/min (>60); GFR (African American) 118 ML/MIN (>60); Globulin 3.1 g/dL (1.3-3.2); Glucose 121 mg/dl (74-100); Sodium 137 mmol/L (136-145); Total Protein,Serum 7.3 g/dl (6.3-8.2)
[2024-08-15 19:24] LABS: Potassium 4.1 mmoL/L (3.5-5.1)
[2024-08-15 19:30] LABS: NT Pro Brain Natriuretic Pep. 316 pg/mL (0-125)
[2024-08-15 19:38] LABS: Procalcitonin 0.055 ng/mL (0.0-2.0)
[2024-08-15 20:14] LABS: Coronavirus 19, PCR Not Detected (NotDetected); Human Rhinovirus Not Detected (NotDetected); Influenza A, PCR Not Detected (NotDetected); Influenza B, PCR Not Detected (NotDetected); Microscopic, Urine URINE MICROSCOPIC (MICROSCOPIC); Respiratory Syncytial Virus Not Detected (NotDetected)
[2024-08-15 20:16] LABS: Appearance,Urine CLEAR (Clear); Bilirubin,Urine Negative (Negative); Blood, Urine Negative (Negative); Color,Urine YELLOW (Yellow); Glucose,Urine (UA) TRACE (Negative); Ketones,Urine Negative (Negative); Leukocyte Esterase,Urine TRACE (Negative); Nitrate,Urine Negative (Negative); Protein,Urine Negative (Negative)
[2024-08-15] MEDS: ACETAMINOPHEN 1,000MG/100ML VIAL 1000 MG IV (20:34)
[2024-08-15 20:35] LABS: Bacteria,Urine 1+ /lpf; Calcium Phosphate Crystals,Ur 1+ /lpf
--- NOTE | 2024-08-15 20:52 | PC.NURSE ---
Contacted [employer]cher for admittance of this patient, CHF and COPD exacerbation also acute on chronic hypoxemic Respiratory Failure, Hopsitalist accepting
[2024-08-15 21:18] LABS: Troponin I < 0.01 ng/ml (0.00-0.034)
--- NOTE | 2024-08-15 21:22 | PC.NURSE ---
report called to M[facility] DE [facility] SANTOS
[2024-08-15] MEDS: AZITHROMYCIN 500 MG in 0.9 % SODIUM CHLORIDE 250 ML 250 MG IV (21:28)
[2024-08-15] MEDS: METHYLPREDNISOLONE SOD SUCC 125MG VIAL 80 MG IV (21:28)
[2024-08-15] MEDS: FUROSEMIDE 40MG/4ML VIAL 80 MG IV (21:28)
[2024-08-15] MEDS: IPRATROPIUM/ALBUTEROL 3 ML NEB 9 ML IH (21:30)
--- NOTE | 2024-08-15 21:48 | PC.NURSE ---
Patient arrived to floor via stretcher from ED at 21:45.
[2024-08-15] MEDS: ONDANSETRON 4MG/2ML VIAL 4 MG IV (22:00)
[2024-08-15] MEDS: MEROPENEM 1 GM in 0.9 % SODIUM CHLORIDE 100 ML IV (23:31)
[2024-08-15] MEDS: MAGNESIUM SULFATE IN WATER 20 GM/500 ML IV.SOLN IV (23:34)
[2024-08-15] MEDS: APAP/HYDROCODONE 325MG/7.5MG TAB 1 TAB G-TUBE (23:39)
[2024-08-16] VITALS (13 sets, daily range): BP systolic 118–151; BP diastolic 52–74; PULSE 77–99; RESP 16–22; TEMP 36.7–37; O2SAT 93–100; BMI 25.5
--- NOTE | 2024-08-16 00:06 | P.HP_ITS ---
<Statement entered by Gonzalo Sanchez MD - 08/23/24 10:29> Personally examined patient and agree with the plan of care as outlined by the FORESTRY SCIENTIST. History of Present Illness *Admission Date: 08/15/24 *Reason for visit:: Shortness of breath *History of present illness: This is a 72-year-old female who presented to [facility] with past medical history of stroke with functional quadriplegia, feeding tube dependence, chronic decubitus ulcer, diabetes who presents to the ER for concern for shortness of breath. Patient is nonverbal at baseline send review of systems unable to be obtained. There was concern for increased work of breathing at the retirement as well as possible fever. Emergency department workup notable for pyuria and bacteria in urine. Chest imaging with haziness of the left hemithorax that could represent effusion versus pneumonia. Diffuse wheezing noted on exam. Requiring 2 L nasal cannula which is not typical for patient. Patient normally is on room air. Given her recurrent UTI and acute respiratory failure with hypoxia, she is admitted to the hospital service [facility] Disclaimer: The information contained in this section may have been updated after the patient was seen, as this information can be updated by other users. Medical History (Updated 08/16/24 @ 00:11 by PETAR Bwoman) HTN (hypertension) Atrial fibrillation GERD (gastroesophageal reflux disease) Neuropathy Type 2 diabetes mellitus COPD (chronic obstructive pulmonary disease) E coli bacteremia Hypertensive urgency Hypertensive emergency Anemia Sacral decubitus ulcer, stage IV Acute UTI Cellulitis of arm, right Sepsis Encounter for feeding tube placement Hyponatremia Cerebral edema Brain compression Structural encephalopathy Dysphagia Pressure ulcer MALIK (acute kidney injury) Stroke Gastroesophageal reflux disease DM (diabetes mellitus) HLD (hyperlipidemia) HHD (hypertensive heart disease) Hypokalemia Family History No significant family history Social History (Updated 07/26/24 @ 11:32 by Tammy Damico RN) Smoking Status: Never smoker alcohol intake: never substance use type: denies use current occupational status: disabled Travel in the last 8 weeks: None Have you lived/traveled outside [place] in past 30 days?: No Contact w/someone who lives/traveled outside [place] past 30 days?: No Exposure to someone with infectious disease in past 14 days?: No Do you have a fever (greater than 100.4 F or 38 C)?: No Have you tested positive for COVID-19: No Exposed to someone with COVID-19 in past 14 days?: No Do you have a sore throat?: No Do you have a cough?: No Do you have any weakness?: No Do you have any diarrhea?: No Are you experiencing any unusual bleeding?: No Do you have any muscle aches/pain?: No Do you have any abdominal pain?: No Are you experiencing loss of taste or smell?: No Other Medical History Have you received the Flu Vaccine for this season: No Have you received the Pneumonia Vaccine: No Review of Systems Review of Systems Review of systems:: unable to obtain Meds Home Medications and Allergies Home Medications ?Medication ?Instructions ?Recorded ?Confirmed ?Type apixaban 5 mg tablet 5 mg feeding tube BID 08/24/23 07/26/24 History hydralazine 50 mg tablet 50 mg feeding tube TID 08/24/23 07/26/24 History lisinopril 40 mg tablet 40 mg feeding tube DAILY 09/16/23 07/26/24 History ferrous sulfate 300 mg (60 mg 156 mg feeding tube DAILY 04/25/24 07/26/24 History iron)/5 mL oral liquid lactulose 10 gram/15 mL oral 30 ml feeding tube BID Constipation 04/25/24 07/26/24 History solution omeprazole 40 mg capsule,delayed 40 mg feeding tube DAILY 04/25/24 07/26/24 His tory release dimethicone 5 % topical cream 1 applic topical TID 06/10/24 07/26/24 History gabapentin 300 mg capsule 300 mg feeding tube TID 06/10/24 07/26/24 History hydrocodone 10 mg-acetaminophen 1 tab feeding tube QID 06/10/24 07/26/24 History 325 mg tablet metoprolol tartrate 50 mg tablet 50 mg feeding tube DAILY 06/10/24 07/26/24 History nitrofurantoin macrocrystal 100 mg 100 mg PO HS #30 caps 06/12/24 07/26/24 Rx capsule acetaminophen 500 mg tablet 500 mg feeding tube Q6HP PRN Mild 07/26/24 07/27/24 History Pain (Scale Score 1-4) amlodipine 5 mg tablet 5 mg feeding tube DAILY 07/26/24 07/26/24 History carvedilol 25 mg tablet 25 mg feeding tube BID 07/26/24 07/26/24 History diltiazem HCl 60 mg tablet 60 mg feeding tube QID 07/26/24 07/26/24 History metformin 500 mg tablet 500 mg feeding tube DAILY 07/26/24 07/26/24 History amino acids-protein hydrolysate 17 1 ea feeding tube BID 30 days 07/29/24 Rx gram-100 kcal/30 mL liquid packet #2,880 mL (Pro-Stat AWC) insulin glargine 100 unit/mL (3 25 unit (0.25 mL) SQ HS 30 days 07/29/24 Rx mL) subcutaneous pen (Lantus #15 mL Solostar U-100 Insulin) New Prescriptions to Start Prescriptions: Allergies Allergy/AdvReac Type Severity Reaction Status Date / Time Sulfa (Sulfonamide AdvReac Unknown Verified 05/16/24 13:57 Antibiotics) allergy reaction Exam Data for Last 24 hours Vital signs and Labs for Last 24 Hours: Temp Pulse Resp BP Pulse Ox O2 Del Method O2 Flow Rate 98.4 F 93 H 24 136/70 98 Nasal Cannula 2 08/15/24 21:45 08/15/24 21:50 08/15/24 21:45 08/15/24 21:45 08/15/24 21:45 08/15/24 21:45 08/15/24 21:45 Laboratory Results - last 24 hr 08/15/24 18:40: WBC 8.2, RBC 3.82 L, Hgb 11.0 L, Hct 33.3 L, MCV 87.2, MCH 28.8, MCHC 33.0, RDW 15.2, Plt Count 242, MPV 11.4 H, Neut % (Auto) 61.2, Lymph % (Auto) 18.3, [place] % (Auto) 15.3 H, Eos % (Auto) 4.3, Baso % (Auto) 0.5, Neut # (Auto) 5.0, Lymph # (Auto) 1.5, [place] # (Auto) 1.3 H, Eos # (Auto) 0.4, Baso # (Auto) 0.0, Sodium 137, Potassium 4.1, Chloride 101, Carbon Dioxide 26, Anion Gap 14.1, BUN 21 H, Creatinine 0.60, Estimated Creat Clear 53, Estimated GFR 98, Est GFR ( Amer) 118, Glucose 121 H, Calcium 9.3, Magnesium 1.8, Total Bilirubin 0.3, AST 39 H, ALT 35, Alkaline Phosphatase 52, Troponin I < 0.01, NT-Pro-B Natriuret Pep 316 H, Total Protein 7.3, Albumin 4.2, Globulin 3.1, Albumin/Globulin Ratio 1.4, Procalcitonin 0.055 08/15/24 20:08: Urine Color Yellow, Urine Appearance Clear, Urine pH 7.0, Ur Specific [place] 1.010, Urine Protein Negative, Urine Glucose (UA) Trace, Urine Ketones Negative, Urine Blood Negative, Urine Nitrate Negative, Urine Bilirubin Negative, Urine Urobilinogen 1.0, Ur Leukocyte Esterase Trace, Urine RBC 10-20, Urine WBC 5-10, Ur Squamous Epith Cells 5-10, Calcium Phosphate Cryst 1+, Urine Bacteria 1+, SARS-CoV-2 (PCR) Not detected, Influenza Type A (PCR) Not detected, Influenza Type B (PCR) Not detected, RSV (PCR) Not detected, Rhinovirus (PCR) Not detected I & O for Last 24 hours: Intake & Output 08/13/24 08/14/24 08/15/24 08/16/24 23:59 23:59 23:59 23:59 Weight 69.49 kg Constitutional Constitutional: no acute distress *Routine HEENT Exam Head: Present normocephalic Eye: Present EOMI and PERRL ENT: Present mucous membranes moist *Routine Neck Exam Neck: Present supple; Absent lymphadenopathy *Routine Respiratory Exam Respiratory: Present CTA bilaterally *Routine Cardiovascular Exam Cardiovascular: Present RRR *Routine Abdominal Exam Abdominal: Present soft and normoactive bowel sounds; Absent tenderness Comments: PEG tube in situ *Routine Rectal Exam Rectal:: deferred *Routine Genitalia Exam Genitalia:: deferred *Routine Extremities Exam Extremities: Absent cyanosis, clubbing or edema *Routine Skin Exam Skin: Present warm; Absent rash Comments: Seen in bed in media. Stage I ulcer to the coccyx *Routine Neurological Exam Neurological: Present alert Comments: Nonverbal at baseline. Moves upper extremities voluntarily Assessment and Plan *Assessment and plan (1) Asthma exacerbation in COPD: Status: Acute Category: Medical Code(s): J44.1 - Chronic obstructive pulmonary disease with (acute) exacerbation (2) Acute exacerbation of CHF (congestive heart failure): Status: Acute Qualifiers: Heart failure type: unspecified Qualified Code(s): I50.9 - Heart failure, unspecified Category: Medical Code(s): I50.9 - Heart failure, unspecified (3) Acute on chronic hypoxic respiratory failure: Status: Acute Category: Medical Code(s): J96.21 - Acute and chronic respiratory failure with hypoxia (4) Functional quadriplegia: Status: Chronic Category: Medical Code(s): R53.2 - Functional quadriplegia (5) DM (diabetes mellitus): Status: Acute Qualifiers: Diabetes mellitus type: type 2 Diabetes mellitus watcher [employer]at [employer] goods insulin use: without watcher [employer] goods use Diabetes mellitus complication status: without complication Qualified Code(s): E11.9 - Type 2 diabetes mellitus without complications Category: Medical Code(s): E11.9 - Type 2 diabetes mellitus without complications (6) Acute cystitis: Status: Acute Category: Medical Code(s): N30.00 - Acute cystitis without hematuria Plan #Acute cystitis History of ESBL -Has been admitted multiple times in the past 4 months with urinary tract infections. Cultures have grown Pseudomonas and E. coli with ESBL. Will continue meropenem 1 g every 12 hours based on kidney function and severity of illness and previous sensitivities -Urine culture and blood culture still pending #Acute respiratory failure with hypoxia Does not appear to have formal diagnosis of COPD but significant wheezing noted New oxygen requirement of 2 L. Patient does not wear oxygen at baseline. Left-sided hazy opacity pneumonia versus pleural effusion Will schedule Lasix, strict intake and output Continue broad-spectrum antibiotic coverage with Merrem and azithromycin Sputum culture if able Continue bronchodilators and corticosteroids Respiratory pathogen panel pending, initial COVID and flu negative #T2DM Continue long-acting and sliding scale insulin #Chronic pain Continue hydrocodone #History of CVA Continue Eliquis #PEG tube in situ Nutrition consult for PEG tube feedings All meds per PEG
[2024-08-16 00:46] LABS: Troponin I < 0.01 ng/ml (0.00-0.034)
[2024-08-16] MEDS: IPRATROPIUM/ALBUTEROL 3 ML NEB IH ×6 (01:57→23:03)
[2024-08-16 03:21] LABS: Adenovirus,PCR Not Detected (NotDetected); Bordetella Pertussis Not Detected (NotDetected); Chlamydophila Pneumoniae, PCR Not Detected (NotDetected); Coronavirus 19, PCR Not Detected (NotDetected); Coronavirus 229E Not Detected (NotDetected); Coronavirus NL63 Not Detected (NotDetected); Coronavirus OC43 Not Detected (NotDetected); Coronovirus HKU1,PCR Not Detected (NotDetected); Influenza A, PCR Not Detected (NotDetected); Influenza AH1, 2009 Not Detected (NotDetected); Influenza AH1, PCR Not Detected (NotDetected); Influenza AH3,PCR Not Detected (NotDetected); Influenza B, PCR Not Detected (NotDetected); Mycoplasma Pneumoniae, PCR Not Detected (NotDetected); Parainfluenza 1, PCR Not Detected (NotDetected); Parainfluenza 2, PCR Not Detected (NotDetected); Parainfluenza 3, PCR Not Detected (NotDetected); Parainfluenza 4, PCR Not Detected (NotDetected); Respiratory Syncytial Virus Not Detected (NotDetected); Rhinovirus/Enterovirus Not Detected (NotDetected)
[2024-08-16 03:44] LABS: Troponin I < 0.01 ng/ml (0.00-0.034)
[2024-08-16] MEDS: humaLOG 100 UNITS/ML 10ML VIAL (SSI) SUBCUT ×4 (05:37→21:07)
[2024-08-16 06:01] LABS: POC Glucose,Bedside 245 (70-110)
[2024-08-16] MEDS: SODIUM CHLORIDE 3% 15ML NEB 3 ML IH (06:03)
[2024-08-16 06:46] LABS: Human Metapneumovirus Detected (NotDetected)
--- NOTE | 2024-08-16 07:00 | XR_ITS ---
FINAL REPORT CLINICAL HISTORY: Shortness of breath COMPARISON: 08/15/2024 FINDINGS: No acute pulmonary opacity is present. There is no evidence of effusion or pneumothorax. Mediastinum is unremarkable. Heart size is normal. IMPRESSION: No acute abnormality, similar to prior exam. Reviewed, Interpreted and Dictated by Chalino Ernandez MD Transcribed by Jodi Young Authenticated and [facility]
[2024-08-16 07:19] LABS: Alanine Aminotransferase 35 U/L (12-78); Albumin Level 4.1 g/dl (3.5-5.0); Albumin/Globulin Ratio 1.3 (1.1-1.8); Alkaline Phosphatase 67 U/L (38-126); Aspartate Amino Transferase 31 U/L (14-36); Bilirubin,Total 0.2 mg/dl (0.2-1.3); Blood Urea Nitrogen 21 mg/dl (7-17); Calcium 8.9 mg/dl (8.4-10.2); Carbon Dioxide 27 mmol/L (22.0-30.0); Chloride 98 mmol/L (98-107); Creatinine Clearance Estimated 54 mL/min (50-200); Estimated Glomerular Filt Rate 82 ml/min (>60); GFR (African American) 99 ML/MIN (>60); Globulin 3.1 g/dL (1.3-3.2); Glucose 242 mg/dl (74-100); Phosphorous 5.3 mg/dl (2.5-4.5); Sodium 136 mmol/L (136-145); Total Protein,Serum 7.2 g/dl (6.3-8.2)
[2024-08-16 08:03] LABS: Magnesium 4.6 mg/dl (1.6-2.3)
[2024-08-16 08:03] LABS: Anion Gap 14.2 mEq/L (5-15); Potassium 3.2 mmoL/L (3.5-5.1)
[2024-08-16 08:20] LABS: Procalcitonin 0.058 ng/mL (0.0-2.0)
[2024-08-16] MEDS: dilTIAZem 60MG TABLET 60 MG G-TUBE ×4 (08:21→20:58)
[2024-08-16] MEDS: APIXABAN 5MG TABLET 5 MG G-TUBE ×2 (08:21→20:58)
[2024-08-16] MEDS: FUROSEMIDE 40MG/4ML VIAL 40 MG IV (08:21)
[2024-08-16] MEDS: INSULIN GLARGINE 100 UNITS/ML 3ML FLEXPEN 25 UNIT SUBCUT (08:29)
[2024-08-16 08:40] LABS: POC Glucose,Bedside 224 (70-110)
--- NOTE | 2024-08-16 09:32 | SW/DCPLANNER ---
Addendum entered by Minerva Joya 08/17/24 10:35: I have updated Maira harper/ [facility] that patient will return today ICF level of care. Original Note: This patient currently resides at [facility] ICF level of care. I will continue to update Maira w/ [facility] until patient is medically stable for discharge. Discharge date is unknown at this time.
--- NOTE | 2024-08-16 09:35 | DIET.NUTRFU ---
start TF at glucerna 20ml/hr and increase to 77ml/hr to [id number], 77gm protein and 1402ml formula water. Start Prostat AWC through tube for additional support in wound healing. Flush with 100ml Q6H= 400ml water+[id number] total fluid (30ml/kg).
--- NOTE | 2024-08-16 10:46 | HMH.PHAINT1 ---
Pharmacy Intervention Comments: VERIFIED AND CONFIRMED WITH OUTPATIENT PHARMACY. PATIENT UNABLE TO COMMUNICATE.
--- NOTE | 2024-08-16 10:50 | CT_ITS ---
FINAL REPORT CLINICAL HISTORY: SOB COMPARISON: 07/26/2024 FINDINGS: CT CHEST without contrast TECHNIQUE: Axial CT without contrast There is mild right lower lobe atelectasis, otherwise no pneumonia or edema. Trace bilateral effusions are new. There is no pericardial effusion. No adenopathy or mass lesion is present . IMPRESSION: Trace bilateral effusions, new since previous. Mild right lower lobe atelectasis without pneumonia or edema. This study was performed using automated techniques to achieve radiation exposure as low as reasonably achievable Reviewed, Interpreted and Dictated by Chalino Ernandez MD Transcribed by Miya Samson Authenticated and [facility]
[2024-08-16] MEDS: MEROPENEM 1 GM in 0.9 % SODIUM CHLORIDE 100 ML IV ×2 (10:55→22:10)
[2024-08-16 12:08] LABS: POC Glucose,Bedside 220 (70-110)
--- NOTE | 2024-08-16 15:53 | EXP.DC.SUM ---
General Admission date:: 08/15/24 HPI HPI HPI: This is a 72-year-old female who presented to [facility] with past medical history of stroke with functional quadriplegia, feeding tube dependence, chronic decubitus ulcer, diabetes who presents to the ER for concern for shortness of breath. Patient is nonverbal at baseline send review of systems unable to be obtained. There was concern for increased work of breathing at the skilled nursing as well as possible fever. Emergency department workup notable for pyuria and bacteria in urine. Chest imaging with haziness of the left hemithorax that could represent effusion versus pneumonia. Diffuse wheezing noted on exam. Requiring 2 L nasal cannula which is not typical for patient. Patient normally is on room air. Given her recurrent UTI and acute respiratory failure with hypoxia, she is admitted to the hospital service Hospital Course Hospital Course Hospital Course: #Acute cystitis #History of ESBL -Has been admitted multiple times in the past 4 months with urinary tract infections. Cultures have grown Pseudomonas and E. coli with ESBL. ? Sensitive to Bactrim on the previous admission. ? Discharged with Bactrim for 4 more days. Will notify SNF if there is resistance to this antibiotic. #Reactive airway disease #Acute respiratory failure with hypoxia Does not appear to have formal diagnosis of COPD but significant wheezing noted New oxygen requirement of 2 L. Patient does not wear oxygen at baseline. Left-sided hazy opacity pneumonia versus pleural effusion Will schedule Lasix, strict intake and output Continue broad-spectrum antibiotic coverage with Merrem and azithromycin Sputum culture if able Continue bronchodilators and corticosteroids Respiratory pathogen panel pending, initial COVID and flu negative #T2DM Continue long-acting and sliding scale insulin #Chronic pain Continue hydrocodone #History of CVA Continue Eliquis #PEG tube in situ Nutrition consult for PEG tube feedings All meds per PEG Exam Data for Last 24 hours Vital signs and Labs for Last 24 Hours: Temp Pulse Resp BP Pulse Ox O2 Del Method O2 Flow Rate 98.0 F 80 16 143/74 H 98 Nasal Cannula 2 08/16/24 12:00 08/16/24 12:56 08/16/24 12:00 08/16/24 12:00 08/16/24 12:00 08/16/24 14:43 08/16/24 14:43 Laboratory Results - last 24 hr 08/15/24 18:40: WBC 8.2, RBC 3.82 L, Hgb 11.0 L, Hct 33.3 L, MCV 87.2, MCH 28.8, MCHC 33.0, RDW 15.2, Plt Count 242, MPV 11.4 H, Neut % (Auto) 61.2, Lymph % (Auto) 18.3, [place] % (Auto) 15.3 H, Eos % (Auto) 4.3, Baso % (Auto) 0.5, Neut # (Auto) 5.0, Lymph # (Auto) 1.5, [place] # (Auto) 1.3 H, Eos # (Auto) 0.4, Baso # (Auto) 0.0, Sodium 137, Potassium 4.1, Chloride 101, Carbon Dioxide 26, Anion Gap 14.1, BUN 21 H, Creatinine 0.60, Estimated Creat Clear 53, Estimated GFR 98, Est GFR ( Amer) 118, Glucose 121 H, Calcium 9.3, Magnesium 1.8, Total Bilirubin 0.3, AST 39 H, ALT 35, Alkaline Phosphatase 52, Troponin I < 0.01, NT-Pro-B Natriuret Pep 316 H, Total Protein 7.3, Albumin 4.2, Globulin 3.1, Albumin/Globulin Ratio 1.4, Procalcitonin 0.055 08/15/24 20:08: Urine Color Yellow, Urine Appearance Clear, Urine pH 7.0, Ur Specific [place] 1.010, Urine Protein Negative, Urine Glucose (UA) Trace, Urine Ketones Negative, Urine Blood Negative, Urine Nitrate Negative, Urine Bilirubin Negative, Urine Urobilinogen 1.0, Ur Leukocyte Esterase Trace, Urine RBC 10-20, Urine WBC 5-10, Ur Squamous Epith Cells 5-10, Calcium Phosphate Cryst 1+, Urine Bacteria 1+, SARS-CoV-2 (PCR) Not detected, Influenza Type A (PCR) Not detected, Influenza Type B (PCR) Not detected, RSV (PCR) Not detected, Rhinovirus (PCR) Not detected 08/15/24 23:56: Troponin I < 0.01 08/16/24 03:05: Magnesium 4.6 H D, Troponin I < 0.01 08/16/24 03:14: Chlamy pneumoniae PCR Not detected, Adenovirus (PCR) Not detected, B. pertussis DNA (PCR) Not detected, Coronavirus OC43 (PCR) Not detected, Coronavirus HKU1 (PCR) Not detected, Coronavirus 229E (PCR) Not detected, SARS-CoV-2 (PCR) Not detected, Coronavirus NL63 (PCR) Not detected, Human Metapneumovir PCR Detected A, Influenza A (H1) PCR Not detected, Influ A (H1N1/09) PCR Not detected, Influenza A (H3) PCR Not detected, Influenza Type A (PCR) Not detected, Influenza Type B (PCR) Not detected, M. pneumoniae (PCR) Not detected, Parainfluenza 1 (PCR) Not detected, Parainfluenza 2 (PCR) Not detected, Parainfluenza 3 (PCR) Not detected, Parainfluenza 4 (PCR) Not detected, RSV (PCR) Not detected, Entero/Rhino (PCR) Not detected 08/16/24 05:22: POC Glucose 245 H 08/16/24 06:12: Sodium 136, Potassium 3.2 L D, Chloride 98, Carbon Dioxide 27, Anion Gap 14.2, BUN 21 H, Creatinine 0.70, Estimated Creat Clear 54, Estimated GFR 82, Est GFR ( Amer) 99, Glucose 242 H D, Calcium 8.9, Phosphorus 5.3 H, Total Bilirubin 0.2, AST 31, ALT 35, Alkaline Phosphatase 67, Total Protein 7.2, Albumin 4.1, Globulin 3.1, Albumin/Globulin Ratio 1.3, Procalcitonin 0.058 08/16/24 08:20: POC Glucose 224 H 08/16/24 11:48: POC Glucose 220 H I & O for Last 24 hours: Intake & Output 08/13/24 08/14/24 08/15/24 08/16/24 23:59 23:59 23:59 23:59 Intake Total 240 / 240 Output Total 2300 / 2300 Balance -2059 / -2059 Weight 69.49 kg 69.6 kg Results Data Completed and Pending Labs on day of discharge: Labs from last 24 hours 08/16/24 08/16/24 08/16/24 11:48 08:20 06:12 WBC RBC Hgb Hct MCV MCH MCHC RDW Plt Count MPV Neut % (Auto) Lymph % (Auto) [place] % (Auto) Eos % (Auto) Baso % (Auto) Neut # (Auto) Lymph # (Auto) [place] # (Auto) Eos # (Auto) Baso # (Auto) Sodium 136 Potassium 3.2 L D Chloride 98 Carbon Dioxide 27 Anion Gap 14.2 BUN 21 H Creatinine 0.70 Estimated Creat Clear 54 Estimated GFR 82 Est GFR ( Amer) 99 Glucose 242 H D POC Glucose 220 H 224 H Calcium 8.9 Phosphorus 5.3 H Magnesium Total Bilirubin 0.2 AST 31 ALT 35 Alkaline Phosphatase 67 Troponin I NT-Pro-B Natriuret Pep Total Protein 7.2 Albumin 4.1 Globulin 3.1 Albumin/Globulin Ratio 1.3 Procalcitonin 0.058 Urine Color Urine Appearance Urine pH Ur Specific [place] Urine Protein Urine Glucose (UA) Urine Ketones Urine Blood Urine Nitrate Urine Bilirubin Urine Urobilinogen Ur Leukocyte Esterase Urine RBC Urine WBC Ur Squamous Epith Cells Calcium Phosphate Cryst Urine Bacteria Chlamy pneumoniae PCR Adenovirus (PCR) B. pertussis DNA (PCR) Coronavirus OC43 (PCR) Coronavirus HKU1 (PCR) Coronavirus 229E (PCR) SARS-CoV-2 (PCR) Coronavirus NL63 (PCR) Human Metapneumovir PCR Influenza A (H1) PCR Influ A (H1N1/09) PCR Influenza A (H3) PCR Influenza Type A (PCR) Influenza Type B (PCR) M. pneumoniae (PCR) Parainfluenza 1 (PCR) Parainfluenza 2 (PCR) Parainfluenza 3 (PCR) Parainfluenza 4 (PCR) RSV (PCR) Rhinovirus (PCR) Entero/Rhino (PCR) 08/16/24 08/16/24 08/16/24 05:22 03:14 03:05 WBC RBC Hgb Hct MCV MCH MCHC RDW Plt Count MPV Neut % (Auto) Lymph % (Auto) [place] % (Auto) Eos % (Auto) Baso % (Auto) Neut # (Auto) Lymph # (Auto) [place] # (Auto) Eos # (Auto) Baso # (Auto) Sodium Potassium Chloride Carbon Dioxide Anion Gap BUN Creatinine Estimated Creat Clear Estimated GFR Est GFR ( Amer) Glucose POC Glucose 245 H Calcium Phosphorus Magnesium 4.6 H D Total Bilirubin AST ALT Alkaline Phosphatase Troponin I < 0.01 NT-Pro-B Natriuret Pep Total Protein Albumin Globulin Albumin/Globulin Ratio Procalcitonin Urine Color Urine Appearance Urine pH Ur Specific [place] Urine Protein Urine Glucose (UA) Urine Ketones Urine Blood Urine Nitrate Urine Bilirubin Urine Urobilinogen Ur Leukocyte Esterase Urine RBC Urine WBC Ur Squamous Epith Cells Calcium Phosphate Cryst Urine Bacteria Chlamy pneumoniae PCR Not detected Adenovirus (PCR) Not detected B. pertussis DNA (PCR) Not detected Coronavirus OC43 (PCR) Not detected Coronavirus HKU1 (PCR) Not detected Coronavirus 229E (PCR) Not detected SARS-CoV-2 (PCR) Not detected Coronavirus NL63 (PCR) Not detected Human Metapneumovir PCR Detected A Influenza A (H1) PCR Not detected Influ A (H1N1/09) PCR Not detected Influenza A (H3) PCR Not detected Influenza Type A (PCR) Not detected Influenza Type B (PCR) Not detected M. pneumoniae (PCR) Not detected Parainfluenza 1 (PCR) Not detected Parainfluenza 2 (PCR) Not detected Parainfluenza 3 (PCR) Not detected Parainfluenza 4 (PCR) Not detected RSV (PCR) Not detected Rhinovirus (PCR) Entero/Rhino (PCR) Not detected 08/15/24 08/15/24 08/15/24 23:56 20:08 18:40 WBC 8.2 RBC 3.82 L Hgb 11.0 L Hct 33.3 L MCV 87.2 MCH 28.8 MCHC 33.0 RDW 15.2 Plt Count 242 MPV 11.4 H Neut % (Auto) 61.2 Lymph % (Auto) 18.3 [place] % (Auto) 15.3 H Eos % (Auto) 4.3 Baso % (Auto) 0.5 Neut # (Auto) 5.0 Lymph # (Auto) 1.5 [place] # (Auto) 1.3 H Eos # (Auto) 0.4 Baso # (Auto) 0.0 Sodium 137 Potassium 4.1 Chloride 101 Carbon Dioxide 26 Anion Gap 14.1 BUN 21 H Creatinine 0.60 Estimated Creat Clear 53 Estimated GFR 98 Est GFR ( Amer) 118 Glucose 121 H POC Glucose Calcium 9.3 Phosphorus Magnesium 1.8 Total Bilirubin 0.3 AST 39 H ALT 35 Alkaline Phosphatase 52 Troponin I < 0.01 < 0.01 NT-Pro-B Natriuret Pep 316 H Total Protein 7.3 Albumin 4.2 Globulin 3.1 Albumin/Globulin Ratio 1.4 Procalcitonin 0.055 Urine Color Yellow Urine Appearance Clear Urine pH 7.0 Ur Specific [place] 1.010 Urine Protein Negative Urine Glucose (UA) Trace Urine Ketones Negative Urine Blood Negative Urine Nitrate Negative Urine Bilirubin Negative Urine Urobilinogen 1.0 Ur Leukocyte Esterase Trace Urine RBC 10-20 Urine WBC 5-10 Ur Squamous Epith Cells 5-10 Calcium Phosphate Cryst 1+ Urine Bacteria 1+ Chlamy pneumoniae PCR Adenovirus (PCR) B. pertussis DNA (PCR) Coronavirus OC43 (PCR) Coronavirus HKU1 (PCR) Coronavirus 229E (PCR) SARS-CoV-2 (PCR) Not detected Coronavirus NL63 (PCR) Human Metapneumovir PCR Influenza A (H1) PCR Influ A (H1N1/09) PCR Influenza A (H3) PCR Influenza Type A (PCR) Not detected Influenza Type B (PCR) Not detected M. pneumoniae (PCR) Parainfluenza 1 (PCR) Parainfluenza 2 (PCR) Parainfluenza 3 (PCR) Parainfluenza 4 (PCR) RSV (PCR) Not detected Rhinovirus (PCR) Not detected Entero/Rhino (PCR) DS: Diagnosis Discharge Diagnosis (1) Asthma exacerbation in COPD: Status: Acute Code(s): J44.1 - Chronic obstructive pulmonary disease with (acute) exacerbation (2) Acute exacerbation of CHF (congestive heart failure): Status: Acute Code(s): I50.9 - Heart failure, unspecified Qualifiers: Heart failure type: unspecified Qualified Code(s): I50.9 - Heart failure, unspecified (3) Acute on chronic hypoxic respiratory failure: Status: Acute Code(s): J96.21 - Acute and chronic respiratory failure with hypoxia (4) Functional quadriplegia: Status: Chronic Code(s): R53.2 - Functional quadriplegia (5) DM (diabetes mellitus): Status: Acute Code(s): E11.9 - Type 2 diabetes mellitus without complications Qualifiers: Diabetes mellitus type: type 2 Diabetes 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 insulin use: without termite exterminator helper use Diabetes mellitus complication status: without complication Qualified Code(s): E11.9 - Type 2 diabetes mellitus without complications (6) Acute cystitis: Status: Acute Code(s): N30.00 - Acute cystitis without hematuria Meds Home Medications and Allergies Home Medications ?Medication ?Instructions ?Recorded ?Confirmed ?Type apixaban 5 mg tablet 5 mg feeding tube BID 08/24/23 08/16/24 History hydralazine 50 mg tablet 50 mg feeding tube TID 08/24/23 08/16/24 History lisinopril 40 mg tablet 40 mg feeding tube DAILY 09/16/23 08/16/24 History ferrous sulfate 300 mg (60 mg 156 mg feeding tube DAILY 04/25/24 08/16/24 History iron)/5 mL oral liquid lactulose 10 gram/15 mL oral 30 ml feeding tube BID 04/25/24 08/16/24 History solution omeprazole 40 mg capsule,delayed 40 mg feeding tube DAILY 04/25/24 08/16/24 History release gabapentin 300 mg capsule 300 mg feeding tube TID 06/10/24 08/16/24 History hydrocodone 10 mg-acetaminophen 1 tab feeding tube QID 06/10/24 08/16/24 History 325 mg tablet metoprolol tartrate 50 mg tablet 50 mg feeding tube DAILY 06/10/24 08/16/24 History nitrofurantoin macrocrystal 100 mg 100 mg PO HS #30 caps 06/12/24 08/16/24 Rx capsule amlodipine 5 mg tablet 5 mg feeding tube DAILY 07/26/24 08/16/24 History carvedilol 25 mg tablet 25 mg feeding tube BID 07/26/24 08/16/24 History diltiazem HCl 60 mg tablet 60 mg feeding tube QID 07/26/24 08/16/24 History metformin 500 mg tablet 500 mg feeding tube DAILY 07/26/24 08/16/24 History insulin glargine 100 unit/mL (3 25 unit (0.25 mL) SQ HS 30 days 07/29/24 08/16/24 Rx mL) subcutaneous pen (Lantus #15 mL Solostar U-100 Insulin) albuterol sulfate 2.5 mg/3 mL 2.5 mg inhalation Q4-6H PRN 08/16/24 08/16/24 History (0.083 %) solution for nebulization Wheezing prednisone 20 mg tablet 40 mg (2 x 20 mg) PO DAILY 4 days 08/16/24 Rx #8 tabs sulfamethoxazole 800 1 tab PO BID 4 days #8 tabs 08/16/24 Rx mg-trimethoprim 160 mg tablet (Bactrim DS) tiotropium 2.5 mcg-olodaterol 2.5 2 puff inhalation DAILY #4 grams 08/16/24 Rx mcg/actuation mist for inhalation (Stiolto Respimat) New Prescriptions to Start Prescriptions: Gonzalo Martin sulfamethoxazole-trimethoprim [Bactrim DS] Gonzalo Sanchez tiotropium-olodaterol [Stiolto Respimat] Gonzalo Sanchez Allergies Allergy/AdvReac Type Severity Reaction Status Date / Time Sulfa (Sulfonamide AdvReac Unknown Verified 05/16/24 13:57 Antibiotics) allergy reaction Discharge Plan Disposition Patient Disposition: Xfer Short-Term Hosp Condition: Fair Discharge Order Discharge Orders: Discharge Order (Routine); Ordered 08/16/24 Ordered By: Gonzalo Sanchez Follow up Plan Prescriptions/Medication Reconciliation: New Stiolto Respimat 2.5-2.5 mcg/actuation mist 2 puff inhalation DAILY Qty: 4 0RF prednisone 20 mg tablet 40 mg PO DAILY 4 Days Qty: 8 0RF sulfamethoxazole-trimethoprim [Bactrim DS] 800-160 mg tablet 1 tab PO BID 4 Days Qty: 8 0RF Continued apixaban 5 mg tablet 5 mg feeding tube BID hydralazine 50 mg tablet 50 mg feeding tube TID lisinopril 40 mg tablet 40 mg feeding tube DAILY omeprazole 40 mg Capsule,Delayed Release(Dr/Ec) 40 mg feeding tube DAILY ferrous sulfate 300 mg (60 mg iron)/5 mL Liquid 156 mg feeding tube DAILY lactulose 10 gram/15 mL Solution 30 ml feeding tube BID metoprolol tartrate 50 mg Tablet 50 mg feeding tube DAILY Rx Instructions: HOLD IF HR LESS THAN 60 hydrocodone-acetaminophen 10-325 mg tablet 1 tab feeding tube QID gabapentin 300 mg capsule 300 mg feeding tube TID nitrofurantoin macrocrystal 100 mg capsule 100 mg PO HS Qty: 30 0RF Rx Instructions: Initiate for UTI prophylaxis. must administer with a meal/food amlodipine 5 mg tablet 5 mg feeding tube DAILY carvedilol 25 mg tablet 25 mg feeding tube BID diltiazem HCl 60 mg tablet 60 mg feeding tube QID metformin 500 mg tablet 500 mg feeding tube DAILY insulin glargine [Lantus Solostar U-100 Insulin] 100 unit/mL (3 mL) Insulin Pen 25 unit SQ HS 30 Days Qty: 15 0RF albuterol sulfate 2.5 mg /3 mL (0.083 %) solution for nebulization 2.5 mg inhalation Q4-6H PRN (Reason: Wheezing) Problem Reconciliation Problems Reviewed?: Yes Patient Discharge Instructions Patient Instructions: DI for Heart Failure, DI for Acute Cystitis, DI for Respiratory Failure Print Language: Egyptian Providers Primary Care Provider: Eligio Rowell Admit Provider: Jayce Martinez Attending Provider: Jayce Martinez
[2024-08-16 16:25] LABS: Albumin Level 3.9 g/dl (3.5-5.0); Chloride 99 mmol/L (98-107); Sodium 133 mmol/L (136-145)
[2024-08-16 16:26] LABS: Potassium 3.6 mmoL/L (3.5-5.1)
[2024-08-16 16:28] LABS: Alanine Aminotransferase 38 U/L (12-78); Albumin/Globulin Ratio 1.2 (1.1-1.8); Alkaline Phosphatase 57 U/L (38-126); Anion Gap 10.6 mEq/L (5-15); Aspartate Amino Transferase 46 U/L (14-36); Bilirubin,Total 0.3 mg/dl (0.2-1.3); Blood Urea Nitrogen 24 mg/dl (7-17); Carbon Dioxide 27 mmol/L (22.0-30.0); Creatinine Clearance Estimated 54 mL/min (50-200); Estimated Glomerular Filt Rate 98 ml/min (>60); GFR (African American) 118 ML/MIN (>60); Globulin 3.2 g/dL (1.3-3.2); Total Protein,Serum 7.1 g/dl (6.3-8.2)
[2024-08-16 16:29] LABS: Calcium 8.5 mg/dl (8.4-10.2); Glucose 201 mg/dl (74-100)
--- NOTE | 2024-08-16 16:43 | PC.NURSE ---
PATIENT 92-94% ON RA AT REST.
[2024-08-16 17:03] LABS: Magnesium 3.7 mg/dl (1.6-2.3)
[2024-08-16] MEDS: FUROSEMIDE 20 MG/2 ML VIAL IV (17:36)
--- NOTE | 2024-08-16 18:59 | ECG_ITS ---
APPROVED REPORT Exam: Resting ECG HR:81 bpm ECG Measurements Heart Rate 81 AXES GA 140 P 62 QRSd 98 QRS 68 QT 397 T 11 QTc 434 Conclusion SINUS RHYTHM NONSPECIFIC ST & T-WAVE ABNORMALITY BORDERLINE ECG UNCONFIRMED REPORT Electronically signed by : Yair Smith MD 08/18/2024 09:19:11
--- NOTE | 2024-08-16 19:17 | P.PN_ITS ---
Subjective *Date: 08/16/24 *Time: 19:17 Interval history: Pleasantly demented, does not appear to be distressed. Exam Data for Last 24 hours Vital signs and Labs for Last 24 Hours: Temp Pulse Resp BP Pulse Ox O2 Del Method O2 Flow Rate 98.0 F 81 17 150/70 H 95 Room Air 2 08/16/24 16:00 08/16/24 19:02 08/16/24 16:00 08/16/24 16:00 08/16/24 19:02 08/16/24 19:02 08/16/24 14:43 Laboratory Results - last 24 hr 08/15/24 18:40: WBC 8.2, RBC 3.82 L, Hgb 11.0 L, Hct 33.3 L, MCV 87.2, MCH 28.8, MCHC 33.0, RDW 15.2, Plt Count 242, MPV 11.4 H, Neut % (Auto) 61.2, Lymph % (Auto) 18.3, [place] % (Auto) 15.3 H, Eos % (Auto) 4.3, Baso % (Auto) 0.5, Neut # (Auto) 5.0, Lymph # (Auto) 1.5, [place] # (Auto) 1.3 H, Eos # (Auto) 0.4, Baso # (Auto) 0.0, Sodium 137, Potassium 4.1, Chloride 101, Carbon Dioxide 26, Anion Gap 14.1, BUN 21 H, Creatinine 0.60, Estimated Creat Clear 53, Estimated GFR 98, Est GFR ( Amer) 118, Glucose 121 H, Calcium 9.3, Magnesium 1.8, Total Bilirubin 0.3, AST 39 H, ALT 35, Alkaline Phosphatase 52, Troponin I < 0.01, NT-Pro-B Natriuret Pep 316 H, Total Protein 7.3, Albumin 4.2, Globulin 3.1, Albumin/Globulin Ratio 1.4, Procalcitonin 0.055 08/15/24 20:08: Urine Color Yellow, Urine Appearance Clear, Urine pH 7.0, Ur Specific [place] 1.010, Urine Protein Negative, Urine Glucose (UA) Trace, Urine Ketones Negative, Urine Blood Negative, Urine Nitrate Negative, Urine Bilirubin Negative, Urine Urobilinogen 1.0, Ur Leukocyte Esterase Trace, Urine RBC 10-20, Urine WBC 5-10, Ur Squamous Epith Cells 5-10, Calcium Phosphate Cryst 1+, Urine Bacteria 1+, SARS-CoV-2 (PCR) Not detected, Influenza Type A (PCR) Not detected, Influenza Type B (PCR) Not detected, RSV (PCR) Not detected, Rhinovirus (PCR) Not detected 08/15/24 23:56: Troponin I < 0.01 08/16/24 03:05: Magnesium 4.6 H D, Troponin I < 0.01 08/16/24 03:14: Chlamy pneumoniae PCR Not detected, Adenovirus (PCR) Not detected, B. pertussis DNA (PCR) Not detected, Coronavirus OC43 (PCR) Not detected, Coronavirus HKU1 (PCR) Not detected, Coronavirus 229E (PCR) Not detected, SARS-CoV-2 (PCR) Not detected, Coronavirus NL63 (PCR) Not detected, Human Metapneumovir PCR Detected A, Influenza A (H1) PCR Not detected, Influ A (H1N1/09) PCR Not detected, Influenza A (H3) PCR Not detected, Influenza Type A (PCR) Not detected, Influenza Type B (PCR) Not detected, M. pneumoniae (PCR) Not detected, Parainfluenza 1 (PCR) Not detected, Parainfluenza 2 (PCR) Not detected, Parainfluenza 3 (PCR) Not detected, Parainfluenza 4 (PCR) Not detected, RSV (PCR) Not detected, Entero/Rhino (PCR) Not detected 08/16/24 05:22: POC Glucose 245 H 08/16/24 06:12: Sodium 136, Potassium 3.2 L D, Chloride 98, Carbon Dioxide 27, Anion Gap 14.2, BUN 21 H, Creatinine 0.70, Estimated Creat Clear 54, Estimated GFR 82, Est GFR ( Amer) 99, Glucose 242 H D, Calcium 8.9, Phosphorus 5.3 H, Total Bilirubin 0.2, AST 31, ALT 35, Alkaline Phosphatase 67, Total Protein 7.2, Albumin 4.1, Globulin 3.1, Albumin/Globulin Ratio 1.3, Procalcitonin 0.058 08/16/24 08:20: POC Glucose 224 H 08/16/24 11:48: POC Glucose 220 H 08/16/24 16:08: Sodium 133 L, Potassium 3.6, Chloride 99, Carbon Dioxide 27, Anion Gap 10.6, BUN 24 H, Creatinine 0.60, Estimated Creat Clear 54, Estimated GFR 98, Est GFR ( Amer) 118, Glucose 201 H, Calcium 8.5, Magnesium 3.7 H D, Total Bilirubin 0.3, AST 46 H D, ALT 38, Alkaline Phosphatase 57, Total Protein 7.1, Albumin 3.9, Globulin 3.2, Albumin/Globulin Ratio 1.2 I & O for Last 24 hours: Intake & Output 08/13/24 08/14/24 08/15/24 08/16/24 23:59 23:59 23:59 23:59 Intake Total 240 / 240 Output Total 2300 / 2300 Balance -2059 / -2059 Weight 69.49 kg 69.6 kg Microbiology Reports for the Last 24 Hours: Microbiology 08/15/24 18:47 Blood Blood Culture - Preliminary NO GROWTH AFTER 24 HOURS 08/15/24 18:40 Blood Blood Culture - Preliminary NO GROWTH AFTER 24 HOURS Constitutional Constitutional: no acute distress, chronically ill appearing and cooperative Comments: alert awake, not following commands, at patient baseline; making eye contact *Routine HEENT Exam Head: Present normocephalic Eye: Present EOMI and PERRL ENT: Present mucous membranes moist *Routine Neck Exam Neck: Present supple; Absent lymphadenopathy *Routine Respiratory Exam Respiratory: Present CTA bilaterally; Absent rhonchi, wheezes or crackles *Routine Cardiovascular Exam Cardiovascular: Present RRR *Routine Abdominal Exam Abdominal: Present soft and normoactive bowel sounds; Absent tenderness Comments: G-tube in place *Routine Rectal Exam Patient deferred: visual exam *Routine Exam Patient deferred: external exam Comments: Rodriguez in place *Routine Extremities Exam Extremities: Absent cyanosis, clubbing or edema Comments: Contracture, loss of muscle mass *Routine Skin Exam Skin: Present intact and warm; Absent rash *Routine Neurological Exam Neurological: Present alert Comments: she has weakness from previous strokes, at baseline mentation. Functional quadriplegia Assessment and Plan *Assessment and plan (1) Asthma exacerbation in COPD: Status: Acute Category: Medical Code(s): J44.1 - Chronic obstructive pulmonary disease with (acute) exacerbation (2) Acute exacerbation of CHF (congestive heart failure): Status: Acute Qualifiers: Heart failure type: unspecified Qualified Code(s): I50.9 - Heart failure, unspecified Category: Medical Code(s): I50.9 - Heart failure, unspecified (3) Acute on chronic hypoxic respiratory failure: Status: Acute Category: Medical Code(s): J96.21 - Acute and chronic respiratory failure with hypoxia (4) Functional quadriplegia: Status: Chronic Category: Medical Code(s): R53.2 - Functional quadriplegia (5) DM (diabetes mellitus): Status: Acute Qualifiers: Diabetes mellitus type: type 2 Diabetes 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 #Acute respiratory failure with hypoxia #Reactive airway disease #Possible aspiration pneumonitis Does not appear to have formal diagnosis of COPD but significant wheezing noted New oxygen requirement of 2 L. Patient does not wear oxygen at baseline. Left-sided hazy opacity pneumonia versus pleural effusion ? CT chest revealed trace bilateral effusions, right lower lobe atelectasis without pneumonia or edema. ? Clinically improved with DuoNeb breathing treatments, Lasix, steroids. ? Patient is PEG tube feeds dependent, putting her at a higher risk for aspiration pneumonitis. Will speak to nutrition tomorrow about PEG tube feeds. Elevate bed at all times. #Acute cystitis History of ESBL -Has been admitted multiple times in the past 4 months with urinary tract infections. Cultures have grown Pseudomonas and E. coli with ESBL. Will continue meropenem 1 g every 12 hours based on kidney function and severity of illness and previous sensitivities -Urine culture and blood culture still pending #T2DM Continue long-acting and sliding scale insulin #Chronic pain Continue hydrocodone #History of CVA Continue Eliquis #PEG tube in situ Nutrition consult for PEG tube feedings All meds per PEG
[2024-08-16 20:01] LABS: POC Glucose,Bedside 207 (70-110)
[2024-08-16] MEDS: PRO-STAT AWC 30ML LIQUID PACKET 30 ML PO (20:58)
[2024-08-16] MEDS: AZITHROMYCIN 500 MG in 0.9 % SODIUM CHLORIDE 250 ML 250 MG IV (21:05)
[2024-08-16 21:21] LABS: POC Glucose,Bedside 181 (70-110)
[2024-08-17] VITALS (9 sets, daily range): BP systolic 138–177; BP diastolic 50–95; PULSE 82–107; RESP 16–18; TEMP 36.8–37.1; O2SAT 96–100; BMI 23.9
--- NOTE | 2024-08-17 01:00 | PC.NURSE ---
Patient had not voided since beginning of shift, bladder scanner showed 541ml in bladder. RN received order from ALEX Anderson to in and out cath and send a UA.
[2024-08-17 02:26] LABS: Microscopic, Urine URINE MICROSCOPIC (MICROSCOPIC)
[2024-08-17 02:27] LABS: Appearance,Urine CLEAR (Clear); Bilirubin,Urine Negative (Negative); Blood, Urine Negative (Negative); Color,Urine YELLOW (Yellow); Glucose,Urine (UA) TRACE (Negative); Ketones,Urine Negative (Negative); Leukocyte Esterase,Urine Negative (Negative); Nitrate,Urine Negative (Negative); Protein,Urine Negative (Negative); Specific Gravity, Urine 1.025 (1.005-1.030); Urobilinogen,Urine 0.2 EU/dl (0.2)
[2024-08-17 02:45] LABS: Amorphous Sediment,Urine 2+ /lpf; Bacteria,Urine Trace /lpf; Squamous Epithelial Cell,Urine Occasional #/hpf (0-5)
--- NOTE | 2024-08-17 05:00 | PC.NURSE ---
Bladder scanner at 0500 showed 75ml. Purewick and brief in place.
[2024-08-17] MEDS: humaLOG 100 UNITS/ML 10ML VIAL (SSI) SUBCUT ×2 (05:26→11:54)
[2024-08-17] MEDS: IPRATROPIUM/ALBUTEROL 3 ML NEB IH ×3 (06:26→18:35)
[2024-08-17 07:10] LABS: Basophils % 0.4 % (0.1-2.0); Eosinophils % 0.1 % (0.1-12.0); Hematocrit 29.7 % (37.0-47.0); Hemoglobin 9.8 g/dL (12.2-16.2); Lymphocytes # 1.4 K/mm3 (0.7-4.5); Lymphocytes % 17.3 % (10-50); Mean Corpuscular Hemoglobin 28.9 pg (27.0-31.2); Mean Corpuscular Volume 87.6 fl (81-99); Mean Platelet Volume 10.8 fl (7.4-10.4); Monocytes % 11.9 % (1.7-9.3); Neutrophils # 5.5 K/mm3 (1.8-7.8); Neutrophils % 69.3 % (37.0-80.0); Platelet Count 230 K/mm3 (142-424); Red Blood Count 3.39 M/mm3 (4.20-5.40); Red Cell Distribution Width 14.9 % (11.5-17.5)
[2024-08-17 07:24] LABS: Alanine Aminotransferase 51 U/L (12-78); Albumin/Globulin Ratio 1.3 (1.1-1.8); Alkaline Phosphatase 57 U/L (38-126); Anion Gap 11.3 mEq/L (5-15); Aspartate Amino Transferase 47 U/L (14-36); Bilirubin,Total 0.3 mg/dl (0.2-1.3); Blood Urea Nitrogen 26 mg/dl (7-17); Calcium 8.9 mg/dl (8.4-10.2); Carbon Dioxide 31 mmol/L (22.0-30.0); Chloride 100 mmol/L (98-107); Creatinine Clearance Estimated 51 mL/min (50-200); Estimated Glomerular Filt Rate 98 ml/min (>60); GFR (African American) 118 ML/MIN (>60); Glucose 152 mg/dl (74-100); Magnesium 2.6 mg/dl (1.6-2.3); Potassium 3.3 mmoL/L (3.5-5.1); Sodium 139 mmol/L (136-145)
[2024-08-17] MEDS: APIXABAN 5MG TABLET 5 MG G-TUBE ×2 (09:48→21:28)
[2024-08-17] MEDS: PRO-STAT AWC 30ML LIQUID PACKET 30 ML PO ×2 (09:48→21:28)
[2024-08-17] MEDS: dilTIAZem 60MG TABLET 60 MG G-TUBE ×4 (09:48→21:28)
[2024-08-17] MEDS: POTASSIUM CHLORIDE 20MEQ/15ML UDC 60 MEQ G-TUBE (09:49)
[2024-08-17] MEDS: FUROSEMIDE 40MG/4ML VIAL 40 MG IV (09:49)
[2024-08-17] MEDS: INSULIN GLARGINE 100 UNITS/ML 3ML FLEXPEN 25 UNIT SUBCUT (10:00)
[2024-08-17 10:09] LABS: POC Glucose,Bedside 184 (70-110)
[2024-08-17] MEDS: MEROPENEM 1 GM in 0.9 % SODIUM CHLORIDE 100 ML IV ×2 (10:48→21:29)
--- NOTE | 2024-08-17 12:24 | PC.NURSE ---
bladder scan revealed [address] kaplan made aware.
[2024-08-17] MEDS: APAP/HYDROCODONE 325MG/7.5MG TAB 1 TAB G-TUBE (13:33)
--- NOTE | 2024-08-17 14:31 | EXP.DC.SUM ---
General Admission date:: 08/15/24 HPI HPI HPI: This is a 72-year-old female who presented to [facility] with past medical history of stroke with functional quadriplegia, feeding tube dependence, chronic decubitus ulcer, diabetes who presents to the ER for concern for shortness of breath. Patient is nonverbal at baseline send review of systems unable to be obtained. There was concern for increased work of breathing at the [facility] as well as possible fever. Emergency department workup notable for pyuria and bacteria in urine. Chest imaging with haziness of the left hemithorax that could represent effusion versus pneumonia. Diffuse wheezing noted on exam. Requiring 2 L nasal cannula which is not typical for patient. Patient normally is on room air. Given her recurrent UTI and acute respiratory failure with hypoxia, she is admitted to the hospital service Hospital Course Hospital Course Hospital Course: Melyssa Sarkar is a 73-year-old female who was admitted for acute hypoxic respiratory failure. #Reactive airway disease #Acute respiratory failure with hypoxia Does not appear to have formal diagnosis of COPD but significant wheezing noted Initially required 2 L nasal cannula, weaned to room air with appropriate saturations. ? Improved with DuoNeb breathing treatments. ? Will discharge with Trelegy 100. #Acute cystitis #History of ESBL - Has been admitted multiple times in the past 4 months with urinary tract infections. Cultures have grown Pseudomonas and E. coli with ESBL. ? Sensitive to Bactrim on the previous admission. ? Discharged with Bactrim for 4 more days. Will notify SNF if there is resistance to this antibiotic based on urine culture. G-tube dependent: Continue tube feeds with Glucerna. Nutrition consulted for assistance. Free water flushes to replace free water deficit. Tolerating tube feeds at goal Diabetes: Continue Lantus 25 units nightly. Chronic pain: Continue hydrocodone 4 times a day scheduled. Will hold gabapentin given patient's altered mental status and abnormal kidney function Bedbound and dependent on staff for all ADLs. Functional quadriplegic. Complicates all aspects of her care Continue pantoprazole as formulary conversion for omeprazole 40 mg daily Continue Eliquis 5 mg twice daily Tube feed, Pro-Stat AWC given her decubitus wound Total time spent on discharge 32 minutes in counseling, documentation, chart review, and direct care with patient. Exam Data for Last 24 hours Vital signs and Labs for Last 24 Hours: Temp Pulse Resp BP Pulse Ox O2 Del Method O2 Flow Rate 98.3 F 105 H 18 163/86 H 99 Room Air 2 08/17/24 11:26 08/17/24 11:50 08/17/24 11:26 08/17/24 11:26 08/17/24 11:50 08/17/24 11:50 08/16/24 19:00 Laboratory Results - last 24 hr 08/16/24 16:08: Sodium 133 L, Potassium 3.6, Chloride 99, Carbon Dioxide 27, Anion Gap 10.6, BUN 24 H, Creatinine 0.60, Estimated Creat Clear 54, Estimated GFR 98, Est GFR ( Amer) 118, Glucose 201 H, Calcium 8.5, Magnesium 3.7 H D, Total Bilirubin 0.3, AST 46 H D, ALT 38, Alkaline Phosphatase 57, Total Protein 7.1, Albumin 3.9, Globulin 3.2, Albumin/Globulin Ratio 1.2 08/16/24 16:50: POC Glucose 207 H 08/16/24 21:06: POC Glucose 181 H 08/17/24 01:13: Urine Color Yellow, Urine Appearance Clear, Urine pH 6.0, Ur Specific Shushan 1.025, Urine Protein Negative, Urine Glucose (UA) Trace, Urine Ketones Negative, Urine Blood Negative, Urine Nitrate Negative, Urine Bilirubin Negative, Urine Urobilinogen 0.2, Ur Leukocyte Esterase Negative, Urine WBC 3-5, Ur Squamous Epith Cells Occasional, Amorphous Sediment 2+, Urine Bacteria Trace 08/17/24 06:10: WBC 8.0, RBC 3.39 L, Hgb 9.8 L, Hct 29.7 L, MCV 87.6, MCH 28.9, MCHC 33.0, RDW 14.9, Plt Count 230, MPV 10.8 H, Neut % (Auto) 69.3, Lymph % (Auto) 17.3, [place] % (Auto) 11.9 H, Eos % (Auto) 0.1, Baso % (Auto) 0.4, Neut # (Auto) 5.5, Lymph # (Auto) 1.4, [place] # (Auto) 1.0, Eos # (Auto) 0.0, Baso # (Auto) 0.0, Sodium 139, Potassium 3.3 L, Chloride 100, Carbon Dioxide 31 H, Anion Gap 11.3, BUN 26 H, Creatinine 0.60, Estimated Creat Clear 51, Estimated GFR 98, Est GFR ( Amer) 118, Glucose 152 H D, Calcium 8.9, Magnesium 2.6 H D, Total Bilirubin 0.3, AST 47 H, ALT 51 D, Alkaline Phosphatase 57, Total Protein 7.0, Albumin 4.0, Globulin 3.0, Albumin/Globulin Ratio 1.3 08/17/24 09:59: POC Glucose 184 H I & O for Last 24 hours: Intake & Output 08/14/24 08/15/24 08/16/24 08/17/24 23:59 23:59 23:59 23:59 Intake Total 240 / 1350 1696 / 1696 Output Total 2300 / 2300 1175 / 1175 Balance -2060 / -950 521 / 521 Weight 69.49 kg 69.6 kg 65.091 kg Microbiology Reports for the Last 24 Hours: Microbiology 08/15/24 18:40 Blood Blood Culture - Preliminary 08/15/24 18:47 Blood Blood Culture - Preliminary NO GROWTH AFTER 24 HOURS Results Data Completed and Pending Labs on day of discharge: Labs from last 24 hours 08/17/24 08/17/24 08/17/24 09:59 06:10 01:13 WBC 8.0 RBC 3.39 L Hgb 9.8 L Hct 29.7 L MCV 87.6 MCH 28.9 MCHC 33.0 RDW 14.9 Plt Count 230 MPV 10.8 H Neut % (Auto) 69.3 Lymph % (Auto) 17.3 [place] % (Auto) 11.9 H Eos % (Auto) 0.1 Baso % (Auto) 0.4 Neut # (Auto) 5.5 Lymph # (Auto) 1.4 [place] # (Auto) 1.0 Eos # (Auto) 0.0 Baso # (Auto) 0.0 Sodium 139 Potassium 3.3 L Chloride 100 Carbon Dioxide 31 H Anion Gap 11.3 BUN 26 H Creatinine 0.60 Estimated Creat Clear 51 Estimated GFR 98 Est GFR ( Amer) 118 Glucose 152 H D POC Glucose 184 H Calcium 8.9 Magnesium 2.6 H D Total Bilirubin 0.3 AST 47 H ALT 51 D Alkaline Phosphatase 57 Total Protein 7.0 Albumin 4.0 Globulin 3.0 Albumin/Globulin Ratio 1.3 Urine Color Yellow Urine Appearance Clear Urine pH 6.0 Ur Specific Shushan 1.025 Urine Protein Negative Urine Glucose (UA) Trace Urine Ketones Negative Urine Blood Negative Urine Nitrate Negative Urine Bilirubin Negative Urine Urobilinogen 0.2 Ur Leukocyte Esterase Negative Urine WBC 3-5 Ur Squamous Epith Cells Occasional Amorphous Sediment 2+ Urine Bacteria Trace 08/16/24 08/16/24 08/16/24 21:06 16:50 16:08 WBC RBC Hgb Hct MCV MCH MCHC RDW Plt Count MPV Neut % (Auto) Lymph % (Auto) [place] % (Auto) Eos % (Auto) Baso % (Auto) Neut # (Auto) Lymph # (Auto) [place] # (Auto) Eos # (Auto) Baso # (Auto) Sodium 133 L Potassium 3.6 Chloride 99 Carbon Dioxide 27 Anion Gap 10.6 BUN 24 H Creatinine 0.60 Estimated Creat Clear 54 Estimated GFR 98 Est GFR ( Amer) 118 Glucose 201 H POC Glucose 181 H 207 H Calcium 8.5 Magnesium 3.7 H D Total Bilirubin 0.3 AST 46 H D ALT 38 Alkaline Phosphatase 57 Total Protein 7.1 Albumin 3.9 Globulin 3.2 Albumin/Globulin Ratio 1.2 Urine Color Urine Appearance Urine pH Ur Specific Shushan Urine Protein Urine Glucose (UA) Urine Ketones Urine Blood Urine Nitrate Urine Bilirubin Urine Urobilinogen Ur Leukocyte Esterase Urine WBC Ur Squamous Epith Cells Amorphous Sediment Urine Bacteria Preliminary micro results at discharge 08/15/24 18:40 Blood Culture - Preliminary Blood 08/15/24 18:47 Blood Culture - Preliminary Blood NO GROWTH AFTER 24 HOURS DS: Diagnosis Discharge Diagnosis (1) Asthma exacerbation in COPD: Status: Acute Code(s): J44.1 - Chronic obstructive pulmonary disease with (acute) exacerbation (2) Acute exacerbation of CHF (congestive heart failure): Status: Acute Code(s): I50.9 - Heart failure, unspecified Qualifiers: Heart failure type: unspecified Qualified Code(s): I50.9 - Heart failure, unspecified (3) Acute on chronic hypoxic respiratory failure: Status: Acute Code(s): J96.21 - Acute and chronic respiratory failure with hypoxia (4) Functional quadriplegia: Status: Chronic Code(s): R53.2 - Functional quadriplegia (5) DM (diabetes mellitus): Status: Acute Code(s): E11.9 - Type 2 diabetes mellitus without complications Qualifiers: Diabetes mellitus complication status: without complication Diabetes 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 insulin use: without termite exterminator helper use Diabetes mellitus type: type 2 Qualified Code(s): E11.9 - Type 2 diabetes mellitus without complications (6) Acute cystitis: Status: Acute Code(s): N30.00 - Acute cystitis without hematuria Meds Home Medications and Allergies Home Medications ?Medication ?Instructions ?Recorded ?Confirmed ?Type apixaban 5 mg tablet 5 mg feeding tube BID 08/24/23 08/16/24 History hydralazine 50 mg tablet 50 mg feeding tube TID 08/24/23 08/16/24 History lisinopril 40 mg tablet 40 mg feeding tube DAILY 09/16/23 08/16/24 History ferrous sulfate 300 mg (60 mg 156 mg feeding tube DAILY 04/25/24 08/16/24 History iron)/5 mL oral liquid lactulose 10 gram/15 mL oral 30 ml feeding tube BID 04/25/24 08/16/24 History solution omeprazole 40 mg capsule,delayed 40 mg feeding tube DAILY 04/25/24 08/16/24 History release gabapentin 300 mg capsule 300 mg feeding tube TID 06/10/24 08/16/24 History hydrocodone 10 mg-acetaminophen 1 tab feeding tube QID 06/10/24 08/16/24 History 325 mg tablet nitrofurantoin macrocrystal 100 mg 100 mg PO HS #30 caps 06/12/24 08/16/24 Rx capsule amlodipine 5 mg tablet 5 mg feeding tube DAILY 07/26/24 08/16/24 History carvedilol 25 mg tablet 25 mg feeding tube BID 07/26/24 08/16/24 History diltiazem HCl 60 mg tablet 60 mg feeding tube QID 07/26/24 08/16/24 History metformin 500 mg tablet 500 mg feeding tube DAILY 07/26/24 08/16/24 History insulin glargine 100 unit/mL (3 25 unit (0.25 mL) SQ HS 30 days 07/29/24 08/16/24 Rx mL) subcutaneous pen (Lantus #15 mL Solostar U-100 Insulin) albuterol sulfate 2.5 mg/3 mL 2.5 mg inhalation Q4-6H PRN 08/16/24 08/16/24 History (0.083 %) solution for nebulization Wheezing prednisone 20 mg tablet 40 mg (2 x 20 mg) PO DAILY 4 days 08/16/24 Rx #8 tabs sulfamethoxazole 800 1 tab PO BID 4 days #8 tabs 08/16/24 Rx mg-trimethoprim 160 mg tablet (Bactrim DS) fluticasone fur. 100 mcg-umeclid 1 inh inhalation DAILY #60 ea 08/17/24 Rx 62.5 mcg-vilant 25 mcg inhalat.powder (Trelegy Ellipta) New Prescriptions to Start Prescriptions: [id number] [Trelegy Ellipta] Gonzalo Sanchez prednisone Daniel,Gonzalo sulfamethoxazole-trimethoprim [Bactrim DS] Gonzalo Sanchez Allergies Allergy/AdvReac Type Severity Reaction Status Date / Time Sulfa (Sulfonamide AdvReac Unknown Verified 05/16/24 13:57 Antibiotics) allergy reaction Discharge Plan Disposition Patient Disposition: [facility] Condition: Fair Discharge Order Discharge Orders: Discharge Order (Routine); Ordered 08/17/24 Ordered By: Gonzalo Sanchez Follow up Plan Prescriptions/Medication Reconciliation: New prednisone 20 mg tablet 40 mg PO DAILY 4 Days Qty: 8 0RF sulfamethoxazole-trimethoprim [Bactrim DS] 800-160 mg tablet 1 tab PO BID 4 Days Qty: 8 0RF Trelegy Ellipta 100-62.5-25 mcg blister with device 1 inh inhalation DAILY Qty: 60 0RF Continued apixaban 5 mg tablet 5 mg feeding tube BID hydralazine 50 mg tablet 50 mg feeding tube TID lisinopril 40 mg tablet 40 mg feeding tube DAILY omeprazole 40 mg Capsule,Delayed Release(Dr/Ec) 40 mg feeding tube DAILY ferrous sulfate 300 mg (60 mg iron)/5 mL Liquid 156 mg feeding tube DAILY lactulose 10 gram/15 mL Solution 30 ml feeding tube BID hydrocodone-acetaminophen 10-325 mg tablet 1 tab feeding tube QID gabapentin 300 mg capsule 300 mg feeding tube TID nitrofurantoin macrocrystal 100 mg capsule 100 mg PO HS Qty: 30 0RF Rx Instructions: Initiate for UTI prophylaxis. must administer with a meal/food amlodipine 5 mg tablet 5 mg feeding tube DAILY carvedilol 25 mg tablet 25 mg feeding tube BID diltiazem HCl 60 mg tablet 60 mg feeding tube QID metformin 500 mg tablet 500 mg feeding tube DAILY insulin glargine [Lantus Solostar U-100 Insulin] 100 unit/mL (3 mL) Insulin Pen 25 unit SQ HS 30 Days Qty: 15 0RF albuterol sulfate 2.5 mg /3 mL (0.083 %) solution for nebulization 2.5 mg inhalation Q4-6H PRN (Reason: Wheezing) Discontinued metoprolol tartrate 50 mg Tablet 50 mg feeding tube DAILY Rx Instructions: HOLD IF HR LESS THAN 60 Problem Reconciliation Problems Reviewed?: Yes Patient Discharge Instructions Patient Instructions: DI for Heart Failure, DI for Acute Cystitis, DI for Respiratory Failure Print Language: Amharic Providers Primary Care Provider: Eligio Rowell Admit Provider: Jayce Martinez Attending Provider: Jayce Martinez
[2024-08-17 18:58] LABS: POC Glucose,Bedside 185 (70-110)
[2024-08-17 18:58] LABS: POC Glucose,Bedside 111 (70-110)
[2024-08-17 20:12] LABS: POC Glucose,Bedside 110 (70-110)
[2024-08-17] MEDS: AZITHROMYCIN 500 MG in 0.9 % SODIUM CHLORIDE 250 ML 250 MG IV (21:29)
== END 2024-08-17 22:18 ==
LOC: ER 20:53 → 2ND 21:02
PROVIDERS: Nurse Practitioner Acute Care; Physician Assistant; Student in an Organized Health Care Education/Training Program; Admitting Provider Internal Medicine Adolescent Medicine; Emergency Provider Emergency Medicine; PCP Family Medicine; Visit Provider Internal Medicine Adolescent Medicine
DX: J96.01 Acute respiratory failure with hypoxia (principal); I50.9 Heart failure, unspecified; N39.0 Urinary tract infection, site not specified; B96.5 Pseudomonas (aeruginosa) (mallei) (pseudomallei) as the cause of diseases classified elsewhere; B96.20 Unspecified Escherichia coli [E. coli] as the cause of diseases classified elsewhere; J45.909 Unspecified asthma, uncomplicated; L89.154 Pressure ulcer of sacral region, stage 4; E11.9 Type 2 diabetes mellitus without complications; E83.41 Hypermagnesemia; G82.50 Quadriplegia, unspecified; I69.365 Other paralytic syndrome following cerebral infarction, bilateral; G89.29 Other chronic pain; Z93.1 Gastrostomy status; Z16.29 Resistance to other single specified antibiotic; Z79.899 Other long term (current) drug therapy; Z79.84 Long term (current) use of oral hypoglycemic drugs; Z79.01 Long term (current) use of anticoagulants; Z79.4 Long term (current) use of insulin; Z79.51 Long term (current) use of inhaled steroids
CPT/HCPCS: 36415; 71045; 71250; 80053; 81001; 82962; 83735; 83880; 84100; 84145; 84484; 85025; 87040; 87086; 87631; 87633; 93005; 94640; 99291; G0378; J0131; J0456; J1940; J2185; J2405; J2919; J7050; J7620